=== PATIENT | female | born 2000 | race Caucasian/White ===

== ENCOUNTER 2021-05-01 21:57 | Emergency (ER) | payer OTHER, SELFPAY ==
[2021-05-01 22:04] VITALS: BP 146/83; PULSE 90; RESP 18; TEMP 36.6; O2SAT 99
[2021-05-01 22:18] LABS: Add Urine Microscopic? YES; Appearance Urine Cloudy (Clear); Bilirubin Urine Negative (Negative); Blood Urine Negative (Negative); Color Urine Yellow (Yellow); Glucose Urine UA Negative (Negative); Ketones Urine Negative (Negative); Leukocyte Esterase Ur 1+ LEU/UL (Negative); Mucus Urine Few /lpf; Nitrate Urine Negative (Negative); Protein Urine Negative (Negative); Specific Grav Ur 1.024 (1.001-1.035); Squamous Epithelial Cell Urine Many /hpf (Few); Urobilinogen Urine Negative mg/dL (<2.0); WBC Urine 16-20 /hpf
--- NOTE | 2021-05-01 22:26 | ED.ABDPAIN ---
HPI - Abdominal Pain General Chief Complaint: Abdominal Pain Stated Complaint: N/V, abd pain Time Seen by Provider: 05/01/21 22:26 Source: patient Mode of arrival: ambulatory Limitations: no limitations History of Present Illness HPI narrative: Patient is a 20-year-old female complaining of nausea vomiting, diarrhea accompanied by upper abdominal pain that started night after eating dinner. Patient describes her vomitus as nonbilious nonbloody. Diarrhea is described as loose watery. Patient states that her upper abdominal pain is a 3 out of 10, burning, non-radiating. Related Data Home Medications Medication Instructions Recorded Confirmed albuterol sulfate INHALATION 05/01/21 budesonide-formoterol [Symbicort] INHALATION 05/01/21 drospirenone-ethinyl estradiol tablet 05/01/21 [Vestura (28)] metformin mg PO 05/01/21 spironolactone 05/01/21 Allergies Allergy/AdvReac Type Severity Reaction Status Date / Time hydrocodone Allergy Intermediate itching Verified 05/01/21 22:18 adhesive Allergy Unknown ITCHING Verified 05/01/21 22:18 latex Allergy Hives Verified 05/01/21 22:18 Review of Systems Review of Systems: All systems reviewed & are unremarkable except as noted in HPI and below Constitutional: Constitutional: Denies body ache(s), Denies chills, Denies excessive sweating, Denies fatigue, Denies fever(s), Denies headache(s), Denies lethargy, Denies malaise, Denies weakness and Denies weight loss Eyes: Eyes: Denies blurry vision, Denies change in vision and Denies loss of vision ENT: Denies dizziness, Denies ear discharge, Denies headache(s), Denies lip swelling, Denies epistaxis, Denies nasal congestion, Denies neck pain, Denies throat swelling and Denies tongue swelling Cardiovascular: Cardiovascular: Denies chest pain, Denies chest pain at rest, Denies chest pain with activity, Denies diaphoresis, Denies rapid heart rate, Denies edema, Denies irregular heart rhythm, Denies lightheadedness, Denies palpitations, Denies dyspnea and Denies dyspnea on exertion Respiratory: Respiratory: Denies chest congestion, Denies cough, Denies hemoptysis, Denies dyspnea and Denies dyspnea on exertion Gastrointestinal: Gastrointestinal: Denies melena, Denies hematochezia, Denies diarrhea and Denies hematemesis Musculoskeletal: Musculoskeletal: Denies abnormal gait, Denies deformity, Denies joint swelling, Denies limited range of motion, Denies neck pain and Denies numbness Neurologic: Denies Abnormal speech present, Denies abnormal gait, Denies confusion, Denies dizziness, Denies headache(s), Denies focal weakness, Denies loss of vision, Denies numbness, Denies Other visual disturbances, Denies Sensory deficit (Neuro) and Denies weakness Psychiatric: Psychiatric: Denies confusion, Denies depression, Denies auditory hallucinations, Denies homicidal ideation and Denies suicidal ideation Endocrine: Endocrine: Denies cold intolerance, Denies excessive sweating, Denies fatigue, Denies heat intolerance and Denies palpitations Hematologic/Lymphatic: Hematologic/Lymphatic: Denies easy bleeding and Denies easy bruising Allergic/Immunologic: Allergic/Immunologic: Denies lip swelling, Denies throat swelling and Denies tongue swelling PMFSH Comments Past medical history: Asthma Family history: Diabetes Social history: Non-smoker no EtOH or drug use Exam Const: General: cooperative, healthy appearing, comfortable, no acute distress, well developed, alert and awake; No confusion Nutritional Appearance: obese Orientation/consciousness: oriented to person, oriented to place, oriented to time, patient oriented x3 and No confusion Limitations: no limitations HENMT: Head: normal to inspection, normocephalic and atraumatic Ears: hearing grossly normal bilaterally, TM normal on the right and TM normal on the left General nose exam: Normal external nose present, Normal nares present and No nasal discharge present Face and sinus: normal facial
[2021-05-01 22:27] LABS: Basophils Percent Auto 0.4 % (0.2-1.2); Eosinophils Absolute Auto 0.2 K/mm3 (0-0.3); Eosinophils Percent Auto 1.8 % (0-4.4); Hematocrit 41.6 % (37.0-47.0); Hemoglobin 13.7 g/dL (12.0-15.0); Immature Granulocyte Absolute 0.02 K/mm3 (0.00-0.031); Immature Granulocyte Percent A 0.2 % (0-0.5); Lymphocytes Absolute Auto 2.75 K/mm3 (0.9-3.2); Lymphocytes Percent Auto 29.2 % (18.3-44.2); Mean Corpuscular HGB Conc 32.9 g/dl (32-36); Mean Corpuscular Hemoglobin 28.7 pg (26-34); Mean Platelet Volume 10.3 fl (7.4-10.4); Monocytes Absolute Auto 0.7 K/mm3 (0.1-0.6); Monocytes Percent Auto 7.9 % (2.6-8.5); Neutrophils Absolute Auto 5.7 K/mm3 (1.3-6.7); Neutrophils Percent Auto 60.5 % (45.5-73.1); Platelet Count Result 268 k/mm3 (150-375); Red Blood Count 4.78 M/mm3 (4.2-5.4); Red Cell Distribution Width 14.1 % (11.5-14.5); White Blood Count 9.4 K/mm3 (4.5-10.0)
[2021-05-01] MEDS: ONDANSETRON INJ 4 MG/2 ML VIAL IV PUSH (22:36)
[2021-05-01] MEDS: SODIUM CHLORIDE 0.9% IV 1,000 ML 999 ML IV CONT (22:36)
[2021-05-01 22:40] LABS: Alanine Aminotransferase 24 U/L (4-35); Albumin Level 4.5 g/dL (3.5-5.1); Alkaline Phosphatase 68 U/L (38-126); Anion Gap 9 mmol/L (8-16); Aspartate Amino Transferase 21 U/L (14-36); Bilirubin,Total 0.5 mg/dL (0.2-1.3); Blood Urea Nitrogen 10 mg/dL (7-17); Calcium 9.3 mg/dL (8.4-10.2); Carbon Dioxide 25 mmol/L (22-30); Chloride 106 mmol/L (98-107); Estimated CRCL calculation 148 ml/min; Estimated Glomerular Filt Rate > 60; Glucose 112 mg/dL (65-110); Lipase 219 U/L (23-300); Sodium 140 mmol/L (137-145)
[2021-05-01 23:08] VITALS: BP 133/82; PULSE 69; RESP 18; O2SAT 100
== END 2021-05-01 23:33 | disposition home or self-care (01) ==
LOC: ANHED 22:52
PROVIDERS: Emergency Provider Emergency Medicine; PCP Family Medicine
DX: A05.9 Bacterial foodborne intoxication, unspecified (principal); J45.909 Unspecified asthma, uncomplicated; Z79.84 Long term (current) use of oral hypoglycemic drugs
CPT/HCPCS: 36415; 80053; 81001; 81025; 83690; 85025; 87086; 96361; 96374; 99284; J2405; J7030

== ENCOUNTER 2022-02-15 09:11 | Emergency (ER) | payer OTHER, SELFPAY ==
--- NOTE | ~2022-02-15 | XR_ITS ---
EXAMINATION: XR finger 2nd RT min 2V DATE: 02/15/2022 09:50 INDICATION: Right hand second digit laceration. TECHNIQUE: 3 views of right hand second digit were obtained. COMPARISON: None. FINDINGS: Bone alignment is normal. No fracture. Joint spaces are well maintained. IMPRESSION: 1. No fracture or radiopaque foreign body. Reviewed, dictated and finalized at location A.
[2022-02-15 09:19] VITALS: BP 164/90; PULSE 88; RESP 14; TEMP 36.6; O2SAT 100
--- NOTE | 2022-02-15 09:39 | ED.WOUNDLAC ---
HPI - Wound/Laceration General Chief Complaint: Wound/Laceration <Ivone Garcia PA-C - Last Filed: 02/15/22 17:53> Stated Complaint: finger laceration <YANI Chavez Last Filed: 02/15/22 17:53> Time Seen by Provider: 02/15/22 09:19 <Ivone Garcia PA-C - Last Filed: 02/15/22 17:53> History of Present Illness HPI narrative: Patient is a 21-year-old female here for evaluation of a laceration sustained to her right second digit about 20 minutes prior to arrival. Patient states that she opened up a new pizza cutter while she was at work, and she accidentally sliced it on her finger. She states that the bleeding was uncontrolled so she decided to come to the ED. Bleeding controlled upon arrival. Denies any numbness or tingling in her finger. She is forage of motion in her hand without pain. She is unsure of her last tetanus shot. She is right-handed. <Ivone Garcia PA-C - Last Filed: 02/15/22 17:53> Related Data Home Medications: Home Medications Medication Instructions Recorded Confirmed albuterol sulfate 90 mcg/actuation inhalation 05/01/21 aerosol inhaler budesonide-formoterol HFA 160 inhalation 05/01/21 mcg-4.5 mcg/actuation aerosol inhaler (Symbicort) drospirenone 3 mg-ethinyl tablet 05/01/21 estradiol 0.02 mg tablet (Vestura (28)) metformin 500 mg tablet,extended mg PO 05/01/21 release 24 hr spironolactone 50 mg tablet 05/01/21 <YANI Chavez Last Filed: 02/15/22 17:53> Allergies/Adverse Reactions: Allergies Allergy/AdvReac Type Severity Reaction Status Date / Time hydrocodone Allergy Intermediate itching Verified 05/01/21 22:18 adhesive Allergy Unknown ITCHING Verified 05/01/21 22:18 latex Allergy Hives Verified 05/01/21 22:18 <YANI Chavez Last Filed: 02/15/22 17:53> Review of Systems Review of Systems: Gen.: Denies fevers or chills Eyes: Denies eye pain or visual change ENT: Denies congestion Respiratory: Denies shortness of breath or cough CV: Denies chest pain or palpitations GI: Denies abdominal pain nausea, emesis or diarrhea denies burning, urgency, frequency or hematuria Musculoskeletal: Denies back pain or muscle pain Neuro: Denies numbness, tingling, weakness or focal weakness Skin: Reports laceration to right finger. Except as documented, all other systems reviewed and negative <Ivone Garcia PA-C - Last Filed: 02/15/22 17:53> Exam Narrative: Gen: Alert, oriented, no acute distress Eyes: EOMI, no icterus Pulm: Respirations even and unlabored, symmetric thorax expansion, no audible stridor or visible cyanosis CV: Brisk capillary refill. GI: No distension, no voluntary/involuntary guarding Neuro: AOx4, moves all extremities without apparent difficulty or weakness, follows commands MSK: Full range of motion in fingers and hand. Skin: Patient has a 0.5 cm linear skin-flap laceration to the palmar aspect of her right second digit just proximal to the DIP with no active bleeding. Psych: Normal mood/affect, insight/judgement good, adequate fund of knowledge, recent/remote memory intact <Ivone Garcia PA-C - Last Filed: 02/15/22 17:53> Course DIRECTOR OF PRIMARY CARE/PA Physician Supervision For this patient encounter, I reviewed the DIRECTOR OF PRIMARY CARE or PA documentation, treatment plan, and medical decision making <Philippe Bey MD - Last Filed: 02/15/22 19:19> Vital Signs Vital signs: Vital Signs Temperature 97.8 F 02/15/22 09:19 Pulse Rate 88 02/15/22 09:19 Respiratory Rate 14 02/15/22 09:19 Blood Pressure 164/90 H 02/15/22 09:19 Pulse Oximetry 100 02/15/22 09:19 Oxygen Delivery Room Air 02/15/22 09:19 Temperature 97.8 F 02/15/22 09:19 Pulse Rate 86 02/15/22 10:29 Respiratory Rate 18 02/15/22 10:29 Blood Pressure 158/94 H 02/15/22 10:29 Pulse Oximetry 98 02/15/22 10:29 Oxygen Delivery Room Air 02/15/22 09:19
[2022-02-15] MEDS: TETANUS,DIPHTHERIA,AC PERTUSSIS ADULT (0.5 ML) BOOSTRIX IM (10:02)
[2022-02-15 10:29] VITALS: BP 158/94; PULSE 86; RESP 18; O2SAT 98
== END 2022-02-15 10:30 | disposition home or self-care (01) ==
PROVIDERS: Emergency Provider Emergency Medicine; PCP Family Medicine
DX: S61.211A Laceration without foreign body of left index finger without damage to nail, initial encounter (principal); W27.4XXA Contact with kitchen utensil, initial encounter; Z23 Encounter for immunization
CPT/HCPCS: 73140; 90471; 90715; 99283

== ENCOUNTER 2022-02-21 13:30 | Emergency (ER) | payer OTHER, SELFPAY ==
[2022-02-21 13:44] VITALS: BP 151/85; PULSE 100; RESP 18; TEMP 36.9; O2SAT 100
[2022-02-21 14:16] LABS: Add Urine Microscopic? NO; Appearance Urine Clear (Clear); Bilirubin Urine Negative (Negative); Blood Urine Negative (Negative); Color Urine Straw (Yellow); Glucose Urine UA Negative (Negative); Ketones Urine Negative (Negative); Leukocyte Esterase Ur Negative LEU/UL (Negative); Nitrate Urine Negative (Negative); Protein Urine Negative (Negative); Urobilinogen Urine Negative mg/dL (<2.0)
[2022-02-21 14:28] LABS: Specific Grav Ur 1.004 (1.001-1.035)
--- NOTE | 2022-02-21 14:45 | ED.FEMALEGU ---
HPI - Female Genitourinary General Chief complaint: Urogenital-Female Stated complaint: UTI? Time Seen by Provider: 02/21/22 13:49 History of Present Illness HPI Narrative: 21-year-old female presents the emergency room with gradual onset of dysuria. Patient states that symptoms been present for 2 days. Denies urgency or frequency. No known concerns of STDs. Reports chronic low back pain and history of IBS. Denies vaginal discharge Related Data Home Medications Medication Instructions Recorded Confirmed albuterol sulfate 90 mcg/actuation inhalation 05/01/21 aerosol inhaler budesonide-formoterol HFA 160 inhalation 05/01/21 mcg-4.5 mcg/actuation aerosol inhaler (Symbicort) drospirenone 3 mg-ethinyl tablet 05/01/21 estradiol 0.02 mg tablet (Vestura (28)) metformin 500 mg tablet,extended mg PO 05/01/21 release 24 hr spironolactone 50 mg tablet 05/01/21 Allergies Allergy/AdvReac Type Severity Reaction Status Date / Time hydrocodone Allergy Intermediate itching Verified 02/21/22 13:44 adhesive Allergy Unknown ITCHING Verified 02/21/22 13:44 latex Allergy Hives Verified 02/21/22 13:44 Review of Systems Review of Systems: CONSTITUTIONAL: Denies fever, chills, or sweats. EYES: Denies visual changes, redness, or discharge. ENT: Denies rhinorrhea, congestion, sore throat, or otalgia. CARDIOVASCULAR: Denies chest pain, palpitations, or edema. RESPIRATORY: Denies cough or dyspnea. GASTROINTESTINAL: Denies abdominal pain, nausea, vomiting, or diarrhea. GENITOURINARY: Reports dysuria SKIN: Denies rash or itching. MUSCULOSKELETAL: Denies back pain, joint pain, or myalgia. NEUROLOGIC: Denies headache, numbness, dizziness, or weakness. PSYCHIATRIC: Denies anxiety or depression. Exam Narrative: GENERAL: Well-appearing, well-nourished, no physical limitations, and in no acute distress. HEAD: Normocephalic, atraumatic. EYES: Conjunctivae normal, PERRLA and EOMI. CHEST: Clear to auscultation. No respiratory distress. No wheezes rales or rhonchi. No tenderness. HEART: Regular rate and rhythm. No murmur heard. Normal peripheral pulses. ABDOMEN: Soft, nontender, nondistended, normal active bowel sounds. BACK: No CVA tenderness EXTREMITIES: Normal range of motion. No edema. No clubbing or cyanosis SKIN: Warm, dry, no rash. No noted wounds NEURO: No focal deficits. Alert and oriented x3. MAEW. CN's II-XI intact bilaterally, normal gait PSYCH: Cooperative. Normal mood and affect. Course Vital Signs Vital signs: Vital Signs Temperature 36.9 C 02/21/22 13:44 Pulse Rate 100 02/21/22 13:44 Respiratory Rate 18 02/21/22 13:44 Blood Pressure 151/85 H 02/21/22 13:44 Pulse Oximetry 100 02/21/22 13:44 Temperature 36.9 C 02/21/22 13:44 Pulse Rate 100 02/21/22 13:44 Respiratory Rate 18 02/21/22 13:44 Blood Pressure 151/85 H 02/21/22 13:44 Pulse Oximetry 100 02/21/22 13:44 MDM - Female Genitourinary Lab Data Labs: Lab Results 02/21/22 Range/Units 13:55 Urine Color Straw (Yellow) Urine Appearance Clear (Clear) Urine pH 6.0 (5.0-9.0) Ur Specific [place] 1.004 (1.001-1.035) Urine Protein Negative (Negative) mg/dL Urine Glucose (UA) Negative (Negative) mg/dL Urine Ketones Negative (Negative) mg/dL Ur Blood (Man) Negative (Negative) Urine Nitrate Negative (Negative) Urine Bilirubin Negative (Negative) Urine Urobilinogen Negative (<2.0) mg/dL Leukocyte Esterase Rfl Negative (Negative) JOSSELINE/UL UCG Bedside Result Negative Reference Range: Negative Urine Characteristics Cloudy Discharge Plan Discharge Clinical Impression: Dysuria Patient Disposition: Home, Self-Care Condition: Stable Instructions: Antibiotic Form, Dysuria (ED) Prescriptions: No Action albuterol sulfate 90 mcg/actuati
== END 2022-02-21 14:57 | disposition home or self-care (01) ==
PROVIDERS: Emergency Medicine; Emergency Provider Nurse Practitioner Family; PCP Family Medicine
DX: R30.0 Dysuria (principal); Z79.51 Long term (current) use of inhaled steroids; Z79.84 Long term (current) use of oral hypoglycemic drugs
CPT/HCPCS: 81003; 81025; 99283

== ENCOUNTER 2022-06-13 08:26 | Emergency (ER) | payer OTHER, SELFPAY ==
--- NOTE | ~2022-06-13 | XR_ITS ---
EXAMINATION: XR hand RT min 3V DATE: 06/13/2022 08:51 INDICATION: Right hand pain in region of the second metacarpal TECHNIQUE: Posteroanterior, oblique and lateral views of the right hand were obtained. COMPARISON: None. FINDINGS: Alignment is normal. No fracture. Joint spaces are normal. Soft tissue swelling dorsal to the heads o f the second and third metacarpals. IMPRESSION: 1. No osseous abnormality. Reviewed, dictated and finalized at location A. R PUMPER IMPRESSION: 1. No osseous abnormality.
[2022-06-13 08:31] VITALS: BP 137/105; PULSE 103; RESP 14; TEMP 36.4; O2SAT 100
[2022-06-13] MEDS: ACETAMINOPHEN 500 MG TABLET 1000 MG PO (08:43)
--- NOTE | 2022-06-13 08:44 | ED.GENADULT ---
HPI - General Adult General Chief complaint: Extremity Injury, Upper Stated complaint: R HAND/WRIST PAIN Time Seen by Provider: 06/13/22 08:36 History of Present Illness HPI narrative: this is a 19-year-old female presenting ED with a right hand injury. Patient was at her place of work when a case of energy drinks fell off the top shelf and pushed her hand backwards into the shelf behind her. She said that she did not think much of it but when she worked today her wrist was hurting even worse. Her pain is primarily located over the 2nd metacarpal the base of her finger. She denies numbness tingling or weakness. Related Data Home Medications Medication Instructions Recorded Confirmed albuterol sulfate 90 mcg/actuation inhalation 05/01/21 aerosol inhaler budesonide-formoterol HFA 160 inhalation 05/01/21 mcg-4.5 mcg/actuation aerosol inhaler (Symbicort) drospirenone 3 mg-ethinyl tablet 05/01/21 estradiol 0.02 mg tablet (Vestura (28)) metformin 500 mg tablet,extended mg PO 05/01/21 release 24 hr spironolactone 50 mg tablet 05/01/21 Allergies Allergy/AdvReac Type Severity Reaction Status Date / Time hydrocodone Allergy Intermediate itching Verified 06/13/22 08:51 adhesive Allergy Unknown ITCHING Verified 06/13/22 08:51 latex Allergy Hives Verified 06/13/22 08:51 Review of Systems Review of Systems: CONSTITUTIONAL: Denies night sweats. EYES: No eye pain ENT: Denies rhinorrhea CARDIOVASCULAR: Denies palpitations RESPIRATORY: Denies hemoptysis GASTROINTESTINAL: Denies hematemesis GENITOURINARY: Denies hematuria. SKIN: Denies rash MUSCULOSKELETAL: Denies myalgia. NEUROLOGIC: Denies weakness. PSYCHIATRIC: Denies delusions PMFSH Past Medical History Medical History Anemia Endometriosis Social History Social History Social History: Denies use of alcohol tobacco or drugs. Exam Narrative: APPEARANCE: No apparent distress. Head: atraumatic. EYES: EOMI, NOSE: Atraumatic NECK: Trachea midline RESPIRATORY: No increased rate of breathing CARDIOVASCULAR: RRR, ABDOMINAL: Non-distended MUSCULOSKELETAl: Focal exam of the right extremity revealed mild bruising over the base of the 2nd finger on the dorsal aspect of the hand. No anatomic snuffbox tenderness. Motor function of radial ulnar and median nerves intact. Extension and flexion intact of all digits. Cap refills less than 2 seconds. Note pain or tenderness to the elbow or forearm. NEURO: Alert. Moving 4/4 extremities SKIN:: Warm, dry. Normal color PSYCHIATRIC: Normal affect Course Vital Signs Vital signs: Vital Signs Temperature 97.5 F L 06/13/22 08:31 Pulse Rate 103 H 06/13/22 08:31 Respiratory Rate 14 06/13/22 08:31 Blood Pressure 137/105 H 06/13/22 08:31 Pulse Oximetry 100 06/13/22 08:31 Oxygen Delivery Room Air 06/13/22 08:31 Temperature 97.5 F L 06/13/22 08:31 Pulse Rate 103 H 06/13/22 08:31 Respiratory Rate 14 06/13/22 08:31 Blood Pressure 137/105 H 06/13/22 08:31 Pulse Oximetry 100 06/13/22 08:31 Oxygen Delivery Room Air 06/13/22 08:31 Medical Decision Making MDM Narrative Medical decision making narrative: A 21-year-old female presenting with right hand pain. X-rays were ordered which were negative for fracture. Patient will be instructed to follow-up with her primary care physician. She can take Motrin and Tylenol for pain control. Vital Signs Vital Signs: Vital Signs Temperature 97.5 F L 06/13/22 08:31 Pulse Rate 103 H 06/13/22 08:31 Respiratory Rate 14 06/13/22 08:31 Blood Pressure 137/105 H 06/13/22 08:31 Pulse Oximetry 100 06/13/22 08:31 Oxygen Delivery Room Air 06/13/22 08:31 Temperature 97.5 F L 06/13/22 08:31 Pulse Rate 103 H 06/13/22 08:31 Respiratory Rate 14 06/13/22 08:31 Blood Pressure 137/105 H 06/13/22 0
[2022-06-13] MEDS: IBUPROFEN 400 MG TABLET 800 MG PO (08:50)
[2022-06-13 09:19] VITALS: BP 139/89; PULSE 94; RESP 15; O2SAT 99
== END 2022-06-13 09:20 | disposition home or self-care (01) ==
PROVIDERS: Emergency Provider Emergency Medicine; PCP Family Medicine
DX: S69.91XA Unspecified injury of right wrist, hand and finger(s), initial encounter (principal); Z86.2 Personal history of diseases of the blood and blood-forming organs and certain disorders involving the immune mechanism; N80.9 Endometriosis, unspecified; W20.8XXA Other cause of strike by thrown, projected or falling object, initial encounter; Z79.84 Long term (current) use of oral hypoglycemic drugs
CPT/HCPCS: 73130; 99283; A9270

== ENCOUNTER 2022-07-15 08:42 | Day surgery (SDC) | payer OTHER, SELFPAY ==
[2022-07-15] VITALS (16 sets, daily range): BP systolic 120–151; BP diastolic 71–105; PULSE 69–98; RESP 14–24; TEMP 36.4–36.7; O2SAT 93–100
--- NOTE | ~2022-07-15 | CT_ITS ---
EXAMINATION:CT diagnostic chest w con DATE: 07/15/2022 09:58 INDICATION: Chest wall abscess. TECHNIQUE: Computed tomography (CT) of the chest was performed with 75 mL Omnipaque 350 intravenous c ontrast. Automated exposure control and iterative reconstruction technique were employed. The dose-le ngth product (DLP) was 861.45 mGy-cm. COMPARISON: None. FINDINGS: There is no pneumonia or pleural effusion. The heart size is normal. No pericardial effusio n. In the anterior chest wall at the midline, there is a 1.7 x 0.7 cm subcutaneous rim-enhancing mass with adjacent fat stranding. The bones are unremarkable. IMPRESSION: 1. 1.7 x 0.7 cm subcutaneous mass and fat stranding in anterior chest wall at the midline, consistent with cellulitis and abscess/phlegmon. It is not clear if this finding would be drainable. Reviewed, dictated and finalized at location A. ATIONS PROCESSOR IMPRESSION: 1. 1.7 x 0.7 cm subcutaneous mass and fat stranding in anterior chest wall at t he midline, consistent with cellulitis and abscess/phlegmon. It is not clear if this finding would be drainable.
[2022-07-15 09:30] LABS: Basophils Absolute Auto 0.1 K/mm3 (0.0-0.1); Basophils Percent Auto 0.5 % (0.2-1.2); Eosinophils Absolute Auto 0.1 K/mm3 (0-0.3); Hematocrit 43.4 % (37.0-47.0); Hemoglobin 13.8 g/dL (12.0-15.0); Immature Granulocyte Absolute 0.03 K/mm3 (0.00-0.031); Immature Granulocyte Percent A 0.3 % (0-0.5); Lymphocytes Absolute Auto 2.32 K/mm3 (0.9-3.2); Lymphocytes Percent Auto 21.6 % (18.3-44.2); Mean Corpuscular HGB Conc 31.8 g/dl (32-36); Mean Corpuscular Hemoglobin 27.8 pg (26-34); Mean Corpuscular Volume 87.5 fl (80-100); Mean Platelet Volume 10.3 fl (7.4-10.4); Monocytes Absolute Auto 0.9 K/mm3 (0.1-0.6); Monocytes Percent Auto 8.2 % (2.6-8.5); Neutrophils Absolute Auto 7.4 K/mm3 (1.3-6.7); Neutrophils Percent Auto 68.4 % (45.5-73.1); Platelet Count Result 298 k/mm3 (150-375); Red Blood Count 4.96 M/mm3 (4.2-5.4); Red Cell Distribution Width 13.9 % (11.5-14.5); White Blood Count 10.8 K/mm3 (4.5-10.0)
[2022-07-15 09:40] LABS: Alanine Aminotransferase 27 U/L (6-35); Albumin Level 4.1 g/dL (3.5-5.1); Alkaline Phosphatase 74 U/L (38-126); Anion Gap 5 mmol/L (8-16); Aspartate Amino Transferase 24 U/L (14-36); Bilirubin,Total 0.5 mg/dL (0.2-1.3); Blood Urea Nitrogen 13 mg/dL (7-17); Calcium 8.4 mg/dL (8.4-10.2); Carbon Dioxide 30 mmol/L (22-30); Chloride 104 mmol/L (98-107); Estimated CRCL calculation 181 ml/min; Estimated Glomerular Filt Rate > 60; Glucose 95 mg/dL (65-110); Sodium 139 mmol/L (137-145)
[2022-07-15] MEDS: ACETAMINOPHEN 500 MG TABLET 1000 MG PO (11:16)
--- NOTE | 2022-07-15 11:39 | ED.SKABFB ---
HPI - Skin/Abscess/Foreign Bdy General Chief complaint: Skin/Abscess/Foreign Body Stated complaint: mass on sternum Time Seen by Provider: 07/15/22 08:45 History of Present Illness HPI narrative: Patient is a 22-year-old female who presents ER with concern for abscess to her chest wall. Developing over the last week. Very tender to touch. Has history of a fatty mass that was having necrosis that was surgically excised 2 years ago. She has never had abscess related to it. Denies fevers or chills or sweats. Pain is worse with direct palpation and movement. Only improved by sitting still. Related Data Home Medications Medication Instructions Recorded Confirmed albuterol sulfate 90 mcg/actuation inhalation 05/01/21 aerosol inhaler budesonide-formoterol HFA 160 inhalation 05/01/21 mcg-4.5 mcg/actuation aerosol inhaler (Symbicort) drospirenone 3 mg-ethinyl tablet 05/01/21 estradiol 0.02 mg tablet (Vestura (28)) metformin 500 mg tablet,extended mg PO 05/01/21 release 24 hr spironolactone 50 mg tablet 05/01/21 Allergies Allergy/AdvReac Type Severity Reaction Status Date / Time hydrocodone Allergy Intermediate itching Verified 07/15/22 08:54 adhesive Allergy Unknown ITCHING Verified 07/15/22 08:54 latex Allergy Hives Verified 07/15/22 08:54 Review of Systems Review of Systems: All systems reviewed & are unremarkable except as noted in HPI and below Constitutional: Constitutional: Denies chills and Denies fever(s) ENT: Denies nasal congestion and Denies sore throat Cardiovascular: Cardiovascular: Denies chest pain, Denies rapid heart rate and Denies radiating jaw, neck or arm pain Respiratory: Respiratory: Denies cough and Denies dyspnea Integumentary/Breasts: Skin/Breast: Denies erythema and Denies rash Comments: induration and pain to chest wall PMFSH Past Medical History Medical History (Updated 07/15/22 @ 11:45 by Elvin Mesa MD) Anemia Endometriosis Surgical History Surgical History (Updated 07/15/22 @ 11:45 by Elvin Mesa MD) Hx of excision of mass Social History Social History Social History: Denies use of alcohol tobacco or drugs. Exam Narrative: GENERAL: Well-appearing, obese, and in no acute distress. HEAD: Normocephalic, atraumatic. ENT: Mucous membranes moist. CHEST: Clear to auscultation. No respiratory distress. HEART: Regular rate and rhythm. Normal peripheral pulses. ABDOMEN: Soft, nontender, nondistended. EXTREMITIES: Normal range of motion. No edema. SKIN: Warm, dry, no rash. Tenderness and induration of the anterior chest wall over the sternum extending into the medial portion of the right breast. No erythema or drainage. NEURO: Alert and oriented x3. PSYCH: Normal mood and affect. Course Course Emergency Course: General surgery to bedside. Plan is to take patient to the OR for abscess drainage. Vital Signs Vital signs: Vital Signs Temperature 97.6 F 07/15/22 08:48 Pulse Rate 90 07/15/22 08:48 Respiratory Rate 18 07/15/22 08:48 Blood Pressure 146/78 H 07/15/22 08:48 Pulse Oximetry 99 07/15/22 08:48 Oxygen Delivery Room Air 07/15/22 08:48 Temperature 98 F 07/15/22 10:52 Pulse Rate 80 07/15/22 10:52 Respiratory Rate 15 07/15/22 10:52 Blood Pressure 124/78 07/15/22 10:52 Pulse Oximetry 98 07/15/22 10:52 Oxygen Delivery Room Air 07/15/22 08:48 MDM - Skin/Abscess/Foreign Bdy Lab Data 07/15/22 09:24 07/15/22 09:24 Labs: Lab Results 07/15/22 07/15/22 Range/Units 09:24 09:24 WBC 10.8 H (4.5-10.0) K/mm3 RBC 4.96 (4.2-5.4) M/mm3 Hgb 13.8 (12.0-15.0) g/dL Hct 43.4 (37.0-47.0) % MCV 87.5 (80-100) fl MCH 27.8 (26-34) pg MCHC 31.8 L (32-36) g/dl RDW 13.9 (11.5-14.5) % Plt Count 298 (150-375) k/mm3 MPV 10.3 (7.4-10.4) fl Immature Gran % (Auto) 0.3 (
--- NOTE | 2022-07-15 12:15 | PM.IMHP ---
H&P: HPI History of Present Illness Date/Time: 07/15/22 12:15 Chief Complaint: abscess Narrative: The pt is a 22 y/o F presenting c worsening abscess on sternum, R breast over last wk. Pt reports area has enlarged and is very tender. Pt reports subjective f/c at home. Pt reports she had similar episode about a yr ago, drained and excised at OSH. Review of Systems Constitutional: Constitutional: Reports as per HPI, Denies anorexia, Reports chills, Reports fatigue, Reports fever(s), Reports lethargy, Denies malaise, Denies poor appetite, Reports weakness, Denies weight gain and Denies weight loss Eyes: Eyes: Reports no additional eye complaints ENT: Reports system reviewed and no additional complaints, except as documented Cardiovascular: Cardiovascular: Reports no additional cardiovascular complaints Respiratory: Respiratory: Reports no additional respiratory complaints Gastrointestinal: Gastrointestinal: Reports no additional gastrointestinal complaints Genitourinary: Genitourinary: Reports no additional female genitourinary complaints Musculoskeletal: Musculoskeletal: Reports no additional musculoskeletal complaints Integumentary/Breasts: Skin/Breast: Reports as per HPI Neurologic: Reports system reviewed and no additional complaints, except as documented Psychiatric: Psychiatric: Reports no additional psychiatric complaints Endocrine: Endocrine: Reports no additional endocrine complaints Hematologic/Lymphatic: Hematologic/Lymphatic: Reports no additional hematologic/lymphatic complaints Allergic/Immunologic: Allergic/Immunologic: Reports no additional allergic/immunologic complaints PMFSH Past Medical History Medical History (Updated 07/15/22 @ 11:45 by Elvin Mesa MD) Anemia Endometriosis Surgical History Surgical History (Updated 07/15/22 @ 11:45 by Elvin Mesa MD) Hx of excision of mass Social History Social History Social History: Denies use of alcohol tobacco or drugs. Meds Home Medications and Allergies Home Medications Medication Instructions Recorded Confirmed Type albuterol sulfate 90 mcg/actuation inhalation 05/01/21 History aerosol inhaler budesonide-formoterol HFA 160 inhalation 05/01/21 History mcg-4.5 mcg/actuation aerosol inhaler (Symbicort) drospirenone 3 mg-ethinyl tablet 05/01/21 History estradiol 0.02 mg tablet (Vestura (28)) metformin 500 mg tablet,extended mg PO 05/01/21 History release 24 hr ondansetron HCl 4 mg tablet 4 mg PO Q8H PRN nausea and 05/01/21 Rx (Zofran) vomiting #10 tabs spironolactone 50 mg tablet 05/01/21 History Allergies Allergy/AdvReac Type Severity Reaction Status Date / Time hydrocodone Allergy Intermediate itching Verified 07/15/22 08:54 adhesive Allergy Unknown ITCHING Verified 07/15/22 08:54 latex Allergy Hives Verified 07/15/22 08:54 Vital Signs Vital Signs - 24 hr 07/15/22 08:48 07/15/22 10:52 Temperature 36.4 C 36.6 C Pulse Rate 90 80 Respiratory Rate 18 15 Blood Pressure 146/78 H 124/78 Pulse Oximetry 99 98 Oxygen Delivery Room Air Exam Const: General: cooperative, acute distress mild and uncomfortable Nutritional Appearance: obese Orientation/consciousness: patient oriented x3 HENMT: Head: normal to inspection, normocephalic and atraumatic Eyes: General: appearance normal, both eyes and all related structures Neck: Neck: normal visual inspection, full ROM and no lymphadenopathy Chest: Other: sternal abscess c well healed incision, extends into lateral R breast, indurated, fluctuant, very TTP, measuring approximately 5x4 cm, mild surrounding cellulitis Resp: Auscultation: clear to auscultation bilaterally Cardio: Rate: regular rate Rhythm: regular rhythm GI: Inspection: normal to inspection and non-distended GI Palp: No abdominal tenderness, Yes Soft to palpation, No Tenderness to palpation
--- NOTE | 2022-07-15 12:21 | WPDHPUPDATE1 ---
History and Physical Update Update Date/Time: 07/15/22 12:21 History and Physical has been reviewed, including an updated exam of the patient. There are NO changes in the patient's condition. Risks, benefits, and alternatives have been discussed and questions answered. Patient agrees to proceed with procedure.
[2022-07-15] MEDS: LACTATED RINGERS 1,000 ML 30 ML IV CONT ×2 (13:00→15:15)
--- NOTE | 2022-07-15 13:23 | WPDANESEPPF ---
Anes - Initial Pre Proc Eval Procedure: Operation Date: 07/15/22 14:30 Proposed Procedures p Complex Incision And Drainage Right Breast Abscess - Aixa Peres MD Date/Time: 07/15/22 13:23 Surgeon: Blas Garvin ([place]), Pre Op Diagnosis: mass on sternum Patient Data Age: 22 Gender: F Height: 1.73 m Weight: 136 kg Last Vital Signs Temp 36.6 C 07/15/22 10:52 Pulse 69 07/15/22 12:51 Resp 18 07/15/22 12:51 BP 124/78 07/15/22 12:51 Pulse Ox 98 07/15/22 12:51 O2 Del Method Room Air 07/15/22 08:48 Allergies Allergy/AdvReac Type Severity Reaction Status Date / Time hydrocodone Allergy Intermediate itching Verified 07/15/22 08:54 adhesive Allergy Unknown ITCHING Verified 07/15/22 08:54 latex Allergy Hives Verified 07/15/22 08:54 Home Medications Medication Instructions Recorded Confirmed Type albuterol sulfate 90 mcg/actuation inhalation 05/01/21 History aerosol inhaler budesonide-formoterol HFA 160 inhalation 05/01/21 History mcg-4.5 mcg/actuation aerosol inhaler (Symbicort) drospirenone 3 mg-ethinyl tablet 05/01/21 History estradiol 0.02 mg tablet (Vestura (28)) metformin 500 mg tablet,extended mg PO 05/01/21 History release 24 hr ondansetron HCl 4 mg tablet 4 mg PO Q8H PRN nausea and 05/01/21 Rx (Zofran) vomiting #10 tabs spironolactone 50 mg tablet 05/01/21 History Laboratory Tests 07/15/22 07/15/22 09:24 09:24 WBC 10.8 K/mm3 H K/mm3 (4.5-10.0) RBC 4.96 M/mm3 M/mm3 (4.2-5.4) Hgb 13.8 g/dL g/dL (12.0-15.0) Hct 43.4 % % (37.0-47.0) MCV 87.5 fl fl (80-100) MCH 27.8 pg pg (26-34) MCHC 31.8 g/dl L g/dl (32-36) RDW 13.9 % % (11.5-14.5) Plt Count 298 k/mm3 k/mm3 (150-375) MPV 10.3 fl fl (7.4-10.4) Immature Gran % (Auto) 0.3 % % (0-0.5) Neut % (Auto) 68.4 % % (45.5-73.1) Lymph % (Auto) 21.6 % % (18.3-44.2) [place] % (Auto) 8.2 % % (2.6-8.5) Eos % (Auto) 1.0 % % (0-4.4) Baso % (Auto) 0.5 % % (0.2-1.2) Lymph # (Auto) 2.32 K/mm3 K/mm3 (0.9-3.2) [place] # (Auto) 0.9 K/mm3 H K/mm3 (0.1-0.6) Eos # (Auto) 0.1 K/mm3 K/mm3 (0-0.3) Baso # (Auto) 0.1 K/mm3 K/mm3 (0.0-0.1) Abs Immat Gran (auto) 0.03 K/mm3 K/mm3 (0.00-0.031) Absolute Neuts (auto) 7.4 K/mm3 H K/mm3 (1.3-6.7) Absolute Nucleated RBC 0.0 K/mm3 K/mm3 (0.0-0.012) Nucleated RBC % 0.0 % % (0.0-0.2) Sodium 139 mmol/L mmol/L (137-145) Potassium 4.0 mmol/L mmol/L (3.4-5.0) Chloride 104 mmol/L mmol/L (98-107) Carbon Dioxide 30 mmol/L mmol/L (22-30) Anion Gap 5 mmol/L L mmol/L (8-16) BUN 13 mg/dL mg/dL (7-17) Creatinine 0.60 mg/dL L mg/dL (0.7-1.0) Estim Creat Clear Calc 181 ml/min ml/min Estimated GFR > 60 (59 - ) Glucose 95 mg/dL mg/dL (65-110) Calcium 8.4 mg/dL mg/dL (8.4-10.2) Total Bilirubin 0.5 mg/dL mg/dL (0.2-1.3) AST 24 U/L U/L (14-36) ALT 27 U/L U/L (6-35) Alkaline Phosphatase 74 U/L U/L (38-126) Total Protein 7.0 g/dL g/dL (6.3-8.2) Albumin 4.1 g/dL g/dL (3.5-5.1) Patient hx anesthesia problems: none Family hx anesthesia problems: none Results Review: All pre-operative results and documents have been reviewed as part of the pre-operative evaluation. [facility] Past Medical History Medical History (Updated 07/15/22 @ 13:23 by Tomás Todd MD) Anemia Endometriosis Morbid obesity Surgical History Surgical History (Updated 07/15/22 @ 13:23 by Tomás Todd MD) Hx of excision of mass Hx of tonsillectomy Social History Social History Social History: Denies use of alcohol tobacco or drugs. Anes - Eval Final PreProcedure Day of Procedure 07/15/22
[2022-07-15] MEDS: MORPHINE SULFATE (*CRX) 2 MG/ML INJ IV PUSH (13:30)
[2022-07-15] MEDS: ceFAZolin 3 GM/D5W 100 ML 100 ML IVPB (14:20)
[2022-07-15] MEDS: BUPIVACAINE/EPINEPHRINE 0.5% 30 ML VIAL INFILTRATE (14:37)
[2022-07-15] MEDS: MIDAZOLAM HCL (*CRX) 2 MG/2 ML VIAL IV PUSH (15:02)
--- NOTE | 2022-07-15 15:02 | SUR.PHASEI ---
1455- Patient crying, anxious and inconsolable upon arrival to PACU 2. Dr. Todd at bedside- orders obtained for 2MG versed IVP for patient. Orders placed for 2MG Versed IVP and given at 1502, see MAR.
--- NOTE | 2022-07-15 15:04 | P.OP_ITS ---
Procedure Note - Detailed Date of Procedure 07/15/22 Pre-op Diagnosis abscess on sternum, R breast measuring 5x7 cm Post-op Diagnosis Same Procedure Performed complex incision and drainage abscess chest wall measuring 5x7 cm, R breast [place] 2x3 cm Surgeon Aixa Peres MD Anesthesia General and Local Indications 22-year-old female with recurrent chest wall abscess in the sternal area extending into the right breast Findings 5 x 7 cm abscess from the midsternal area extending into right breast, 2x3 cm abscess R lateral breast Description of Procedure The patient was taken to the operating room placed in the supine position. After adequate induction of general anesthesia the patient was prepped sterile fashion. A time-out was then done to verify the patient's identity as well as the procedure being performed. Procedure was began by localizing the area over the abscess. Once adequate localization was done, I made an incision with a scalpel the opening of the mid sternal area. Upon getting through the dermis into the subcutaneous tissue, a large cavity was noted. There was then moderate amount purulent drainage from this wound. I was able to bluntly dissect around this cavity which was noted to extend into the right breast. This cavity measured approximately 5 x 7 cm. There was multiple areas of loculation that were broken up and further fluid was drained. Once the area was completely opened and drained packed this with half-inch iodoform to keep the area open and draining. There was a separate area on the right breast that was more superficial and did not seem to connect with this other cavity. I did make an incision over the most fluctuant area and more purulent drainage was noted. This area measured approximately 2 x 3 cm. This was area was also packed with half-inch iodoform. Sterile dressing was then placed. The patient tolerated this procedure well and was extubated in the operating room postoperatively. She will transfer the recovery room in stable condition. Estimated Blood Loss 5 Packing Yes Complications No immediate complications Condition Stable Disposition PACU [facility] Billing Surgery - Charge Forward: Surgery Billing
[2022-07-15] MEDS: fentaNYL CITRATE INJ (*CRX) 100 MCG/2 ML VIAL 25 MCG IV PUSH ×2 (15:16→15:19)
[2022-07-15] MEDS: oxyCODONE HCL (*CRX) 5 MG TAB IR PO (16:46)
== END 2022-07-15 17:50 | disposition home or self-care (01) ==
LOC: ANHED 11:43 → ANHSURGERY 11:45
PROVIDERS: Surgery; Emergency Provider Emergency Medicine; PCP Family Medicine; Visit Provider Internal Medicine
PROC: (CPT 10061; principal; 2022-07-15 14:30)
DX: L02.213 Cutaneous abscess of chest wall (principal); N61.1 Abscess of the breast and nipple; Z79.51 Long term (current) use of inhaled steroids; Z79.84 Long term (current) use of oral hypoglycemic drugs
CPT/HCPCS: 10061; 36415; 71260; 80053; 81025; 85025; 99285; A9270; J0690; J1100; J2250; J2270; J2405; J2704; J3010; J7120; Q9967

== ENCOUNTER 2022-08-05 11:20 | Emergency (ER) | payer OTHER, SELFPAY ==
[2022-08-05 12:01] VITALS: BP 135/64; PULSE 97; RESP 16; TEMP 36.6; O2SAT 99
--- NOTE | 2022-08-05 15:42 | ED.GENADULT ---
HPI - General Adult General Chief complaint: Skin/Abscess/Foreign Body Stated complaint: Pain Time Seen by Provider: 08/05/22 14:54 History of Present Illness HPI narrative: This is a 22-year-old female who presents to the ED for chief complaint of surgical wound pain x1 day. Patient states she had an infected cyst that was seen by general surgery in 2020. States she saw a different general surgeon after having another episode of pain about a month ago and had another procedure to remove an abscess in the same spot. She has not had any pain until today. She called her surgeon's office who told her that they can get her in tomorrow and prescribed a round of Keflex. She presents today because the pain is increasing. Denies any surrounding redness or drainage from the site. Pain is limited to right at the surgical site. Denies fevers, chills, cough, chest pain. Related Data Home Medications Medication Instructions Recorded Confirmed albuterol sulfate 90 mcg/actuation inhalation 05/01/21 07/17/22 aerosol inhaler budesonide-formoterol HFA 160 inhalation 05/01/21 07/17/22 mcg-4.5 mcg/actuation aerosol inhaler (Symbicort) drospirenone 3 mg-ethinyl tablet 05/01/21 07/17/22 estradiol 0.02 mg tablet (Vestura (28)) metformin 500 mg tablet,extended mg PO 05/01/21 07/17/22 release 24 hr spironolactone 50 mg tablet 05/01/21 07/17/22 Allergies Allergy/AdvReac Type Severity Reaction Status Date / Time hydrocodone Allergy Intermediate itching Verified 08/05/22 15:51 adhesive Allergy Unknown ITCHING Verified 08/05/22 15:51 latex Allergy Hives Verified 08/05/22 15:51 Review of Systems Review of Systems: CONSTITUTIONAL: Denies fever, chills, or sweats. EYES: Denies visual changes, redness, or discharge. ENT: Denies rhinorrhea, congestion, sore throat, or otalgia. CARDIOVASCULAR: Denies chest pain, palpitations, or edema. RESPIRATORY: Denies cough or dyspnea. GASTROINTESTINAL: Denies abdominal pain, nausea, vomiting, or diarrhea. GENITOURINARY: Denies dysuria or hematuria. SKIN: Endorses surgical site pain. Denies any surrounding erythema. Denies drainage. denies rash or itching. MUSCULOSKELETAL: Denies back pain, joint pain, or myalgia. NEUROLOGIC: Denies headache, numbness, dizziness, or weakness. PSYCHIATRIC: Denies anxiety or depression. [facility] Past Medical History Medical History (Updated 08/05/22 @ 16:30 by Flaco Scales PA-C) Anemia Endometriosis Morbid obesity Surgical History Surgical History (Updated 07/17/22 @ 10:00 by Radha Griffith) Hx of excision of mass Hx of tonsillectomy Status post incision and drainage complex I&D of chest wall abscess 5x7 cm, right breast measuring 2x3 cm 07/15/22 Social History Social History (Updated 07/17/22 @ 10:00 by Radah Griffith) Social History: Denies use of alcohol tobacco or drugs. Smoking status: Never smoker Exam Narrative: GENERAL: Well-appearing, well-nourished, and in no acute distress. HEAD: Normocephalic, atraumatic. EYES: PERRLA and EOMI. ENT: Nares clear, no rhinorrhea or epistaxis. Mucous membranes moist. Oropharynx without tonsillar hypertrophy exudate or other lesions. NECK: Supple. No adenopathy or masses. CHEST: No respiratory distress. Clear to auscultation. No wheezes rales or rhonchi HEART: Regular rate and rhythm. No murmur heard. Normal peripheral pulses. ABDOMEN: Soft, nontender, nondistended, normal active bowel sounds. EXTREMITIES: Normal range of motion. No edema. SKIN: There is a 2 and half centimeter linear surgical wound that is well healing. No drainage present. No surrounding erythema or warmth. Point tender at the site, however she is nontender anywhere else in the chest including the sternum. Warm, dry, no rash. NEURO: Alert and oriented x3. No focal deficits. PSYCH: Normal mood and affect. Course Vital Signs Vital signs: Vital Signs Temperature 97.8 F 08/05/22 12:01 Pulse Rate 97
[2022-08-05] MEDS: IBUPROFEN 400 MG TABLET 800 MG PO (15:48)
[2022-08-05] MEDS: CEPHALEXIN 500 MG CAPSULE PO (16:46)
[2022-08-05 16:50] VITALS: BP 147/87; PULSE 84; RESP 12; O2SAT 98
== END 2022-08-05 16:58 | disposition home or self-care (01) ==
PROVIDERS: Emergency Provider Physician Assistant; PCP Family Medicine
DX: G89.18 Other acute postprocedural pain (principal); Z86.2 Personal history of diseases of the blood and blood-forming organs and certain disorders involving the immune mechanism; N80.9 Endometriosis, unspecified; E66.01 Morbid (severe) obesity due to excess calories; Z68.41 Body mass index [BMI] 40.0-44.9, adult
CPT/HCPCS: 99283; A9270

== ENCOUNTER 2022-09-04 07:41 | Emergency (ER) | payer OTHER, SELFPAY ==
[2022-09-04 07:53] VITALS: BP 153/89; PULSE 100; RESP 18; TEMP 36.6; O2SAT 99
[2022-09-04 08:00] VITALS: O2SAT 99
--- NOTE | 2022-09-04 08:54 | ED.URI ---
HPI - URI/Sore Throat General Chief Complaint: Upper Respiratory Infection Stated Complaint: st/ear pain Time Seen by Provider: 09/04/22 08:07 Source: patient and RN notes reviewed Mode of arrival: ambulatory Limitations: no limitations History of Present Illness HPI Narrative: This is 22 year old female who presents for evaluation of URI symptoms. She reports having sore throat, congestion, bilateral ear pain with 3 days. She reports pain with swallowing. She denies nausea, vomiting, diarrhea, cough or fever. She does report chills. She has not taken any medication for her symptoms Related Data Home Medications Medication Instructions Recorded Confirmed albuterol sulfate 90 mcg/actuation inhalation 05/01/21 08/20/22 aerosol inhaler budesonide-formoterol HFA 160 inhalation 05/01/21 08/20/22 mcg-4.5 mcg/actuation aerosol inhaler (Symbicort) drospirenone 3 mg-ethinyl tablet 05/01/21 08/20/22 estradiol 0.02 mg tablet (Vestura (28)) metformin 500 mg tablet,extended mg PO 05/01/21 08/20/22 release 24 hr spironolactone 50 mg tablet 05/01/21 08/20/22 Allergies Allergy/AdvReac Type Severity Reaction Status Date / Time adhesive Allergy Unknown ITCHING Verified 09/04/22 08:02 latex Allergy Hives Verified 09/04/22 08:02 Review of Systems Constitutional: Constitutional: Reports chills and Denies weakness ENT: Reports nasal congestion and Reports sore throat Cardiovascular: Cardiovascular: Denies syncope, Denies rapid heart rate, Denies irregular heart rhythm, Denies leg edema and Denies dyspnea Respiratory: Respiratory: Denies chest congestion, Denies hemoptysis, Denies excessive phlegm production and Denies dyspnea Gastrointestinal: Gastrointestinal: Denies abdominal pain, Denies hematochezia, Denies diarrhea and Denies vomiting Genitourinary: Genitourinary: Denies hematuria and Denies dysuria Musculoskeletal: Musculoskeletal: Denies joint swelling, Denies loss of height and Denies muscle weakness Neurologic: Denies syncope, Denies focal weakness and Denies weakness PMFSH Past Medical History Medical History Anemia Endometriosis Morbid obesity Surgical History Surgical History Hx of excision of mass Hx of tonsillectomy Status post incision and drainage complex I&D of chest wall abscess 5x7 cm, right breast measuring 2x3 cm 07/15/22 Social History Social History Social History: Denies use of alcohol tobacco or drugs. Smoking status: Never smoker Exam Narrative: GENERAL: Well-appearing, well-nourished, and in no acute distress. HEAD: Normocephalic, atraumatic EYES: PERRLA and EOMI, conjunctiva clear without discharge EARS: TM's clear bilaterally without erythema or dullness NOSE: Nares clear, no rhinorrhea or epistaxis THROAT:Mucous membranes moist, Oropharynx normal without erythema, exudate, peritonsillar swelling or fluctuance NECK: Supple, without lymphadenopathy or mass RESPIRATORY: No respiratory distress, Airway patent, Respirations non-labored, Clear to auscultation without rales, rhonchi or wheeze HEART: Regular rate and rhythm. No murmur heard. Normal peripheral pulses. ABDOMEN: Soft, nontender, nondistended, normal active bowel sounds. No masses. No rebound or guarding, No organomegaly. EXTREMITIES: No edema, normal strength with full range of motion. SKIN: Warm, dry, normal color without rash NEURO: Alert and oriented x3. CN 2-12 grossly intact. No focal deficits. PSYCH: Normal mood and affect. Const: General: no acute distress and alert Nutritional Appearance: well nourished Orientation/consciousness: patient oriented x3 Limitations: no limitations Neuro: Speech: No Abnormal speech present Course Reevaluation(s) Reevaluation #1: I Discussed with patient swab was positive for strep. She will
[2022-09-04 09:20] LABS: Strep Group A RT-PCR DETECTED (Negative)
[2022-09-04 09:33] LABS: Influenza A QL RT-PCR Negative (Negative); Influenza B QL RT-PCR Negative (Negative); SARS-CoV-2 RNA PCR Negative
== END 2022-09-04 09:53 | disposition home or self-care (01) ==
PROVIDERS: Emergency Provider General Practice; PCP Family Medicine
DX: J02.0 Streptococcal pharyngitis (principal); Z79.51 Long term (current) use of inhaled steroids; Z79.84 Long term (current) use of oral hypoglycemic drugs; E66.01 Morbid (severe) obesity due to excess calories; Z68.41 Body mass index [BMI] 40.0-44.9, adult; Z20.822 Contact with and (suspected) exposure to COVID-19
CPT/HCPCS: 87636; 87651; 99283

== ENCOUNTER 2022-10-18 12:41 | Emergency (ER) | payer OTHER, SELFPAY ==
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
[2022-10-18 12:42] VITALS: BP 147/93; PULSE 85; RESP 16; TEMP 36.3; O2SAT 100
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
== END 2022-10-18 14:30 | disposition home or self-care (01) ==
PROVIDERS: Emergency Provider Emergency Medicine; PCP Family Medicine
DX: S39.92XA Unspecified injury of lower back, initial encounter (principal); N80.9 Endometriosis, unspecified; E66.01 Morbid (severe) obesity due to excess calories; Z68.42 Body mass index [BMI] 45.0-49.9, adult; Z86.2 Personal history of diseases of the blood and blood-forming organs and certain disorders involving the immune mechanism; Z79.84 Long term (current) use of oral hypoglycemic drugs; V86.55XA Driver of 3- or 4- wheeled all-terrain vehicle (ATV) injured in nontraffic accident, initial encounter
CPT/HCPCS: 72100; 99283

== ENCOUNTER 2022-10-23 16:18 | Emergency (ER) | payer OTHER, SELFPAY ==
--- NOTE | ~2022-10-23 | US_ITS ---
EXAMINATION: US breast RT limited DATE: 10/23/2022 19:17 INDICATION: abscess . TECHNIQUE: Grayscale and Doppler ultrasound images of the medial right breast/right sternum were obta ined. COMPARISON: None. FINDINGS: Sonographic interrogation of the area of clinical concern at 3:00 of the far medial right b reast, along the right lateral margin of the sternum reveals a 2.2 x 0.8 x 1.2 cm hypoechoic thick-wa lled collection in the deep subcutaneous versus cutaneous/subcutaneous layer, with increased surround ing vascularity. IMPRESSION: 2.2 cm deep cutaneous/subcutaneous thick-walled fluid collection, may represent an infected/inflamed cyst or abscess. Reviewed, dictated and finalized at location K.
[2022-10-23 16:22] VITALS: BP 148/109; PULSE 116; RESP 18; TEMP 37.1; O2SAT 99
--- NOTE | 2022-10-23 18:21 | ED.SKABFB ---
HPI - Skin/Abscess/Foreign Bdy General Chief complaint: Skin/Abscess/Foreign Body <YANI Chavez Last Filed: 10/24/22 02:25> Stated complaint: cyst on sternum <YANI Chavez Last Filed: 10/24/22 02:25> Time Seen by Provider: 10/23/22 18:05 <YANI Chavez Last Filed: 10/24/22 02:25> History of Present Illness HPI narrative: Patient is a 22-year-old female with a history of breast abscesses that have been previously removed by Dr. Peres here due to concerns about recurrence. Patient states that her sternum started becoming sore 2 days ago in the spot where she had an abscess removed back in June. Reports pain and swelling. Has been taking ibuprofen without relief. No fevers or chills. <YANI Chavez Last Filed: 10/24/22 02:25> Related Data Home medications: Home Medications Medication Instructions Recorded Confirmed albuterol sulfate 90 mcg/actuation 1 inh inhalation PRN PRN Shortness 05/01/21 10/26/22 aerosol inhaler Of Breath Or Wheezing budesonide-formoterol HFA 160 1 inh inhalation BID 05/01/21 10/26/22 mcg-4.5 mcg/actuation aerosol inhaler (Symbicort) sumatriptan succinate 25 mg tablet 25 - 50 mg PO PRN PRN Migraine 10/26/22 10/26/22 Headache <YANI Chavez Last Filed: 10/24/22 02:25> Allergies/Adverse reactions: Allergies Allergy/AdvReac Type Severity Reaction Status Date / Time adhesive Allergy Unknown ITCHING Verified 10/23/22 18:01 latex Allergy Hives Verified 10/23/22 18:01 Vancomycin AdvReac Mild Puritis Uncoded 10/26/22 05:06 <YANI Chavez Last Filed: 10/24/22 02:25> Review of Systems Review of Systems: Gen: Denies fevers or chills Eyes: Denies eye pain or visual change ENT: Denies congestion Respiratory: Denies shortness of breath or cough CV: Denies chest pain or palpitations GI: Denies abdominal pain nausea, emesis or diarrhea : denies burning, urgency, frequency or hematuria Musculoskeletal: Denies back pain or muscle pain Neuro: Denies numbness, tingling, weakness or focal weakness Skin: Reports cyst of breast Except as documented, all other systems reviewed and negative <Ivone Garcia PA-C - Last Filed: 10/24/22 02:25> [facility] Past Medical History Medical History: Medical History Anemia Endometriosis Morbid obesity PCOS (polycystic ovarian syndrome) <Ivone Garcia PA-C - Last Filed: 10/24/22 02:25> Surgical History Surgical History: Surgical History Hx of excision of mass Hx of tonsillectomy (2014) Due to recurrent tonsillitis Status post incision and drainage complex I&D of chest wall abscess 5x7 cm, right breast measuring 2x3 cm 07/15/22 <Ivone Garcia PA-C - Last Filed: 10/24/22 02:25> Family History Family History: Family History Father Liver failure Alcoholic cirrhosis, Onset Age: 49 Grandparent Heart disease Diabetes mellitus Lung cancer Grandparent Cervical cancer Breast cancer Other Cervical cancer Breast cancer Esophageal cancer <Ivone Garcia PA-C - Last Filed: 10/24/22 02:25> Social History Social History: Social History Social History: She lives with her sister. She works at [employer]. Denies use of alcohol, tobacco or drugs. She does not have any children. Code status: Full code Surrogate decision maker: Marie Shafer (aunt) Smoking status: Never smoker Alcohol intake: never Substance use: never Lack of Transportation: No Lack of Food: Never True Current Housing: I Have Housing Concerned About Future Housing: No Difficulty Paying Gas/Electric Bills: No Difficulty Paying for Meds: No C
[2022-10-23 19:08] LABS: Basophils Absolute Auto 0.1 K/mm3 (0.0-0.1); Basophils Percent Auto 0.5 % (0.2-1.2); Eosinophils Absolute Auto 0.1 K/mm3 (0-0.3); Eosinophils Percent Auto 0.6 % (0-4.4); Hematocrit 43.3 % (37.0-47.0); Immature Granulocyte Absolute 0.03 K/mm3 (0.00-0.031); Immature Granulocyte Percent A 0.2 % (0-0.5); Lymphocytes Absolute Auto 3.18 K/mm3 (0.9-3.2); Lymphocytes Percent Auto 25.5 % (18.3-44.2); Mean Corpuscular HGB Conc 32.3 g/dl (32-36); Mean Corpuscular Hemoglobin 27.7 pg (26-34); Mean Corpuscular Volume 85.7 fl (80-100); Mean Platelet Volume 10.7 fl (7.4-10.4); Monocytes Absolute Auto 0.9 K/mm3 (0.1-0.6); Monocytes Percent Auto 7.2 % (2.6-8.5); Neutrophils Absolute Auto 8.2 K/mm3 (1.3-6.7); Platelet Count Result 325 k/mm3 (150-375); Red Blood Count 5.05 M/mm3 (4.2-5.4); Red Cell Distribution Width 14.2 % (11.5-14.5); White Blood Count 12.5 K/mm3 (4.5-10.0)
[2022-10-23 19:22] LABS: Alanine Aminotransferase 40 U/L (6-35); Albumin Level 4.8 g/dL (3.5-5.1); Alkaline Phosphatase 98 U/L (38-126); Anion Gap 9 mmol/L (8-16); Aspartate Amino Transferase 33 U/L (14-36); Bilirubin,Total 1.5 mg/dL (0.2-1.3); Blood Urea Nitrogen 6 mg/dL (7-17); Calcium 9.1 mg/dL (8.4-10.2); Carbon Dioxide 28 mmol/L (22-30); Chloride 102 mmol/L (98-107); Estimated CRCL calculation 181 ml/min; Estimated Glomerular Filt Rate > 60; Glucose 80 mg/dL (65-110); Lactic Acid Reflex 1.1 mmol/L (0.7-2.0); Potassium 3.5 mmol/L (3.4-5.0); Sodium 139 mmol/L (137-145)
[2022-10-23 19:36] VITALS: BP 139/93; PULSE 91; RESP 15; O2SAT 100
[2022-10-23] MEDS: HYDROcodone/acetaminophen (*CRX) 5-325 MG TABLET 1 TAB PO (20:25)
[2022-10-23 23:01] VITALS: BP 132/87; PULSE 85; RESP 16; O2SAT 97
== END 2022-10-23 23:04 | disposition home or self-care (01) ==
PROVIDERS: Emergency Provider Physician Assistant; PCP Family Medicine
DX: L02.213 Cutaneous abscess of chest wall (principal); N80.9 Endometriosis, unspecified; Z86.2 Personal history of diseases of the blood and blood-forming organs and certain disorders involving the immune mechanism; E66.01 Morbid (severe) obesity due to excess calories; Z68.42 Body mass index [BMI] 45.0-49.9, adult
CPT/HCPCS: 36415; 76642; 80053; 81025; 83605; 85025; 87040; 87077; 99284; A9270

== ENCOUNTER 2022-10-25 18:33 | Observation (INO) | payer OTHER, SELFPAY ==
[2022-10-25] VITALS (23 sets, daily range): BP systolic 114–159; BP diastolic 65–107; PULSE 88–105; RESP 15–17; TEMP 36.5–36.6; O2SAT 98–100
--- NOTE | 2022-10-25 18:55 | PC.NURSE ---
pt reports she was in the ED Friday and called today and told she had positive blood cultures and to come back to the ED. Pt denies any fever but reports pain at cyst site.
--- NOTE | 2022-10-25 19:25 | ED.RECABL ---
HPI - Recheck/Abnormal Lab/Rx General Chief Complaint: Recheck/Abnormal Lab/Rx <Celeste Yanez PA-C - Last Filed: 10/26/22 04:06> Stated Complaint: positive blood culture <Celeste Yanez PA-C - Last Filed: 10/26/22 04:06> Time Seen by Provider: 10/25/22 18:56 <Celeste Yanez PA-C - Last Filed: 10/26/22 04:06> History of Present Illness HPI narrative: 22-year-old female with a history of abscess to her chest wall reports to the emergency department after she received a phone call stating her blood cultures were positive and she was advised to come back to the ED for reevaluation. Patient was seen 2 days ago for a recurrence of her chest wall abscess/cyst on her right lateral sternal border extending into her breast. She had an ultrasound at that time revealing a small likely abscess versus cyst. Her white count was 12.5, lactic acid was negative. Dr. Peres was consulted at that time and agreed with the plan for outpatient management follow-up with antibiotics and pain meds. Patient was discharged with prescriptions for [place] and doxycycline. She states she has not yet obtained her prescriptions and is planning to do so today due to pharmacy back order. Patient states she does believe the cyst has gotten slightly larger and more painful since she was here 2 days ago. She reports nausea and diarrhea, and states she had a fever of 101.2 last night. Denies fever since, body aches or chills. She has been followed by Dr. Peres in the past and has had the cyst removed twice, most recently in June. She called to make a appointment for follow-up with Dr. Peres, but did not schedule appointment as his office in the longer takes her insurance. She reports she has a appointment with another surgeon in a month and a half. <Celeste Yanez PA-C - Last Filed: 10/26/22 04:06> Related Data Home Medications: Home Medications Medication Instructions Recorded Confirmed albuterol sulfate 90 mcg/actuation 1 inh inhalation PRN PRN Shortness 05/01/21 10/26/22 aerosol inhaler Of Breath Or Wheezing budesonide-formoterol HFA 160 1 inh inhalation BID 05/01/21 10/26/22 mcg-4.5 mcg/actuation aerosol inhaler (Symbicort) sumatriptan succinate 25 mg tablet 25 - 50 mg PO PRN PRN Migraine 10/26/22 10/26/22 Headache <Celeste Yanez PA-C - Last Filed: 10/26/22 04:06> Allergies/Adverse Reactions: Allergies Allergy/AdvReac Type Severity Reaction Status Date / Time adhesive Allergy Unknown ITCHING Verified 10/23/22 18:01 latex Allergy Hives Verified 10/23/22 18:01 Vancomycin AdvReac Mild Puritis Uncoded 10/26/22 05:06 <Celeste Yanez PA-C - Last Filed: 10/26/22 04:06> Review of Systems Review of Systems: CONSTITUTIONAL: Denies fever, chills EYES: Denies visual changes, redness, or discharge. ENT: Denies rhinorrhea, congestion, sore throat, or otalgia. CARDIOVASCULAR: Denies chest pain, palpitations, or edema. RESPIRATORY: Denies cough or dyspnea. GASTROINTESTINAL: Denies abdominal pain, nausea, vomiting, or diarrhea. GENITOURINARY: Denies dysuria or hematuria. SKIN: See HPI MUSCULOSKELETAL: Denies back pain, joint pain, or myalgia. NEUROLOGIC: Denies headache, numbness, dizziness, or weakness. PSYCHIATRIC: Denies anxiety or depression. <Celeste Yanez PA-C - Last Filed: 10/26/22 04:06> [facility] Past Medical History Medical History: Medical History Anemia Endometriosis Morbid obesity PCOS (polycystic ovarian syndrome) <YANI Miranda Last Filed: 10/26/22 04:06> Surgical History Surgical History: Surgical History Hx of excision of mass Hx of tonsillectomy (2014) Due to recurrent tonsillitis Status post incision and drainage complex I&D of chest wall abscess 5x7 cm, right breast measuring 2x3 cm 07/15/22 <Celeste Yanez PA-C - Last Filed:
[2022-10-25] MEDS: SODIUM CHLORIDE 0.9% IV 1,000 ML 999 ML IV CONT (19:39)
[2022-10-25 19:46] LABS: Basophils Absolute Auto 0.1 K/mm3 (0.0-0.1); Basophils Percent Auto 0.4 % (0.2-1.2); Eosinophils Absolute Auto 0.1 K/mm3 (0-0.3); Eosinophils Percent Auto 0.6 % (0-4.4); Hematocrit 39.9 % (37.0-47.0); Hemoglobin 13.1 g/dL (12.0-15.0); Immature Granulocyte Absolute 0.04 K/mm3 (0.00-0.031); Immature Granulocyte Percent A 0.3 % (0-0.5); Lymphocytes Absolute Auto 3.37 K/mm3 (0.9-3.2); Lymphocytes Percent Auto 26.9 % (18.3-44.2); Mean Corpuscular HGB Conc 32.8 g/dl (32-36); Mean Corpuscular Hemoglobin 28.1 pg (26-34); Mean Corpuscular Volume 85.4 fl (80-100); Mean Platelet Volume 10.4 fl (7.4-10.4); Monocytes Absolute Auto 0.9 K/mm3 (0.1-0.6); Monocytes Percent Auto 6.9 % (2.6-8.5); Neutrophils Absolute Auto 8.1 K/mm3 (1.3-6.7); Neutrophils Percent Auto 64.9 % (45.5-73.1); Platelet Count Result 300 k/mm3 (150-375); Red Blood Count 4.67 M/mm3 (4.2-5.4); Red Cell Distribution Width 14.1 % (11.5-14.5); White Blood Count 12.5 K/mm3 (4.5-10.0)
[2022-10-25 19:58] LABS: Alanine Aminotransferase 41 U/L (6-35); Albumin Level 4.5 g/dL (3.5-5.1); Alkaline Phosphatase 80 U/L (38-126); Anion Gap 7 mmol/L (8-16); Aspartate Amino Transferase 31 U/L (14-36); Bilirubin,Total 0.9 mg/dL (0.2-1.3); Blood Urea Nitrogen 7 mg/dL (7-17); Calcium 8.9 mg/dL (8.4-10.2); Carbon Dioxide 25 mmol/L (22-30); Chloride 105 mmol/L (98-107); Estimated CRCL calculation 180 ml/min; Estimated Glomerular Filt Rate > 60; Glucose 85 mg/dL (65-110); Lactic Acid Reflex 0.7 mmol/L (0.7-2.0); Potassium 3.7 mmol/L (3.4-5.0); Sodium 137 mmol/L (137-145)
[2022-10-25 21:21] LABS: Appearance Urine Clear (Clear); Bilirubin Urine Negative (Negative); Blood Urine Negative (Negative); Color Urine Yellow (Yellow); Glucose Urine UA Negative (Negative); Ketones Urine Negative (Negative); Leukocyte Esterase Ur Negative LEU/UL (Negative); Nitrate Urine Negative (Negative); Protein Urine Negative (Negative); Specific Grav Ur 1.007 (1.001-1.035); Urobilinogen Urine 0.2 mg/dL (<2.0)
[2022-10-25 21:25] LABS: Add Urine Microscopic? NO
[2022-10-26] VITALS (7 sets, daily range): BP systolic 121–156; BP diastolic 71–96; PULSE 70–82; RESP 14–16; TEMP 36.4–36.9; O2SAT 93–100; BMI 45.0
[2022-10-26] MEDS: VANCOMYCIN 1,250 MG/NS 250 ML 1,250 MG/250 ML BAG 166.67 MG IVPB ×2 (00:22→02:40)
--- NOTE | 2022-10-26 01:13 | ADMGEN ---
This patient, America Shankar, was admitted to Medical Room 246-01. Patient/family oriented to hospital policies and general routines including ID bracelet, bed and alarms, visiting hours, pain management, procedures, bathroom and other care routines, personal items, smoking policy, room service/diet, and visiting hours. Information on how to activate the Rapid Response Team has been discussed. Patient/Family are encouraged to report perceived risks to care and to ask questions if they do not understand what they are told or what they should do.
[2022-10-26] MEDS: diphenhydrAMINE HCl CAP 25 MG CAPSULE 50 MG PO ×2 (01:40→08:24)
--- NOTE | 2022-10-26 04:28 | PM.IMHP ---
H&P: HPI History of Present Illness Date/Time: 10/26/22 01:28 Chief Complaint: Positive blood cultures Narrative: 22-year-old female with a past medical history of obesity, asthma and multiple prior abscesses who presented to the ER due to positive blood cultures. The patient had been evaluated in the ER on 10/23/2022 due to an area of tenderness just to the right of her sternum on her breast near spot where she had prior drainage of an abscess in June 2022. The symptoms that started on the . She had an ultrasound performed in the ER which demonstrated likely abscess measuring 2.2 cm by 0.8 cm x 1.2 cm. The case was discussed with General surgery who felt the patient could follow-up as outpatient. She was discharged home with a script for doxycycline but was unable to get it filled as there was a shortage and the pharmacy was not due to receive an order for several days. The patient did not make the follow-up appointment with General surgery as Dr. Peres's office no longer except her insurance. In the last 2 days since she was discharged she has had worsening pain over the area on her right breast and has had developing erythema. The area has become progressively more painful. She had a temperature of 101.2? on the night of the . She took 1 [place] which brought down her fever. She got a call on the that her blood cultures came back positive 2/2 blood cultures were positive for Gram-positive cocci in clusters. She has been having headache for 2 days. Her headache is across her eyes and is different than her usual migraine. It is moderate in intensity. It is unrelieved despite the [place] that she took at home. She has been having some nausea and on the she had 3 episodes of loose watery stools. She had 1 episode of stools on the . She denies any body aches. The patient had a history of a prior incision and drainage of her sternum in March 2021. She denies having any abscesses in any other locations. She used to get recurrent tonsillitis but had a tonsillectomy in 2014 and since then has not had recurrent oral pharyngeal infections. She denies any history of drug use, eczema, scratching or picking at her skin. The abscess was drained in the ER with reported drainage of a few mL of purulent appearing material. Specimen was sent down to the lab for culture. Patient was started on vancomycin. The patient's main complaint at this time besides some localized pain at the incision site is generalized itching which started after vancomycin administration. Review of Systems Review of Systems: 12 systems were reviewed with pertinent positives and negatives per HPI. Except as documented in the HPI, all other systems were reviewed and are negative. She denies snoring, daytime fatigue, excessive daytime sleepiness. [facility] Past Medical History Medical History (Updated 10/26/22 @ 04:51 by Elif oMn DO) Anemia Endometriosis Morbid obesity PCOS (polycystic ovarian syndrome) Surgical History Surgical History (Updated 10/26/22 @ 04:51 by Elif Mon DO) Hx of excision of mass Hx of tonsillectomy (2014) Due to recurrent tonsillitis Status post incision and drainage complex I&D of chest wall abscess 5x7 cm, right breast measuring 2x3 cm 07/15/22 Family History Family History Father Liver failure Alcoholic cirrhosis, Onset Age: 49 Grandparent Heart disease Diabetes mellitus Lung cancer Grandparent Cervical cancer Breast cancer Other Cervical cancer Breast cancer Esophageal cancer Social History Social History (Updated 10/26/22 @ 04:54 by Elif Mon DO) Social History: She lives with her sister. She works at [employer]. Denies use of alcohol, tobacco or drugs. She does not have any children. Code status: Full code Surrogate decision maker: Marie Shafer (aunt) Smoking status: Never smoker
[2022-10-26] MEDS: CLINDAMYCIN 900 MG/D5W 50 ML 900 MG/50 ML PIGGYBACK 50 MG IVPB ×3 (05:24→21:04)
[2022-10-26 06:30] LABS: Basophils Percent Auto 0.1 % (0.2-1.2); Eosinophils Percent Auto 0.3 % (0-4.4); Hemoglobin 12.9 g/dL (12.0-15.0); Immature Granulocyte Absolute 0.02 K/mm3 (0.00-0.031); Immature Granulocyte Percent A 0.2 % (0-0.5); Lymphocytes Absolute Auto 2.15 K/mm3 (0.9-3.2); Lymphocytes Percent Auto 19.5 % (18.3-44.2); Mean Corpuscular HGB Conc 32.3 g/dl (32-36); Mean Corpuscular Hemoglobin 27.9 pg (26-34); Mean Corpuscular Volume 86.4 fl (80-100); Mean Platelet Volume 10.6 fl (7.4-10.4); Monocytes Absolute Auto 0.4 K/mm3 (0.1-0.6); Monocytes Percent Auto 3.7 % (2.6-8.5); Neutrophils Absolute Auto 8.4 K/mm3 (1.3-6.7); Neutrophils Percent Auto 76.2 % (45.5-73.1); Platelet Count Result 273 k/mm3 (150-375); Red Blood Count 4.63 M/mm3 (4.2-5.4); Red Cell Distribution Width 14.3 % (11.5-14.5)
[2022-10-26 06:43] LABS: Anion Gap 5 mmol/L (8-16); Blood Urea Nitrogen 6 mg/dL (7-17); Calcium 8.2 mg/dL (8.4-10.2); Carbon Dioxide 25 mmol/L (22-30); Chloride 106 mmol/L (98-107); Estimated CRCL calculation 180 ml/min; Estimated Glomerular Filt Rate > 60; Glucose 105 mg/dL (65-110); Potassium 3.4 mmol/L (3.4-5.0); Sodium 136 mmol/L (137-145)
[2022-10-26] MEDS: ENOXAPARIN 40 MG/0.4 ML SYRINGE SUB-Q (08:19)
[2022-10-26] MEDS: FLUTICASONE/SALMETEROL 115-21 MCG INHALER 1 PUFF 2 PUFF INHALATION ×2 (09:13→20:23)
--- NOTE | 2022-10-26 09:50 | PM.IMPN ---
Progress Note: A&P Assessment and Plan (1) Gram-positive cocci bacteremia: Code(s): R78.81 - Bacteremia Status: Acute Assessment and Plan: Patient recently at the hospital for abscess on her right breast. Blood culture came back positive and she was advised to come back to the ER for evaluation. Blood culture positive for gram positive cocci in clusters. Started on vanc and had a reaction causing pruritus; transitioned to clindamycin WBC trending down Tailor antibiotics to culture results. (2) Abscess of right breast: Code(s): N61.1 - Abscess of the breast and nipple Status: Acute Assessment and Plan: Patient recently at the hospital for abscess on her right breast. She has had I&D in the past (Jun 2022 and Mar 2021). I&D in the ER on 10/25/22 Started on clindamycin General surgery consulted. She is pt of Dr. Peres. Subjective Date/time seen: 10/26/22 09:50 Interval history: Patient sitting up in bed eating breakfast. She is still in quite a bit of pain the I&D site. She denies nausea, vomiting, body aches and chills. She does have a history of breast abscesses in is treated by Dr. Peres. She continues receiving IV antibiotics and awaiting culture results. Review of Systems Review of Systems: All systems reviewed & are unremarkable except as noted in HPI and below Exam Narrative: GENERAL: Comfortable, no acute distress HENMT: moist mucous membranes EYES: EOM intact b/l NECK: no lymphadenopathy RESPIRATORY: clear to auscultation CARDIO: RRR CHEST: right medial breast - Incision site appears to be healing well, no erythema, no fluctuance noted GI: soft, nontender, bowel sounds present SKIN: no rashes EXTREMITIES: no edema, redness or tenderness Objective Data Vital Signs Vital Signs: Vital Signs - 24 hr 10/25/22 18:41 10/25/22 18:56 10/25/22 19:15 Temperature 97.7 F 97.8 F Pulse Rate 105 H 88 97 Respiratory Rate 17 16 15 Blood Pressure 147/91 H 159/107 H 156/96 H Pulse Oximetry 99 100 98 Oxygen Delivery Room Air 10/25/22 19:05 10/25/22 19:19 10/25/22 19:47 Temperature Pulse Rate Respiratory Rate Blood Pressure Pulse Oximetry 98 100 100 Oxygen Delivery 10/25/22 20:00 10/25/22 20:01 10/25/22 20:15 Temperature Pulse Rate Respiratory Rate Blood Pressure 150/87 H Pulse Oximetry 99 100 100 Oxygen Delivery 10/25/22 20:30 10/25/22 20:31 10/25/22 21:12 Temperature Pulse Rate Respiratory Rate Blood Pressure 137/80 Pulse Oximetry 100 100 98 Oxygen Delivery 10/25/22 21:15 10/25/22 21:16 10/25/22 21:30 Temperature Pulse Rate Respiratory Rate Blood Pressure 117/73 Pulse Oximetry 98 99 98 Oxygen Delivery 10/25/22 21:31 10/25/22 21:32 10/25/22 21:45 Temperature Pulse Rate Respiratory Rate Blood Pressure 120/76 Pulse Oximetry 98 98 98 Oxygen Delivery 10/25/22 22:24 10/25/22 22:30 10/25/22 22:31 Temperature Pulse Rate Respiratory Rate Blood Pressure 130/65 Pulse Oximetry 100 99 100 Oxygen Delivery 10/25/22 22:47 10/25/22 23:12 10/26/22 00:47 Temperature 98 F Pulse Rate 90 72 Respiratory Rate 15 15 Blood Pressure 114/97 H 129/93 H Pulse Oximetry 100 100 100 Oxygen Delivery 10/26/22 01:18 10/26/22 03:00 10/26/22 05:14 Temperature 98.4 F 97.6 F Pulse Rate 75 72 Respiratory Rate 16 14 Blood Pressure 156/92 H 148/96 H Pulse Oximetry 99 100 Oxygen Delivery Room Air 10/26/22 08:15 10/26/22 09:17 Temperature Pulse Rate Respiratory Rate Blood Pressure Pulse Oximetry 93 Oxygen Delivery Room Air Room Air Intake/Output Intake/Output: Intake & Output 10/23/22 10/24/22 10/25/22 10/26/22 23:59 23:59 23:59 23:59 Intake Total 1000 250 Balance 1000 250 Meds/Results Medications: Active Medications Generic Name Dose Route Start Last Admin Trade Name
--- NOTE | 2022-10-26 11:02 | PM.CNGS ---
Assessment and Plan Assessment and plan (1) Abscess of right breast: Code(s): N61.1 - Abscess of the breast and nipple Status: Acute Assessment and Plan: s/p I and D, exam benign, cont serial exams, IV abx (2) Bacteremia: Code(s): R78.81 - Bacteremia Status: Acute Assessment and Plan: cont IV abx History of Present Illness Consult details Consult date: 10/26/22 Reason for consult: wound care Requesting physician: Elif Mon DO Narrative: The patient is a 22-year-old female well known to my service from previous complex incision and drainage of chest wall and right breast abscess. The patient reports that she has had pain in her right medial breast over the last week. The patient reports that there has been increased swelling and redness in the area. The patient reports fevers and chills at home. The patient reports that she has been somewhat lethargic and weak as well. Workup in the ED, including imaging, is significant for small recurrent abscess in her right breast. The patient was also found to have positive blood cultures. The patient did get an I and D in the emergency department and purulent drainage was noted. Review of Systems Constitutional: Constitutional: Reports as per HPI, Denies anorexia, Reports chills, Reports fatigue, Reports fever(s), Reports lethargy, Reports malaise, Reports poor appetite, Reports weakness, Denies weight gain and Denies weight loss Eyes: Eyes: Reports no additional eye complaints ENT: Reports system reviewed and no additional complaints, except as documented Cardiovascular: Cardiovascular: Reports no additional cardiovascular complaints Respiratory: Respiratory: Reports no additional respiratory complaints Gastrointestinal: Gastrointestinal: Reports no additional gastrointestinal complaints Genitourinary: Genitourinary: Reports no additional female genitourinary complaints Musculoskeletal: Musculoskeletal: Reports no additional musculoskeletal complaints Integumentary/Breasts: Skin/Breast: Reports as per HPI and Reports wounds Neurologic: Reports system reviewed and no additional complaints, except as documented Psychiatric: Psychiatric: Reports no additional psychiatric complaints Endocrine: Endocrine: Reports no additional endocrine complaints Hematologic/Lymphatic: Hematologic/Lymphatic: Reports no additional hematologic/lymphatic complaints Allergic/Immunologic: Allergic/Immunologic: Reports no additional allergic/immunologic complaints PMFSH Past Medical History Medical History Anemia Endometriosis Morbid obesity PCOS (polycystic ovarian syndrome) Surgical History Surgical History Hx of excision of mass Hx of tonsillectomy (2014) Due to recurrent tonsillitis Status post incision and drainage complex I&D of chest wall abscess 5x7 cm, right breast measuring 2x3 cm 07/15/22 Family History Family History Father Liver failure Alcoholic cirrhosis, Onset Age: 49 Grandparent Heart disease Diabetes mellitus Lung cancer Grandparent Cervical cancer Breast cancer Other Cervical cancer Breast cancer Esophageal cancer Social History Social History Social History: She lives with her sister. She works at [employer]. Denies use of alcohol, tobacco or drugs. She does not have any children. Code status: Full code Surrogate decision maker: Marie Shafer (aunt) Smoking status: Never smoker Alcohol intake: never Substance use: never Lack of Transportation: No Lack of Food: Never True Current Housing: I Have Housing Concerned About Future Housing: No Difficulty Paying Gas/Electric Bills: No Difficulty Paying for Meds: No Currently Unemployed: No Education: Hig
[2022-10-26] MEDS: LOPERAMIDE HCL 2 MG CAPSULE PO (21:54)
[2022-10-27] VITALS (7 sets, daily range): BP systolic 117–130; BP diastolic 51–60; PULSE 67–86; RESP 12–18; TEMP 36.7–36.9; O2SAT 95–100
[2022-10-27] MEDS: CLINDAMYCIN 900 MG/D5W 50 ML 900 MG/50 ML PIGGYBACK 50 MG IVPB ×3 (05:28→21:09)
[2022-10-27 06:02] LABS: Basophils Percent Auto 0.1 % (0.2-1.2); Eosinophils Absolute Auto 0.2 K/mm3 (0-0.3); Eosinophils Percent Auto 2.2 % (0-4.4); Hemoglobin 12.2 g/dL (12.0-15.0); Immature Granulocyte Absolute 0.02 K/mm3 (0.00-0.031); Immature Granulocyte Percent A 0.2 % (0-0.5); Lymphocytes Absolute Auto 2.82 K/mm3 (0.9-3.2); Lymphocytes Percent Auto 34.2 % (18.3-44.2); Mean Corpuscular HGB Conc 31.3 g/dl (32-36); Mean Corpuscular Hemoglobin 27.4 pg (26-34); Mean Corpuscular Volume 87.4 fl (80-100); Mean Platelet Volume 10.7 fl (7.4-10.4); Monocytes Absolute Auto 0.6 K/mm3 (0.1-0.6); Neutrophils Absolute Auto 4.6 K/mm3 (1.3-6.7); Neutrophils Percent Auto 56.3 % (45.5-73.1); Platelet Count Result 267 k/mm3 (150-375); Red Blood Count 4.46 M/mm3 (4.2-5.4); Red Cell Distribution Width 14.2 % (11.5-14.5); White Blood Count 8.2 K/mm3 (4.5-10.0)
[2022-10-27 06:14] LABS: Alanine Aminotransferase 33 U/L (6-35); Albumin Level 3.7 g/dL (3.5-5.1); Alkaline Phosphatase 63 U/L (38-126); Anion Gap 7 mmol/L (8-16); Aspartate Amino Transferase 23 U/L (14-36); Bilirubin,Total 0.9 mg/dL (0.2-1.3); Blood Urea Nitrogen 6 mg/dL (7-17); Calcium 8.2 mg/dL (8.4-10.2); Carbon Dioxide 26 mmol/L (22-30); Chloride 106 mmol/L (98-107); Estimated CRCL calculation 157 ml/min; Estimated Glomerular Filt Rate > 60; Glucose 104 mg/dL (65-110); Potassium 3.7 mmol/L (3.4-5.0); Sodium 139 mmol/L (137-145)
[2022-10-27] MEDS: ENOXAPARIN 40 MG/0.4 ML SYRINGE SUB-Q (08:06)
[2022-10-27] MEDS: FLUTICASONE/SALMETEROL 115-21 MCG INHALER 1 PUFF 2 PUFF INHALATION ×2 (08:15→20:04)
--- NOTE | 2022-10-27 10:28 | PM.PNGS ---
Progress Note: A&P Assessment and Plan (1) Bacteremia: Code(s): R78.81 - Bacteremia Status: Acute Assessment and Plan: new blood cx NTD, cont abx (2) Abscess of right breast: Code(s): N61.1 - Abscess of the breast and nipple Status: Acute Assessment and Plan: s/p I and D, improved, cont to follow Subjective Subjective Date/Time Seen: 10/27/22 10:28 feels ok, still c some R breast soreness, no further f/c Review of Systems Review of Systems: All systems reviewed & are unremarkable except as noted in HPI and below Exam Const: General: cooperative, comfortable and no acute distress Chest: Other: R chest abscess - mild induration and TTP, no fluctuance, decreased cellulitis Resp: Auscultation: clear to auscultation bilaterally Cardio: Rate: regular rate Rhythm: regular rhythm GI: Inspection: normal to inspection Objective Data Vital Signs Vital Signs: Vital Signs - 24 hr 10/26/22 14:00 10/26/22 20:24 10/26/22 21:55 Temperature 36.7 C 36.4 C Pulse Rate 82 82 70 Respiratory Rate 16 16 16 Blood Pressure 121/71 135/75 Pulse Oximetry 100 97 Oxygen Delivery 10/27/22 01:51 10/27/22 05:37 10/27/22 08:16 Temperature 36.9 C Pulse Rate 82 67 Respiratory Rate 18 12 Blood Pressure 130/60 Pulse Oximetry 95 98 95 Oxygen Delivery Room Air Room Air 10/27/22 08:00 Temperature Pulse Rate Respiratory Rate Blood Pressure Pulse Oximetry Oxygen Delivery Room Air Intake/Output Intake/Output: Intake & Output 10/24/22 10/25/22 10/26/22 10/27/22 23:59 23:59 23:59 23:59 Intake Total 1000 1730 770 Output Total 1250 400 Balance 1000 480 370 Meds/Results Medications: Active Medications Generic Name Dose Route Start Last Admin Trade Name Freq PRN Reason Stop Dose Admin Acetaminophen 650 mg 10/25/22 23:39 Acetaminophen 325 Mg Tablet PO Q4H PRN Mild Pain (1-3) or Fever Albuterol 2 puff 10/26/22 04:27 Albuterol Sulfate (*Sp) Aerosol 1 Puff INHALATION Q6HRT PRN Shortness Of Breath Or Wheezing Diphenhydramine HCl 50 mg 10/26/22 01:27 10/26/22 08:24 Diphenhydramine Hcl Cap 25 Mg Capsule PO 50 mg Q6H PRN Administration Itching Enoxaparin Sodium 40 mg 10/26/22 09:00 10/27/22 08:06 Enoxaparin 40 Mg/0.4 Ml Syringe SUB-Q 40 mg DAILY SERGIO Administration Clindamycin Phosphate 900 mg in 50 mls @ 50 mls/hr 10/26/22 06:00 10/27/22 06:28 Cleocin 900 Mg/D5w 50 Ml IVPB Infused Q8H SERGIO Infusion Ketorolac Tromethamine 30 mg 10/25/22 23:39 Ketorolac 30 Mg/Ml Vial (*Bkc) IV PUSH 10/30/22 23:38 Q6H PRN Pain Rated 4-6 Loperamide HCl 2 mg 10/26/22 21:35 10/26/22 21:54 Loperamide Hcl 2 Mg Capsule PO 2 mg PRN PRN Administration Diarrhea Ondansetron HCl 4 mg 10/25/22 23:39 Ondansetron Inj 4 Mg/2 Ml Vial IV PUSH Q4H PRN Nausea Fluticasone/Salmeterol 2 puff 10/26/22 08:00 10/27/22 08:15 Fluticasone/Salmeterol 115-21 Mcg Inhaler 1 Puff INHALATION 2 puff Q12HRT SERGIO Administration Sumatriptan Succinate 25 - 50 mg 10/26/22 04:27 Sumatriptan Succinate 25 Mg Tablet PO DAILY PRN Migraine Headache Labs Labs: Laboratory Results - last 24 hr 10/27/22 05:24 WBC 8.2 RBC 4.46 Hgb 12.2 Hct 39.0 MCV 87.4 MCH 27.4 MCHC 31.3 L RDW 14.2 Plt Count 267 MPV 10.7 H Immature Gran % (Auto) 0.2 Neut % (Auto) 56.3 Lymph % (Auto) 34.2 Rhea % (Auto) 7.0 Eos % (Auto) 2.2 Baso % (Auto) 0.1 L Lymph # (Auto) 2.82 Rhea # (Auto) 0.6 Eos # (Auto) 0.2 Baso # (Auto) 0.0 Abs Immat Gran (auto) 0.02 Absolute Neuts (auto) 4.6 Absolute Nucleated RBC 0.0 Nucleated RBC % 0.0 Sodium 139 Potassium 3.7 Chloride 106 Carbon Dioxide 26 Anion Gap 7 L BUN 6 L Creatinine 0.70 Estim Creat Clear Calc 157 Estimated GFR > 60 Glucose 104 Calcium 8.2 L Total Bilirubin 0.9 AST 23 ALT 33 Alk
--- NOTE | 2022-10-27 11:34 | PM.IMPN ---
Progress Note: A&P Assessment and Plan (1) Gram-positive cocci bacteremia: Code(s): R78.81 - Bacteremia Status: Acute Assessment and Plan: Patient recently at the hospital for abscess on her right breast. Blood culture came back positive and she was advised to come back to the ER for evaluation. Blood culture positive for Staph epidermis. Repeat blood cultures drawn 10/26/2022 with no growth to date. Patient can likely discharge after 48 hours of no growth in blood culture. Started on vanc and had a reaction causing pruritus; transitioned to clindamycin WBC trending down Tailor antibiotics to culture results. (2) Abscess of right breast: Code(s): N61.1 - Abscess of the breast and nipple Status: Acute Assessment and Plan: Patient recently at the hospital for abscess on her right breast. She has had I&D in the past (Jun 2022 and Mar 2021). I&D in the ER on 10/25/22 Started on clindamycin General surgery consulted. She is pt of Dr. Peres. Subjective Date/time seen: 10/27/22 11:34 Interval history: Patient continues to have right breast tenderness although incision site looks good. Patient does not have any new complaints other than breast tenderness. She will likely be able to discharge tomorrow if blood cultures remain negative. General surgery following and appreciate recommendations. Review of Systems Review of Systems: All systems reviewed & are unremarkable except as noted in HPI and below Exam Narrative: GENERAL: Comfortable, no acute distress HENMT: moist mucous membranes EYES: EOM intact b/l NECK: no lymphadenopathy RESPIRATORY: clear to auscultation CARDIO: RRR CHEST: right medial breast - Incision site appears to be healing well, no erythema, no fluctuance noted, tenderness present GI: soft, nontender, bowel sounds present EXTREMITIES: no edema, redness or tenderness Objective Data Vital Signs Vital Signs: Vital Signs - 24 hr 10/26/22 14:00 10/26/22 20:24 10/26/22 21:55 Temperature 98.1 F 97.6 F Pulse Rate 82 82 70 Respiratory Rate 16 16 16 Blood Pressure 121/71 135/75 Pulse Oximetry 100 97 Oxygen Delivery 10/27/22 01:51 10/27/22 05:37 10/27/22 08:16 Temperature 98.4 F Pulse Rate 82 67 Respiratory Rate 18 12 Blood Pressure 130/60 Pulse Oximetry 95 98 95 Oxygen Delivery Room Air Room Air 10/27/22 08:00 Temperature Pulse Rate Respiratory Rate Blood Pressure Pulse Oximetry Oxygen Delivery Room Air Intake/Output Intake/Output: Intake & Output 10/24/22 10/25/22 10/26/22 10/27/22 23:59 23:59 23:59 23:59 Intake Total 1000 1730 770 Output Total 1250 400 Balance 1000 480 370 Meds/Results Medications: Active Medications Generic Name Dose Route Start Last Admin Trade Name Freq PRN Reason Stop Dose Admin Acetaminophen 650 mg 10/25/22 23:39 Acetaminophen 325 Mg Tablet PO Q4H PRN Mild Pain (1-3) or Fever Albuterol 2 puff 10/26/22 04:27 Albuterol Sulfate (*Sp) Aerosol 1 Puff INHALATION Q6HRT PRN Shortness Of Breath Or Wheezing Diphenhydramine HCl 50 mg 10/26/22 01:27 10/26/22 08:24 Diphenhydramine Hcl Cap 25 Mg Capsule PO 50 mg Q6H PRN Administration Itching Enoxaparin Sodium 40 mg 10/26/22 09:00 10/27/22 08:06 Enoxaparin 40 Mg/0.4 Ml Syringe SUB-Q 40 mg DAILY SERGIO Administration Clindamycin Phosphate 900 mg in 50 mls @ 50 mls/hr 10/26/22 06:00 10/27/22 06:28 Cleocin 900 Mg/D5w 50 Ml IVPB Infused Q8H SERGIO Infusion Ketorolac Tromethamine 30 mg 10/25/22 23:39 Ketorolac 30 Mg/Ml Vial (*Bkc) IV PUSH 10/30/22 23:38 Q6H PRN Pain Rated 4-6 Loperamide HCl 2 mg 10/26/22 21:35 10/26/22 21:54 Loperamide Hcl 2 Mg Capsule PO 2 mg PRN PRN Administration Diarrhea Ondansetron HCl 4 mg 10/25/22 23:39 Ondansetron Inj 4 Mg/2 Ml Vial IV PUSH Q4H PRN Nausea Fluticasone/Sa
[2022-10-27] MEDS: ACETAMINOPHEN 325 MG TABLET 650 MG PO (13:04)
[2022-10-28 05:34] LABS: Basophils Percent Auto 0.3 % (0.2-1.2); Eosinophils Absolute Auto 0.1 K/mm3 (0-0.3); Eosinophils Percent Auto 1.5 % (0-4.4); Hematocrit 36.8 % (37.0-47.0); Hemoglobin 11.8 g/dL (12.0-15.0); Immature Granulocyte Absolute 0.03 K/mm3 (0.00-0.031); Immature Granulocyte Percent A 0.3 % (0-0.5); Lymphocytes Absolute Auto 2.76 K/mm3 (0.9-3.2); Lymphocytes Percent Auto 31.4 % (18.3-44.2); Mean Corpuscular HGB Conc 32.1 g/dl (32-36); Mean Corpuscular Hemoglobin 27.8 pg (26-34); Mean Corpuscular Volume 86.8 fl (80-100); Mean Platelet Volume 10.6 fl (7.4-10.4); Monocytes Absolute Auto 0.7 K/mm3 (0.1-0.6); Monocytes Percent Auto 8.3 % (2.6-8.5); Neutrophils Absolute Auto 5.1 K/mm3 (1.3-6.7); Neutrophils Percent Auto 58.2 % (45.5-73.1); Platelet Count Result 269 k/mm3 (150-375); Red Blood Count 4.24 M/mm3 (4.2-5.4); Red Cell Distribution Width 14.3 % (11.5-14.5); White Blood Count 8.8 K/mm3 (4.5-10.0)
[2022-10-28 05:43] VITALS: BP 117/51; PULSE 53; RESP 18; TEMP 36.7; O2SAT 97
[2022-10-28 05:47] LABS: Alanine Aminotransferase 29 U/L (6-35); Albumin Level 3.6 g/dL (3.5-5.1); Alkaline Phosphatase 59 U/L (38-126); Anion Gap 5 mmol/L (8-16); Aspartate Amino Transferase 19 U/L (14-36); Bilirubin,Total 0.4 mg/dL (0.2-1.3); Blood Urea Nitrogen 7 mg/dL (7-17); Calcium 8.3 mg/dL (8.4-10.2); Carbon Dioxide 29 mmol/L (22-30); Chloride 105 mmol/L (98-107); Estimated CRCL calculation 180 ml/min; Estimated Glomerular Filt Rate > 60; Glucose 99 mg/dL (65-110); Potassium 3.8 mmol/L (3.4-5.0); Sodium 139 mmol/L (137-145)
[2022-10-28] MEDS: CLINDAMYCIN 900 MG/D5W 50 ML 900 MG/50 ML PIGGYBACK 50 MG IVPB (06:00)
[2022-10-28] MEDS: ENOXAPARIN 40 MG/0.4 ML SYRINGE SUB-Q (08:01)
[2022-10-28] MEDS: FLUTICASONE/SALMETEROL 115-21 MCG INHALER 1 PUFF 2 PUFF INHALATION (08:30)
[2022-10-28 08:32] VITALS: O2SAT 96
--- NOTE | 2022-10-28 12:34 | PCCCNOTE ---
On 10/28/22, the student, [Corina Pedro ], provided care and completed [facility] documentation on this patient. I have reviewed the student's documentation and agree with the findings.
[2022-10-28 14:10] VITALS: BP 140/82; PULSE 60; RESP 18; TEMP 36.8; O2SAT 100
--- NOTE | 2022-10-28 14:36 | PM.DS ---
DS: Admitting Diagnosis Discharge Date 10/28/2022 Admitting Diagnosis Bacteremia DS: Discharge Diagnosis Discharge Diagnosis (1) Gram-positive cocci bacteremia: Code(s): R78.81 - Bacteremia Status: Acute Assessment and Plan: Patient recently at the hospital for abscess on her right breast. Blood culture came back positive and she was advised to come back to the ER for evaluation. 2/2 blood cultures positive for Staph epidermis. Repeat blood cultures collected on 10/26/2022 negative after 48 hours. Final cultures will be monitored Initially started on vanc but developed pruritus and was transitioned to IV clindamycin Susceptibility report for blood cultures not visible due to processing issue. ID PharmSteven spoke with [facility]. Determined cultures susceptible to Bactrim. Pt discharged on 7 day course of PO Bactrim. Leukocytosis resolved. Pt remained afebrile (2) Abscess of right breast: Code(s): N61.1 - Abscess of the breast and nipple Status: Acute Assessment and Plan: Patient recently at the hospital for abscess on her right breast. She has had I&D in the past (Jun 2022 and Mar 2021). S/p I&D in the ED on 10/25/22 Continue bactrim as above Outpatient follow up with general surger, Dr Peres, in 2 weeks DS: Summary Hospital Course Hospital Course: Date of admission: 10/25/2022 Date of discharge: 10/28/2022 America Shankar is a 22-year-old female with a history of PCOS, endometriosis, obesity, anemia presented to the emergency department on 10/25/2022 due to positive blood cultures. She had been in the ED 2 days prior with complaints of breast abscess and tenderness. Blood cultures were drawn at that time patient was discharged to outpatient general surgery follow-up. Cultures became positive and patient was called to return to the ED at which time incision and drainage was performed. On presentation, patient was tachycardic, WBC 12.5. She was admitted to the hospitalist service for further evaluation management was seen in consultation by General surgery. Please see above for further details. She will complete a course of Bactrim and continue to follow-up with General surgery as an outpatient. She was feeling improved and was determined to no longer require inpatient care. Discussed with the patient worrisome signs and symptoms for which to return and she was educated on her medications. Time Spent with Patient Time attestation: Total time spent providing and/or coordinating discharge services: 45 minutes Time spent: Greater than 30 minutes Exam Narrative: General: Well-nourished, well-appearing 22-year-old female, sitting up in bed, comfortable, NARD Neuro: awake, alert and oriented x4, speech clear, no focal neuro deficits noted HEENMT: normocephalic, atraumatic, EOMI, sclerae anicteric, moist oral mucosa Respiratory: clear to auscultation bilaterally, nonlabored breathing Cardio: regular rate, regular rhythm with S1-S2 Abdomen: nondistended, normoactive bowel sounds, soft, nontender to palpation Extremities: no edema, erythema, or tenderness to palpation, DP pulses 2+ bilaterally Skin: no rashes or lesions, warm and dry Psych: appropriate mood and affect, judgment and insight intact DS: Data Data Completed and Pending Labs on day of discharge: Labs from last 24 hours 10/28/22 05:02 WBC 8.8 RBC 4.24 Hgb 11.8 L Hct 36.8 L MCV 86.8 MCH 27.8 MCHC 32.1 RDW 14.3 Plt Count 269 MPV 10.6 H Immature Gran % (Auto) 0.3 Neut % (Auto) 58.2 Lymph % (Auto) 31.4 Gibson % (Auto) 8.3 Eos % (Auto) 1.5 Baso % (Auto) 0.3 Lymph # (Auto) 2.76 Gibson # (Auto) 0.7 H Eos # (Auto) 0.1 Baso # (Auto) 0.0 Abs Immat Gran (auto) 0.03 Absolute Neuts (auto) 5.1 Absolute Nucleated RBC 0.0 Nucleated RBC % 0.0 Sodium 139 Potassium 3.8 Chloride 105 Carbon Dioxide 29 Anion Gap 5 L BUN 7 Creatinine 0.60 L Estim Creat Clear Calc 180 Estimated GFR
[2022-10-28] MEDS: SULFAMETHOXAZOLE/TRIMETHOPRIM 800/160 MG DS TABLET 2 TAB PO (15:04)
--- NOTE | 2022-10-28 15:22 | PM.PNGS ---
Progress Note: A&P Assessment and Plan (1) Abscess of right breast: Code(s): N61.1 - Abscess of the breast and nipple Status: Acute Assessment and Plan: s/p I and D, cont local wound, po abx, ok to dc home and f/u 2 wks (2) Bacteremia: Code(s): R78.81 - Bacteremia Status: Acute Assessment and Plan: resolved, blood cx -, cont po abx Subjective Subjective Date/Time Seen: 10/28/22 15:22 Interval history: feels better, still c some soreness at R breast site but definitely improved, no f/c Review of Systems Review of Systems: All systems reviewed & are unremarkable except as noted in HPI and below Exam Const: General: cooperative, comfortable and no acute distress Chest: Other: R breast abscess - no drainage, no fluctuance, mild induration Resp: Auscultation: clear to auscultation bilaterally Cardio: Rate: regular rate Rhythm: regular rhythm GI: Inspection: normal to inspection Objective Data Vital Signs Vital Signs: Vital Signs - 24 hr 10/27/22 20:05 10/27/22 21:02 10/27/22 20:00 Temperature 36.9 C Pulse Rate 80 86 86 Respiratory Rate 16 18 18 Blood Pressure 117/51 L Pulse Oximetry 100 100 Oxygen Delivery Room Air 10/28/22 05:43 10/28/22 08:32 10/28/22 08:00 Temperature 36.7 C Pulse Rate 53 L Respiratory Rate 18 Blood Pressure 117/51 L Pulse Oximetry 97 96 Oxygen Delivery Room Air Room Air Intake/Output Intake/Output: Intake & Output 10/25/22 10/26/22 10/27/22 10/28/22 23:59 23:59 23:59 23:59 Intake Total 1000 1730 2470 420 Output Total 1250 400 Balance 0622 556 7209 420 Meds/Results Medications: Active Medications Generic Name Dose Route Start Last Admin Trade Name Freq PRN Reason Stop Dose Admin Acetaminophen 650 mg 10/25/22 23:39 10/27/22 13:04 Acetaminophen 325 Mg Tablet PO 650 mg Q4H PRN Administration Mild Pain (1-3) or Fever Albuterol 2 puff 10/26/22 04:27 Albuterol Sulfate (*Sp) Aerosol 1 Puff INHALATION Q6HRT PRN Shortness Of Breath Or Wheezing Diphenhydramine HCl 50 mg 10/26/22 01:27 10/26/22 08:24 Diphenhydramine Hcl Cap 25 Mg Capsule PO 50 mg Q6H PRN Administration Itching Enoxaparin Sodium 40 mg 10/26/22 09:00 10/28/22 08:01 Enoxaparin 40 Mg/0.4 Ml Syringe SUB-Q 40 mg DAILY SERGIO Administration Ketorolac Tromethamine 30 mg 10/25/22 23:39 Ketorolac 30 Mg/Ml Vial (*[facility]) IV PUSH 10/30/22 23:38 Q6H PRN Pain Rated 4-6 Loperamide HCl 2 mg 10/26/22 21:35 10/26/22 21:54 Loperamide Hcl 2 Mg Capsule PO 2 mg PRN PRN Administration Diarrhea Ondansetron HCl 4 mg 10/25/22 23:39 Ondansetron Inj 4 Mg/2 Ml Vial IV PUSH Q4H PRN Nausea Fluticasone/Salmeterol 2 puff 10/26/22 08:00 10/28/22 08:30 Fluticasone/Salmeterol 115-21 Mcg Inhaler 1 Puff INHALATION 2 puff Q12HRT SERGIO Administration Sumatriptan Succinate 25 - 50 mg 10/26/22 04:27 Sumatriptan Succinate 25 Mg Tablet PO DAILY PRN Migraine Headache Trimethoprim/Sulfamethoxazole 2 tab 10/28/22 14:35 10/28/22 15:04 Sulfamethoxazole/Trimethoprim 800/160 Mg Ds Tablet PO 11/04/22 09:01 2 tab Q12HR SERGIO Administration Labs Labs: Laboratory Results - last 24 hr 10/28/22 05:02 WBC 8.8 RBC 4.24 Hgb 11.8 L Hct 36.8 L MCV 86.8 MCH 27.8 MCHC 32.1 RDW 14.3 Plt Count 269 MPV 10.6 H Immature Gran % (Auto) 0.3 Neut % (Auto) 58.2 Lymph % (Auto) 31.4 Cotton % (Auto) 8.3 Eos % (Auto) 1.5 Baso % (Auto) 0.3 Lymph # (Auto) 2.76 Cotton # (Auto) 0.7 H Eos # (Auto) 0.1 Baso # (Auto) 0.0 Abs Immat Gran (auto) 0.03 Absolute Neuts (auto) 5.1 Absolute Nucleated RBC 0.0 Nucleated RBC % 0.0 Sodium 139 Potassium 3.8 Chloride 105 Carbon Dioxide 29 Anion Gap 5 L BUN 7 Creatinine 0.60 L Estim Creat Clear Calc 180 Estimated GFR > 60 Glucose 99 Calcium 8.3 L Total Bilirubin 0.4 AST
== END 2022-10-28 15:36 | disposition home or self-care (01) ==
LOC: ANHED 23:38 → ANH2MED 10-27 19:18
PROVIDERS: Internal Medicine Critical Care Medicine; Admitting Provider Internal Medicine; Emergency Provider Physician Assistant; PCP Family Medicine; Visit Provider Physician Assistant
DX: R78.81 Bacteremia (principal); N61.1 Abscess of the breast and nipple; R79.89 Other specified abnormal findings of blood chemistry; D72.829 Elevated white blood cell count, unspecified; R19.7 Diarrhea, unspecified; R00.0 Tachycardia, unspecified; G43.909 Migraine, unspecified, not intractable, without status migrainosus; J45.909 Unspecified asthma, uncomplicated; D64.9 Anemia, unspecified; E28.2 Polycystic ovarian syndrome; N80.9 Endometriosis, unspecified; E66.01 Morbid (severe) obesity due to excess calories; Z68.42 Body mass index [BMI] 45.0-49.9, adult; Z79.51 Long term (current) use of inhaled steroids; Z79.899 Other long term (current) drug therapy
CPT/HCPCS: 10061; 36415; 80048; 80053; 81003; 81025; 83605; 85025; 87040; 87045; 87070; 87205; 87427; 94640; 96360; 96365; 96366; 96367; 96372; 96374; 96376; 99285; A9270; G0378; G0379; J1650; J3370; J7030

== ENCOUNTER 2023-01-20 13:33 | Emergency (ER) | payer OTHER, SELFPAY ==
--- NOTE | ~2023-01-20 | XR_ITS ---
EXAMINATION: XR chest 2V Exam Date/Time: 01/20/2023 15:49 CDT HISTORY: cough, HX OF ASTHMA Comparison: CT chest 07/15/2022. RESULT: Lines, tubes, and devices: None. Lungs and pleura: Clear. Cardiomediastinal silhouette: Stable. Other: No acute osseous or upper abdominal finding. IMPRESSION: No acute cardiopulmonary process. Reviewed, dictated and finalized at location [facility].
[2023-01-20 13:36] VITALS: BP 128/70; PULSE 105; RESP 20; TEMP 36.3; O2SAT 100
--- NOTE | 2023-01-20 15:06 | ECG_ITS ---
Measurements Intervals Gilbert Rate: 94 P: 40 VT: 151 QRS: 16 QRSD: 86 T: 13 QT: 327 QTc: 410 Interpretive Statements SINUS RHYTHM WITHIN NORMAL LIMITS NO PREVIOUS ECG AVAILABLE FOR COMPARISON Electronically Signed On 01-21-2023 13:11:57 CDT by Caden Rao M.D.
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
[2023-01-20] MEDS: SODIUM CHLORIDE 0.9% IV 1,000 ML 999 ML IV CONT (15:29)
[2023-01-20 15:36] LABS: Hematocrit 46.5 % (37.0-47.0); Hemoglobin 14.9 g/dL (12.0-15.0); Mean Corpuscular Volume 84.2 fl (80-100); Mean Platelet Volume 9.7 fl (7.4-10.4); Platelet Count Result 253 k/mm3 (150-375); Red Blood Count 5.52 M/mm3 (4.2-5.4); Red Cell Distribution Width 13.6 % (11.5-14.5); White Blood Count 8.3 K/mm3 (4.5-10.0)
[2023-01-20] MEDS: BENZONATATE 100 MG CAPSULE 200 MG PO (15:41)
[2023-01-20 15:52] LABS: Alanine Aminotransferase 61 U/L (6-35); Albumin Level 4.4 g/dL (3.5-5.1); Alkaline Phosphatase 70 U/L (38-126); Anion Gap 7 mmol/L (8-16); Aspartate Amino Transferase 50 U/L (14-36); Bilirubin,Total 1.2 mg/dL (0.2-1.3); Blood Urea Nitrogen 6 mg/dL (7-17); Calcium 8.9 mg/dL (8.4-10.2); Carbon Dioxide 29 mmol/L (22-30); Chloride 99 mmol/L (98-107); Estimated CRCL calculation 138 ml/min; Estimated Glomerular Filt Rate > 60; Glucose 88 mg/dL (65-110); Potassium 3.8 mmol/L (3.4-5.0); Sodium 135 mmol/L (137-145)
[2023-01-20 16:03] LABS: Troponin I < 0.012 ng/mL (0.000-0.034)
[2023-01-20 16:12] LABS: Band Neutrophils Percent 6 % (0-6); Eosinophils Absolute Manual 0.16 K/mm3 (0.02-0.5); Eosinophils Percent Manual 2 % (0-4); Lymphocytes Absolute Manual 3.32 K/mm3 (1.1-4.5); Monocytes Absolute Manual 0.58 K/mm3 (0.1-0.90); Monocytes Percent Manual 7 % (3-9); Neutrophils Absolute Manual 4.23 K/mm3 (1.7-7.2); Neutrophils Percent Manual 45 % (46-73); Total Cells Counted 100
[2023-01-20 16:13] LABS: Platelet Estimate Adequate (Adequate); SARS-CoV-2 RNA PCR Negative (Negative); Schistocytes None Seen (NORMAL)
[2023-01-20 16:14] LABS: Hypochromasia 1+ (NORMAL)
[2023-01-20 16:45] VITALS: BP 143/80; PULSE 90; RESP 18; O2SAT 98
== END 2023-01-20 17:40 | disposition home or self-care (01) ==
PROVIDERS: Emergency Provider Student in an Organized Health Care Education/Training Program; PCP Family Medicine
DX: R05.9 Cough, unspecified (principal); Z20.822 Contact with and (suspected) exposure to COVID-19; J45.909 Unspecified asthma, uncomplicated; E28.2 Polycystic ovarian syndrome; N80.9 Endometriosis, unspecified; E66.01 Morbid (severe) obesity due to excess calories; Z68.41 Body mass index [BMI] 40.0-44.9, adult; Z97.5 Presence of (intrauterine) contraceptive device; Z86.2 Personal history of diseases of the blood and blood-forming organs and certain disorders involving the immune mechanism
CPT/HCPCS: 36415; 71046; 80053; 84484; 85025; 87635; 93005; 96360; 96361; 99284; A9270; J7030

== ENCOUNTER 2023-05-02 14:25 | Emergency (ER) | payer OTHER, SELFPAY ==
[2023-05-02 14:28] VITALS: BP 152/92; PULSE 96; RESP 17; TEMP 36.4; O2SAT 100
[2023-05-02 18:19] LABS: Basophils Percent Auto 0.4 % (0.2-1.2); Eosinophils Absolute Auto 0.1 K/mm3 (0-0.3); Eosinophils Percent Auto 1.4 % (0-4.4); Hematocrit 43.3 % (37.0-47.0); Hemoglobin 13.7 g/dL (12.0-15.0); Immature Granulocyte Absolute 0.02 K/mm3 (0.00-0.031); Immature Granulocyte Percent A 0.2 % (0-0.5); Lymphocytes Absolute Auto 3.57 K/mm3 (0.9-3.2); Lymphocytes Percent Auto 37.8 % (18.3-44.2); Mean Corpuscular HGB Conc 31.6 g/dl (32-36); Mean Corpuscular Volume 88.4 fl (80-100); Mean Platelet Volume 10.3 fl (7.4-10.4); Monocytes Absolute Auto 0.7 K/mm3 (0.1-0.6); Monocytes Percent Auto 7.5 % (2.6-8.5); Neutrophils Percent Auto 52.7 % (45.5-73.1); Platelet Count Result 256 k/mm3 (150-375); White Blood Count 9.5 K/mm3 (4.5-10.0)
--- NOTE | 2023-05-02 18:28 | ED.WOUNDLAC ---
HPI - Wound/Laceration General Chief Complaint: Wound/Laceration Stated Complaint: wound Time Seen by Provider: 05/02/23 17:21 History of Present Illness HPI narrative: 22 y/o F with a history of breast abscess reports for evaluation due to concern that her chest wall/breast abscess has returned. Pt states she began having tenderness to her chest wall 4 days ago. She called her PCP who is out of town and was not able to be seen in his office by another provider, so she came to the ED for further evaluation. Her tenderness is between her breasts and extends into her R breast. She nausea, vomiting, drainage, recent injury or trauma to the area. Denies drainage. She does state that she had 101 temperature earlier today but has not taken any antipyretics and her temperature here is 97.6. Related Data Home Medications Medication Instructions Recorded Confirmed albuterol sulfate 90 mcg/actuation 1 inh inhalation PRN PRN Shortness 05/01/21 11/07/22 aerosol inhaler Of Breath Or Wheezing budesonide-formoterol HFA 160 1 inh inhalation BID 05/01/21 11/07/22 mcg-4.5 mcg/actuation aerosol inhaler (Symbicort) sumatriptan succinate 25 mg tablet 25 - 50 mg PO PRN PRN Migraine 10/26/22 11/07/22 Headache budesonide-formoterol HFA 160 inhalation 01/20/23 mcg-4.5 mcg/actuation aerosol inhaler (Symbicort) methylprednisolone 4 mg tablets in mg 01/20/23 a dose pack montelukast 01/20/23 Allergies Allergy/AdvReac Type Severity Reaction Status Date / Time adhesive Allergy Unknown ITCHING Verified 05/02/23 14:31 latex Allergy Hives Verified 05/02/23 14:31 Vancomycin AdvReac Mild Puritis Uncoded 11/19/22 09:19 Review of Systems Review of Systems: CONSTITUTIONAL: Denies fever, chills, or sweats. EYES: Denies visual changes, redness, or discharge. ENT: Denies rhinorrhea, congestion, sore throat, or otalgia. CARDIOVASCULAR: Denies chest pain, palpitations, or edema. RESPIRATORY: Denies cough or dyspnea. GASTROINTESTINAL: Denies abdominal pain, nausea, vomiting, or diarrhea. GENITOURINARY: Denies dysuria or hematuria. SKIN: See HPI MUSCULOSKELETAL: Denies back pain, joint pain, or myalgia. NEUROLOGIC: Denies headache, numbness, or weakness. PSYCHIATRIC: Denies anxiety or depression. [facility] Past Medical History Medical History Anemia Endometriosis Morbid obesity PCOS (polycystic ovarian syndrome) Surgical History Surgical History Hx of excision of mass Hx of tonsillectomy (2014) Due to recurrent tonsillitis Status post incision and drainage complex I&D of chest wall abscess 5x7 cm, right breast measuring 2x3 cm 07/15/22 Family History Family History Father Liver failure Alcoholic cirrhosis, Onset Age: 49 Grandparent Heart disease Diabetes mellitus Lung cancer Grandparent Cervical cancer Breast cancer Other Cervical cancer Breast cancer Esophageal cancer Social History Social History Social History: She lives with her sister. She works at [employer]. Denies use of alcohol, tobacco or drugs. She does not have any children. Code status: Full code Surrogate decision maker: Marie Shafer (aunt) Smoking status: Never smoker Alcohol intake: never Substance use: never Lack of Transportation: No Lack of Food: Never True Current Housing: I Have Housing Concerned About Future Housing: No Difficulty Paying Gas/Electric Bills: No Difficulty Paying for Meds: No Currently Unemployed: No Education: High School Diploma/GED Difficulty w/ Childcare or Family Care: No Spiritual care concerns: No Exam Narrative: GENERAL: Well-appearing, well-nourished, and in no acute distress. HEAD: Normocephalic, atraumatic. EYES: PERRLA
[2023-05-02 18:44] LABS: Alanine Aminotransferase 35 U/L (6-35); Albumin Level 4.6 g/dL (3.5-5.1); Alkaline Phosphatase 75 U/L (38-126); Anion Gap 9 mmol/L (8-16); Aspartate Amino Transferase 25 U/L (14-36); Bilirubin,Total 1.1 mg/dL (0.2-1.3); Blood Urea Nitrogen 7 mg/dL (7-17); Carbon Dioxide 28 mmol/L (22-30); Chloride 103 mmol/L (98-107); Estimated CRCL calculation 132 ml/min; Estimated Glomerular Filt Rate > 60; Glucose 90 mg/dL (65-110); Potassium 3.8 mmol/L (3.4-5.0); Sodium 140 mmol/L (137-145)
[2023-05-02 19:00] LABS: Erythrocyte Sedimentation Rate 10 mm/hr (0-20)
[2023-05-02 19:22] VITALS: BP 133/92; PULSE 89; RESP 18; TEMP 36.6; O2SAT 100
[2023-05-02 21:43] VITALS: BP 128/93; PULSE 87; RESP 22; O2SAT 98
[2023-05-02] MEDS: SULFAMETHOXAZOLE/TRIMETHOPRIM 800/160 MG DS TABLET 1 TAB PO (21:47)
[2023-05-02] MEDS: CEPHALEXIN 500 MG CAPSULE PO (21:47)
== END 2023-05-02 22:11 | disposition home or self-care (01) ==
PROVIDERS: Emergency Provider Physician Assistant; PCP Family Medicine
DX: L02.213 Cutaneous abscess of chest wall (principal)
CPT/HCPCS: 36415; 80053; 83605; 85025; 85652; 86140; 99283; A9270

== ENCOUNTER 2023-06-17 06:46 | Emergency (ER) | payer OTHER, SELFPAY ==
--- NOTE | ~2023-06-17 | CT_ITS ---
CT of the Abdomen and Pelvis: Indication: Abdominal pain Technique: 2.5 mm axial scans were obtained through the abdomen and pelvis following intravenous adm inistration of 100 cc of Omnipaque 350. Dose reduction technique was used on this scan by utilizing a utomated exposure control and iterative reconstruction technique. The dose-length product (DLP) was 1 738.98 mGy-cm. COMPARISON: 11/19/2022 Findings: Scans through the lung bases are unremarkable. The liver, spleen, pancreas, gallbladder, adrenals and kidneys are within normal limits. No evidence of aortic aneurysm. No lymphadenopathy. No bowel obstruction or bowel wall thickening. There is no evidence to suggest acute appendicitis. Images through the pelvis were performed. Urinary bladder unremarkable. IUD in place. Trace free flui d present in the pelvis. Impression: No significant abnormalities seen. Reviewed, dictated and finalized at [facility]. [employer] P[employer]ACH[employer] Impression: No significant abnormalities seen.
[2023-06-17 06:48] VITALS: BP 152/98; PULSE 104; RESP 16; TEMP 36.2; O2SAT 99
[2023-06-17 09:00] VITALS: BP 136/83; PULSE 104; RESP 16; O2SAT 100
--- NOTE | 2023-06-17 09:06 | ED.ABDPAIN ---
HPI - Abdominal Pain General Chief Complaint: Abdominal Pain Stated Complaint: abdominal pain Time Seen by Provider: 06/17/23 08:55 Source: patient Mode of arrival: ambulatory Limitations: no limitations History of Present Illness HPI narrative: America is a 22 year old female patient presenting to the ER today with c/o ruq/epigastric abdomen pain that started at 3a.m. this morning. Is having nausea, vomiting, and diarrhea as well. No history of any GERD, gallbladder disease, or liver disease. No fever or chills. Rates pain 9/10 currently. Related Data Home Medications Medication Instructions Recorded Confirmed albuterol sulfate 90 mcg/actuation 1 inh inhalation PRN PRN Shortness 05/01/21 05/21/23 aerosol inhaler Of Breath Or Wheezing budesonide-formoterol HFA 160 1 inh inhalation BID 05/01/21 05/21/23 mcg-4.5 mcg/actuation aerosol inhaler (Symbicort) sumatriptan succinate 25 mg tablet 25 - 50 mg PO PRN PRN Migraine 10/26/22 05/21/23 Headache Allergies Allergy/AdvReac Type Severity Reaction Status Date / Time adhesive Allergy Unknown ITCHING Verified 06/17/23 09:26 latex Allergy Hives Verified 06/17/23 09:26 vancomycin AdvReac Mild Pruritis Verified 06/17/23 09:26 Review of Systems Review of Systems: Pertinent positives per HPI. Patient denies any fever, chills, rash, headache, visual changes, dizziness, cough, runny nose, sore throat, shortness of breath, chest pain, palpitations, nausea, vomiting, diarrhea, constipation, or any urinary issues. REPLACED BY [facility] Past Medical History Medical History Anemia Endometriosis Morbid obesity PCOS (polycystic ovarian syndrome) Surgical History Surgical History Hx of excision of mass Hx of tonsillectomy (2014) Due to recurrent tonsillitis Status post incision and drainage complex I&D of chest wall abscess 5x7 cm, right breast measuring 2x3 cm 07/15/22 Family History Family History Father Liver failure Alcoholic cirrhosis, Onset Age: 49 Grandparent Heart disease Diabetes mellitus Lung cancer Grandparent Cervical cancer Breast cancer Other Cervical cancer Breast cancer Esophageal cancer Social History Social History Social History: She lives with her sister. She works at [employer]. Denies use of alcohol, tobacco or drugs. She does not have any children. Code status: Full code Surrogate decision maker: Marie Shafer (aunt) Smoking status: Never smoker Alcohol intake: never Substance use: never Lack of Transportation: No Lack of Food: Never True Current Housing: I Have Housing Concerned About Future Housing: No Difficulty Paying Gas/Electric Bills: No Difficulty Paying for Meds: No Currently Unemployed: No Education: High School Diploma/GED Difficulty w/ Childcare or Family Care: No Spiritual care concerns: No Comments At the time of my signature, I reviewed and agree with the nursing past medical, surgical, social, and family history. There is no relevant family history pertinent to the patient complaint. Exam Narrative: General: Well-developed, obese, in no apparent distress. Head: Normocephalic, atraumatic. Cardio: Regular rate and rhythm, s1 and s2 normal, no murmur appreciated. Resp: Clear to auscultation bilaterally, no rhonchi, rales, wheezing or rubs. Abdomen: Soft, pliable, bowel sounds present in all quadrants, tender to palpation over the right upper quadrant and midepigastric, no organomegly, no CVAT tenderness. Course Course Emergency Course: Portions of this record may have been created with voice recognition software. Vital Signs Vital signs: Vital Signs Temperature 36.2 C L 06/17/23 06:48 Pulse Rate 104 H 06/17/23 06
[2023-06-17 09:21] LABS: Basophils Absolute Auto 0.1 K/mm3 (0.0-0.1); Basophils Percent Auto 0.3 % (0.2-1.2); Eosinophils Absolute Auto 0.1 K/mm3 (0-0.3); Eosinophils Percent Auto 0.5 % (0-4.4); Hematocrit 44.1 % (37.0-47.0); Immature Granulocyte Absolute 0.07 K/mm3 (0.00-0.031); Immature Granulocyte Percent A 0.4 % (0-0.5); Lymphocytes Absolute Auto 1.47 K/mm3 (0.9-3.2); Lymphocytes Percent Auto 8.6 % (18.3-44.2); Mean Corpuscular HGB Conc 31.7 g/dl (32-36); Mean Corpuscular Hemoglobin 27.7 pg (26-34); Mean Corpuscular Volume 87.2 fl (80-100); Mean Platelet Volume 10.1 fl (7.4-10.4); Monocytes Absolute Auto 0.9 K/mm3 (0.1-0.6); Neutrophils Absolute Auto 14.6 K/mm3 (1.3-6.7); Neutrophils Percent Auto 85.2 % (45.5-73.1); Platelet Count Result 283 k/mm3 (150-375); Red Blood Count 5.06 M/mm3 (4.2-5.4); Red Cell Distribution Width 13.2 % (11.5-14.5); White Blood Count 17.1 K/mm3 (4.5-10.0)
[2023-06-17 09:22] LABS: Appearance Urine Clear (Clear); Bilirubin Urine Negative (Negative); Blood Urine Negative (Negative); Color Urine Yellow (Yellow); Glucose Urine UA Negative (Negative); Ketones Urine Negative (Negative); Leukocyte Esterase Ur Negative LEU/UL (Negative); Nitrate Urine Negative (Negative); Protein Urine Negative (Negative); Specific Grav Ur 1.027 (1.001-1.035); Urobilinogen Urine 0.2 mg/dL (<2.0); pH Urine 5.5 (5.0-9.0)
[2023-06-17] MEDS: SODIUM CHLORIDE 0.9% IV 1,000 ML 999 ML IV CONT (09:28)
[2023-06-17] MEDS: ONDANSETRON INJ 4 MG/2 ML VIAL IV PUSH (09:29)
[2023-06-17] MEDS: HYDROmorphone HCL INJ (*CRX) 1 MG/ML SYR 0.5 MG IV PUSH ×2 (09:31→12:15)
[2023-06-17 09:38] VITALS: BP 123/80; PULSE 108; RESP 14; O2SAT 98
[2023-06-17] MEDS: diphenhydrAMINE HCl INJ 50 MG/ML VIAL 25 MG IV PUSH (09:46)
[2023-06-17 09:47] VITALS: BP 122/82; PULSE 102; RESP 18; O2SAT 96
[2023-06-17 09:52] LABS: Add Urine Microscopic? NO
[2023-06-17 10:14] VITALS: BP 120/68; PULSE 96; RESP 24; O2SAT 99
[2023-06-17 10:39] VITALS: BP 135/70; PULSE 100; RESP 19; O2SAT 100
[2023-06-17 10:49] LABS: Alanine Aminotransferase 33 U/L (6-35); Albumin Level 4.1 g/dL (3.5-5.1); Alkaline Phosphatase 58 U/L (38-126); Anion Gap 10 mmol/L (8-16); Aspartate Amino Transferase 38 U/L (14-36); Bilirubin,Total 1.7 mg/dL (0.2-1.3); Blood Urea Nitrogen 10 mg/dL (7-17); Calcium 8.1 mg/dL (8.4-10.2); Carbon Dioxide 25 mmol/L (22-30); Chloride 103 mmol/L (98-107); Estimated CRCL calculation 175 ml/min; Estimated Glomerular Filt Rate > 60; Glucose 112 mg/dL (65-110); Lipase 96 U/L (23-300); Potassium 4.4 mmol/L (3.4-5.0); Sodium 138 mmol/L (137-145)
== END 2023-06-17 12:52 | disposition home or self-care (01) ==
PROVIDERS: Emergency Medicine; Emergency Provider Nurse Practitioner Family; PCP Family Medicine
DX: K52.9 Noninfective gastroenteritis and colitis, unspecified (principal)
CPT/HCPCS: 36415; 74177; 80053; 81003; 81025; 83690; 85025; 96361; 96374; 96375; 96376; 99284; J1170; J1200; J2405; J7030; Q9967

== ENCOUNTER 2023-08-25 22:02 | Emergency (ER) | payer OTHER, SELFPAY ==
[2023-08-25 22:03] VITALS: BP 159/106; PULSE 104; RESP 18; TEMP 36.2; O2SAT 100
[2023-08-25 22:49] LABS: Influenza A QL RT-PCR Negative (Negative); Influenza B QL RT-PCR Negative (Negative); RSV RNA, RT-PCR Negative (Negative); SARS-CoV-2 RNA PCR Negative (Negative)
--- NOTE | 2023-08-25 23:31 | ED.GENADULT ---
HPI - General Adult General Chief complaint: Upper Respiratory Infection Stated complaint: URI Time Seen by Provider: 08/25/23 22:49 Source: patient Mode of arrival: ambulatory Limitations: no limitations History of Present Illness HPI narrative: This is a 23-year-old female who presents to the ED with chief complaint of URI symptoms for the past 3 days. Reports cough, congestion, sore throat body aches. Has not taken her temperature. Endorses chills and subjective fevers. Denies shortness of breath, productive cough, back pain, chest pain, abdominal pain, nausea, vomiting. States her niece who she is around a lot just tested positive for rhinovirus. Related Data Home Medications Medication Instructions Recorded Confirmed albuterol sulfate 90 mcg/actuation 1 inh inhalation PRN PRN Shortness 05/01/21 05/21/23 aerosol inhaler Of Breath Or Wheezing budesonide-formoterol HFA 160 1 inh inhalation BID 05/01/21 05/21/23 mcg-4.5 mcg/actuation aerosol inhaler (Symbicort) sumatriptan succinate 25 mg tablet 25 - 50 mg PO PRN PRN Migraine 10/26/22 05/21/23 Headache Allergies Allergy/AdvReac Type Severity Reaction Status Date / Time adhesive Allergy Unknown ITCHING Verified 08/25/23 22:13 latex Allergy Hives Verified 08/25/23 22:13 vancomycin AdvReac Mild Pruritis Verified 08/25/23 22:13 Review of Systems Review of Systems: All systems as dictated in HPI [facility] Past Medical History Medical History Anemia Endometriosis Morbid obesity PCOS (polycystic ovarian syndrome) Surgical History Surgical History Hx of excision of mass Hx of tonsillectomy (2015) Due to recurrent tonsillitis Status post incision and drainage complex I&D of chest wall abscess 5x7 cm, right breast measuring 2x3 cm 07/15/22 Family History Family History Father Liver failure Alcoholic cirrhosis, Onset Age: 49 Grandparent Heart disease Diabetes mellitus Lung cancer Grandparent Cervical cancer Breast cancer Other Cervical cancer Breast cancer Esophageal cancer Social History Social History Social History: She lives with her sister. She works at [employer]. Denies use of alcohol, tobacco or drugs. She does not have any children. Code status: Full code Surrogate decision maker: Marie Shafer (aunt) Smoking status: Never smoker Alcohol intake: never Substance use: never Lack of Transportation: No Lack of Food: Never True Current Housing: I Have Housing Concerned About Future Housing: No Difficulty Paying Gas/Electric Bills: No Difficulty Paying for Meds: No Currently Unemployed: No Education: High School Diploma/GED Difficulty w/ Childcare or Family Care: No Spiritual care concerns: No Exam Narrative: GENERAL: Well-appearing, well-nourished, and in no acute distress. HEAD: Normocephalic, atraumatic. EYES: PERRLA and EOMI. ENT: Nares clear, no rhinorrhea or epistaxis. Mucous membranes moist. Oropharynx without tonsillar hypertrophy exudate or other lesions. NECK: Supple. No adenopathy or masses. CHEST: No respiratory distress. Clear to auscultation. No wheezes rales or rhonchi HEART: Regular rate and rhythm. No murmur heard. Normal peripheral pulses. ABDOMEN: Soft, nontender, nondistended, normal active bowel sounds. MSK: Normal range of motion. No edema. SKIN: Warm, dry, no rash. NEURO: Alert and oriented x3. No focal deficits. PSYCH: Normal mood and affect. Course Vital Signs Vital signs: Vital Signs Temperature 97.1 F L 08/25/23 22:03 Pulse Rate 104 H 08/25/23 22:03 Respiratory Rate 18 08/25/23 22:03 Blood Pressure 159/106 H 08/25/23 22:03 Pulse Oximetry 100 08/25/23 22:03 Oxygen Delivery Pati
== END 2023-08-25 23:38 | disposition home or self-care (01) ==
PROVIDERS: Emergency Medicine; Emergency Provider Physician Assistant; PCP Family Medicine
DX: J06.9 Acute upper respiratory infection, unspecified (principal); Z20.822 Contact with and (suspected) exposure to COVID-19; N80.9 Endometriosis, unspecified; E28.2 Polycystic ovarian syndrome; E66.01 Morbid (severe) obesity due to excess calories; Z68.41 Body mass index [BMI] 40.0-44.9, adult; Z86.2 Personal history of diseases of the blood and blood-forming organs and certain disorders involving the immune mechanism
CPT/HCPCS: 87637; 99283

== ENCOUNTER 2023-10-31 10:43 | Emergency (ER) | payer OTHER, SELFPAY ==
--- NOTE | ~2023-10-31 | CT_ITS ---
EXAMINATION: CTA BRAIN/CAROTID DATE: 10/31/2023 14:31 INDICATION: Headache TECHNIQUE: Computed tomographic angiography (CTA) of the head and neck was performed with 100 mL Omni paque-350 intravenous contrast. Multiplanar reconstructions and maximum intensity projection 3D-recon structions of the carotid arteries and of the intracranial arteries were created by the technologist on a separate workstation. Precontrast CT of the head was also obtained. Automated exposure control and iterative reconstruction technique were employed.The dose-length product was 1761.76 mGy-cm. COMPARISON: None. FINDINGS: Carotid arteries: Visualized upper lungs are clear. Normal caliber aortic arch with no evident atherosclerotic plaque o r dissection. There is no evident atherosclerotic plaque with 0% stenosis of the and left carotid bul bs relative to normal distal artery lumen diameter (NASCET criteria). Left vertebral artery is domina nt. Head: No acute intracranial hemorrhage, acute infarction or abnormal extra axial fluid collection. Ventricl es are normal and symmetric. No mass/mass effect. No abnormally enhancing brain lesions. Mucous reten tion cyst in the left maxillary sinus. The orbits and mastoid air cells are normal. Intracranial arteries The left vertebral artery is dominant. There is no hemodynamically significant stenosis in the verteb ral, basilar and internal carotid arteries. There are no aneurysms, dissection or evident thrombosis. The right A1 and bilateral P1 segments are patent. The left anterior cerebral artery arises from the right A1 segment via a patent anterior communicating artery. There is also a tiny patent right poste rior communicating artery. Cerebral arterial arborization appears symmetric. IMPRESSION: 1. No evident atherosclerotic plaque with 0% stenosis of the right carotid bulb relative to normal di stal artery lumen diameter (NASCET criteria). 2. No acute intracranial process or abnormally enhancing brain lesions. 3. Normal anatomic variation of the cahto of Ros[place] with no aneurysm, dissection, thrombosis or hemo dynamically significant stenosis. Reviewed, dictated and finalized at location A. IMPRESSION: 1. No evident atherosclerotic plaque with 0% stenosis of the right carotid bulb relative to normal distal artery lumen diameter (NASCET criteria). 2. No acute intracranial process or abnormally enhancing brain lesions. 3. Normal anatomic variation of the cahto of Ros[place] with no aneurysm, dissecti on, thrombosis or hemodynamically significant stenosis.
[2023-10-31 10:58] VITALS: BP 136/98; PULSE 89; RESP 16; TEMP 36.5; O2SAT 100
--- NOTE | 2023-10-31 11:29 | PC.NURSE ---
Pt states Imitrex not working on migraine. Migraine started 6 days ago. light sensitivity present. Egg size swollen area to right occipital area. Lights dimmed, ice pack given
--- NOTE | 2023-10-31 12:02 | ED.HA ---
HPI - Headache General Chief Complaint: Headache <YANI Miranda Last Filed: 10/31/23 14:38> Stated Complaint: migraine <YANI Miranda Last Filed: 10/31/23 14:38> Time Seen by Provider: 10/31/23 11:15 <YANI Miranda Last Filed: 10/31/23 14:38> History of Present Illness HPI Narrative: 23-year-old female with history of migraines presents to emergency department for migraine for 6 days. Patient states migraine is in her right occiput and in her bilateral temples. She states when it becomes extremely bad, her vision becomes blurred. She denies focal numbness or weakness, head injury or trauma. She is reporting associated nausea and vomiting. States she is taking her prescribed sumatriptan and Excedrin without improvement which prompted her to come to the ED today. Denies fever. <YANI Miranda Last Filed: 10/31/23 14:38> Related Data Home Medications: Home Medications Medication Instructions Recorded Confirmed albuterol sulfate 90 mcg/actuation 1 inh inhalation PRN PRN Shortness 05/01/21 05/21/23 aerosol inhaler Of Breath Or Wheezing budesonide-formoterol HFA 160 1 inh inhalation BID 05/01/21 05/21/23 mcg-4.5 mcg/actuation aerosol inhaler (Symbicort) sumatriptan succinate 25 mg tablet 25 - 50 mg PO PRN PRN Migraine 10/26/22 05/21/23 Headache <YANI Miranda Last Filed: 10/31/23 14:38> Allergies/Adverse Reactions: Allergies Allergy/AdvReac Type Severity Reaction Status Date / Time adhesive Allergy Unknown ITCHING Verified 10/31/23 10:44 latex Allergy Hives Verified 10/31/23 10:44 vancomycin AdvReac Mild Pruritis Verified 10/31/23 10:44 <YANI Miranda Last Filed: 10/31/23 14:38> Review of Systems Review of Systems: CONSTITUTIONAL: Denies fever, chills, or sweats. EYES: Denies visual changes, redness, or discharge. ENT: Denies rhinorrhea, congestion, sore throat, or otalgia. CARDIOVASCULAR: Denies chest pain, palpitations, or edema. RESPIRATORY: Denies cough or dyspnea. GASTROINTESTINAL: Denies abdominal pain, nausea, vomiting, or diarrhea. GENITOURINARY: Denies dysuria or hematuria. SKIN: Denies rash or itching. MUSCULOSKELETAL: Denies back pain, joint pain, or myalgia. NEUROLOGIC: See HPI PSYCHIATRIC: Denies anxiety or depression. <Celeste Yanez PA-C - Last Filed: 10/31/23 14:38> [facility] Past Medical History Medical History: Medical History Anemia Endometriosis Morbid obesity PCOS (polycystic ovarian syndrome) <Celeste Yanez PA-C - Last Filed: 10/31/23 14:38> Surgical History Surgical History: Surgical History Hx of excision of mass Hx of tonsillectomy (2014) Due to recurrent tonsillitis Status post incision and drainage complex I&D of chest wall abscess 5x7 cm, right breast measuring 2x3 cm 07/15/22 <Celeste Yanez PA-C - Last Filed: 10/31/23 14:38> Family History Family History: Family History Father Liver failure Alcoholic cirrhosis, Onset Age: 49 Grandparent Heart disease Diabetes mellitus Lung cancer Grandparent Cervical cancer Breast cancer Other Cervical cancer Breast cancer Esophageal cancer <Celeste Yanez PA-C - Last Filed: 10/31/23 14:38> Social History Social History: Social History Social History: She lives with her sister. She works at [employer]. Denies use of alcohol, tobacco or drugs. She does not have any children. Code status: Full code Surrogate decision maker: Marie Shafer (aunt) Smoking status: Never smoker Alcohol intake: never Substance use: never Lack of Transportation: No Lack of Food: Never True Current Housing: I Have Housing
[2023-10-31] MEDS: SODIUM CHLORIDE 0.9% IV 1,000 ML 999 ML IV CONT (12:31)
[2023-10-31] MEDS: KETOROLAC 15 MG/ML VIAL (*BKC) IV PUSH (12:32)
[2023-10-31] MEDS: diphenhydrAMINE HCl INJ 50 MG/ML VIAL 25 MG IV PUSH (12:33)
[2023-10-31] MEDS: PROCHLORPERAZINE EDISYLATE 10 MG/2 ML VIAL IV PUSH (12:33)
[2023-10-31 13:23] VITALS: BP 109/82; PULSE 70; RESP 16; TEMP 36.7; O2SAT 99
--- NOTE | 2023-10-31 13:31 | PC.NURSE ---
Pt states h/a unchanged. Celeste JOHNSTON aware.
[2023-10-31 13:58] LABS: Basophils Percent Auto 0.5 % (0.2-1.2); Eosinophils Absolute Auto 0.1 K/mm3 (0-0.3); Eosinophils Percent Auto 2.2 % (0-4.4); Hematocrit 41.8 % (37.0-47.0); Hemoglobin 13.1 g/dL (12.0-15.0); Immature Granulocyte Absolute 0.01 K/mm3 (0.00-0.031); Immature Granulocyte Percent A 0.2 % (0-0.5); Lymphocytes Absolute Auto 2.18 K/mm3 (0.9-3.2); Lymphocytes Percent Auto 39.8 % (18.3-44.2); Mean Corpuscular HGB Conc 31.3 g/dl (32-36); Mean Corpuscular Hemoglobin 27.7 pg (26-34); Mean Corpuscular Volume 88.4 fl (80-100); Mean Platelet Volume 10.1 fl (7.4-10.4); Monocytes Absolute Auto 0.4 K/mm3 (0.1-0.6); Monocytes Percent Auto 7.8 % (2.6-8.5); Neutrophils Absolute Auto 2.7 K/mm3 (1.3-6.7); Neutrophils Percent Auto 49.5 % (45.5-73.1); Platelet Count Result 242 k/mm3 (150-375); Red Blood Count 4.73 M/mm3 (4.2-5.4); Red Cell Distribution Width 13.2 % (11.5-14.5); White Blood Count 5.5 K/mm3 (4.5-10.0)
[2023-10-31 14:10] LABS: Anion Gap 6 mmol/L (4-12); Blood Urea Nitrogen 9 mg/dL (7-17); Calcium 8.4 mg/dL (8.4-10.2); Carbon Dioxide 27 mmol/L (22-30); Chloride 108 mmol/L (98-107); Estimated CRCL calculation 170 ml/min; Estimated Glomerular Filt Rate > 60; Glucose 86 mg/dL (65-110); Potassium 3.8 mmol/L (3.4-5.0); Sodium 141 mmol/L (137-145)
[2023-10-31 14:16] LABS: Platelet Estimate Adequate (Adequate); Schistocytes None Seen
[2023-10-31 14:17] LABS: Atypical Lymphocytes Present
[2023-10-31 16:24] VITALS: BP 128/85; PULSE 80; RESP 18; TEMP 36.6; O2SAT 100
== END 2023-10-31 16:27 | disposition home or self-care (01) ==
PROVIDERS: Physician Assistant; Emergency Provider Emergency Medicine; PCP Family Medicine
DX: E28.2 Polycystic ovarian syndrome (principal); E66.01 Morbid (severe) obesity due to excess calories; Z68.41 Body mass index [BMI] 40.0-44.9, adult; N80.9 Endometriosis, unspecified; Z86.2 Personal history of diseases of the blood and blood-forming organs and certain disorders involving the immune mechanism
CPT/HCPCS: 36415; 70496; 70498; 80048; 81025; 85025; 96361; 96374; 96375; 99284; J0780; J1200; J1885; J7030; Q9967

== ENCOUNTER 2024-04-09 22:06 | Emergency (ER) | payer OTHER, SELFPAY ==
[2024-04-09 22:13] VITALS: BP 149/113; PULSE 122; RESP 15; TEMP 36.6; O2SAT 100
[2024-04-09 22:54] VITALS: O2SAT 100
[2024-04-09 22:56] VITALS: BP 143/97; PULSE 103; RESP 14; O2SAT 100
--- NOTE | 2024-04-10 00:07 | ED.GENADULT ---
HPI - General Adult General Chief complaint: Allergic Reaction Stated complaint: allergic reaction Time Seen by Provider: 04/09/24 23:44 History of Present Illness HPI narrative: Patient 23-year-old female who presents emergency department with chief complaint of wasp sting. Patient reports he has prior history of an allergy to wasps and reports that she was stung this evening and noticed that she had an area of redness left the patient reports she also had some burning itching to her hands afterwards and noticed a small area of urticaria on the left forearm. The patient reports no airway compromise reports no stridor reports that she did not do an EpiPen the patient reports that her symptoms have improved since she has been in the waiting room. Related Data Home Medications Medication Instructions Recorded Confirmed albuterol sulfate 90 mcg/actuation 1 inh inhalation PRN PRN Shortness 05/01/21 05/21/23 aerosol inhaler Of Breath Or Wheezing budesonide-formoterol HFA 160 1 inh inhalation BID 05/01/21 05/21/23 mcg-4.5 mcg/actuation aerosol inhaler (Symbicort) sumatriptan succinate 25 mg tablet 25 - 50 mg PO PRN PRN Migraine 10/26/22 05/21/23 Headache Allergies Allergy/AdvReac Type Severity Reaction Status Date / Time adhesive Allergy Unknown ITCHING Verified 10/31/23 10:44 latex Allergy Hives Verified 10/31/23 10:44 vancomycin AdvReac Mild Pruritis Verified 10/31/23 10:44 Review of Systems Review of Systems: A 10 system review of systems was completed on the patient and is negative except for what is stated in the HPI. Nursing and ancillary documentation was reviewed. [facility] Past Medical History Medical History Anemia Endometriosis Morbid obesity PCOS (polycystic ovarian syndrome) Surgical History Surgical History Hx of excision of mass Hx of tonsillectomy (2014) Due to recurrent tonsillitis Status post incision and drainage complex I&D of chest wall abscess 5x7 cm, right breast measuring 2x3 cm 07/15/22 Family History Family History Father Liver failure Alcoholic cirrhosis, Onset Age: 49 Grandparent Heart disease Diabetes mellitus Lung cancer Grandparent Cervical cancer Breast cancer Other Cervical cancer Breast cancer Esophageal cancer Social History Social History Social History: She lives with her sister. She works at [employer]. Denies use of alcohol, tobacco or drugs. She does not have any children. Code status: Full code Surrogate decision maker: Marie Shafer (aunt) Smoking status: Never smoker Alcohol intake: never Substance use: never Lack of Transportation: No Lack of Food: Never True Current Housing: I Have Housing Concerned About Future Housing: No Difficulty Paying Gas/Electric Bills: No Difficulty Paying for Meds: No Currently Unemployed: No Education: High School Diploma/GED Difficulty w/ Childcare or Family Care: No Spiritual care concerns: No Exam Narrative: GENERAL: Well-appearing, well-nourished, and in no acute distress. HEAD: Normocephalic, atraumatic. EYES: PERRLA and EOMI. ENT: Nares clear, no rhinorrhea or epistaxis. Mucous membranes moist. NECK: Supple. CHEST: Clear to auscultation. No respiratory distress. HEART: Regular rate and rhythm. No murmur heard. Normal peripheral pulses. ABDOMEN: Soft, nontender, nondistended, normal active bowel sounds. EXTREMITIES: Normal range of motion. No edema. SKIN: Warm, dry, area of redness on the left thigh slight redness and bilateral forearms. NEURO: No focal deficits. Alert and oriented x3. PSYCH: Normal mood and affect. Course Vital Signs Vital signs: Vital Signs Temperature 36.6 C 04/09/24 22:13 Pulse Rate 122 H 04/09/24 22:13 Respiratory Rate 15 04/09/24 22:13 Blood Pressure 149/113 H 04/09/24 22:13 Pulse Oximetry 100 04/09/24 22:13 Oxygen Delivery Room Air 04/09/24 22:13 Temperature 36.6 C 04/09/24 22:13 Pulse Rate 103 H 04/09/24 22:56 Respiratory Rate 14 04/09/24 22:56 Blood Pressure 143/97 H 04/09/24 22:56 Pulse Oximetry 100 04/09/24 22:56 Oxygen Delivery Room Air 04/09/24 22:54 Medical Decision Making [facility] Narrative Medical decision making narrative: Differential diagnosis includes allergic reaction, anaphylaxis. Patient is not showing signs of anaphylaxis she has normal vital signs no airway compromise. The patient will be given a dose of steroids in the emergency department as well as Benadryl and Pepcid. Patient will be started on a course of oral steroids for home Vital Signs Vital Signs: Vital Signs Temperature 36.6 C 04/09/24 22:13 Pulse Rate 122 H 04/09/24 22:13 Respiratory Rate 15 04/09/24 22:13 Blood Pressure 149/113 H 04/09/24 22:13 Pulse Oximetry 100 04/09/24 22:13 Oxygen Delivery Room Air 04/09/24 22:13 Temperature 36.6 C 04/09/24 22:13 Pulse Rate 103 H 04/09/24 22:56 Respiratory Rate 14 04/09/24 22:56 Blood Pressure 143/97 H 04/09/24 22:56 Pulse Oximetry 100 04/09/24 22:56 Oxygen Delivery Room Air 04/09/24 22:54 Discharge Plan Discharge Clinical Impression: Accidental wasp sting, Allergic reaction to wasp sting Patient Disposition: Home, Self-Care Condition: Stable Instructions: Antibiotic Form, Insect Bite or Sting (ED), Allergies (ED) Prescriptions: New prednisone 20 mg tablet 40 mg PO DAILY 5 Days Qty: 10 0RF No Action albuterol sulfate 90 mcg/actuation HFA aerosol inhaler 1 inh INHALATION PRN PRN (Reason: Shortness Of Breath Or Wheezing) budesonide-formoterol [Symbicort] 160-4.5 mcg/actuation HFA aerosol inhaler 1 inh INHALATION BID amoxicillin-pot clavulanate 875-125 mg tablet 1 tablet PO Q12H 7 Days Qty: 14 0RF promethazine 25 mg tablet 25 mg PO Q6H PRN (Reason: nausea and vomiting) 3 Days Qty: 12 0RF sumatriptan succinate 25 mg tablet 25 - 50 mg PO PRN PRN (Reason: Migraine Headache) Rx Instructions: TAKE 1 TO 2 TABLETS BY MOUTH 2 TIMES A DAY NEEDED FOR MIGRAINE. MAX OF 8 TABLETS IN 24 HOURS Follow-up/Referrals: Collins,Elgin Moses MD [Primary Care Provider] - Time of Disposition: 00:09
[2024-04-10] MEDS: dexAMETHasone SOD PHOS INJ 10 MG/ML 1 ML VIAL IM (00:37)
[2024-04-10] MEDS: diphenhydrAMINE HCl CAP 25 MG CAPSULE PO (00:37)
[2024-04-10] MEDS: FAMOTIDINE 20 MG TABLET PO (00:37)
[2024-04-10 00:39] VITALS: BP 132/80; PULSE 70; RESP 18; TEMP 36.8; O2SAT 99
== END 2024-04-10 00:41 | disposition home or self-care (01) ==
PROVIDERS: Emergency Provider Emergency Medicine; PCP Family Medicine
DX: T63.461A Toxic effect of venom of wasps, accidental (unintentional), initial encounter (principal); E28.2 Polycystic ovarian syndrome; E66.01 Morbid (severe) obesity due to excess calories; Z68.42 Body mass index [BMI] 45.0-49.9, adult; Z86.2 Personal history of diseases of the blood and blood-forming organs and certain disorders involving the immune mechanism
CPT/HCPCS: 96372; 99283; A9270; J1100

== ENCOUNTER 2024-09-10 11:54 | Emergency (ER) | payer OTHER, MEDICAID, SELFPAY ==
--- NOTE | ~2024-09-10 | XR_ITS ---
EXAMINATION: XR knee RT min 4V DATE: 09/10/2024 12:37 INDICATION: Right knee injury. TECHNIQUE: 4 views of right knee were obtained. COMPARISON: None. FINDINGS: Alignment is normal. No fracture. Joint spaces are normal. No knee joint effusion. IMPRESSION: 1. Normal right knee. Reviewed, dictated and finalized at location A. IMPRESSION: 1. Normal right knee.
[2024-09-10 11:56] VITALS: BP 142/79; PULSE 91; RESP 18; TEMP 36.5; O2SAT 97
--- OUTSIDE RECORDS SUMMARY | 2024-09-10 12:36 | XMS_ITS | Encounter Summary ---
Author Organization [facility] Address [facility] [place] [address] Care Team Providers Care Disbursement Clerk Name Role Phone Julieth Lopez MD Primary Care Provider + Julieth Lopez MD Primary Care Provider + Encounter Details Date Type Department Care Team (Late st Contact Info) Description 05/11/2019 MyChart Message Enc [facility] [address] [facility], [address] [place] [phone] Elgin Lemos MD [address] [facility] [address] [place], [place] [phone] RE: Question Social History Tobacco Use Types Packs/Day Years Used Date Smoking Tobacco: Never Smokeless Tobacco: Never PHQ-2 Answer Date Recorded PHQ-2 Score 2 09/22/2018 Comments No Sex and Gender Information Value Date Recorded Sex Assigned at Not on file 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 BEEF TAGGER Gender Identity Not on file Sexual Orientation Not on file documented as of this encounter Plan of Treatment Upcoming Encounters Date Type Department Care Team (Late st Contact Info) Description 07/11/2025 8:30 AM BEEF TAGGER Office Visit [facility] - [place] [address] [place] [address] Julieth Lopez MD [address] [place] [address] documented as of this encounter Visit Diagnoses Not on filedocumented in this encounter Additional Health Concerns Infection Onset Date Last Indicated Resolved Time COVID-19 Rule Out 03/20/2020 03/20/2020 03/22/2020 6:40 PM CDT COVID-19 Rule Out 06/07/2020 06/07/2020 06/10/2020 2:30 AM BEEF TAGGER COVID-19 Rule Out 07/04/2020 07/04/2020 07/05/2020 6:22 PM BEEF TAGGER documented as of this encounter Care Teams Disbursement Clerk Relationship Specialty Start Date End Date Julieth Lopez MD [address] [place] [address] PCP - General FAMILY PRACTICE 07/29/24 Julieth Lopez MD [address] [place] [address] PCP - General FAMILY PRACTICE 07/07/24 07/28/24 documented as of this encounter
--- OUTSIDE RECORDS SUMMARY | 2024-09-10 12:36 | XMS_ITS | Encounter Summary ---
Author Organization [facility] Address [address] [place] [address] Care Team Providers Care Alterations Tailor Name Role Phone Julieth Lopez MD Primary Care Provider + Julieth Lopez MD Primary Care Provider + Encounter Details Date Type Department Care Team (Late st Contact Info) Description 05/16/2019 [employer] Message Enc [facility] Family Medicine [facility] [address] [facility], [address] [place] [phone] Elgin Lemos MD [address] [facility] [address] [place] [address] Follow Up/Update Social History Tobacco Use Types Packs/Day Years Used Date Smoking Tobacco: Never Smokeless Tobacco: Never PHQ-2 Answer Date Recorded PHQ-2 Score 2 09/22/2018 Comments No Sex and Gender Information Value Date Recorded Sex Assigned at Not on file 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 COMMUNITY HEALTH NURSING DIRECTOR Gender Identity Not on file Sexual Orientation Not on file documented as of this encounter Plan of Treatment Upcoming Encounters Date Type Department Care Team (Late st Contact Info) Description 07/11/2025 8:30 AM COMMUNITY HEALTH NURSING DIRECTOR Office Visit [facility] Family [facility] - [place] [address] [place] [address] Julieth Lopez MD [address] [place] [address] documented as of this encounter Visit Diagnoses Not on filedocumented in this encounter Additional Health Concerns Infection Onset Date Last Indicated Resolved Time COVID-19 Rule Out 03/20/2020 03/20/2020 03/22/2020 6:40 PM CDT COVID-19 Rule Out 06/07/2020 06/07/2020 06/10/2020 2:30 AM COMMUNITY HEALTH NURSING DIRECTOR COVID-19 Rule Out 07/04/2020 07/04/2020 07/05/2020 6:22 PM COMMUNITY HEALTH NURSING DIRECTOR documented as of this encounter Care Teams Alterations Tailor Relationship Specialty Start Date End Date Julieth Lopez MD [address] [place] [address] PCP - General FAMILY PRACTICE 07/29/24 Julieth Lopez MD [address] [place] [address] PCP - General FAMILY PRACTICE 07/07/24 07/28/24 documented as of this encounter
--- OUTSIDE RECORDS SUMMARY | 2024-09-10 12:36 | XMS_ITS | Encounter Summary ---
Author Organization [facility] Address [address] [place] [address] Care Team Providers Care Diesel Powerplant Supervisor Name Role Phone Julieth Lopez MD Primary Care Provider + Julieth Lopez MD Primary Care Provider + Encounter Details Date Type Department Care Team (Late Contact Info) Description 03/05/2021 [employer] Message Enc [facility] Family Medicine - [place] [address] [facility], [address] [place] [phone] Elgin Lemos MD [address] [facility] [address] [place] [phone] RE: Referral Request Social History Tobacco Use Types Packs/Day Years Used Date Smoking Tobacco: Never Smokeless Tobacco: Never Alcohol Use Standard Drinks/Week Comments No 0 (1 standard drink = 0.6 oz pur e alcohol) AUDIT-C Answer Date Recorded Frequency of Alcohol Consumption Never 07/03/2019 Average Number of Drinks Not on file 020 Frequency of Binge Drinking Not on file 06/16 PHQ-2 Answer Date Recorded PHQ-2 Score - If the patient scores above 3, please move on to questions 3-9 4 03/28/2020 Comments No Sex and Gender Information Value Date Recorded Sex Assigned at Not on file 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 OFF PREMISE SERVICE REPRESENTATIVE Gender Identity Not on file Sexual Orientation Not on file documented as of this encounter Plan of Treatment Upcoming Encounters Date Type Department Care Team (Late Contact Info) Description 07/11/2025 8:30 AM OFF PREMISE SERVICE REPRESENTATIVE Office Visit [facility] Family [facility] - [place] [address] [place] [address] Julieth Lopez MD [address] [place] [address] documented as of this encounter Visit Diagnoses Not on filedocumented in this encounter Additional Health Concerns Assessment Noted Time PHQ-9 Depression Total Score: 13 020 11:01 AM CDT documented as of this encounter Care Teams Diesel Powerplant Supervisor Relationship Specialty Start Date End Date Julieth Lopez MD [address] [place] [address] PCP - General FAMILY PRACTICE 07/29/24 Julieth Lopez MD [address] [place] [address] PCP - General FAMILY PRACTICE 07/07/24 07/28/24 documented as of this encounter
--- OUTSIDE RECORDS SUMMARY | 2024-09-10 12:36 | XMS_ITS | Encounter Summary ---
Author Organization [facility] Address [address] [place] [address] Care Team Providers Care Explosive Specialist Name Role Phone Julieth Lopez MD Primary Care Provider + Julieth Lopez MD Primary Care Provider + Encounter Details Date Type Department Care Team (Late Contact Info) Description 03/27/2019 Nut[employer]t Message Enc [facility] [address] [facility], [address] [place] [phone] Elgin Lemos MD [address] [facility] [address] [place], [place] [phone] RE: Follow Up/Update Social History Tobacco Use Types Packs/Day Years Used Date Smoking Tobacco: Never Smokeless Tobacco: Never PHQ-2 Answer Date Recorded PHQ-2 Score 2 09/22/2018 Comments No Sex and Gender Information Value Date Recorded Sex Assigned at Not on file 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 PLASTIC SURGEON Gender Identity Not on file Sexual Orientation Not on file documented as of this encounter Plan of Treatment Upcoming Encounters Date Type Department Care Team (Late Contact Info) Description 07/11/2025 8:30 AM PLASTIC SURGEON Office Visit [facility] - [place] [address] [place] [address] Julieth Lopez MD [address] [place] [address] documented as of this encounter Visit Diagnoses Not on filedocumented in this encounter Additional Health Concerns Infection Onset Date Last Indicated Resolved Time COVID-19 Rule Out 03/20/2020 03/20/2020 03/22/2020 6:40 PM CDT COVID-19 Rule Out 06/07/2020 06/07/2020 06/10/2020 2:30 AM PLASTIC SURGEON COVID-19 Rule Out 07/04/2020 07/04/2020 07/05/2020 6:22 PM PLASTIC SURGEON documented as of this encounter Care Teams Explosive Specialist Relationship Specialty Start Date End Date Julieth Lopez MD [address] [place] [address] PCP - General FAMILY PRACTICE 07/29/24 Julieth Lopez MD [address] [place] [address] PCP - General FAMILY PRACTICE 07/07/24 07/28/24 documented as of this encounter
--- OUTSIDE RECORDS SUMMARY | 2024-09-10 12:36 | XMS_ITS | Encounter Summary ---
Author Organization [facility] Address [facility] [place] [address] Care Team Providers Care Patient Registration Rep Name Role Phone Julieth Lopez MD Primary Care Provider + Julieth Lopez MD Primary Care Provider + Encounter Details Date Type Department Care Team (Late st Contact Info) Description 08/23/2019 GET IT Mobile Message Enc [facility] Family Medicine - [place] [address] [facility], [address] [place] [phone] Elgin Lemos MD [address] [address] RE: Question Social History Tobacco Use Types [...] 06/16 PHQ-2 Answer Date Recorded PHQ-2 Score 2 09/22/2018 Comments No Sex and Gender Information Value Date Recorded Sex Assigned at Not on file 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 SOFTWARE DEVELOPMENT MANAGER Gender Identity Not on file Sexual Orientation Not on file documented as of this encounter Progress Notes * Elgin Lemos MD - 08/24/2019 9:52 AM CDT Please book for Thursday and will take out nexplanon and place mirena if available. Have her take motrin 800 mg prior to appointment. documented in this encounter Plan of Treatment Upcoming Encounters Date Type Department Care Team (Late st Contact Info) Description 07/11/2025 8:30 AM SOFTWARE DEVELOPMENT MANAGER Office Visit [facility] Family Medicine - [place] [address] [place] [address] Julieth Lopez MD [address] [place] [address] documented as of this encounter Visit Diagnoses Not on filedocumented in this encounter Additional Health Concerns Infection Onset Date Last Indicated Resolved Time COVID-19 Rule Out 03/20/2020 03/20/2020 03/22/2020 6:40 PM CDT COVID-19 Rule Out 06/07/2020 06/07/2020 06/10/2020 2:30 AM SOFTWARE DEVELOPMENT MANAGER COVID-19 Rule Out 07/04/2020 07/04/2020 07/05/2020 6:22 PM SOFTWARE DEVELOPMENT MANAGER documented as of this encounter Care Teams Patient Registration Rep Relationship Specialty Start Date End Date Julieth Lopez MD [address] [place] [address] PCP - General FAMILY PRACTICE 07/29/24 Julieth Lopez MD [address] [place] [address] PCP - General FAMILY PRACTICE 07/07/24 07/28/24 documented as of this encounter
--- OUTSIDE RECORDS SUMMARY | 2024-09-10 12:36 | XMS_ITS | Encounter Summary ---
Author Organization [facility] Address [address] [place] [address] Care Team Providers Care Street Flusher Driver Name Role Phone Julieth Lopez MD Primary Care Provider + Julieth Lopez MD Primary Care Provider + Encounter Details Date Type Department Care Team (Late Contact Info) Description 01/29/2021 DealerRatert Message Enc [facility] Family Medicine - [place] [address] [facility], [address] [place] [phone] Elgin Lemos MD [address] [facility] [address] [place] [address] [phone] RE: Medication Questions Social History Tobacco Use Types Packs/Day Years [...] on file 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 MODEL MAKER FIREARMS Gender Identity Not on file Sexual Orientation Not on file documented as of this encounter Plan of Treatment Upcoming Encounters Date Type Department Care Team (Late Contact Info) Description 07/11/2025 8:30 AM MODEL MAKER FIREARMS Office Visit [facility] Family Medicine - [place] [address] [place] [address] Julieth Lopez MD [address] [place] [address] documented as of this encounter Visit Diagnoses Not on filedocumented in this encounter Additional Health Concerns Assessment Noted Time PHQ-9 Depression Total Score: 13 020 11:01 AM CDT documented as of this encounter Care Teams Street Flusher Driver Relationship Specialty Start Date End Date Julieth Lopez MD [address] [place] [address] PCP - General FAMILY PRACTICE 07/29/24 Julieth Lopez MD [address] [place] [address] PCP - General FAMILY PRACTICE 07/07/24 07/28/24 documented as of this encounter
--- OUTSIDE RECORDS SUMMARY | 2024-09-10 12:36 | XMS_ITS | Encounter Summary ---
Author Organization [facility] Address [facility] [place] [address] Care Team Providers Care Machine Packaging Technician Name Role Phone Julieth Lopez MD Primary Care Provider + Julieth Lopez MD Primary Care Provider + Encounter Details Date Type Department Care Team (Late Contact Info) Description 04/13/2019 Kerlink Message [facility] DEPARTMENT [address] [place] [address] [facility] Provider Question Social History Tobacco Use Types Packs/Day Years Used Date Smoking Tobacco: Never Smokeless Tobacco: Never PHQ-2 Answer Date Recorded PHQ-2 Score 2 09/22/2018 Comments No Sex and Gender Information Value Date Recorded Sex Assigned at Not on file 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 STEEL CUTTER Gender Identity Not on file Sexual Orientation Not on file documented as of this encounter Plan of Treatment Upcoming Encounters Date Type Department Care Team ([facility] Contact Info) Description 07/11/2025 8:30 AM STEEL CUTTER Office Visit [facility] Family Medicine - [place] [address] [place] [phone] Julieth Lopez MD [address] [place] [address] [phone] documented as of this encounter Visit Diagnoses Not on filedocumented in this encounter Additional Health Concerns Infection Onset Date Last Indicated Resolved Time COVID-19 Rule Out 03/20/2020 03/20/2020 03/22/2020 6:40 PM CDT COVID-19 Rule Out 06/07/2020 06/07/2020 06/10/2020 2:30 AM STEEL CUTTER COVID-19 Rule Out 07/04/2020 07/04/2020 07/05/2020 6:22 PM STEEL CUTTER documented as of this encounter Care Teams Machine Packaging Technician Relationship Specialty Start Date End Date Julieth Lopez MD [address] [place] [address] PCP - General FAMILY PRACTICE 07/29/24 Julieth Lopez MD [address] [place] [address] PCP - General FAMILY PRACTICE 07/07/24 07/28/24 documented as of this encounter
--- OUTSIDE RECORDS SUMMARY | 2024-09-10 12:36 | XMS_ITS | Encounter Summary ---
Author Organization [facility] Address [facility] [place] [address] Care Team Providers Care Deputy Editor In Chief Name Role Phone Julieth Lopez MD Primary Care Provider + Julieth Lopez MD Primary Care Provider + Encounter Details Date Type Department Care Team (Late st Contact Info) Description 05/12/2019 MyChart Message Enc [facility] [address] [facility], [address] [place] [phone] Elgin Lemos MD [address] [facility] [address] [place], [place] [phone] RE: Test Results Social History Tobacco Use Types Packs/Day Years Used Date Smoking Tobacco: Never Smokeless Tobacco: Never PHQ-2 Answer Date Recorded PHQ-2 Score 2 09/22/2018 Comments No Sex and Gender Information Value Date Recorded Sex Assigned at Not on file 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 AUDIO SPECIALIST Gender Identity Not on file Sexual Orientation Not on file documented as of this encounter Plan of Treatment Upcoming Encounters Date Type Department Care Team (Late st Contact Info) Description 07/11/2025 8:30 AM AUDIO SPECIALIST Office Visit [facility] Family Medicine - [place] [address] [place] [address] Julieth Lopez MD [address] [place] [address] documented as of this encounter Visit Diagnoses Not on filedocumented in this encounter Additional Health Concerns Infection Onset Date Last Indicated Resolved Time COVID-19 Rule Out 03/20/2020 03/20/2020 03/22/2020 6:40 PM CDT COVID-19 Rule Out 06/07/2020 06/07/2020 06/10/2020 2:30 AM AUDIO SPECIALIST COVID-19 Rule Out 07/04/2020 07/04/2020 07/05/2020 6:22 PM AUDIO SPECIALIST documented as of this encounter Care Teams Deputy Editor In Chief Relationship Specialty Start Date End Date Julieth Lopez MD [address] [place] [address] PCP - General FAMILY PRACTICE 07/29/24 Julieth Lopez MD [address] [place] [address] PCP - General FAMILY PRACTICE 07/07/24 07/28/24 documented as of this encounter
--- OUTSIDE RECORDS SUMMARY | 2024-09-10 12:36 | XMS_ITS | Encounter Summary ---
Author Organization [facility] Address [address] [place] [address] Care Team Providers Care Traffic Circuit Engineer Name Role Phone Julieth Lopez MD Primary Care Provider + Julieth Lopez MD Primary Care Provider + Encounter Details Date Type Department Care Team (Late Contact Info) Description 08/30/2019 i'mmat Message Enc [facility] [address] [facility], [address] [place] [phone] Elgin Lemos MD [address] [phone] RE: Follow Up/Update Social History Tobacco Use [...] on file 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 BIOINFORMATICIST Gender Identity Not on file Sexual Orientation Not on file documented as of this encounter Plan of Treatment Upcoming Encounters Date Type Department Care Team (Late Contact Info) Description 07/11/2025 8:30 AM BIOINFORMATICIST Office Visit [facility] Family Medicine [facility] [address] [place] [address] Julieth Lopez MD [address] [place] [address] documented as of this encounter Visit Diagnoses Not on filedocumented in this encounter Additional Health Concerns Infection Onset Date Last Indicated Resolved Time COVID-19 Rule Out 03/20/2020 03/20/2020 03/22/2020 6:40 PM CDT COVID-19 Rule Out 06/07/2020 06/07/2020 06/10/2020 2:30 AM BIOINFORMATICIST COVID-19 Rule Out 07/04/2020 07/04/2020 07/05/2020 6:22 PM BIOINFORMATICIST documented as of this encounter Care Teams Traffic Circuit Engineer Relationship Specialty Start Date End Date Julieth Lpoez MD [address] [place] [address] PCP - General FAMILY PRACTICE 07/29/24 Julieth Lopez MD [address] [place] [address] PCP - General FAMILY PRACTICE 07/07/24 07/28/24 documented as of this encounter
--- OUTSIDE RECORDS SUMMARY | 2024-09-10 12:36 | XMS_ITS | Encounter Summary ---
Author Organization [facility] Address [address] [place] [address] Care Team Providers Care Crib Tender Name Role Phone Julieth Lopez MD Primary Care Provider + Julieth Lopez MD Primary Care Provider + Encounter Details Date Type Department Care Team (Late st Contact Info) Description 09/08/2020 Nerd Attack Message Enc [facility] Family Medicine - [place] [address] [facility], [address] [place] [phone] Elgin Lemos MD [address] [facility] [address] [place] [phone] RE: Question Social History Tobacco Use [...] on file 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 CEILING INSTALLER Gender Identity Not on file Sexual Orientation Not on file COVID-19 Exposure Response Date Recorded In the last month, have you been in contact with someone who was confirmed or suspected to have Coronavirus / COVID-19? No / Unsure 08/16/2020 1:55 PM CEILING INSTALLER documented as of this encounter Plan of Treatment Upcoming Encounters Date Type Department Care Team (Late st Contact Info) Description 07/11/2025 8:30 AM CEILING INSTALLER Office Visit [facility] Family Medicine - [place] [address] [place] [address] Julieth Lopez MD [address] [place] [address] documented as of this encounter Visit Diagnoses Not on filedocumented in this encounter Additional Health Concerns Assessment Noted Time PHQ-9 Depression Total Score: 13 020 11:01 AM CDT documented as of this encounter Care Teams Crib Tender Relationship Specialty Start Date End Date Julieth Lopez MD [address] [place] [address] PCP - General FAMILY PRACTICE 07/29/24 Julieth Lopez MD [address] [place] [address] PCP - General FAMILY PRACTICE 07/07/24 07/28/24 documented as of this encounter
--- OUTSIDE RECORDS SUMMARY | 2024-09-10 12:37 | XMS_ITS | Encounter Summary ---
Author Organization [facility] Address [address] [place] [address] Care Team Providers Care Erco Machine Operator Name Role Phone Julieth Lopez MD Primary Care Provider + Julieth Lopez MD Primary Care Provider + Encounter Details Date Type Department Care Team (Late st Contact Info) Description 01/29/2020 PowerGenix Message Enc [facility] Family Medicine - [place] [address] [facility], [address] [place] [phone] Elgin Lemos MD [address] [phone] RE: Follow Up/Update Social History Tobacco Use [...] on file 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 VICE CHAIR Gender Identity Not on file Sexual Orientation Not on file COVID-19 Exposure Response Date Recorded In the last month, have you been in contact with someone who was confirmed or suspected to have Coronavirus / COVID-19? Yes 01/04/2020 2:06 PM CDT documented as of this encounter Plan of Treatment Upcoming Encounters Date Type Department Care Team (Late st Contact Info) Description 07/11/2025 8:30 AM VICE CHAIR Office Visit [facility] Family Medicine - [place] [address] [place] [address] Julieth Lopez MD [address] [place] [address] documented as of this encounter Visit Diagnoses Not on filedocumented in this encounter Additional Health Concerns Infection Onset Date Last Indicated Resolved Time COVID-19 Rule Out 03/20/2020 03/20/2020 03/22/2020 6:40 PM CDT COVID-19 Rule Out 06/07/2020 06/07/2020 06/10/2020 2:30 AM VICE CHAIR COVID-19 Rule Out 07/04/2020 07/04/2020 07/05/2020 6:22 PM VICE CHAIR documented as of this encounter Care Teams Erco Machine Operator Relationship Specialty Start Date End Date Julieth Lopez MD [address] [place] [address] PCP - General FAMILY PRACTICE 07/29/24 Julieth Lopez MD [address] [place] [address] PCP - General FAMILY PRACTICE 07/07/24 07/28/24 documented as of this encounter
--- OUTSIDE RECORDS SUMMARY | 2024-09-10 12:37 | XMS_ITS | Encounter Summary ---
Author Organization [facility] Address [address] [place] [address] Care Team Providers Care Motor Installer Name Role Phone Julieth Lopez MD Primary Care Provider + Julieth Lopez MD Primary Care Provider + Encounter Details Date Type Department Care Team (Late Contact Info) Description 12/11/2022 Visualead Message Enc [facility] Medical [facility] [address] [place], [place] [address] [employer], [facility] Provider Air Quality Message Social History Tobacco Use Types Packs/Day Years Used Date Smoking Tobacco: Never Smokeless Tobacco: Never Alcohol Use Standard Drinks/Week Comments Never 0 (1 standard drink = 0.6 oz pur e alcohol) AUDIT-C Answer Date Recorded Frequency of Alcohol Consumption Never 07/03/2019 Average Number of Drinks Not on file 020 Frequency of Binge Drinking Not on file 06/16 PHQ-2 Answer Date Recorded Patient Health Questionnaire-2 Score 0 09/16/2022 Comments No Sex and Gender Information Value Date Recorded Sex Assigned at Not on file 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 CLOTH SHRINKING SUPERVISOR Gender Identity Not on file Sexual Orientation Not on file documented as of this encounter Plan of Treatment Upcoming Encounters Date Type Department Care Team (Late Contact Info) Description 07/11/2025 8:30 AM CLOTH SHRINKING SUPERVISOR Office Visit [facility] Medical [facility] Family Medicine - [place] [address] [place] [address] Julieth Lopez MD [address] [place] [address] documented as of this encounter Visit Diagnoses Not on filedocumented in this encounter Additional Health Concerns Assessment Noted Time PHQ-9 Depression Total Score: 13 020 11:01 AM CDT documented as of this encounter Care Teams Motor Installer Relationship Specialty Start Date End Date Julieth Lopez MD [address] [place] [address] PCP - General FAMILY PRACTICE 07/29/24 Julieth Lopez MD [address] [place] [address] PCP - General FAMILY PRACTICE 07/07/24 07/28/24 documented as of this encounter
--- OUTSIDE RECORDS SUMMARY | 2024-09-10 12:37 | XMS_ITS | Encounter Summary ---
Author Organization [facility] Address [address] [place] [address] Care Team Providers Care Case Resource Manager Name Role Phone Julieth Lopez MD Primary Care Provider + Julieth Lopez MD Primary Care Provider + Encounter Details Date Type Department Care Team (Late st Contact Info) Description 03/19/2020 Atempo Message Enc [facility] Medical Group Family Medicine - [place] [address] [facility], [address] [place] [phone] Elgin Lemos MD [address] [address] RE: Question Social History Tobacco [...] on file 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 STRAIGHTENING ROLL OPERATOR Gender Identity Not on file Sexual Orientation Not on file COVID-19 Exposure Response Date Recorded In the last month, have you been in contact with someone who was confirmed or suspected to have Coronavirus / COVID-19? No / Unsure 03/20/2020 7:53 AM CDT documented as of this encounter Plan of Treatment Upcoming Encounters Date Type Department Care Team (Late st Contact Info) Description 07/11/2025 8:30 AM STRAIGHTENING ROLL OPERATOR Office Visit [facility] Medical [facility] Family Medicine - [place] [address] [place] [address] Julieth Lopez MD [address] [place] [address] documented as of this encounter Visit Diagnoses Not on filedocumented in this encounter Additional Health Concerns Infection Onset Date Last Indicated Resolved Time COVID-19 Rule Out 03/20/2020 03/20/2020 03/22/2020 6:40 PM CDT COVID-19 Rule Out 06/07/2020 06/07/2020 06/10/2020 2:30 AM STRAIGHTENING ROLL OPERATOR COVID-19 Rule Out 07/04/2020 07/04/2020 07/05/2020 6:22 PM STRAIGHTENING ROLL OPERATOR documented as of this encounter Care Teams Case Resource Manager Relationship Specialty Start Date End Date Julieth Lopez MD [address] [place] [address] PCP - General FAMILY PRACTICE 07/29/24 Julieth Lopez MD [address] [place] [address] PCP - General FAMILY PRACTICE 07/07/24 07/28/24 documented as of this encounter
--- OUTSIDE RECORDS SUMMARY | 2024-09-10 12:37 | XMS_ITS | Referral Summary ---
Author Organization [facility] Address [address] [place] [address] Care Team Providers Care Bean Sorter Name Role Phone Angelica Maynard MD Primary Care Provider Allergies Active Allergy Reactions Criticality Noted Date Comments Adhesive Rash Medium 08/19/2019 Limbs swell Erenumab-Aooe Rash Medium 12/09/2023 Site reaction, believes due to latex ingredient overlap Latex Hives,Urticaria Medium 03/26/2019 Vancomycin Anaphylaxis,Chest tightness,Dizziness,Hiv es,Itching,Nausea & Vomiting,Rash,Redness,S welling,Swollen tongue,Wheezing High 09/06/2022 Medications SUMAtriptan (IMITREX) 25 mg tablet Take 1-2 tablets (25-50 mg total) by mouth 2 (two) times a day as needed 0 Active budesonide-form oteroL (SYMBICORT) 160-4.5 mcg/actuation inhaler Inhale 2 puffs 2 (two) times a day 0 Active albuterol HFA (PROVENTIL HFA,VENTOLIN HFA,PROAIR HFA) 90 mcg/actuation inhaler Inhale 2 puffs every 4 (four) hours as needed 0 Active levonorgestreL (MIRENA) IUD 1 each by intrauterine route once Active oxyCODONE-aceta minophen (PERCOCET) 5-325 mg per tabletIndicatio ns:Pain Take 1-2 tablets by mouth every 8 (eight) hours as needed for pain 10 tablet 4 Active nortriptyline (PAMELOR) 10 mg capsuleIndicati ons:Daily headache,Migrai ne with aura and without status migrainosus, not intractable,Mod erate episode of recurrent major depressive disorder (HCC),LUDIVINA (generalized anxiety disorder) TAKE 2 CAPSULES BY MOUTH NIGHTLY. 180 capsule 4 Active Active Problems Problem Noted Date Diagnosed Date Cyst of right breast 03/03/2024 Mass of chest wall, right 02/19/2024 Overview (02/19/2024): chronic. recurrent. wants surgical consult. referral given. no signs of infection on exam Assessment & Plan (02/19/2024 2:16 PM CDT): Cellulitis, likely due to epidermoid cyst based on history- no fluctuance at this time. Will start oral antibiotics and set follow up visit. Migraine with aura and witho ut status migrainosus, not intractable 12/09/2023 Assessment & Plan (12/09/2023 12:47 PM CDT): Struggles. Intolerant to Aimovig. Has never tried TCA or beta-nicolas for prophylaxis. Discussed trial of nortriptyline. Titrate for effect. Continue p.r.n. Triptan Excessive daytime sleepiness 12/09/2023 Assessment & Plan (12/09/2023 12:47 PM CDT): Chronic. Concern for potential ISHAAN. Referral to sleep Medicine for assessment as this could also be contributing some to her frequent headaches Moderate episode of recurrent major depressive d isorder 12/09/2023 Assessment & Plan (12/09/2023 12:47 PM CDT): Chronic. Needs improvement. Has failed multiple SSRIs, cymbalta, and bupropion in past. Will trial low dose TCA for migraines and see if can also help her mood. Brief supportive counseling done IGT (impaired glucose tolerance) 12/09/2023 Class 3 severe obesity due t o excess calories without serious comorbidity with body mass index (BMI) of 45.0 to 49.9 in adult 12/09/2023 Overview (12/09/2023): chronic. needs improvement. work on diet and exercise. insurance dose not cover wt loss rx. PCOS (polycystic ovarian syndrome) 07/27/2020 Moderate persistent asthma without complication 03/23/2020 Assessment & Plan (12/09/2023 12:48 PM CDT): Chronic. Controlled. Continue symbicort and prn albuterol. monitor Assessment & Plan (03/26/2020 8:24 PM CDT): Obtain IgE level, CRP and ESR. Obtain full set of PFTs and methacholine challenge test. Continue with Symbicort and p.r.n. albuterol inhaler. Start Singulair 10 mg q.h.s.. Seasonal allergic rhinitis 03/23/2020 Assessment & Plan (03/26/2020 8:24 PM CDT): Continue with loratadine. Add Flonase. LUDIVINA (generalized anxiety disorder) 09/29/2018 Assessment & Plan (12/09/2023 12:46 PM CDT): Chronic. Needs improvement. Has failed multiple SSRIs, cymbalta, and bupropion in past. Will trial low dose TCA for migraines and see if can also help her mood. Brief supportive counseling done Resolved Problems Problem Noted Date Diagnosed Date Resolved Date Chronic migraine without aur a without status migrainosus, not intractable 09/16/2022 12/09/2023 Current moderate episode of major depressive disorder without prior episode 03/28/2020 4 Class 2 obesity due to exces s calories in adult 03/26/2020 12/09/2023 Assessment & Plan (03/26/2020 8:24 PM CDT): Patient was advised to lose weight by diet and exercise. Primary insomnia 10/13/2019 12/09/2023 Injury of left knee 10/19/2018 12/09/19 Dysmenorrhea 09/29/2018 12/09/2023 Patellar tracking disorder of left knee 11/16/2010 12/09/2023 Deviated septum 1999 12/09/2023 Immunizations Immunization Administration Dates Next Due DTaP 10/10/2000 DTaP / IPV 11/15/2004, 0,1999,09/05 DTaP, Unspecified 02/06/2011, 5,04/25/2000,12/03,1999 HPV9 08/26/2019,09/25/2018 Hep A, Ped Unspecified 02/06/2011 Hep A, Pediatric 02/13/2012 Hep B / HiB 08/28/2001,10/10/2000 Hep B, Adolescent or Pediatric 04/25/2000,1999 HiB 1999,1999 Influenza LAIV (Nasal) 03/03/2012,04/10/2011 Influenza, Quadrivalent, Spl it, Preservative Free, Intramuscular 03/09/2020,03/05/2019 Influenza, Unspecified 03/16/2023(Deferr ed: Patient Refused),03/03/2012,04/10/2011 MMRV 11/15/2004,10/10/2000 Meningococcal Conjugate (Menveo) 02/24/2017 Meningococcal MCV4P (Menactra) 02/13/2012 Moderna SARS-CoV-2 Monovalen t Vaccination (12+ YRS) 10/20/2020,09/29/2020 Pneumococcal Conjugate 7-Valent 12/25/2000 Tdap 03/16/2022,02/15/2022,02/06/2011 Varicella 02/06/2011,10/10/2000 Social History Tobacco Use Types Packs/Day Years Used Date Smoking Tobacco: Never Smokeless Tobacco: Never Tobacco Cessation:Counseling Given: Not Answered Alcohol Use Standard Drinks/Week Comments Not Currently 0 (1 standard drink = 0.6 oz pur e alcohol) AUDIT-C Answer Date Recorded Q1: How often do you have a drink containing alcohol? Never 03/25/2024 Q2: How many drinks containi ng alcohol do you have on a typical day when you are drinking? Patient does not drink Frequency of Binge Drinking Not on file 03/16 PHQ-2 Answer Date Recorded PHQ-2 Total Score (If total score is 3 or more points, staff should administer the PHQ-9) 3 12/09/2023 Personal Safety Answer Date Recorded Have you ever been in or are you currently in a harmful physical or emotional relationship or is someone making you feel afraid or unsafe? Denies 03/12/2024 Comments No Sex and Gender Information Value Date Recorded Sex Assigned at Not on file Legal Sex Female 11:19 AM CDT Gender Identity Female 03/13/2024 11:18 PM CDT Sexual Orientation Straight 03/13/2024 11 :18 PM CDT Last Filed Vital Signs Vital Sign Reading Time Taken Comments Blood Pressure 136/70 03/25/2024 9:27 AM CDT Pulse 83 03/25/2024 9:27 AM CDT Temperature 36.5 C (97.7 F) 03/25/2024 9:27 AM CDT Respiratory Rate 20 03/12/2024 3:15 PM CDT Oxygen Saturation 97% 03/25/2024 9:27 AM CDT Inhaled Oxygen Concentration - - Weight 137.4 kg (303 lb) 03/25/2024 9:27 AM CDT Height 170.2 cm (5' 7 ) 03/25/2024 9:27 AM CDT Body Mass Index 47.46 03/25/2024 9:27 AM CDT Plan of Treatment Not on file Insurance [facility] [employer] [facility] Care Teams Bean Sorter Relationship Specialty Start Date End Date Angelica Maynard MD PCP - General Family Medicine 12/09/23
--- OUTSIDE RECORDS SUMMARY | 2024-09-10 12:37 | XMS_ITS | Encounter Summary ---
Author Organization [facility] Address [address] [place] [address] Care Team Providers Care Incident Response Lead Name Role Phone Julieth Lopez MD Primary Care Provider + Julieth Lopez MD Primary Care Provider + Encounter Details Date Type Department Care Team (Late st Contact Info) Description 05/24/2020 [employer] Design-Build Message Enc [facility] Family Medicine - [place] [address] [facility], [address] [place] [phone] Elgin Lemos MD [address] [address] RE: Question Social History Tobacco [...] on file 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 AIRCRAFT INSTRUMENT ENGINEER Gender Identity Not on file Sexual Orientation Not on file COVID-19 Exposure Response Date Recorded In the last month, have you been in contact with someone who was confirmed or suspected to have Coronavirus / COVID-19? No / Unsure 05/25/2020 3:22 PM AIRCRAFT INSTRUMENT ENGINEER documented as of this encounter Progress Notes * Elgin Lemos MD - 05/25/2020 8:06 AM CST Need to take a look RAFT INSTRUMENT ENGINEER documented in this encounter Plan of Treatment Upcoming Encounters Date Type Department Care Team (Late st Contact Info) Description 07/11/2025 8:30 AM AIRCRAFT INSTRUMENT ENGINEER Office Visit [facility] Family Medicine - [place] [address] [place] [address] Julieth Lopez MD [address] [place] [address] documented as of this encounter Visit Diagnoses Not on filedocumented in this encounter Additional Health Concerns Infection Onset Date Last Indicated Resolved Time COVID-19 Rule Out 06/07/2020 06/07/2020 06/10/2020 2:30 AM AIRCRAFT INSTRUMENT ENGINEER COVID-19 Rule Out 07/04/2020 07/04/2020 07/05/2020 6:22 PM AIRCRAFT INSTRUMENT ENGINEER Assessment Noted Time PHQ-9 Depression Total Score: 13 020 11:01 AM CDT documented as of this encounter Care Teams Incident Response Lead Relationship Specialty Start Date End Date Julieth Lopez MD [address] [place] [address] PCP - General FAMILY PRACTICE 07/29/24 Julieth Lopez MD [address] [place] [address] PCP - General FAMILY PRACTICE 07/07/24 07/28/24 documented as of this encounter
--- OUTSIDE RECORDS SUMMARY | 2024-09-10 12:37 | XMS_ITS | Encounter Summary ---
Author Organization [facility] Address [address] [place] [address] Care Team Providers Care Registered Medical Transcriptionist Name Role Phone Julieth Lopez MD Primary Care Provider + Julieth Lopez MD Primary Care Provider + Encounter Details Date Type Department Care Team (Late st Contact Info) Description 01/06/2020 iHigh Message Enc [facility] Family Medicine - [place] [address] [facility], [address] [place] [phone] Elgin Lemos MD [address] [phone] RE: Other Social History Tobacco Use Types Packs/Day Years [...] on file 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 SECOND FLOOR OPERATOR Gender Identity Not on file Sexual [...] st Contact Info) Description 07/11/2025 8:30 AM SECOND FLOOR OPERATOR Office Visit [facility] Family Medicine - [place] [address] [place] [address] Julieth Lopez MD [address] [place] [address] documented as of this encounter Visit Diagnoses Not on filedocumented in this encounter Additional Health Concerns Infection Onset Date Last Indicated Resolved Time COVID-19 Rule Out 03/20/2020 03/20/2020 03/22/2020 6:40 PM CDT COVID-19 Rule Out 06/07/2020 06/07/2020 06/10/2020 2:30 AM SECOND FLOOR OPERATOR COVID-19 Rule Out 07/04/2020 07/04/2020 07/05/2020 6:22 PM SECOND FLOOR OPERATOR documented as of this encounter Care Teams Registered Medical Transcriptionist Relationship Specialty Start Date End Date Julieth Lopez MD [address] [place] [address] PCP - General FAMILY PRACTICE 07/29/24 Julieth Lopez MD [address] [place] [address] PCP - General FAMILY PRACTICE 07/07/24 07/28/24 documented as of this encounter
--- OUTSIDE RECORDS SUMMARY | 2024-09-10 12:37 | XMS_ITS | Encounter Summary ---
Author Organization [facility] Address [address] [place] [address] Care Team Providers Care Premium Auditor Name Role Phone Julieth Lopez MD Primary Care Provider + Julieth Lopez MD Primary Care Provider + Encounter Details Date Type Department Care Team (Late st Contact Info) Description 09/30/2022 Nano Game Studio Message Enc [facility] Family Medicine - [place] [address] [facility], [address] [place] [phone] Elgin Lemos MD [address] [facility] [address] [place] [address] [phone] [employer] Social History Tobacco Use Types Packs/Day Years [...] on file 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 No / Unsure 09/16/2022 9:40 AM CDT documented as of this encounter Plan of Treatment Upcoming Encounters Date Type Department Care Team (Late st Contact Info) Description 07/11/2025 8:30 AM CLOAK ROOM ATTENDANT Office Visit [facility] Family Medicine - [place] [address] [place] [address] Julieth Lopez MD [address] [place], [place] [address] documented as of this encounter Visit Diagnoses Not on filedocumented in this encounter Additional Health Concerns Assessment Noted Time PHQ-9 Depression Total Score: 13 020 11:01 AM CDT documented as of this encounter Care Teams Premium Auditor Relationship Specialty Start Date End Date Julieth Lopez MD [address] [place], [place] [address] PCP - General FAMILY PRACTICE 07/29/24 Julieth Lopez MD [address] [place], [place] [address] PCP - General FAMILY PRACTICE 07/07/24 07/28/24 documented as of this encounter
--- OUTSIDE RECORDS SUMMARY | 2024-09-10 12:37 | XMS_ITS | Encounter Summary ---
Author Organization [facility] Address [address] [place] [address] Care Team Providers Care Facility Maintenance Manager Name Role Phone Julieth Lopez MD Primary Care Provider + Julieth Lopez MD Primary Care Provider + Encounter Details Date Type Department Care Team (Late st Contact Info) Description 03/11/2020 Erly Message Enc [facility] Family Medicine - [place] [address] [facility], [address] [place] [phone] Elgin Lemos MD [address] [phone] RE: Follow Up/Update Social History Tobacco Use [...] on file 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 DYED YARN OPERATOR Gender Identity Not on file Sexual Orientation Not on file COVID-19 Exposure Response Date Recorded In the last month, have you been in contact with someone who was confirmed or suspected to have Coronavirus / COVID-19? No / Unsure 03/08/2020 4:54 PM CDT documented as of this encounter Plan of Treatment Upcoming Encounters Date Type Department Care Team (Late st Contact Info) Description 07/11/2025 8:30 AM DYED YARN OPERATOR Office Visit [facility] Family Medicine - [place] [address] [place] [address] Julieth Lopez MD [address] [place] [address] documented as of this encounter Visit Diagnoses Not on filedocumented in this encounter Additional Health Concerns Infection Onset Date Last Indicated Resolved Time COVID-19 Rule Out 03/20/2020 03/20/2020 03/22/2020 6:40 PM CDT COVID-19 Rule Out 06/07/2020 06/07/2020 06/10/2020 2:30 AM DYED YARN OPERATOR COVID-19 Rule Out 07/04/2020 07/04/2020 07/05/2020 6:22 PM DYED YARN OPERATOR documented as of this encounter Care Teams Facility Maintenance Manager Relationship Specialty Start Date End Date Julieth Lopez MD [address] [place] [address] PCP - General FAMILY PRACTICE 07/29/24 Julieth Lopez MD [address] [place] [address] PCP - General FAMILY PRACTICE 07/07/24 07/28/24 documented as of this encounter
--- OUTSIDE RECORDS SUMMARY | 2024-09-10 12:37 | XMS_ITS | Encounter Summary ---
Author Organization [facility] Address [address] [place] [address] Care Team Providers Care Grants And Contracts Assistant Name Role Phone Julieth Lopez MD Primary Care Provider + Julieth Lopez MD Primary Care Provider + Encounter Details Date Type Department Care Team (Late st Contact Info) Description 10/13/2019 Mashable Message Enc [facility] Family Medicine - [place] [address] [facility], [address] [place] [phone] Elgin Lemos MD [address] [address] RE: Question Social History Tobacco [...] on file 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 No / Unsure 10/12/2019 10:36 AM CDT documented as of this encounter Plan of Treatment Upcoming Encounters Date Type Department Care Team (Late st Contact Info) Description 07/11/2025 8:30 AM CYBER POLICY AND STRATEGY PLANNER Office Visit [facility] Family Medicine - [place] [address] [place] [address] Julieth Lopez MD [address] [place] [address] documented as of this encounter Visit Diagnoses Not on filedocumented in this encounter Additional Health Concerns Infection Onset Date Last Indicated Resolved Time COVID-19 Rule Out 03/20/2020 03/20/2020 03/22/2020 6:40 PM CDT COVID-19 Rule Out 06/07/2020 06/07/2020 06/10/2020 2:30 AM CYBER POLICY AND STRATEGY PLANNER COVID-19 Rule Out 07/04/2020 07/04/2020 07/05/2020 6:22 PM CYBER POLICY AND STRATEGY PLANNER documented as of this encounter Care Teams Grants And Contracts Assistant Relationship Specialty Start Date End Date Julieth Lopez MD [address] [place] [address] PCP - General FAMILY PRACTICE 07/29/24 Julieth Lopez MD [address] [place] [address] PCP - General FAMILY PRACTICE 07/07/24 07/28/24 documented as of this encounter
--- OUTSIDE RECORDS SUMMARY | 2024-09-10 12:37 | XMS_ITS | Encounter Summary ---
Author Organization [facility] Address [address] [place] [address] Care Team Providers Care Insurance Operations Rep Name Role Phone Julieth Lopez MD Primary Care Provider + Julieth Lopez MD Primary Care Provider + Encounter Details Date Type Department Care Team (Late Contact Info) Description 09/27/2020 its learningt Message Enc [facility] Family Medicine - [place] [address] [facility], [address] [place] [address] [phone] Elgin Lemos MD [address] [facility] [address] [place] [address] [phone] RE: Question Social History Tobacco Use Types [...] on file 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 SITE WORKER Gender Identity Not on file Sexual Orientation Not on file documented as of this encounter Plan of Treatment Upcoming Encounters Date Type Department Care Team (Late st Contact Info) Description 07/11/2025 8:30 AM SITE WORKER Office Visit [facility] Family Medicine - [place] [address] [place] [address] Julieth Lopez MD [address] [place] [address] documented as of this encounter Visit Diagnoses Not on filedocumented in this encounter Additional Health Concerns Assessment Noted Time PHQ-9 Depression Total Score: 13 020 11:01 AM CDT documented as of this encounter Care Teams Insurance Operations Rep Relationship Specialty Start Date End Date Julieth Lopez MD [address] [place] [address] PCP - General FAMILY PRACTICE 07/29/24 Julieth Lopez MD [address] [place] [address] PCP - General FAMILY PRACTICE 07/07/24 07/28/24 documented as of this encounter
--- OUTSIDE RECORDS SUMMARY | 2024-09-10 12:37 | XMS_ITS | Encounter Summary ---
Author Organization [facility] Address [address] [place] [address] Care Team Providers Care Alarm Installation Technician Name Role Phone Julieth Lopez MD Primary Care Provider + Julieth Lopez MD Primary Care Provider + Encounter Details Date Type Department Care Team (Late Contact Info) Description 01/19/2020 Haiku Deck Message Enc [facility] Family Medicine [address], [address] [place] [phone] [facility] RE: Medications Social History Tobacco Use Types Packs/Day Years [...] on file 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 SCREW MACHINE SET UP OPERATOR Gender Identity Not on file Sexual [...] (Late Contact Info) Description 07/11/2025 8:30 AM SCREW MACHINE SET UP OPERATOR Office Visit [facility] Family Medicine - [place] [address] [place] [address] Julieth Lopez MD [address] [place] [address] documented as of this encounter Visit Diagnoses Not on filedocumented in this encounter Additional Health Concerns Infection Onset Date Last Indicated Resolved Time COVID-19 Rule Out 03/20/2020 03/20/2020 03/22/2020 6:40 PM CDT COVID-19 Rule Out 06/07/2020 06/07/2020 06/10/2020 2:30 AM SCREW MACHINE SET UP OPERATOR COVID-19 Rule Out 07/04/2020 07/04/2020 07/05/2020 6:22 PM SCREW MACHINE SET UP OPERATOR documented as of this encounter Care Teams Alarm Installation Technician Relationship Specialty Start Date End Date Julieth Lopez MD [address] [facility] [place] [address] PCP - General FAMILY PRACTICE 07/29/24 Julieth Lopez MD [address] [facility] [place] [address] PCP - General FAMILY PRACTICE 07/07/24 07/28/24 documented as of this encounter
--- OUTSIDE RECORDS SUMMARY | 2024-09-10 12:37 | XMS_ITS | Encounter Summary ---
Author Organization [facility] Address [address] [place] [address] Care Team Providers Care Lieutenant Fire Fighter Name Role Phone Julieth Lopez MD Primary Care Provider + Julieth Lopez MD Primary Care Provider + Encounter Details Date Type Department Care Team (Late st Contact Info) Description 03/18/2020 [employer]-Drive Autos Message Enc [facility] Family Medicine - [place] [address] [facility], [address] [place] [phone] Elgin Lemso MD [address] [address] RE: Question Social History Tobacco [...] on file 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 PROPERTY INSURANCE AGENT Gender Identity Not on file Sexual Orientation [...] st Contact Info) Description 07/11/2025 8:30 AM PROPERTY INSURANCE AGENT Office Visit [facility] Family Medicine - [place] [address] [place] [address] Julieth Lopez MD [address] [place] [address] documented as of this encounter Visit Diagnoses Not on filedocumented in this encounter Additional Health Concerns Infection Onset Date Last Indicated Resolved Time COVID-19 Rule Out 03/20/2020 03/20/2020 03/22/2020 6:40 PM CDT COVID-19 Rule Out 06/07/2020 06/07/2020 06/10/2020 2:30 AM PROPERTY INSURANCE AGENT COVID-19 Rule Out 07/04/2020 07/04/2020 07/05/2020 6:22 PM PROPERTY INSURANCE AGENT documented as of this encounter Care Teams Lieutenant Fire Fighter Relationship Specialty Start Date End Date Julieth Loepz MD [address] [place] [address] PCP - General FAMILY PRACTICE 07/29/24 Julieth Lopez MD [address] [place] [address] PCP - General FAMILY PRACTICE 07/07/24 07/28/24 documented as of this encounter
--- OUTSIDE RECORDS SUMMARY | 2024-09-10 12:37 | XMS_ITS | Encounter Summary ---
Author Organization [facility] Address [address] [place] [address] Care Team Providers Care Roving Winder Name Role Phone Julieth Lopez MD Primary Care Provider + Julieth Lopez MD Primary Care Provider + Encounter Details Date Type Department Care Team (Late st Contact Info) Description 04/25/2020 Beauty Works Message Enc [facility] Family Medicine - [place] [address] [facility], [address] [place] [phone] Elgin Lemos MD [address] [address] RE: Question Social History Tobacco [...] on file 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 PASSENGER SERVICE AGENT Gender Identity Not on file Sexual Orientation Not on file COVID-19 Exposure Response Date Recorded In the last month, have you been in contact with someone who was confirmed or suspected to have Coronavirus / COVID-19? No / Unsure 04/26/2020 9:25 AM PASSENGER SERVICE AGENT documented as of this encounter Plan of Treatment Upcoming Encounters Date Type Department Care Team (Late st Contact Info) Description 07/11/2025 8:30 AM PASSENGER SERVICE AGENT Office Visit [facility] Family Medicine - [place] [address] [place] [address] Julieth Lopez MD [address] [place] [address] documented as of this encounter Visit Diagnoses Not on filedocumented in this encounter Additional Health Concerns Infection Onset Date Last Indicated Resolved Time COVID-19 Rule Out 06/07/2020 06/07/2020 06/10/2020 2:30 AM PASSENGER SERVICE AGENT COVID-19 Rule Out 07/04/2020 07/04/2020 07/05/2020 6:22 PM PASSENGER SERVICE AGENT Assessment Noted Time PHQ-9 Depression Total Score: 13 020 11:01 AM CDT documented as of this encounter Care Teams Roving Winder Relationship Specialty Start Date End Date Julieth Lopez MD [address] [place] [address] PCP - General FAMILY PRACTICE 07/29/24 Julieth Lopez MD [address] [place] [address] PCP - General FAMILY PRACTICE 07/07/24 07/28/24 documented as of this encounter
--- OUTSIDE RECORDS SUMMARY | 2024-09-10 12:37 | XMS_ITS | Encounter Summary ---
Author Organization [facility] Address [address] [place] [address] Care Team Providers Care Center Machine Set Up Operator Name Role Phone Julieth Lopez MD Primary Care Provider + Julieth Lopez MD Primary Care Provider + Encounter Details Date Type Department Care Team (Late Contact Info) Description 03/23/2020 Bioformix Message Enc [facility] Medical Group Family Medicine [address], [address] [place] [phone] [employer], [facility] Provider Lab results Social History Tobacco Use Types Packs/Day Years [...] on file 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 REPORT SPECIALIST Gender Identity Not on file Sexual [...] (Late Contact Info) Description 07/11/2025 8:30 AM REPORT SPECIALIST Office Visit [facility] Family Medicine - [place] [address] [place] [address] Julieth Lopez MD [address] [place], [place] [address] documented as of this encounter Visit Diagnoses Not on filedocumented in this encounter Additional Health Concerns Infection Onset Date Last Indicated Resolved Time COVID-19 Rule Out 06/07/2020 06/07/2020 06/10/2020 2:30 AM REPORT SPECIALIST COVID-19 Rule Out 07/04/2020 07/04/2020 07/05/2020 6:22 PM REPORT SPECIALIST documented as of this encounter Care Teams Center Machine Set Up Operator Relationship Specialty Start Date End Date Julieth Lopez MD [address] [place] [address] PCP - General FAMILY PRACTICE 07/29/24 Julieth Lopez MD [address] [place] [address] PCP - General FAMILY PRACTICE 07/07/24 07/28/24 documented as of this encounter
--- OUTSIDE RECORDS SUMMARY | 2024-09-10 12:37 | XMS_ITS | Encounter Summary ---
Author Organization [facility] Address [address] [place] [address] Care Team Providers Care Operators School Manager Name Role Phone Julieth Lopez MD Primary Care Provider + Julieth Lopez MD Primary Care Provider + Encounter Details Date Type Department Care Team (Late st Contact Info) Description 03/22/2020 Savioke Message Enc [facility] Group Family Medicine - [place] [address] [facility], [address] [place] [phone] Elgin Lemos MD [address] [address] RE: Question Social History Tobacco [...] on file 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 DIRECTOR HEART Gender Identity Not on file Sexual Orientation [...] st Contact Info) Description 07/11/2025 8:30 AM DIRECTOR HEART Office Visit [facility] Group Family Medicine - [place] [address] [place] [address] Julieth Lopez MD [address] [place] [address] documented as of this encounter Visit Diagnoses Not on filedocumented in this encounter Additional Health Concerns Infection Onset Date Last Indicated Resolved Time COVID-19 Rule Out 03/20/2020 03/20/2020 03/22/2020 6:40 PM CDT COVID-19 Rule Out 06/07/2020 06/07/2020 06/10/2020 2:30 AM DIRECTOR HEART COVID-19 Rule Out 07/04/2020 07/04/2020 07/05/2020 6:22 PM DIRECTOR HEART documented as of this encounter Care Teams Operators School Manager Relationship Specialty Start Date End Date Julieth Lopez MD [address] [place] [address] PCP - General FAMILY PRACTICE 07/29/24 Julieth Lopez MD [address] [place] [address] PCP - General FAMILY PRACTICE 07/07/24 07/28/24 documented as of this encounter
--- OUTSIDE RECORDS SUMMARY | 2024-09-10 12:37 | XMS_ITS | Encounter Summary ---
Author Organization [facility] Address [address] [place] [address] Care Team Providers Care Patent Law Specialist Name Role Phone Julieth Lopez MD Primary Care Provider + Julieth Lopez MD Primary Care Provider + Encounter Details Date Type Department Care Team (Late Contact Info) Description 01/21/2023 iwit Message Enc [facility] Family Medicine [facility] [address] [facility], [address] [place] [phone] Elgin Lemos MD [address] [phone] update Social History Tobacco Use Types Packs/Day Years [...] on file 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 MONUMENT ERECTOR Gender Identity Not on file Sexual Orientation Not on file documented as of this encounter Plan of Treatment Upcoming Encounters Date Type Department Care Team (Late Contact Info) Description 07/11/2025 8:30 AM MONUMENT ERECTOR Office Visit [facility] Family Medicine [facility] [address] [place], [place] [address] Julieth Lopez MD [address] [place], [place] [address] documented as of this encounter Visit Diagnoses Not on filedocumented in this encounter Additional Health Concerns Assessment Noted Time PHQ-9 Depression Total Score: 13 020 11:01 AM CDT documented as of this encounter Care Teams Patent Law Specialist Relationship Specialty Start Date End Date Julieth Lopez MD [address] [place], [place] [address] PCP - General FAMILY PRACTICE 07/29/24 Julieth Lopez MD [address] [place] [address] PCP - General FAMILY PRACTICE 07/07/24 07/28/24 documented as of this encounter
--- OUTSIDE RECORDS SUMMARY | 2024-09-10 12:37 | XMS_ITS | Encounter Summary ---
Author Organization [facility] Address [address] [place] [address] Care Team Providers Care Barrel Cleaner Name Role Phone Julieth Lopez MD Primary Care Provider + Julieth Lopez MD Primary Care Provider + Encounter Details Date Type Department Care Team (Late st Contact Info) Description 03/09/2020 [employer] Message Enc [facility] Family [facility] - [place] [address] [facility], [address] [place] [phone] Elgin Lemos MD [address] [phone] RE: Medication Questions Social History Tobacco Use [...] on file 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 DOCUMENT COORDINATOR Gender Identity Not on file Sexual Orientation [...] st Contact Info) Description 07/11/2025 8:30 AM DOCUMENT COORDINATOR Office Visit [facility] Family [facility] - [place] [address] [place] [address] Julieth Lopez MD [address] [place] [address] documented as of this encounter Visit Diagnoses Not on filedocumented in this encounter Additional Health Concerns Infection Onset Date Last Indicated Resolved Time COVID-19 Rule Out 03/20/2020 03/20/2020 03/22/2020 6:40 PM CDT COVID-19 Rule Out 06/07/2020 06/07/2020 06/10/2020 2:30 AM DOCUMENT COORDINATOR COVID-19 Rule Out 07/04/2020 07/04/2020 07/05/2020 6:22 PM DOCUMENT COORDINATOR documented as of this encounter Care Teams Barrel Cleaner Relationship Specialty Start Date End Date Julieth Lopez MD [address] [place] [address] PCP - General FAMILY PRACTICE 07/29/24 Julieth Lopez MD [address] [place] [address] PCP - General FAMILY PRACTICE 07/07/24 07/28/24 documented as of this encounter
--- OUTSIDE RECORDS SUMMARY | 2024-09-10 12:37 | XMS_ITS | Clinical Summary ---
Author Organization [facility] [employer] Address [address] [place] [address] Care Team Providers Care Edge Polisher Name Role Phone Pcp, Carolyn Depshantanu Im-Fm Primary Care Provider Un available Source Comments [facility] [employer],non-owned Affiliates and Associated Physician Practices is amultiple site organization consisting of ambulatory clinics and hospital sitesin [place], [place], [place] and [place]. This disclosure is being madepursuant to the Care Everywhere program and may not contain all information available regarding this patient. Last updated 18.[facility] [employer] Allergies Active Allergy Reactions Criticality Noted Date Comments Adhesive Sensitivity Rash Medium 08/19/2019 Limbs swell Latex Urticaria Medium 03/26/2019 Medications * Be aware that medications may not be up to date on this document. Alwaysverify current medications with the patient. Medication Sig Dispensed Refills Start Date End Date Status acyclovir (ZOVIRAX) 800 MG tablet Take by mouth once daily 10/13/2018 Active escitalopram (LEXAPRO) 10 MG tablet Take by mouth once daily 10/15/2018 Active ferrous sulfate (FEROSUL) 325 (65 FE) MG tablet Take 1 tablet by mouth once daily 09/07/2018 Active etonogestrel (NEXPLANON) 68 MG implant Inject subcutaneously once daily Active norelgestromin-eth inyl estradiol (XULANE) 150-35 MCG/24HR patch every 7 days 03/30/2018 Active Loratadine (CLARITIN) 10 MG Take by mouth once daily Active Active Problems Problem Noted Date Diagnosed Date Left knee injury, subsequent encounter 9 Left knee injury, initial encounter 10/19/2018 Family History Medical History Relation Name Comments Arthritis - Osteo Mother Osteoporosis Mother Relation Name Status Comments Father Alive Mother Alive Social History Tobacco Use Types Packs/Day Years Used Date Smoking Tobacco: Never Smokeless Tobacco: Never Alcohol Use Standard Drinks/Week Comments No 0 (1 standard drink = 0.6 oz pur e alcohol) Sex and Gender Information Value Date Recorded Sex Assigned at Not on file Gender Identity Not on file Sexual Orientation Not on file Last Filed Vital Signs Vital Sign Reading Time Taken Comments Blood Pressure 154/107 03/22/2022 11:13 PM CDT Pulse 75 03/22/2022 10:58 AM CDT Temperature 36.5 C (97.7 F) 03/22/2022 10:58 AM CDT Respiratory Rate 18 03/22/2022 10:58 AM CDT Oxygen Saturation 96% 03/22/2022 11:13 PM CDT Inhaled Oxygen Concentration - - Weight 117.9 kg (260 lb) 03/22/2022 10:56 AM CDT Height 172.7 cm (5' 8 ) 03/22/2022 10:56 AM CDT Body Mass Index 39.53 03/22/2022 10:56 AM CDT Plan of Treatment Health Maintenance Due Date Last Done Comments PAP SMEAR 1999 HIV SCREENING 2014 HPV VACCINE (1 - 3-dose series) 2014 CHLAMYDIA/GONORRHEA SCREENING 2015 HEPATITIS C SCREENING 06/18/2017 DTAP/TDAP/TD VACCINES (1 - Tdap) 2018 HEPATITIS B VACCINE (1 of 3 - 19+ 3-dose series) 2018 COVID-19 VACCINE (3 - 2023- season) 2024 10/20/2020, 09/29/2020 INFLUENZA VACCINE (#1) 2024 2, 03/09/2020, 03/05/2019, Additional history exists DEPRESSION SCREENING 06/16/2024 ZOSTER VACCINE (1 of 2) 2049 HIB VACCINE Aged Out No longer eligi ble based on patient's age to complete this topic MENINGOCOCCAL (Group B) VACCINE SHARED DECISION-MAKING Aged Out No longer eligible based on patient's age to complete this topic MENINGOCOCCAL GROUPS A/C/Y/W VACCINE Aged Out No longer eligible based on patient's age to complete this topic PNEUMOCOCCAL VACCINE Aged Out No long er eligible based on patient's age to complete this topic Care Teams Edge Polisher Relationship Specialty Start Date End Date Carolyn Bryant Im-Fm PCP - General 01/10/23
--- OUTSIDE RECORDS SUMMARY | 2024-09-10 12:37 | XMS_ITS | Encounter Summary ---
Author Organization [facility] Address [address] [place] [address] Care Team Providers Care Interior Decorator Paperhanging Name Role Phone Julieth Lopez MD Primary Care Provider + Julieth Lopez MD Primary Care Provider + Encounter Details Date Type Department Care Team (Late Contact Info) Description 10/28/2022 [email or web address] Message Enc [facility] Family Medicine [facility] [address] [facility], [address] [place] [phone] Elgin Lemos MD [address] [phone] Hospital Social History Tobacco Use Types Packs/Day Years [...] on file 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 OPTICAL WORKER Gender Identity Not on file Sexual Orientation Not on file documented as of this encounter Plan of Treatment Upcoming Encounters Date Type Department Care Team (Late Contact Info) Description 07/11/2025 8:30 AM OPTICAL WORKER Office Visit [facility] Family Medicine [facility] [address] [place], [place] [address] Julieth Lopez MD [address] [place], [place] [phone] documented as of this encounter Visit Diagnoses Not on filedocumented in this encounter Additional Health Concerns Assessment Noted Time PHQ-9 Depression Total Score: 13 020 11:01 AM CDT documented as of this encounter Care Teams Interior Decorator Paperhanging Relationship Specialty Start Date End Date Julieth Lopez MD [address] [place], [place] [phone] PCP - General FAMILY PRACTICE 07/29/24 Julieth Lopez MD [address] [place] [address] PCP - General FAMILY PRACTICE 07/07/24 07/28/24 documented as of this encounter
--- OUTSIDE RECORDS SUMMARY | 2024-09-10 12:37 | XMS_ITS | Encounter Summary ---
Author Organization [facility] Address [address] [place] [address] Care Team Providers Care Special Needs Librarian Name Role Phone Julieth Lopez MD Primary Care Provider + Julieth Lopez MD Primary Care Provider + Encounter Details Date Type Department Care Team (Late st Contact Info) Description 03/08/2020 Geliyoo Message Enc [facility] Family Medicine - [place] [address] [facility], [address] [place] [phone] Elgin Lemos MD [address] [address] RE: Question Social History Tobacco [...] on file 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 ANALYTICAL ENGINEER Gender Identity Not on file Sexual Orientation Not on file COVID-19 Exposure Response Date Recorded In the last month, have you been in contact with someone who was confirmed or suspected to have Coronavirus / COVID-19? No / Unsure 03/08/2020 4:54 PM CDT documented as of this encounter Progress Notes * Elgin Lemos MD - 03/08/2020 1:42 PM CDT Bring her in to discuss options and for lung exam please, wear mask documented in this encounter Plan of Treatment Upcoming Encounters Date Type Department Care Team (Late st Contact Info) Description 07/11/2025 8:30 AM ANALYTICAL ENGINEER Office Visit [facility] Family Medicine - [place] [address] [place] [address] Julieth Lopez MD [address] [place], [place] [phone] documented as of this encounter Visit Diagnoses Not on filedocumented in this encounter Additional Health Concerns Infection Onset Date Last Indicated Resolved Time COVID-19 Rule Out 03/20/2020 03/20/2020 03/22/2020 6:40 PM CDT COVID-19 Rule Out 06/07/2020 06/07/2020 06/10/2020 2:30 AM ANALYTICAL ENGINEER COVID-19 Rule Out 07/04/2020 07/04/2020 07/05/2020 6:22 PM ANALYTICAL ENGINEER documented as of this encounter Care Teams Special Needs Librarian Relationship Specialty Start Date End Date Julieth Lopez MD [address] [place] [address] PCP - General FAMILY PRACTICE 07/29/24 Julieth Lopez MD [address] [place] [address] PCP - General FAMILY PRACTICE 07/07/24 07/28/24 documented as of this encounter
--- OUTSIDE RECORDS SUMMARY | 2024-09-10 12:37 | XMS_ITS | Clinical Summary ---
Author Organization [facility] Address [facility] [place] [address] Care Team Providers Care Yard Pilot Name Role Phone Julieth Lopez MD Primary Care Provider + Allergies Active Allergy Reactions Criticality Noted Date Comments Tape Rash Low 08/19/2019 Erenumab-Aooe Rash Medium 12/09/2023 Site reaction, believes due to latex ingredient overlap Latex Hives,Rash Medium 03/26/2019 Nortriptyline Hcl Other (see comment) Low nightmares Vancomycin Anaphylaxis High 07/07/2024 Medications semaglutide (OZEMPIC 0.25/0.5 MG/DOSE) 2 MG/1.5ML injection (PEN)Indications:C lass 3 severe obesity due to excess calories without serious comorbidity with body mass index (BMI) of 45.0 to 49.9 in adult ([facility]),Prediabe hyun,PCOS (polycystic ovarian syndrome) Inject 0.25 mg into the skin every 7 days. 2 pen 3 09/17/19 23 Active Additional Information Patient not taking.Reported on 07/07/2024 SUMAtriptan (IMITREX) 25 MG tabletIndications: Chronic migraine without aura without status migrainosus, not intractable TAKE 1 TO 2 TABLETS BY MOUTH 2 TIMES A DAY NEEDED FOR MIGRAINE. MAX OF 8 TABLETS IN 24 HOURS 30 tablet 1 11/11/19 24 Active albuterol sulfate HFA 108 (90 Base) MCG/ACT inhalerIndications :Moderate persistent asthma without complication ([facility]) Inhale 2 puffs into the lungs every 4 (four) hours as needed for Wheezing. 18 g 3 07/07/19 Active budesonide-formote rol (SYMBICORT) 160-4.5 MCG/ACT inhalerIndications :Moderate persistent asthma without complication (HHS/HCC) Inhale 2 puffs into the lungs 2 (two) times daily. 10.2 g 3 07/07/19 Active spironolactone (ALDACTONE) 25 MG tabletIndications: PCOS (polycystic ovarian syndrome) Take 1 tablet (25 mg total) by mouth daily. 90 tablet 3 07/07/19 25 026 Active rimegepant (NURTEC) 75 MG disintegrating tabletIndications: Chronic migraine without aura without status migrainosus, not intractable Take 1 tablet (75 mg total) by mouth every other day. Max of 1 tablet (75 mg) in 24 hours. 45 tablet 3 07/07/19 Active Active Problems Problem Noted Date Diagnosed Date Excessive daytime sleepiness 12/09/2023 IGT (impaired glucose tolerance) 12/09/2023 Chronic migraine without aur a without status migrainosus, not intractable 09/16/2022 Overview (07/07/2024): Takes sumatriptan. In the past was on nortriptyline. Noted nightmares so stopped taking it. Sumatriptan works well. Migraines happen at least once a week. Also tried aimovig. Allergic to latex and could not use it. Assessment & Plan (07/07/2024 11:34 AM CLOCK ASSEMBLER): Not controlled. Frequent migraines. Sumatriptan does work but not adequately to help prevent migraines. Also failed nortriptyline and Aimovig. [facility] and will use [facility] prophylactically. PCOS (polycystic ovarian syndrome) 07/27/2020 Overview (07/07/2024): Presented with heavy menstrual cycles. Has an IUD. Sees gynecology, Dr. Shirley Brewer. In the past she took spironolactone and she is wondering if she can use this again due to male pattern hair growth Assessment & Plan (07/07/2024 11:34 AM CLOCK ASSEMBLER): Hirsutism persistent. Will check BMP 1 month after trial of spironolactone to ensure kidney function and electrolytes are normal. 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 Reports she has tried multiple medications in the past and has not tolerated them well due to side effects. She would prefer to avoid medication at this point. Assessment & Plan (07/07/2024 11:32 AM CLOCK ASSEMBLER): Not currently well-controlled but prefers to avoid medication. We will defer medication at this point. Encouraged some lifestyle changes. Class 3 severe obesity due t o excess calories without serious comorbidity with body mass index (BMI) of 45.0 to 49.9 in adult 03/26/2020 Overview (07/07/2024): Has been going to [employer]. Has 10 lb in 6 months. Assessment & Plan (07/07/2024 11:33 AM CLOCK ASSEMBLER): Discussed lifestyle changes which will help with weight loss. She will also look into insurance options for GLP-1 and update me with decision. Moderate persistent asthma without complication (HHS/HCC) 03/23/2020 Overview (07/07/2024): Takes symbicort and albuterol. Illness is main trigger. Assessment & Plan (07/07/2024 11:33 AM CLOCK ASSEMBLER): Chronic. Controlled. Continue Symbicort and albuterol. Prevnar 20 given. Seasonal allergic rhinitis 03/23/2020 Overview (03/28/2020): Last Assessment & Plan: Continue with loratadine. Add Flonase. Primary insomnia 10/13/2019 Anxiety 09/29/2018 Overview (07/07/2024): Not on anything currently. Tried multiple medications. Managing but not ideal. Patellar tracking disorder of left knee 11/17/19 11 Resolved Problems Problem Noted Date Diagnosed Date Resolved Date Injury of left knee 10/19/2018 09/17/19 23 Encounters Date Type Department Care Team Description 08/30/2024 Telephone [place] [phone] [facility] [address] [place] [address] Julieth Lopez MD Medication Problem 07/29/2024 7:20 AM CLOCK ASSEMBLER Laboratory Only [address] [place] [address] Julieth Lopez MD 07/29/2024 Travel 07/15/2024 Telephone [place] [phone] [facility] [address] [place] [address] Julieth Lopez MD Medication Problem 07/09/2024 MyChart Message Enc [address] [place] [address] Julieth Lopez MD Scaring swollen 07/07/2024 10:50 AM CLOCK ASSEMBLER Office Visit [address] [place] [address] Julieth Lopez MD Establish Care (Patient is here as a transfer patient to establish care. ) 07/07/2024 Travel from Last 3 Months Immunizations Name Administration Dates Next Due Dtap 10/10/2000 Dtap (Generic) 11/15/2004, 0,1999,09/05 Fluzone 6 Months+ Quad (0.5 mL Prefilled Syringe) 03/09/2020,03/05/2019 HPV GARDASIL 9-VALENT 08/26/2019 HPV4 (Gardasil) 09/25/2018 Hepatitis A (Generic) 02/13/2012,02/06/2011 Hepatitis B (Generic: Adult) 08/28/2001, 10/10/2000,04/25/2000,09/05 Hib (Generic) 08/28/2001, 1,1999,09/05 Influenza Adult (Generic) 03/16/2018(Def erred: Patient Refused),03/03/2012,04/10/2011 MMR (Generic) 11/15/2004,10/10/2000 MODERNA COVID-19 (12+) MRNA, LNP-S, PF, 100 MCG/ 0.5 ML DOSE 10/20/2020,09/29/2020 Meningococcal (Menactra) 02/24/2017,02/13/2012 Pneumococcal (Prevnar 20) 07/07/2024 Pneumococcal (Prevnar 7) 12/25/2000 Polio Ipv (Generic) 11/15/2004, 0,1999,09/05 Tdap (Generic) 03/16/2022,02/06/2011 Varicella (Generic) 02/06/2011,10/10/2000 Family History Medical History Relation Comments Asthma Brother 1 No Known Problems Brother 2 No Known Problems Brother 3 Alcohol Abuse Father Currently Arthritis Father COPD Father Depression Father Drug Abuse Father Heart Disease Father Hypertension Father Mental Health Father Vision loss Father Alcohol Abuse Maternal Aunt Currently Drug Abuse Maternal Aunt Mental Health Maternal Aunt Cancer Maternal Grandfather Lung cancer , esophagal cancer Arthritis Maternal Grandmother Depression Maternal Grandmother Diabetes Maternal Grandmother Drug Abuse Maternal Grandmother Early Hearing Loss Maternal Grandmother Heart Disease Maternal Grandmother Hypertension Maternal Grandmother Mental Health Maternal Grandmother Alcohol Abuse Maternal Uncle Currently Arthritis Maternal Uncle Drug Abuse Maternal Uncle Mental Health Maternal Uncle Arthritis Mother Asthma Mother Depression Mother Diabetes Mother Drug Abuse Mother Hypertension Mother Mental Health Mother Miscarriages / Stillbirths Mother 6 mis carriages Asthma Paternal Aunt 1 Cancer Paternal Aunt 1 Cancer in her deniz gonzalez Miscarriages / Stillbirths Paternal Aunt 1 6 mis carriages Cancer Paternal Aunt 2 Cervical cancer, ovarion cancer, and endometrial cancer Miscarriages / Stillbirths Paternal Aunt 2 Multi ple losses of preganacy Alcohol Abuse Paternal Grandfather Arthritis Paternal Grandfather Asthma Paternal Grandfather Diabetes Paternal Grandfather Heart Disease Paternal Grandfather Hypertension Paternal Grandfather Kidney Disease Paternal Grandfather Mental Health Paternal Grandfather Stroke Paternal Grandfather Arthritis Paternal Grandmother Cancer Paternal Grandmother Breast and cervical cancer Depression Paternal Grandmother Diabetes Paternal Grandmother Early Hearing Loss Paternal Grandmother Hypertension Paternal Grandmother Mental Health Paternal Grandmother Miscarriages / Stillbirths Paternal Grandmother 1 still / 6 miscarriages Vision loss Paternal Grandmother Arthritis Sister 1 Depression Sister 1 Diabetes Sister 1 Miscarriages / Stillbirths Sister 1 3 mis carriages COPD Sister 2 Depression Sister 2 Depression Sister 3 No Known Problems Sister 4 Relation Status Comments Brother 1 Alive Brother 2 Alive Brother 3 Alive Father Alive Maternal Aunt Maternal Grandfather Maternal Grandmother Maternal Uncle Mother Alive Paternal Aunt 1 Paternal Aunt 2 Paternal Grandfather Paternal Grandmother Sister 1 Alive Sister 2 Alive Sister 3 Alive Sister 4 Alive Social History Tobacco Use Types Packs/Day Years Used Date Smoking Tobacco: Never Smokeless Tobacco: Never Tobacco Cessation:Counseling Given: Not Answered Alcohol Use Standard Drinks/Week Comments Never 0 (1 standard drink = 0.6 oz pur e alcohol) AUDIT-C Answer Date Recorded Frequency of Alcohol Consumption Never 07/03/2019 Average Number of Drinks Not on file 020 Frequency of Binge Drinking Not on file 06/16 PHQ-2 Answer Date Recorded Patient Health Questionnaire-2 Score 2 07/07/2024 Comments No Sex and Gender Information Value Date Recorded Sex Assigned at Not on file 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 CLOCK ASSEMBLER Gender Identity Not on file Sexual Orientation Not on file Last Filed Vital Signs Vital Sign Reading Time Taken Comments Blood Pressure 128/86 07/07/2024 10:26 AM CLOCK ASSEMBLER Pulse 91 07/07/2024 10:26 AM CLOCK ASSEMBLER Temperature 37.6 C (99.6 F) 07/07/2024 10:26 AM CLOCK ASSEMBLER Respiratory Rate 16 07/07/2024 10:26 AM CLOCK ASSEMBLER Oxygen Saturation 98% 07/07/2024 10:26 AM CLOCK ASSEMBLER Inhaled Oxygen Concentration - - Weight 138.3 kg (305 lb) 07/07/2024 10:26 AM CLOCK ASSEMBLER Height 170.2 cm (5' 7 ) 07/07/2024 10:26 AM CLOCK ASSEMBLER Body Mass Index 47.77 07/07/2024 10:26 AM CLOCK ASSEMBLER Plan of Treatment Upcoming Encounters Date Type Department Care Team (Late st Contact Info) Description 07/11/2025 8:30 AM CLOCK ASSEMBLER Office Visit [facility] - [place] [address] [place] [address] [phone] Julieth Lopez MD [address] [place] [address] Health Maintenance Due Date Last Done Comments Cervical Cancer Screening Pap Smear (Age 21 to 29) Every 3 Years 1999 Cervical Cancer Screening 1999 Hepatitis C 2017 HPV Vaccines (3 - 3-dose series) 11/18/2019 08/26/2019, 09/25/2018 COVID-19 Vaccine (3 - season) 2024 10/20/2020, 09/29/2020 Influenza Adult (#1) 2024 03/09/2020, 03/05/2019, 03/03/2012, Additional history exists Annual Physical 07/07/2025 07/07/2024, 09/16/2022 DTaP, Tdap and Td Vaccines (9 - Td or Tdap) 03/16/2032 03/16/2022, 02/15/2022, 02/06/2011, Additional history exists Hepatitis B Vaccines Completed 08/28/2001, 08/28/2001, 10/10/2000, Additional history exists Meningococcal Vaccine Completed 02/24/2017 , 02/24/2017, 02/13/2012 PHQ-2 (Physician [place]) Completed 07/07/2024 Pneumococcal Vaccine: Pediatrics (0 to 5 Years) and At-Risk Patients (6 to 64 Years) Completed 07/07/2024, 12/25/2000 Meningococcal B Vaccine Aged Out No l onger eligible based on patient's age to complete this topic RSV Immunizations Under 20 Months Aged Out No longer eligible based on patient's age to complete this topic Procedures Procedure Name Priority Date/Time Associated Diagnosis Comments COLLECTION VENOUS BLOOD VENIPUNCTURE Routine 07/29/2024 7:19 AM CLOCK ASSEMBLER Routine general medical examination at a health care facility BASIC METABOLIC PANEL Routine 07/29/2024 7:19 AM CLOCK ASSEMBLER Routine general medical examination at a health care facility PCOS (polycystic ovarian syndrome) HEMOGLOBIN, GLYCOSYLATED Routine 07/29/2024 7:19 AM CLOCK ASSEMBLER Routine general medical examination at a health care facility LIPID PANEL Routine 07/29/2024 7:19 AM CLOCK ASSEMBLER Routine general medical examination at a health care facility from Last 3 Months Results * (ABNORMAL) HEMOGLOBIN, GLYCOSYLATED (07/29/2024 7:19 AM CLOCK ASSEMBLER) HGB A1C 5.6 4.5 - 6.2 % 07/29/2024 2:49 PM [facility] ESTIMATED AVG GLUCOSE 114(H) 74 - 106 MG/DL 07/29/2024 2:49 PM CLOCK ASSEMBLER [facility] 07/29/2024 7:19 AM CLOCK ASSEMBLER us Julieth Lopez MD LABORATORY Final [facility] [address] [place] [address], * BASIC METABOLIC PANEL (07/29/2024 7:19 AM CLOCK ASSEMBLER) SODIUM S/P/B 142 136 - 145 MMOL/L 07/29/2024 2:48 PM [facility] POTASSIUM S/P/B 4.3 3.5 - 5.1 MMOL/L 07/29/2024 2:48 PM [facility] CHLORIDE S/P/B 105 98 - 107 MMOL/L 07/29/2024 2:48 PM [facility] CO2 27.5 21 - 32 MMOL/L 07/29/2024 2:48 PM [facility] GLUCOSE 98 70 - 99 MG/DL 07/29/2024 2:48 PM [facility] BUN 12 7 - 18 MG/DL 07/29/2024 2:48 PM [facility] CREATININE S/P/B 0.72 0.55 - 1.02 MG/DL 07/29/2024 2:48 PM [facility] CALCIUM S/P/B 8.9 8.4 - 10.5 MG/DL 07/29/2024 2:48 PM [facility] ANION GAP 9.5 5 - 15 MMOL/L 07/29/2024 2:48 PM CLOCK ASSEMBLER [facility] Comment:REFERENCE RANGE NOT ESTABLISHED OSMOLALITY (CALC) 294 MOSM/KG 025 2:48 PM CLOCK ASSEMBLER [facility] Comment:REFERENCE RANGE NOT ESTABLISHED GFR ESTIMATE >90 >90 ML/MIN/1. 73 M2 07/29/2024 2:48 PM CLOCK ASSEMBLER [facility] GFR NOTES GFR REFERENCE S: 07/29/2024 2:48 PM CLOCK ASSEMBLER [facility] Comment: THE ESTIMATED GFR IS CALCULATED USING THE 2020 CKD-EPI EQUATION. THE FOLLOWING CATEGORIES FOR GRADING RENAL FUNCTION ARE RECOMMENDED BY THE INTERNATIONAL SOCIETY OF NEPHROLOGY (KDIGO 2012 CLINICAL PRACTICE GUIDELINE). G1,NORMAL OR HIGH: >89 ml/min/1.73 m2 G2,MILDLY DECREASED: 60-89 ml/min/1.73 m2 G3A,MILDLY TO MODERATELY DECREASED: 45-59 ml/min/1.73 m2 G3B,MODERATELY TO SEVERELY DECREASED: 30-44 ml/min/1.73 m2 G4,SEVERELY DECREASED: 15-29 ml/min/1.73 m2 G5,KIDNEY FAILURE: <15 ml/min/1.73 m2 07/29/2024 7:19 AM CLOCK ASSEMBLER us Julieth Lopez MD LABORATORY Final Re sult [facility] [address] [place] [address], * (ABNORMAL) LIPID PANEL (07/29/2024 7:19 AM CLOCK ASSEMBLER) CHOLESTEROL 179 <200 MG/DL 07/29/2024 2:48 PM CLOCK ASSEMBLER [facility] TRIGLYCERIDES 123 <150 MG/DL 07/29/2024 2:48 PM CLOCK ASSEMBLER [facility] HDL 49 >40 MG/DL 07/29/2024 2:48 PM CLOCK ASSEMBLER [facility] LDL-C 105(H) <100 MG/DL 07/29/2024 2:48 PM CLOCK ASSEMBLER [facility] VLDL CALCULATION 25 5 - 28 MG/DL 07/29/2024 2:48 PM CLOCK ASSEMBLER [facility] CHOL/HDL RATIO 3.7 0.0 - 4.0 07/29/2024 2:48 PM CLOCK ASSEMBLER [facility] LDL/HDL 2.1 0.41 - 2.13 07/29/2024 2:48 PM CLOCK ASSEMBLER [facility] NON HDL CHOLESTEROL 130 <140 MG/DL 07/29/2024 2:48 PM CLOCK ASSEMBLER [facility] 07/29/2024 7:19 AM CLOCK ASSEMBLER us Julieth Lopez MD LABORATORY Final Re sult [facility] [address] [place] [address], from Last 3 Months Insurance [facility] Care Teams Yard Pilot Relationship Specialty Start Date End Date Julieth Lopez MD [address] [place] [id number] PCP - General FAMILY PRACTICE 07/29/24
--- OUTSIDE RECORDS SUMMARY | 2024-09-10 12:37 | XMS_ITS | Clinical Summary ---
Author Organization [facility] Address [address] [place] [address] Care Team Providers Care Legal Librarian Name Role Phone Angelica Maynard MD Primary [...] 12/09/2023 Injury of left knee 10/19/2018 12/09/19 24 Dysmenorrhea 09/29/2018 12/09/2023 Patellar tracking disorder of [...] Conjugate 7-Valent 12/25/2000 Tdap 03/16/2022,02/15/2022,02/06/2011 Varicella 02/06/2011,10/10/2000 Surgical History Surgery Date Site/Laterality Comments WISDOM TOOTH EXTRACTION TONSILLECTOMY CAUTERIZE INNER NOSE NOSE SURGERY Vein Carterized in nose MASS EXCISION Mass removed from Sternum. multiple prior proceedure at [place] but recurred CYST REMOVAL 03/12/2024 Right Breast Medical History Medical History Date Comments Asthma Anemia Migraines Depression Polycystic disease, ovaries Anxiety Clotting disorder due to low iro n Menstrual problem Patellar tracking disorder of left knee 11/17/19 11 PONV (postoperative nausea and vomiting) Family History Medical History Relation Name Comments Alcohol abuse Father Rojas Garza JR Allergy (severe) Father Rojas Garza JR Asthma Father Rojas Garza JR COPD Father Rojas Garza JR Hypertension Father Rojas Garza JR Lung disease Father Rojas Garza JR Alcohol abuse Maternal Grandmother Letty Jorje Anemia Maternal Grandmother Letty Jorje Arthritis Maternal Grandmother Letty Jorje Asthma Maternal Grandmother Letty Jorje Bleeding Disorder Maternal Grandmother Letty Jorje Depression Maternal Grandmother Letty Jorje Drug abuse Maternal Grandmother Letty Jorje Hearing loss Maternal Grandmother Letty Jorje Alcohol abuse Mother Imelda Vonnie Asthma Mother Imelda Bartow Depression Mother Imelda Bartow Heart disease Mother Imelda Vonnie Hypertension Mother Imelda Bartow Miscarriages / Stillbirths Mother Imelda Graft on Alcohol abuse Other Arthritis Other Bleeding Disorder Other Cancer Other Deep vein thrombosis Other Diabetes Other Gout Other Kidney disease Other Mental illness Other Stroke Other Alcohol abuse Paternal Grandfather Rojas Bartow sr Arthritis Paternal Grandfather Rojas Bartow sr Asthma Paternal Grandfather Rojas Bartow sr Diabetes Paternal Grandfather Rojas Bartow sr Early Paternal Grandfather Rojas Bartow sr Heart disease Paternal Grandfather Rojas Bartow sr Hypertension Paternal Grandfather Rojas Bartow sr Alzheimer's disease Paternal Grandmother Apurva stuart Arthritis Paternal Grandmother Apurva garcía r Asthma Paternal Grandmother Apurva garcía r Depression Paternal Grandmother Apurva garcía r Hearing loss Paternal Grandmother Apurva garcía r Memory loss Paternal Grandmother Apurva garcía r Mental illness Paternal Grandmother Apurva rizvi her Miscarriages / Stillbirths Paternal Grandmother Apurva stuart Vision loss Paternal Grandmother Apurva garcía r Depression Sister Rosanna Shankar Relation Name Status Comments Father Rojas Garza JR Alive Maternal Grandmother Letty Jorje Mother Imelda Vonnie Alive Other Paternal Grandfather Rojas Vonnie sr Paternal Grandmother Apurva stuart Sister Rosanna Vonnie Social History Tobacco Use Types Packs/Day Years [...] Orientation Straight 03/13/2024 11 :18 PM CDT Obstetrics History Last Filed Vital Signs Vital Sign Reading [...] 03/25/2024 9:27 AM CDT Plan of Treatment Health Maintenance Due Date Last Done Comments Cervical Cancer Screening 1999 Hepatitis C Screening 1999 Pneumococcal vaccine <65 (1 of 1 - PPSV23) 2005 12/25/2000 Regular Well Visit/Exam 18-64 2017 HPV Vaccines (3 - 3-dose series) 11/18/2019 08/26/19 20, 09/25/2018 Covid-19 Vaccine ( - 2023-2 5 season) 2024 10/20/2020, 10/20/2020, 09/29/2020, Additional history exists Influenza Vaccine (#1) 2024 , 03/05/2019, 03/03/2012, Additional history exists Depression Screening 12/08/2024 12/09/2023, 12/09/19 DTaP/Tdap/Td Vaccine (10 - T d or Tdap) 03/16/2032 03/16/2022, 02/15/2022, 02/06/2011, Additional history exists Hepatitis B Screening Completed 08/28/2001 , 10/10/2000, 04/25/2000, Additional history exists Varicella Vaccines Completed 02/06/2011, 0 11/15/2004, 10/10/2000, Additional history exists Insurance [facility] Care Teams Legal Librarian Relationship Specialty Start Date End Date Angelica Maynard MD PCP - General Family Medicine 12/09/23
--- OUTSIDE RECORDS SUMMARY | 2024-09-10 12:37 | XMS_ITS | Encounter Summary ---
Author Organization [facility] Address [address] [place] [address] Care Team Providers Care Teletypesetter Operator Name Role Phone Julieth Lopez MD Primary Care Provider + Julieth Lopez MD Primary Care Provider + Encounter Details Date Type Department Care Team (Late st Contact Info) Description 09/18/2022 MetaIntellt Message Enc [facility] Family Medicine - [place] [address] [facility], [address] [place] [phone] Elgin Lemos MD [address] [facility] [address] [place] [phone] Forgot to give you this info Social History Tobacco Use Types Packs/Day Years [...] on file 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 CATERING SERVER Gender Identity Not on file Sexual Orientation [...] st Contact Info) Description 07/11/2025 8:30 AM CATERING SERVER Office Visit [facility] Family Medicine - [place] [address] [place] [address] Julieth Lopez MD [address] [place], [place] [phone] documented as of this encounter Visit Diagnoses Not on filedocumented in this encounter Additional Health Concerns Assessment Noted Time PHQ-9 Depression Total Score: 13 020 11:01 AM CDT documented as of this encounter Care Teams Teletypesetter Operator Relationship Specialty Start Date End Date Julieth Lopez MD [address] [place] [address] PCP - General FAMILY PRACTICE 07/29/24 Julieth Lopez MD [address] [place], [place] [phone] PCP - General FAMILY PRACTICE 07/07/24 07/28/24 documented as of this encounter
--- OUTSIDE RECORDS SUMMARY | 2024-09-10 12:37 | XMS_ITS | Encounter Summary ---
Author Organization [facility] Address [address] [place] [address] Care Team Providers Care Food Safety Director Name Role Phone Julieth Lopez MD Primary Care Provider + Julieth Lopez MD Primary Care Provider + Encounter Details Date Type Department Care Team (Late st Contact Info) Description 01/13/[address] 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 Yes 01/04/2020 2:06 PM CDT documented as of this encounter Progress Notes * Shirley Blake MA - 01/14/2020 9:18 AM CDT Placed on your desk * Shirley Blake MA - 01/14/2020 9:12 AM CDT Requested results from [facility]. Placed on your desk for review. documented in this encounter Plan of Treatment Upcoming Encounters Date Type Department Care Team (Late st Contact Info) Description 07/11/2025 8:30 AM AMUSEMENT PARK WORKER Office Visit [facility] Family [facility] [address] [place] [address] Julieth Lopez MD [address] [place] [address] documented as of this encounter Visit Diagnoses Not on filedocumented in this encounter Additional Health Concerns Infection Onset Date Last Indicated Resolved Time COVID-19 Rule Out 03/20/2020 03/20/2020 03/22/2020 6:40 PM CDT COVID-19 Rule Out 06/07/2020 06/07/2020 06/10/2020 2:30 AM AMUSEMENT PARK WORKER COVID-19 Rule Out 07/04/2020 07/04/2020 07/05/2020 6:22 PM AMUSEMENT PARK WORKER documented as of this encounter Care Teams Food Safety Director Relationship Specialty Start Date End Date Julieth Lopez MD [address] [place] [address] PCP - General FAMILY PRACTICE 07/29/24 Julieth Lopez MD [address] [place] [address] PCP - General FAMILY PRACTICE 07/07/24 07/28/24 documented as of this encounter
--- OUTSIDE RECORDS SUMMARY | 2024-09-10 12:37 | XMS_ITS | Encounter Summary ---
Author Organization [facility] Address [address] [place] [address] Care Team Providers Care Aboriginal Education Worker Coordinator Name Role Phone Julieth Lopez MD Primary Care Provider + Julieth Lopez MD Primary Care Provider + Encounter Details Date Type Department Care Team (Late st Contact Info) Description 03/12/2020 Conjecta Message Enc [facility] Family Medicine - [place] [address] [facility], [address] [place] [phone] Elgin Lemos MD [address] [phone] RE: Follow Up/Update Social History Tobacco Use [...] on file 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 No / Unsure 03/08/2020 4:54 PM CDT documented as of this encounter Progress Notes * Elgin Lemos MD - 03/13/2020 10:45 AM CDT D dimer - has to be done through [facility] or head to ER if dyspnea worsening, anh referral to pulm for evaluation and will get CT scan chest wo contrast if d dimer positive documented in this encounter Plan of Treatment Upcoming Encounters Date Type Department Care Team (Late st Contact Info) Description 07/11/2025 8:30 AM BOBBIN SORTER Office Visit [facility] Family Medicine - [place] [address] [place] [address] Julieth Lopez MD [address] [place] [address] documented as of this encounter Visit Diagnoses Not on filedocumented in this encounter Additional Health Concerns Infection Onset Date Last Indicated Resolved Time COVID-19 Rule Out 03/20/2020 03/20/2020 03/22/2020 6:40 PM CDT COVID-19 Rule Out 06/07/2020 06/07/2020 06/10/2020 2:30 AM BOBBIN SORTER COVID-19 Rule Out 07/04/2020 07/04/2020 07/05/2020 6:22 PM BOBBIN SORTER documented as of this encounter Care Teams Aboriginal Education Worker Coordinator Relationship Specialty Start Date End Date Julieth Lopez MD [address] [place] [address] PCP - General FAMILY PRACTICE 07/29/24 Julieth Lopez MD [address] [place] [address] PCP - General FAMILY PRACTICE 07/07/24 07/28/24 documented as of this encounter
--- OUTSIDE RECORDS SUMMARY | 2024-09-10 12:37 | XMS_ITS | Encounter Summary ---
Author Organization [facility] Address [address] [place] [address] Care Team Providers Care Janitor And Cleaner Name Role Phone Julieth Lopez MD Primary Care Provider + Julieth Lopez MD Primary Care Provider + Encounter Details Date Type Department Care Team (Late st Contact Info) Description 08/16/2020 WhoKnows Message Enc [facility] Family [facility] - [place] [address] [facility], [address] [place] [phone] Elgin Lemos MD [address] [facility] [address] [place] [phone] RE: Question Social History Tobacco Use [...] on file 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 No / Unsure 08/16/2020 1:55 PM LOW PRESSURE FIRER documented as of this encounter Plan of Treatment Upcoming Encounters Date Type Department Care Team (Late st Contact Info) Description 07/11/2025 8:30 AM LOW PRESSURE FIRER [facility] Family [facility] - [place] [address] [place] [address] Julieth Lopez MD [address] [place] [address] documented as of this encounter Visit Diagnoses Not on filedocumented in this encounter Additional Health Concerns Assessment Noted Time PHQ-9 Depression Total Score: 13 020 11:01 AM CDT documented as of this encounter Care Teams Janitor And Cleaner Relationship Specialty Start Date End Date Julieth Lopez MD [address] [place] [address] PCP - General FAMILY PRACTICE 07/29/24 Julieth Lopez MD [address] [place] [address] PCP - General FAMILY PRACTICE 07/07/24 07/28/24 documented as of this encounter
--- NOTE | 2024-09-10 15:39 | ED_ITS ---
HPI - Extremity Injury (Lower) General Chief Complaint: Extremity Injury, Lower Stated Complaint: knee pain Time Seen by Provider: 09/10/24 15:39 Source: patient Mode of arrival: ambulatory Limitations: no limitations History of Present Illness HPI Narrative: Patient is a 24-year-old female who presents to the ED with report of right knee pain. Patient reports she was carrying several boxes and walking out to her work truck when she tripped and twisted her right knee. Complains of pain to her right medial and inferior knee since then. Is able to ambulate, but has pain with this. Took Tylenol prior to arrival. Denies any other injuries. Denies numbness. Related Data Home Medications ?Medication ?Instructions ?Recorded ?Confirmed ?Last Taken ?Type albuterol sulfate 90 mcg/actuation 1 inh inhalation PRN PRN Shortness 05/01/21 05/21/23 Unknown History aerosol inhaler Of Breath Or Wheezing budesonide-formoterol HFA 160 1 inh inhalation BID 05/01/21 05/21/23 Unknown History mcg-4.5 mcg/actuation aerosol inhaler (Symbicort) sumatriptan succinate 25 mg tablet 25 - 50 mg PO PRN PRN Migraine 10/26/22 05/21/23 Unknown History Headache Allergies Allergy/AdvReac Type Severity Reaction Status Date / Time adhesive Allergy Unknown ITCHING Verified 09/10/24 11:55 latex Allergy Hives Verified 09/10/24 11:55 vancomycin AdvReac Mild Pruritis Verified 09/10/24 11:55 Review of Systems Review of Systems: All systems reviewed & are unremarkable except as noted in HPI. All systems reviewed & are unremarkable except as noted in HPI and below PMFSH Past Medical History Medical History Anemia Endometriosis Morbid obesity PCOS (polycystic ovarian syndrome) Surgical History Surgical History Hx of excision of mass Hx of tonsillectomy (2014) Due to recurrent tonsillitis Status post incision and drainage complex I&D of chest wall abscess 5x7 cm, right breast measuring 2x3 cm 07/15/22 Family History Family History Father Liver failure Alcoholic cirrhosis, Onset Age: 49 Grandparent Heart disease Diabetes mellitus Lung cancer Grandparent Cervical cancer Breast cancer Other Cervical cancer Breast cancer Esophageal cancer Social History Social History Social History: She lives with her sister. She works at [email or web address]. Denies use of alcohol, tobacco or drugs. She does not have any children. Code status: Full code Surrogate decision maker: Marie Shafer (aunt) Smoking status: Never smoker Alcohol intake: never Substance use: never Lack of Transportation: No Lack of Food: Never True Current Housing: I Have Housing Concerned About Future Housing: No Difficulty Paying Gas/Electric Bills: No Difficulty Paying for Meds: No Currently Unemployed: No Education: High School Diploma/GED Difficulty w/ Childcare or Family Care: No Spiritual care concerns: No Exam Narrative: GENERAL: Well appearing, morbidly obese with BMI of 46.3, non-toxic, in no acute distress. HEAD: Normocephalic, atraumatic. RESPIRATORY: Airway patent, respirations nonlabored. CARDIOVASCULAR: Regular rate and rhythm. Pedal pulses intact. MUSCULOSKELETAL: No gross deformities. No significant swelling throughout right anterior knee. Tenderness to palpation along R medial and inferior joint spaces. Mild limited ROM of knee d/t pain. SKIN: Warm, dry, normal color. NEURO: A&O X3. Speech clear. Steady gait. No ataxic movements. PSYCHIATRIC: Appropriate mood and affect. Normal interaction. Course Vital Signs Vital signs: Vital Signs Temperature 97.7 F 09/10/24 11:56 Pulse Rate 91 09/10/24 11:56 Respiratory Rate 18 09/10/24 11:56 Blood Pressure 142/79 H 09/10/24 11:56 Pulse Oximetry 97 09/10/24 11:56 Oxygen Delivery Room Air 09/10/24 11:56 Temperature 97.7 F 09/10/24 11:56 Pulse Rate 91 09/10/24 11:56 Respiratory Rate 18 09/10/24 11:56 Blood Pressure 142/79 H 09/10/24 11:56 Pulse Oximetry 97 09/10/24 11:56 Oxygen Delivery Room Air 09/10/24 11:56 MDM - Extremity Injury (Lower) MDM Narrative Medical decision making narrative: Patient?s injury is consistent with musculoskeletal etiology. No signs of neurologic or vascular compromise on physical examination. Compartments are soft without signs of compartment syndrome. XR of right knee negative. No joint effusion. No osseous abnormality. Discussed possibility of ligamentous or meniscal injury. Patient placed in Jose bandage in the ED. Patient is felt to be stable for discharge home and further outpatient management and treatment. Will refer to orthopedics for further evaluation if needed. Discussed rice therapy. Discussed return precautions. Patient in agreement with plan. Discharged in stable condition. Medical Records Attestation: I reviewed the patient's medical records. Imaging Data Attestation: I personally reviewed and interpreted this imaging study as follows: Radiologist's impression: ITS Impressions Knee X-Ray 09/10/24 12:40 IMPRESSION: 1. Normal right knee. Discharge Plan Discharge Clinical Impression: Strain of right knee Patient Disposition: Home, Self-Care Condition: Stable Instructions: Antibiotic Form, Knee Pain (ED), P.R.I.C.E. Treatment (ED) Additional Instructions: Continue Tylenol and Ibuprofen as needed for pain. Recommend frequent icing to knee, Jose bandage for compression and support. Elevate your leg whenever able. Follow-up with orthopedics for further evaluation if needed. Return to the ED if you experience worsening or severe pain, recurrent injury, numbness, severe swelling of leg, or any other symptoms of concern. Patient Language: [place] Islander Prescriptions: No Action albuterol sulfate 90 mcg/actuation HFA aerosol inhaler 1 inh INHALATION PRN PRN (Reason: Shortness Of Breath Or Wheezing) budesonide-formoterol [Symbicort] 160-4.5 mcg/actuation HFA aerosol inhaler 1 inh INHALATION BID amoxicillin-pot clavulanate 875-125 mg tablet 1 tablet PO Q12H 7 Days Qty: 14 0RF promethazine 25 mg tablet 25 mg PO Q6H PRN (Reason: nausea and vomiting) 3 Days Qty: 12 0RF sumatriptan succinate 25 mg tablet 25 - 50 mg PO PRN PRN (Reason: Migraine Headache) Rx Instructions: TAKE 1 TO 2 TABLETS BY MOUTH 2 TIMES A DAY NEEDED FOR MIGRAINE. MAX OF 8 TABLETS IN 24 HOURS prednisone 20 mg tablet 40 mg PO DAILY 5 Days Qty: 10 0RF Follow-up/Referrals: Gonzalo Cuadra MD [Physician] - (ORTHOPEDICS) PHYSICIAN NOT ON STAFF,NONSTAFF [Primary Care Provider] - Time of Disposition: 15:45
--- OUTSIDE RECORDS SUMMARY | 2024-09-10 15:58 | XMS_ITS | Clinical Summary ---
Author Organization [facility] Address [address] [place] [address] Care Team Providers Care Commercial Lines Account Executive Name Role Phone Angelica Maynard MD Primary [...] removed from Sternum. multiple prior proceedure at [facility] but recurred CYST REMOVAL 03/12/2024 Right Breast [...] abuse Mother Imelda Vonnie Asthma Mother Imelda [place] Depression Mother Imelda [place] Heart disease Mother Imelda Vonnie Hypertension Mother Imelda [place] Miscarriages / Stillbirths Mother Imelda Graft on Alcohol abuse Other Arthritis Other Bleeding Disorder Other Cancer Other Deep vein thrombosis Other Diabetes Other Gout Other Kidney disease Other Mental illness Other Stroke Other Alcohol abuse Paternal Grandfather Rojas [place] sr Arthritis Paternal Grandfather Rojas [place] sr Asthma Paternal Grandfather Rojas [place] sr Diabetes Paternal Grandfather Rojas [place] sr Early Paternal Grandfather Rojas [place] sr Heart disease Paternal Grandfather Rojas [place] sr Hypertension Paternal Grandfather Rojas [place] sr Alzheimer's disease Paternal Grandmother Apurva stuart [...] 0 11/15/2004, 10/10/2000, Additional history exists Insurance [facility] Care Teams Commercial Lines Account Executive Relationship Specialty Start Date End Date Angelica Maynard MD PCP - General Family Medicine 12/09/23
--- OUTSIDE RECORDS SUMMARY | 2024-09-10 15:58 | XMS_ITS | Clinical Summary ---
Author Organization [facility] Address [address] [place] [address] Care Team Providers Care Vp Emerging Media Name Role Phone Pcp, Carolyn Depshantanu Im-Fm Primary Care Provider Un available Source Comments [facility],non-owned Affiliates and Associated Physician Practices is amultiple site organization consisting of ambulatory clinics and hospital sitesin [place], [place], [place] and [place]. This disclosure is being madepursuant to the Care Everywhere program and may not contain all information available regarding this patient. Last updated 18.[facility] Allergies Active Allergy Reactions Criticality Noted Date [...] age to complete this topic Care Teams Vp Emerging Media Relationship Specialty Start Date End Date Carolyn Bryant Im-Fm PCP - General 01/10/23
--- OUTSIDE RECORDS SUMMARY | 2024-09-10 15:58 | XMS_ITS | Referral Summary ---
Author Organization [facility] Address [address] [place] [address] Care Team Providers Care Coil Finisher Name Role Phone Angelica Maynard MD Primary [...] Plan of Treatment Not on file Insurance [facility] [employer] [facility] Care Teams Coil Finisher Relationship Specialty Start Date End Date Angelica Maynard MD PCP - General Family Medicine 12/09/23
== END 2024-09-10 16:02 | disposition home or self-care (01) ==
LOC: ANHED 15:56
PROVIDERS: Emergency Provider Physician Assistant; PCP Student in an Organized Health Care Education/Training Program
DX: S86.811A Strain of other muscle(s) and tendon(s) at lower leg level, right leg, initial encounter (principal); W01.0XXA Fall on same level from slipping, tripping and stumbling without subsequent striking against object, initial encounter
CPT/HCPCS: 73564; 99283

== ENCOUNTER 2024-09-30 09:00 | Outpatient (CLI) | payer OTHER, MEDICAID, SELFPAY ==
--- NOTE | ~2024-09-30 | MR_ITS ---
MRI of the right knee Clinical history: Pain Technique: Coronal proton density and proton density-weighted images, sagittal proton-density and T2 fat-sat images, and axial proton-density fat-saturated images were acquired. Findings: Anterior and posterior cruciate ligaments are intact. Medial collateral ligament and the la teral collateral ligament, as are intact. Popliteus tendon is intact. Medial and lateral menisci are intact, without evidence of tear. Articular cartilage is well preserved throughout the knee. Bone marrow signals are essentially unrema rkable. Extensor mechanism is intact. Minimal joint effusion present. No Rizzo's cyst. Impression: Minimal joint effusion. No other significant findings. Reviewed, dictated and finalized at location . Impression: Minimal joint effusion. No other significant findings.
--- OUTSIDE RECORDS SUMMARY | 2024-09-30 09:24 | XMS_ITS | Encounter Summary ---
Author Organization [facility] Address [facility] [place] [address] Care Team Providers Care Puddler Pile Driving Name Role Phone Julieth Lopez MD Primary Care Provider + Julieth Lopez MD Primary Care Provider + Encounter Details Date Type Department Care Team (Late st Contact Info) Description 05/11/2019 MyChart Message Enc [facility] [address] [facility], [address] [place] [phone] Elgin Lemos MD [address] [facility] [address] [place], [place] [phone] RE: Question Social History Tobacco Use Types Packs/Day Years Used Date Smoking Tobacco: Never Smokeless Tobacco: Never PHQ-2 Answer Date Recorded PHQ-2 Score 2 09/22/2018 Comments No Sex and Gender Information Value Date Recorded Sex Assigned at Not on file 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 PROFESSIONAL EMPLOYER CONSULTANT Gender Identity Not on file Sexual Orientation Not on file documented as of this encounter Plan of Treatment Upcoming Encounters Date Type Department Care Team (Late st Contact Info) Description 07/11/2025 8:30 AM PROFESSIONAL EMPLOYER CONSULTANT Office Visit [facility] - [place] [address] [place] [address] Julieth Lopez MD [address] [place] [address] documented as of this encounter Visit Diagnoses Not on filedocumented in this encounter Additional Health Concerns Infection Onset Date Last Indicated Resolved Time COVID-19 Rule Out 03/20/2020 03/20/2020 03/22/2020 6:40 PM CDT COVID-19 Rule Out 06/07/2020 06/07/2020 06/10/2020 2:30 AM PROFESSIONAL EMPLOYER CONSULTANT COVID-19 Rule Out 07/04/2020 07/04/2020 07/05/2020 6:22 PM PROFESSIONAL EMPLOYER CONSULTANT documented as of this encounter Care Teams Puddler Pile Driving Relationship Specialty Start Date End Date Julieth Lopez MD [address] [place] [address] PCP - General FAMILY PRACTICE 07/29/24 Julieth Lopez MD [address] [place] [address] PCP - General FAMILY PRACTICE 07/07/24 07/28/24 documented as of this encounter
--- OUTSIDE RECORDS SUMMARY | 2024-09-30 09:24 | XMS_ITS | Encounter Summary ---
Author Organization [facility] Address [address] [place] [address] Care Team Providers Care Well Logger Name Role Phone Julieth Lopez MD Primary Care Provider + Julieth Lopez MD Primary Care Provider + Encounter Details Date Type Department Care Team (Late Contact Info) Description 03/05/2021 [employer] Message Enc [facility] Family Medicine - [place] [address] [facility], [address] [place] [phone] Elgin Lemos MD [address] [facility] [address] [place] [phone] RE: Referral Request Social History Tobacco Use [...] on file 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 CIRCULAR TANK COOPER Gender Identity Not on file Sexual Orientation Not on file documented as of this encounter Plan of Treatment Upcoming Encounters Date Type Department Care Team (Late Contact Info) Description 07/11/2025 8:30 AM CIRCULAR TANK COOPER Office Visit [facility] Family Medicine - [place] [address] [place] [address] Julieth Lopez MD [address] [place] [address] documented as of this encounter Visit Diagnoses Not on filedocumented in this encounter Additional Health Concerns Assessment Noted Time PHQ-9 Depression Total Score: 13 020 11:01 AM CDT documented as of this encounter Care Teams Well Logger Relationship Specialty Start Date End Date Julieth Lopez MD [address] [place] [address] PCP - General FAMILY PRACTICE 07/29/24 Julieth Lopez MD [address] [place] [address] PCP - General FAMILY PRACTICE 07/07/24 07/28/24 documented as of this encounter
--- OUTSIDE RECORDS SUMMARY | 2024-09-30 09:24 | XMS_ITS | Encounter Summary ---
Author Organization [facility] Address [address] [place] [address] Care Team Providers Care [facility] Office Supervisor Name Role Phone Julieth Lopez MD Primary Care Provider + Julieth Lopez MD Primary Care Provider + Encounter Details Date Type Department Care Team (Late Contact Info) Description 03/27/2019 [employer] Message Enc [facility] [address] [facility], [address] [place] [phone] Elgin Lemos MD [address] [facility] [address] [place], [place] [phone] RE: Follow Up/Update Social History Tobacco Use Types Packs/Day Years Used Date Smoking Tobacco: Never Smokeless Tobacco: Never PHQ-2 Answer Date Recorded PHQ-2 Score 2 09/22/2018 Comments No Sex and Gender Information Value Date Recorded Sex Assigned at Not on file 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 DELI ASSOCIATE Gender Identity Not on file Sexual Orientation Not on file documented as of this encounter Plan of Treatment Upcoming Encounters Date Type Department Care Team (Late Contact Info) Description 07/11/2025 8:30 AM DELI ASSOCIATE Office Visit [facility] Family Medicine - [place] [address] [place] [address] Julieth Lopez MD [address] [place] [address] documented as of this encounter Visit Diagnoses Not on filedocumented in this encounter Additional Health Concerns Infection Onset Date Last Indicated Resolved Time COVID-19 Rule Out 03/20/2020 03/20/2020 03/22/2020 6:40 PM CDT COVID-19 Rule Out 06/07/2020 06/07/2020 06/10/2020 2:30 AM DELI ASSOCIATE COVID-19 Rule Out 07/04/2020 07/04/2020 07/05/2020 6:22 PM DELI ASSOCIATE documented as of this encounter Care Teams [facility] Office Supervisor Relationship Specialty Start Date End Date Julieth Lopez MD [address] [place] [address] PCP - General FAMILY PRACTICE 07/29/24 Julieth Lopez MD [address] [place] [address] PCP - General FAMILY PRACTICE 07/07/24 07/28/24 documented as of this encounter
--- OUTSIDE RECORDS SUMMARY | 2024-09-30 09:24 | XMS_ITS | Encounter Summary ---
Author Organization [facility] Address [facility] [place] [address] Care Team Providers Care Developer Automatic Name Role Phone Julieth Lopez MD Primary Care Provider + Julieth Lopez MD Primary Care Provider + Encounter Details Date Type Department Care Team (Late Contact Info) Description 04/13/2019 [place] Message Enc [facility] DEPARTMENT [address] [place] [address] [facility] Provider Question Social History Tobacco Use Types Packs/Day Years Used Date Smoking Tobacco: Never Smokeless Tobacco: Never PHQ-2 Answer Date Recorded PHQ-2 Score 2 09/22/2018 Comments No Sex and Gender Information Value Date Recorded Sex Assigned at Not on file 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 LANDS RESOURCE MANAGER Gender Identity Not on file Sexual Orientation Not on file documented as of this encounter Plan of Treatment Upcoming Encounters Date Type Department Care Team ([facility] Contact Info) Description 07/11/2025 8:30 AM LANDS RESOURCE MANAGER Office Visit [facility] Family Medicine - [place] [address] [place] [address] [phone] Julieth Lopez MD [address] [place] [address] [phone] documented as of this encounter Visit Diagnoses Not on filedocumented in this encounter Additional Health Concerns Infection Onset Date Last Indicated Resolved Time COVID-19 Rule Out 03/20/2020 03/20/2020 03/22/2020 6:40 PM CDT COVID-19 Rule Out 06/07/2020 06/07/2020 06/10/2020 2:30 AM LANDS RESOURCE MANAGER COVID-19 Rule Out 07/04/2020 07/04/2020 07/05/2020 6:22 PM LANDS RESOURCE MANAGER documented as of this encounter Care Teams Developer Automatic Relationship Specialty Start Date End Date Julieth Lopez MD [address] [place] [address] PCP - General FAMILY PRACTICE 07/29/24 Julieth Lopez MD [address] [place] [address] PCP - General FAMILY PRACTICE 07/07/24 07/28/24 documented as of this encounter
--- OUTSIDE RECORDS SUMMARY | 2024-09-30 09:24 | XMS_ITS | Encounter Summary ---
Author Organization [facility] Address [address] [place] [address] Care Team Providers Care Mercerizing Range Controller Name Role Phone Julieth Lopez MD Primary Care Provider + Julieth Lopez MD Primary Care Provider + Encounter Details Date Type Department Care Team (Late Contact Info) Description 08/30/2019 [employer] Message Enc [facility] Family Medicine [facility] [address] [facility], [address] [place] [phone] Elgin Lemos MD [address] [phone] RE: Follow Up/Update Social History Tobacco Use [...] on file 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 PATENT AGENT Gender Identity Not on file Sexual Orientation Not on file documented as of this encounter Plan of Treatment Upcoming Encounters Date Type Department Care Team (Late Contact Info) Description 07/11/2025 8:30 AM PATENT AGENT Office Visit [facility] Family Medicine [facility] [address] [place] [address] Julieth Lopez MD [address] [place] [address] documented as of this encounter Visit Diagnoses Not on filedocumented in this encounter Additional Health Concerns Infection Onset Date Last Indicated Resolved Time COVID-19 Rule Out 03/20/2020 03/20/2020 03/22/2020 6:40 PM CDT COVID-19 Rule Out 06/07/2020 06/07/2020 06/10/2020 2:30 AM PATENT AGENT COVID-19 Rule Out 07/04/2020 07/04/2020 07/05/2020 6:22 PM PATENT AGENT documented as of this encounter Care Teams Mercerizing Range Controller Relationship Specialty Start Date End Date Julieth Lopez MD [address] [place] [address] PCP - General FAMILY PRACTICE 07/29/24 Julieth Lopez MD [address] [place] [address] PCP - General FAMILY PRACTICE 07/07/24 07/28/24 documented as of this encounter
--- OUTSIDE RECORDS SUMMARY | 2024-09-30 09:24 | XMS_ITS | Encounter Summary ---
Author Organization [facility] Address [address] [place] [address] Care Team Providers Care Refrigeration Systems Installer Name Role Phone Julieth Lopez MD Primary Care Provider + Julieth Lopez MD Primary Care Provider + Encounter Details Date Type Department Care Team (Late st Contact Info) Description 08/23/2019 [employer] Message Enc [facility] Family Medicine - [place] [address] [facility], [address] [place] [phone] Elgin Lemos MD [address] [address] RE: Question Social History Tobacco [...] on file 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 DISABILITY ATTORNEY Gender Identity Not on file Sexual Orientation [...] st Contact Info) Description 07/11/2025 8:30 AM DISABILITY ATTORNEY Office Visit [facility] Family Medicine - [place] [address] [place] [address] Julieth Lopez MD [address] [place] [address] documented as of this encounter Visit Diagnoses Not on filedocumented in this encounter Additional Health Concerns Infection Onset Date Last Indicated Resolved Time COVID-19 Rule Out 03/20/2020 03/20/2020 03/22/2020 6:40 PM CDT COVID-19 Rule Out 06/07/2020 06/07/2020 06/10/2020 2:30 AM DISABILITY ATTORNEY COVID-19 Rule Out 07/04/2020 07/04/2020 07/05/2020 6:22 PM DISABILITY ATTORNEY documented as of this encounter Care Teams Refrigeration Systems Installer Relationship Specialty Start Date End Date Julieth Lopez MD [address] [place] [address] PCP - General FAMILY PRACTICE 07/29/24 Julieth Lopez MD [address] [place] [address] PCP - General FAMILY PRACTICE 07/07/24 07/28/24 documented as of this encounter
--- OUTSIDE RECORDS SUMMARY | 2024-09-30 09:24 | XMS_ITS | Encounter Summary ---
Author Organization [facility] Address [address] [place] [address] Care Team Providers Care Farm Worker Name Role Phone Julieth Lopez MD Primary Care Provider + Julieth Lopez MD Primary Care Provider + Encounter Details Date Type Department Care Team (Late st Contact Info) Description 05/16/2019 Photomedext Message Enc [facility] Family Medicine [facility] [address] [facility], [address] [place] [phone] Elgin Lemos MD [address] [facility] [address] [place] [address] Follow Up/Update Social History Tobacco Use Types Packs/Day Years Used Date Smoking Tobacco: Never Smokeless Tobacco: Never PHQ-2 Answer Date Recorded PHQ-2 Score 2 09/22/2018 Comments No Sex and Gender Information Value Date Recorded Sex Assigned at Not on file 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 ARTIFICIAL LEATHER CALENDER OPERATOR Gender Identity Not on file Sexual Orientation Not on file documented as of this encounter Plan of Treatment Upcoming Encounters Date Type Department Care Team (Late st Contact Info) Description 07/11/2025 8:30 AM ARTIFICIAL LEATHER CALENDER OPERATOR Office Visit [facility] Family Medicine - [place] [address] [place] [address] Julieth Lopez MD [address] [place] [address] documented as of this encounter Visit Diagnoses Not on filedocumented in this encounter Additional Health Concerns Infection Onset Date Last Indicated Resolved Time COVID-19 Rule Out 03/20/2020 03/20/2020 03/22/2020 6:40 PM CDT COVID-19 Rule Out 06/07/2020 06/07/2020 06/10/2020 2:30 AM ARTIFICIAL LEATHER CALENDER OPERATOR COVID-19 Rule Out 07/04/2020 07/04/2020 07/05/2020 6:22 PM ARTIFICIAL LEATHER CALENDER OPERATOR documented as of this encounter Care Teams Farm Worker Relationship Specialty Start Date End Date Julieth Lopez MD [address] [place] [address] PCP - General FAMILY PRACTICE 07/29/24 Julieth Lopez MD [address] [place] [address] PCP - General FAMILY PRACTICE 07/07/24 07/28/24 documented as of this encounter
--- OUTSIDE RECORDS SUMMARY | 2024-09-30 09:24 | XMS_ITS | Encounter Summary ---
Author Organization [facility] Address [facility] [place] [address] Care Team Providers Care Frameman Name Role Phone Julieth Lopez MD Primary Care Provider + Julieth Lopez MD Primary Care Provider + Encounter Details Date Type Department Care Team (Late st Contact Info) Description 05/12/2019 MyChart Message Enc [facility] Family Medicine [facility] [address] [facility], [address] [place] [phone] Elgin Lemos MD [address] [facility] [address] [place], [place] [phone] RE: Test Results Social History Tobacco Use Types Packs/Day Years Used Date Smoking Tobacco: Never Smokeless Tobacco: Never PHQ-2 Answer Date Recorded PHQ-2 Score 2 09/22/2018 Comments No Sex and Gender Information Value Date Recorded Sex Assigned at Not on file 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 PILOT PLANT TECHNICIAN Gender Identity Not on file Sexual Orientation Not on file documented as of this encounter Plan of Treatment Upcoming Encounters Date Type Department Care Team (Late st Contact Info) Description 07/11/2025 8:30 AM PILOT PLANT TECHNICIAN Office Visit [facility] Family Medicine - [place] [address] [place] [address] Julieth Lopez MD [address] [place] [address] documented as of this encounter Visit Diagnoses Not on filedocumented in this encounter Additional Health Concerns Infection Onset Date Last Indicated Resolved Time COVID-19 Rule Out 03/20/2020 03/20/2020 03/22/2020 6:40 PM CDT COVID-19 Rule Out 06/07/2020 06/07/2020 06/10/2020 2:30 AM PILOT PLANT TECHNICIAN COVID-19 Rule Out 07/04/2020 07/04/2020 07/05/2020 6:22 PM PILOT PLANT TECHNICIAN documented as of this encounter Care Teams Frameman Relationship Specialty Start Date End Date Julieth Lopez MD [address] [place] [address] PCP - General FAMILY PRACTICE 07/29/24 Julieth Lopez MD [address] [place] [address] PCP - General FAMILY PRACTICE 07/07/24 07/28/24 documented as of this encounter
--- OUTSIDE RECORDS SUMMARY | 2024-09-30 09:25 | XMS_ITS | Encounter Summary ---
Author Organization [facility] Address [address] [place] [address] Care Team Providers Care Bricklayer'S Assistant Name Role Phone Julieth Lopez MD Primary Care Provider + Julieth Lopez MD Primary Care Provider + Encounter Details Date Type Department Care Team (Late st Contact Info) Description 09/08/2020 CreateTrips Message Enc [facility] Family Medicine - [place] [address] [facility], [address] [place] [phone] Elgin Lemos MD [address] [facility] [address] [place] [address] RE: Question Social History Tobacco Use [...] on file 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 HEALTH ADVISOR Gender Identity Not on file Sexual Orientation Not on file COVID-19 Exposure Response Date Recorded In the last month, have you been in contact with someone who was confirmed or suspected to have Coronavirus / COVID-19? No / Unsure 08/16/2020 1:55 PM HEALTH ADVISOR documented as of this encounter Plan of Treatment Upcoming Encounters Date Type Department Care Team (Late st Contact Info) Description 07/11/2025 8:30 AM HEALTH ADVISOR Office Visit [facility] Family Medicine - [place] [address] [place] [address] Julieth Lopez MD [address] [place] [address] documented as of this encounter Visit Diagnoses Not on filedocumented in this encounter Additional Health Concerns Assessment Noted Time PHQ-9 Depression Total Score: 13 020 11:01 AM CDT documented as of this encounter Care Teams Bricklayer'S Assistant Relationship Specialty Start Date End Date Julieth Lopez MD [address] [place] [address] PCP - General FAMILY PRACTICE 07/29/24 Julieth Lopez MD [address] [place] [address] PCP - General FAMILY PRACTICE 07/07/24 07/28/24 documented as of this encounter
--- OUTSIDE RECORDS SUMMARY | 2024-09-30 09:25 | XMS_ITS | Encounter Summary ---
Author Organization [facility] Address [address] [place] [address] Care Team Providers Care Immunochemist Name Role Phone Julieth Lopez MD Primary Care Provider + Julieth Lopez MD Primary Care Provider + Encounter Details Date Type Department Care Team (Late Contact Info) Description 12/11/2022 TapFitt Message Enc [facility] Medical [facility] [address] [place], [place] [address] [employer], [facility] Provider Air Quality Message Social History [...] on file 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 FIELD RADIO TECHNICIAN Gender Identity Not on file Sexual Orientation Not on file documented as of this encounter Plan of Treatment Upcoming Encounters Date Type Department Care Team (Late Contact Info) Description 07/11/2025 8:30 AM FIELD RADIO TECHNICIAN Office Visit [facility] Medical [facility] Family Medicine - [place] [address] [place] [address] Julieth Lopez MD [address] [place] [address] documented as of this encounter Visit Diagnoses Not on filedocumented in this encounter Additional Health Concerns Assessment Noted Time PHQ-9 Depression Total Score: 13 020 11:01 AM CDT documented as of this encounter Care Teams Immunochemist Relationship Specialty Start Date End Date Julieth Lopez MD [address] [place] [address] PCP - General FAMILY PRACTICE 07/29/24 Julieth Lopez MD [address] [place] [address] PCP - General FAMILY PRACTICE 07/07/24 07/28/24 documented as of this encounter
--- OUTSIDE RECORDS SUMMARY | 2024-09-30 09:25 | XMS_ITS | Encounter Summary ---
Author Organization [facility] Address [address] [place] [address] Care Team Providers Care Managed Care Nurse Name Role Phone Julieth Lopez MD Primary Care Provider + Julieth Lopez MD Primary Care Provider + Encounter Details Date Type Department Care Team (Late Contact Info) Description 01/29/2021 MusicGremlint Message Enc [facility] Family Medicine - [place] [address] [facility], [address] [place] [phone] Elgin Lemos MD [address] [facility] [address] [place] [phone] RE: Medication Questions Social History Tobacco Use [...] on file 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 ELECTRIC MOTOR WINDER Gender Identity Not on file Sexual Orientation Not on file documented as of this encounter Plan of Treatment Upcoming Encounters Date Type Department Care Team (Late Contact Info) Description 07/11/2025 8:30 AM ELECTRIC MOTOR WINDER Office Visit [facility] Family Medicine - [place] [address] [place] [address] Julieth Lopez MD [address] [place] [address] documented as of this encounter Visit Diagnoses Not on filedocumented in this encounter Additional Health Concerns Assessment Noted Time PHQ-9 Depression Total Score: 13 020 11:01 AM CDT documented as of this encounter Care Teams Managed Care Nurse Relationship Specialty Start Date End Date Julieth Lopez MD [address] [place] [address] PCP - General FAMILY PRACTICE 07/29/24 Julieth Lopez MD [address] [place] [address] PCP - General FAMILY PRACTICE 07/07/24 07/28/24 documented as of this encounter
--- OUTSIDE RECORDS SUMMARY | 2024-09-30 09:25 | XMS_ITS | Encounter Summary ---
Author Organization [facility] Address [address] [place] [address] Care Team Providers Care Pillowcase Sewer Name Role Phone Julieth Lopez MD Primary Care Provider + Julieth Lopez MD Primary Care Provider + Encounter Details Date Type Department Care Team (Late st Contact Info) Description 01/06/2020 [employer] Mobile Message Enc [facility] Family Medicine - [place] [address] [facility], [address] [place] [phone] Elgin Lemos MD [address] [facility] [address] [place] [address] [phone] RE: Other Social History Tobacco Use Types [...] on file 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 NUTRITION EDUCATOR Gender Identity Not on file Sexual Orientation [...] st Contact Info) Description 07/11/2025 8:30 AM NUTRITION EDUCATOR Office Visit [facility] Family Medicine - [place] [address] [place] [address] Julieth Lopez MD [address] [place] [address] documented as of this encounter Visit Diagnoses Not on filedocumented in this encounter Additional Health Concerns Infection Onset Date Last Indicated Resolved Time COVID-19 Rule Out 03/20/2020 03/20/2020 03/22/2020 6:40 PM CDT COVID-19 Rule Out 06/07/2020 06/07/2020 06/10/2020 2:30 AM NUTRITION EDUCATOR COVID-19 Rule Out 07/04/2020 07/04/2020 07/05/2020 6:22 PM NUTRITION EDUCATOR documented as of this encounter Care Teams Pillowcase Sewer Relationship Specialty Start Date End Date Julieth Lopez MD [address] [place] [address] PCP - General FAMILY PRACTICE 07/29/24 Julieth Lopez MD [address] [place] [address] PCP - General FAMILY PRACTICE 07/07/24 07/28/24 documented as of this encounter
--- OUTSIDE RECORDS SUMMARY | 2024-09-30 09:25 | XMS_ITS | Encounter Summary ---
Author Organization [facility] Address [address] [place] [address] Care Team Providers Care Field Representative Name Role Phone Julieth Lopez MD Primary Care Provider + Julieth Lopez MD Primary Care Provider + Encounter Details Date Type Department Care Team (Late st Contact Info) Description 08/16/2020 Sweet Shop Message Enc [facility] Family Medicine - [place] [address] [facility], [address] [place] [phone] Elgin Lemos MD [address] [facility] [address] [place] [phone] RE: Question Social History Tobacco Use [...] on file 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 TANK PUMPER PANELBOARD Gender Identity Not on file Sexual Orientation Not on file COVID-19 Exposure Response Date Recorded In the last month, have you been in contact with someone who was confirmed or suspected to have Coronavirus / COVID-19? No / Unsure 08/16/2020 1:55 PM TANK PUMPER PANELBOARD documented as of this encounter Plan of Treatment Upcoming Encounters Date Type Department Care Team (Late st Contact Info) Description 07/11/2025 8:30 AM TANK PUMPER PANELBOARD Office Visit [facility] Family Medicine - [place] [address] [place] [address] Julieth Lopez MD [address] [place] [address] documented as of this encounter Visit Diagnoses Not on filedocumented in this encounter Additional Health Concerns Assessment Noted Time PHQ-9 Depression Total Score: 13 020 11:01 AM CDT documented as of this encounter Care Teams Field Representative Relationship Specialty Start Date End Date Julieth Lopez MD [address] [place] [address] PCP - General FAMILY PRACTICE 07/29/24 Julieth Lopez MD [address] [place] [address] PCP - General FAMILY PRACTICE 07/07/24 07/28/24 documented as of this encounter
--- OUTSIDE RECORDS SUMMARY | 2024-09-30 09:25 | XMS_ITS | Encounter Summary ---
Author Organization [facility] Address [address] [place] [address] Care Team Providers Care Fabricator Special Items Name Role Phone Julieth Lopez MD Primary Care Provider + Julieth Lopez MD Primary Care Provider + Encounter Details Date Type Department Care Team (Late Contact Info) Description 01/19/2020 ShopTap Message Enc [facility] Family Medicine [address], [address] [place] [phone] [facility] Provider RE: Medications Social History Tobacco Use [...] on file 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 SPEECH PATHOLOGY ASSISTANT Gender Identity Not on file Sexual Orientation Not on file COVID-19 Exposure Response Date Recorded In the last month, have you been in contact with someone who was confirmed or suspected to have Coronavirus / COVID-19? Yes 01/04/2020 2:06 PM CDT documented as of this encounter Plan of Treatment Upcoming Encounters Date Type Department Care Team (Late Contact Info) Description 07/11/2025 8:30 AM SPEECH PATHOLOGY ASSISTANT Office Visit [facility] Family Medicine - [place] [address] [place] [address] Julieth Lopez MD [address] [place] [address] documented as of this encounter Visit Diagnoses Not on filedocumented in this encounter Additional Health Concerns Infection Onset Date Last Indicated Resolved Time COVID-19 Rule Out 03/20/2020 03/20/2020 03/22/2020 6:40 PM CDT COVID-19 Rule Out 06/07/2020 06/07/2020 06/10/2020 2:30 AM SPEECH PATHOLOGY ASSISTANT COVID-19 Rule Out 07/04/2020 07/04/2020 07/05/2020 6:22 PM SPEECH PATHOLOGY ASSISTANT documented as of this encounter Care Teams Fabricator Special Items Relationship Specialty Start Date End Date Julieth Lopez MD [address] [place] [address] PCP - General FAMILY PRACTICE 07/29/24 Julieth Lopez MD [address] [place] [address] PCP - General FAMILY PRACTICE 07/07/24 07/28/24 documented as of this encounter
--- OUTSIDE RECORDS SUMMARY | 2024-09-30 09:25 | XMS_ITS | Encounter Summary ---
Author Organization [facility] Address [address] [place] [address] Care Team Providers Care Field Artillery Targeting Technician Name Role Phone Julieth Lopez MD Primary Care Provider + Julieth Lopez MD Primary Care Provider + Encounter Details Date Type Department Care Team (Late Contact Info) Description 10/28/2022 Typemockt Message Enc [facility] Family Medicine [facility] [address] [facility], [address] [place] [phone] Elgin Lemos MD [address] [phone] Hospital Social History Tobacco Use Types Packs/Day [...] on file 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 DIMENSION QUARRY SUPERVISOR Gender Identity Not on file Sexual Orientation Not on file documented as of this encounter Plan of Treatment Upcoming Encounters Date Type Department Care Team (Late Contact Info) Description 07/11/2025 8:30 AM DIMENSION QUARRY SUPERVISOR Office Visit [facility] Family Medicine [facility] [address] [place], [place] [address] Julieth Lopez MD [address] [place], [place] [address] documented as of this encounter Visit Diagnoses Not on filedocumented in this encounter Additional Health Concerns Assessment Noted Time PHQ-9 Depression Total Score: 13 020 11:01 AM CDT documented as of this encounter Care Teams Field Artillery Targeting Technician Relationship Specialty Start Date End Date Julieth Lopez MD [address] [place], [place] [address] PCP - General FAMILY PRACTICE 07/29/24 Julieth Lopez MD [address] [place] [address] PCP - General FAMILY PRACTICE 07/07/24 07/28/24 documented as of this encounter
--- OUTSIDE RECORDS SUMMARY | 2024-09-30 09:25 | XMS_ITS | Encounter Summary ---
Author Organization [facility] Address [address] [place] [address] Care Team Providers Care Paraeducator Name Role Phone Jluieth Lopez MD Primary Care Provider + Julieth Lopez MD Primary Care Provider + Encounter Details Date Type Department Care Team (Late st Contact Info) Description 09/30/2022 [employer] Message Enc [facility] - [place] [address] [facility], [address] [place] [address] [phone] Elgin Lemos MD [address] [facility] [address] [place] [address] [phone] [employer] Social History Tobacco Use Types Packs/Day [...] on file 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 ENVELOPE SEALING MACHINE OPERATOR Gender Identity Not on file Sexual [...] st Contact Info) Description 07/11/2025 8:30 AM ENVELOPE SEALING MACHINE OPERATOR [facility] Family [facility] - [place] [address] [place] [address] Julieth Lopez MD [address] [place], [place] [phone] documented as of this encounter Visit Diagnoses Not on filedocumented in this encounter Additional Health Concerns Assessment Noted Time PHQ-9 Depression Total Score: 13 020 11:01 AM CDT documented as of this encounter Care Teams Paraeducator Relationship Specialty Start Date End Date Julieth Lopez MD [address] [place], [place] [phone] PCP - General FAMILY PRACTICE 07/29/24 Julieth Lopez MD [address] [place], [place] [address] PCP - General FAMILY PRACTICE 07/07/24 07/28/24 documented as of this encounter
--- OUTSIDE RECORDS SUMMARY | 2024-09-30 09:25 | XMS_ITS | Encounter Summary ---
Author Organization [facility] Address [address] [place] [address] Care Team Providers Care Office Services Associate Name Role Phone Julieth Lopez MD Primary Care Provider + Julieth Lopez MD Primary Care Provider + Encounter Details Date Type Department Care Team (Late st Contact Info) Description 05/24/2020 [employer] Message Enc [facility] Family Medicine - [place] [address] [facility], [address] [place] [address] [phone] Elgin Lemos MD [address] [phone] RE: Question Social History Tobacco [...] on file 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 FITTING ROOM CHECKER Gender Identity Not on file Sexual Orientation Not on file COVID-19 Exposure Response Date Recorded In the last month, have you been in contact with someone who was confirmed or suspected to have Coronavirus / COVID-19? No / Unsure 05/25/2020 3:22 PM FITTING ROOM CHECKER documented as of this encounter Progress Notes * Elgin Lemos MD - 05/25/2020 8:06 AM CST Need to take a look ING ROOM CHECKER documented in this encounter Plan of Treatment Upcoming Encounters Date Type Department Care Team (Late st Contact Info) Description 07/11/2025 8:30 AM FITTING ROOM CHECKER Office Visit [facility] Family Medicine - [place] [address] [place] [address] Julieth Lopez MD [address] [place] [address] documented as of this encounter Visit Diagnoses Not on filedocumented in this encounter Additional Health Concerns Infection Onset Date Last Indicated Resolved Time COVID-19 Rule Out 06/07/2020 06/07/2020 06/10/2020 2:30 AM FITTING ROOM CHECKER COVID-19 Rule Out 07/04/2020 07/04/2020 07/05/2020 6:22 PM FITTING ROOM CHECKER Assessment Noted Time PHQ-9 Depression Total Score: 13 020 11:01 AM CDT documented as of this encounter Care Teams Office Services Associate Relationship Specialty Start Date End Date Julieth Lopez MD [address] [place] [address] PCP - General FAMILY PRACTICE 07/29/24 Julieth Lopez MD [address] [place] [address] PCP - General FAMILY PRACTICE 07/07/24 07/28/24 documented as of this encounter
--- OUTSIDE RECORDS SUMMARY | 2024-09-30 09:25 | XMS_ITS | Encounter Summary ---
Author Organization [facility] Address [address] [place] [address] Care Team Providers Care Competency Evaluated Nurse Aide Name Role Phone Julieth Lopez MD Primary Care Provider + Julieth Lopez MD Primary Care Provider + Encounter Details Date Type Department Care Team (Late st Contact Info) Description 01/29/2020 [employer] Message Enc [facility] Family Medicine - [place] [address] [facility], [address] [place] [address] [phone] Elgin Lemos MD [address] [phone] RE: Follow Up/Update Social History Tobacco Use [...] on file 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 PANEL WIRER Gender Identity Not on file Sexual Orientation [...] st Contact Info) Description 07/11/2025 8:30 AM PANEL WIRER Office Visit [facility] Family Medicine - [place] [address] [place] [address] Julieth Lopez MD [address] [place] [address] documented as of this encounter Visit Diagnoses Not on filedocumented in this encounter Additional Health Concerns Infection Onset Date Last Indicated Resolved Time COVID-19 Rule Out 03/20/2020 03/20/2020 03/22/2020 6:40 PM CDT COVID-19 Rule Out 06/07/2020 06/07/2020 06/10/2020 2:30 AM PANEL WIRER COVID-19 Rule Out 07/04/2020 07/04/2020 07/05/2020 6:22 PM PANEL WIRER documented as of this encounter Care Teams Competency Evaluated Nurse Aide Relationship Specialty Start Date End Date Julieth Lopez MD [address] [place] [address] PCP - General FAMILY PRACTICE 07/29/24 Julieth Lopez MD [address] [place] [address] PCP - General FAMILY PRACTICE 07/07/24 07/28/24 documented as of this encounter
--- OUTSIDE RECORDS SUMMARY | 2024-09-30 09:25 | XMS_ITS | Encounter Summary ---
Author Organization [facility] Address [address] [place] [address] Care Team Providers Care Laster Hand Name Role Phone Julieth Lopez MD Primary Care Provider + Julieth Lopez MD Primary Care Provider + Encounter Details Date Type Department Care Team (Late st Contact Info) Description 10/13/2019 [employer] Message Enc [facility] Family Medicine - [place] [address] [facility], [address] [place] [address] [phone] Elgin Lemos MD [address] [address] RE: Question Social History Tobacco [...] on file 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 Gender Identity Not on file Sexual [...] st Contact Info) Description 07/11/2025 8:30 AM PLANNING SPECIALIST Office Visit [facility] Family Medicine - [place] [address] [place] [address] Julieth Lopez MD [address] [place] [address] documented as of this encounter Visit Diagnoses Not on filedocumented in this encounter Additional Health Concerns Infection Onset Date Last Indicated Resolved Time COVID-19 Rule Out 03/20/2020 03/20/2020 03/22/2020 6:40 PM CDT COVID-19 Rule Out 06/07/2020 06/07/2020 06/10/2020 2:30 AM PLANNING SPECIALIST COVID-19 Rule Out 07/04/2020 07/04/2020 07/05/2020 6:22 PM PLANNING SPECIALIST documented as of this encounter Care Teams Laster Hand Relationship Specialty Start Date End Date Julieth Lopez MD [address] [place] [address] PCP - General FAMILY PRACTICE 07/29/24 Julieth Lopez MD [address] [place] [address] PCP - General FAMILY PRACTICE 07/07/24 07/28/24 documented as of this encounter
--- OUTSIDE RECORDS SUMMARY | 2024-09-30 09:25 | XMS_ITS | Encounter Summary ---
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 Gender Identity Not on file Sexual Orientation [...] st Contact Info) Description 07/11/2025 8:30 AM BUTTERMAKER HELPER Office Visit [facility] Family Medicine - [place] [address] [place] [address] Julieth Lopez MD [address] [place] [address] documented as of this encounter Visit Diagnoses Not on filedocumented in this encounter Additional Health Concerns Infection Onset Date Last Indicated Resolved Time COVID-19 Rule Out 03/20/2020 03/20/2020 03/22/2020 6:40 PM CDT COVID-19 Rule Out 06/07/2020 06/07/2020 06/10/2020 2:30 AM BUTTERMAKER HELPER COVID-19 Rule Out 07/04/2020 07/04/2020 07/05/2020 6:22 PM BUTTERMAKER HELPER documented as of this encounter Care Teams Registered Nurses Relationship Specialty Start Date End Date Julieth Lopez MD [address] [place] [address] PCP - General FAMILY PRACTICE 07/29/24 Julieth Lopez MD [address] [place] [address] PCP - General FAMILY PRACTICE 07/07/24 07/28/24 documented as of this encounter
--- OUTSIDE RECORDS SUMMARY | 2024-09-30 09:25 | XMS_ITS | Encounter Summary ---
Author Organization [facility] Address [address] [place] [address] Care Team Providers Care Evaporator Name Role Phone Julieth Lopez MD Primary Care Provider + Julieth Lopez MD Primary Care Provider + Encounter Details Date Type Department Care Team (Late st Contact Info) Description 03/11/2020 [employer] Message Enc [facility] Family Medicine - [place] [address] [facility], [address] [place] [address] [phone] Elgin Lemos MD [address] [phone] RE: Follow Up/Update Social History Tobacco Use [...] on file 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 Gender Identity Not on file Sexual [...] st Contact Info) Description 07/11/2025 8:30 AM LABOR TRAINING MANAGER Office Visit [facility] Family Medicine - [place] [address] [place] [address] Julieth Lopez MD [address] [place] [address] documented as of this encounter Visit Diagnoses Not on filedocumented in this encounter Additional Health Concerns Infection Onset Date Last Indicated Resolved Time COVID-19 Rule Out 03/20/2020 03/20/2020 03/22/2020 6:40 PM CDT COVID-19 Rule Out 06/07/2020 06/07/2020 06/10/2020 2:30 AM LABOR TRAINING MANAGER COVID-19 Rule Out 07/04/2020 07/04/2020 07/05/2020 6:22 PM LABOR TRAINING MANAGER documented as of this encounter Care Teams Evaporator Relationship Specialty Start Date End Date Julieth Lopez MD [address] [place] [address] PCP - General FAMILY PRACTICE 07/29/24 Julieth Lopez MD [address] [place] [address] PCP - General FAMILY PRACTICE 07/07/24 07/28/24 documented as of this encounter
--- OUTSIDE RECORDS SUMMARY | 2024-09-30 09:25 | XMS_ITS | Encounter Summary ---
Author Organization [facility] Address [address] [place] [address] Care Team Providers Care Plumbing Manager Name Role Phone Julieth Lopez MD Primary Care Provider + Julieth Lopez MD Primary Care Provider + Encounter Details Date Type Department Care Team (Late st Contact Info) Description 03/18/2020 [employer] Message Enc [facility] Family Medicine - [place] [address] [facility], [address] [place] [address] [phone] Elgin Lemos MD [address] [address] RE: Question Social History Tobacco [...] on file 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 Gender Identity Not on file Sexual [...] st Contact Info) Description 07/11/2025 8:30 AM DRY CANS OPERATOR Office Visit [facility] Family Medicine - [place] [address] [place] [address] Julieth Lopez MD [address] [place] [address] documented as of this encounter Visit Diagnoses Not on filedocumented in this encounter Additional Health Concerns Infection Onset Date Last Indicated Resolved Time COVID-19 Rule Out 03/20/2020 03/20/2020 03/22/2020 6:40 PM CDT COVID-19 Rule Out 06/07/2020 06/07/2020 06/10/2020 2:30 AM DRY CANS OPERATOR COVID-19 Rule Out 07/04/2020 07/04/2020 07/05/2020 6:22 PM DRY CANS OPERATOR documented as of this encounter Care Teams Plumbing Manager Relationship Specialty Start Date End Date Julieth Lopez MD [address] [place] [address] PCP - General FAMILY PRACTICE 07/29/24 Julieth Lopez MD [address] [place] [address] PCP - General FAMILY PRACTICE 07/07/24 07/28/24 documented as of this encounter
--- OUTSIDE RECORDS SUMMARY | 2024-09-30 09:25 | XMS_ITS | Encounter Summary ---
Author Organization [facility] Address [address] [place] [address] Care Team Providers Care Programming Manager Name Role Phone Julieth Lopez MD Primary Care Provider + Julieth Lopez MD Primary Care Provider + Encounter Details Date Type Department Care Team (Late st Contact Info) Description 09/18/2022 [employer] Message Enc [facility] Family Medicine - [place] [address] [facility], [address] [place] [address] [phone] Elgin Lemos MD [address] [facility] [address] [place] [address] Forgot to give you this info [...] on file 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 CALCULATOR OPERATOR Gender Identity Not on file Sexual [...] st Contact Info) Description 07/11/2025 8:30 AM CALCULATOR OPERATOR Office Visit [facility] Family Medicine - [place] [address] [place] [address] Julieth Lopez MD [address] [place], [place] [phone] documented as of this encounter Visit Diagnoses Not on filedocumented in this encounter Additional Health Concerns Assessment Noted Time PHQ-9 Depression Total Score: 13 020 11:01 AM CDT documented as of this encounter Care Teams Programming Manager Relationship Specialty Start Date End Date Julieth Lopez MD [address] [place] [address] PCP - General FAMILY PRACTICE 07/29/24 Julieth Lopez MD [address] [place], [place] [address] PCP - General FAMILY PRACTICE 07/07/24 07/28/24 documented as of this encounter
--- OUTSIDE RECORDS SUMMARY | 2024-09-30 09:25 | XMS_ITS | Encounter Summary ---
Author Organization 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 Gender Identity Not on file Sexual Orientation [...] st Contact Info) Description 07/11/2025 8:30 AM 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 Office Visit [facility] Family Medicine - [place] [address] [place] [address] Julieth Lopez MD [address] [place] [address] documented as of this encounter Visit Diagnoses Not on filedocumented in this encounter Additional Health Concerns Infection Onset Date Last Indicated Resolved Time COVID-19 Rule Out 03/20/2020 03/20/2020 03/22/2020 6:40 PM CDT COVID-19 Rule Out 06/07/2020 06/07/2020 06/10/2020 2:30 AM 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 COVID-19 Rule Out 07/04/2020 07/04/2020 07/05/2020 6:22 PM 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 documented as of this encounter Care Teams Tripe Scraper Relationship Specialty Start Date End Date Julieth Lopez MD [address] [place] [address] PCP - General FAMILY PRACTICE 07/29/24 Julieth Lopez MD [address] [place] [address] PCP - General FAMILY PRACTICE 07/07/24 07/28/24 documented as of this encounter
--- OUTSIDE RECORDS SUMMARY | 2024-09-30 09:25 | XMS_ITS | Encounter Summary ---
Author Organization [facility] Address [address] [place] [address] Care Team Providers Care Trial Management Associate Name Role Phone Julieth Lopez MD Primary Care Provider + Julieth Lopez MD Primary Care Provider + Encounter Details Date Type Department Care Team (Late Contact Info) Description 09/27/2020 [employer] Message Enc [facility] Family Medicine - [place] [address] [facility], [address] [place] [address] [phone] Elgin Lemos MD [address] [facility] [address] [place] [address] [phone] RE: Question Social History Tobacco Use Types [...] on file 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 Gender Identity Not on file Sexual Orientation Not on file documented as of this encounter Plan of Treatment Upcoming Encounters Date Type Department Care Team (Late st Contact Info) Description 07/11/2025 8:30 AM RADIO TOWER TECHNICIAN Office Visit [facility] Family Medicine - [place] [address] [place] [address] Julieth Lopez MD [address] [place] [address] documented as of this encounter Visit Diagnoses Not on filedocumented in this encounter Additional Health Concerns Assessment Noted Time PHQ-9 Depression Total Score: 13 020 11:01 AM CDT documented as of this encounter Care Teams Trial Management Associate Relationship Specialty Start Date End Date Julieth Lopez MD [address] [place] [address] PCP - General FAMILY PRACTICE 07/29/24 Julieth Lopez MD [address] [place] [address] PCP - General FAMILY PRACTICE 07/07/24 07/28/24 documented as of this encounter
--- OUTSIDE RECORDS SUMMARY | 2024-09-30 09:25 | XMS_ITS | Referral Summary ---
Author Organization [facility] Address [address] [place] [address] Care Team Providers Care Client Solutions Specialist Name Role Phone Angelica Maynard MD Primary [...] Plan of Treatment Not on file Insurance [facility] AETNA [facility] Care Teams Client Solutions Specialist Relationship Specialty Start Date End Date Angelica Maynard MD PCP - General Family Medicine 12/09/23
--- OUTSIDE RECORDS SUMMARY | 2024-09-30 09:25 | XMS_ITS | Clinical Summary ---
Author Organization [facility] Address [address] [place] [address] Care Team Providers Care Ibm Websphere Portal Developer Name Role Phone Pcp, Carolyn Miller Im-Fm Primary Care Provider Un available Source Comments [facility],non-owned Affiliates and Associated Physician Practices is amultiple site organization consisting of ambulatory clinics and hospital sitesin [place], [place], [place] and [place]. This disclosure is being madepursuant to the Care Everywhere program and may not contain all information available regarding this patient. Last updated 18.[facility] Allergies Active Allergy Reactions Criticality Noted Date Comments Adhesive Sensitivity Rash Medium 08/19/2019 Limbs swell Latex Urticaria Medium 03/26/2019 Medications * Be aware that medications may not be up to date on this document. Alwaysverify current medications with the patient. acyclovir (ZOVIRAX) 800 MG tablet Take by mouth once daily 9 Active escitalopram (LEXAPRO) 10 MG tablet Take by mouth once daily 9 Active ferrous sulfate (FEROSUL) 325 (65 FE) MG tablet Take 1 tablet by mouth once daily 9 Active etonogestrel (NEXPLANON) 68 MG implant Inject subcutaneously once daily Active norelgestromin -ethinyl estradiol (XULANE) 150-35 MCG/24HR patch every 7 days 8 Active Loratadine (CLARITIN) 10 MG Take by [...] drink = 0.6 oz pur e alcohol) Comments Unknown Sex and Gender Information Value Date Recorded Sex Assigned at Not on file Legal Sex Female 4:18 PM CDT Gender Identity Not on file Sexual Orientation [...] (3 - 2023- season) 2024 10/20/2020, 09/29/2020 DEPRESSION SCREENING 06/16/2024 INFLUENZA VACCINE (Season Ended) 2025 05/16/2022, 03/09/2020, 03/05/2019, Additional history exists ZOSTER VACCINE (1 of 2) 2049 HIB [...] on patient's age to complete this topic Insurance MEDICAID [employer] [facility] Care Teams Ibm Websphere Portal Developer Relationship Specialty Start Date End Date PcpCarolyn Depkalal Im-Fm PCP - General 01/10/23
--- OUTSIDE RECORDS SUMMARY | 2024-09-30 09:25 | XMS_ITS | Encounter Summary ---
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 Gender Identity Not on file Sexual Orientation [...] (Late Contact Info) Description 07/11/2025 8:30 AM AFTERSCHOOL Office Visit [facility] Family Medicine - [place] [address] [place] [address] Julieth Lopez MD [address] [place], [place] [address] documented as of this encounter Visit Diagnoses Not on filedocumented in this encounter Additional Health Concerns Infection Onset Date Last Indicated Resolved Time COVID-19 Rule Out 06/07/2020 06/07/2020 06/10/2020 2:30 AM AFTERSCHOOL COVID-19 Rule Out 07/04/2020 07/04/2020 07/05/2020 6:22 PM AFTERSCHOOL documented as of this encounter Care Teams Junior Programmer Analyst Relationship Specialty Start Date End Date Julieth Lopez MD [address] [place] [address] PCP - General FAMILY PRACTICE 07/29/24 Julieth Lopez MD [address] [place] [address] PCP - General FAMILY PRACTICE 07/07/24 07/28/24 documented as of this encounter
--- OUTSIDE RECORDS SUMMARY | 2024-09-30 09:25 | XMS_ITS | Encounter Summary ---
Author Organization 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 Gender Identity Not on file Sexual Orientation Not on file documented as of this encounter Plan of Treatment Upcoming Encounters Date Type Department Care Team (Late Contact Info) Description 07/11/2025 8:30 AM SENIOR IT PROJECT MANAGER Office Visit [facility] Family Medicine [facility] [address] [place], [place] [address] Julieth Lopez MD [address] [place], [place] [address] documented as of this encounter Visit Diagnoses Not on filedocumented in this encounter Additional Health Concerns Assessment Noted Time PHQ-9 Depression Total Score: 13 020 11:01 AM CDT documented as of this encounter Care Teams Sculpture Conservator Relationship Specialty Start Date End Date Julieth Lopez MD [address] [place], [place] [address] PCP - General FAMILY PRACTICE 07/29/24 Julieth Lopez MD [address] [place] [address] PCP - General FAMILY PRACTICE 07/07/24 07/28/24 documented as of this encounter
--- OUTSIDE RECORDS SUMMARY | 2024-09-30 09:25 | XMS_ITS | Encounter Summary ---
Author Organization [facility] Address [address] [place] [address] Care Team Providers Care Lacquer Spray Booth Operator Name Role Phone Julieth Lopez MD Primary Care Provider + Julieth Lopez MD Primary Care Provider + Encounter Details Date Type Department Care Team (Late st Contact Info) Description 03/12/2020 [place] Message Enc [facility] Medical [facility] Family Medicine - [place] [address] [facility], [address] [place] [phone] Elgin Lemos MD [address] [phone] RE: Follow Up/Update Social History Tobacco Use [...] on file 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 PHOSPHATIC FERTILIZER Gender Identity Not on file Sexual Orientation [...] st Contact Info) Description 07/11/2025 8:30 AM SUPERVISOR PHOSPHATIC FERTILIZER Office Visit [facility] Family Medicine - [place] [address] [place] [address] Julieth Lopez MD [address] [place] [address] documented as of this encounter Visit Diagnoses Not on filedocumented in this encounter Additional Health Concerns Infection Onset Date Last Indicated Resolved Time COVID-19 Rule Out 03/20/2020 03/20/2020 03/22/2020 6:40 PM CDT COVID-19 Rule Out 06/07/2020 06/07/2020 06/10/2020 2:30 AM SUPERVISOR PHOSPHATIC FERTILIZER COVID-19 Rule Out 07/04/2020 07/04/2020 07/05/2020 6:22 PM SUPERVISOR PHOSPHATIC FERTILIZER documented as of this encounter Care Teams Lacquer Spray Booth Operator Relationship Specialty Start Date End Date Julieth Lopez MD [address] [place] [address] PCP - General FAMILY PRACTICE 07/29/24 Julieth Lopez MD [address] [place] [address] PCP - General FAMILY PRACTICE 07/07/24 07/28/24 documented as of this encounter
--- OUTSIDE RECORDS SUMMARY | 2024-09-30 09:25 | XMS_ITS | Clinical Summary ---
Author Organization [facility] Address [facility] [place] [address] Care Team Providers Care Tangled Yarn Worker Name Role Phone Julieth Lopez MD Primary Care Provider + Allergies Active Allergy Reactions Criticality Noted Date Comments Tape Rash Low 08/19/2019 Erenumab-Aooe Rash Medium 12/09/2023 Site reaction, believes due to latex ingredient overlap Insect Stings Anaphylaxis High 09/27/2024 Latex Hives,Rash Medium 03/26/2019 Nortriptyline Hcl Other (see comment) Low nightmares Vancomycin Anaphylaxis High 07/07/2024 Wasp Venom Anaphylaxis High 09/27/2024 Medications SUMAtriptan (IMITREX) 25 MG tabletIndications: Chronic migraine without aura without status migrainosus, not intractable TAKE 1 TO 2 TABLETS BY MOUTH 2 TIMES A DAY NEEDED FOR MIGRAINE. MAX OF 8 TABLETS IN 24 HOURS 30 tablet 1 11/11/19 24 Active albuterol sulfate HFA 108 (90 Base) MCG/ACT inhalerIndications :Moderate persistent asthma without complication (HHS/HCC) Inhale 2 puffs into the lungs every 4 (four) hours as needed for Wheezing. 18 g 3 07/07/19 25 Active budesonide-formote rol (SYMBICORT) 160-4.5 MCG/ACT inhalerIndications :Moderate persistent asthma without complication (HHS/HCC) Inhale 2 puffs into the lungs 2 (two) times daily. 10.2 g 3 07/07/19 25 Active spironolactone (ALDACTONE) 25 MG tabletIndications: PCOS [...] in 24 hours. 45 tablet 3 07/07/19 25 Active tirzepatide (ZEPBOUND) 2.5 MG/0.5ML injectionIndicatio ns:Prediabetes,Crow ght Loss Inject 2.5 mg into the skin once a week. Indications: Higher than Normal Blood Sugar not yet Considered Diabetes, Weight Loss 6 mL 09/23/19 25 Active EPINEPHrine 0.3 MG/0.3ML injectionIndicatio ns:Bee sting allergy Inject 0.3 mLs (0.3 mg total) into the muscle as needed for Anaphylaxis. Bee sting allergy 1 each 1 09/29/19 25 Active semaglutide (OZEMPIC 0.25/0.5 MG/DOSE) 2 MG/1.5ML injection (PEN)Indications:C lass 3 severe obesity due to excess calories without serious comorbidity with body mass index (BMI) of 45.0 to 49.9 in adult (CMS/HCC),Prediabe hyun,PCOS (polycystic ovarian syndrome) Inject 0.25 mg into the skin every 7 days. 2 pen 3 09/17/19 23 025 Discontin ued(Thera py completed ) tirzepatide (ZEPBOUND) 2.5 MG/0.5ML injectionIndicatio ns:Weight Loss Inject 2.5 mg into the skin once a week. Indications: Weight Loss 6 mL 09/17/19 25 025 Discontin ued(Reord er) tirzepatide (ZEPBOUND) 2.5 MG/0.5ML injectionIndicatio ns:Weight Loss Inject 2.5 mg into the skin once a week. Indications: Weight Loss 6 mL 09/21/19 25 025 Discontin ued(Reord er) Active Problems Problem Noted Date Diagnosed Date Excessive daytime sleepiness 12/09/2023 Prediabetes 12/09/2023 Overview (09/22/2024): A1c 5.7% in 07/2024. Repeat later in the month was 5.6%. Chronic migraine without aur a without status migrainosus, not intractable 09/16/2022 Overview (07/07/2024): Takes sumatriptan. In the past was on nortriptyline. Noted nightmares so stopped taking it. Sumatriptan works well. Migraines happen at least once a week. Also tried aimovig. Allergic to latex and could not use it. Assessment & Plan (07/07/2024 11:34 AM MATERIAL MIXER): Not controlled. Frequent migraines. Sumatriptan does work but not adequately to help prevent migraines. Also failed nortriptyline and Aimovig. Ordered Nurtec to trial and will use it prophylactically. PCOS (polycystic ovarian syndrome) 07/27/2020 Overview (07/07/2024): Presented with heavy menstrual cycles. Has an IUD. Sees gynecology, Dr. Shirley Brewer. In the past she took spironolactone and she is wondering if she can use this again due to male pattern hair growth Assessment & Plan (07/07/2024 11:34 AM MATERIAL MIXER): Hirsutism persistent. Will check BMP 1 month after trial of spironolactone to ensure kidney function and electrolytes are normal. Current moderate episode of major depressive disorder without prior episode 03/28/2020 Overview (07/07/2024): Strike Planning Applications at [facility]. Reports she has tried multiple medications in the past and has not tolerated them well due to side effects. She would prefer to avoid medication at this point. Assessment & Plan (07/07/2024 11:32 AM MATERIAL MIXER): Not currently well-controlled but prefers to avoid medication. We will defer medication at this point. Encouraged some lifestyle changes. Class 3 severe obesity due t o excess calories without serious comorbidity with body mass index (BMI) of 45.0 to 49.9 in adult 03/26/2020 Overview (07/07/2024): Has been going to [place]. Has 10 lb in 6 months. Assessment & Plan (07/07/2024 11:33 AM MATERIAL MIXER): Discussed lifestyle changes which will help with weight loss. She will also look into insurance options for GLP-1 and update me with decision. Moderate persistent asthma without complication (HHS/HCC) 03/23/2020 Overview (07/07/2024): Takes symbicort and albuterol. Illness is main trigger. Assessment & Plan (07/07/2024 11:33 AM MATERIAL MIXER): Chronic. Controlled. Continue Symbicort and albuterol. Prevnar [...] Encounters Date Type Department Care Team Description 09/20/2024 Telephone [facility] [address] [place], [place] [id number] Julieth Lopez MD Medication 09/16/2024 Scan [facility] INFO SRVCS Scanned, Doc Med Group 09/16/2024 Telephone [facility] [address] [place], [place] [address] Julieth Lopez MD Medication Request 08/30/2024 Scan [facility] INFO [facility] Scanned, Doc Med Group 08/30/2024 Telephone [facility] [address] [place], [place] [address] Julieth Lopez MD Medication Problem 08/12/2024 Scan [facility] INFO [facility] Scanned, Doc Med Group 07/29/2024 7:20 AM MATERIAL MIXER Laboratory Only [address] [place] [address] Julieth Lopez MD 07/29/2024 Travel 07/22/2024 Scan [facility] INFO SRVCS Scanned, Doc Med Group Lab (SCAN); Pathology (SCAN) 07/15/[address] [place] [address] Julieth Lopez MD Medication Problem 07/09/2024 MyChart Message Enc [address] [place] [address] Julieth Lopez MD Scaring swollen 07/07/2024 10:50 AM MATERIAL MIXER Office Visit [address] [place] [address] Julieth Lopez MD Establish Care (Patient is here as a transfer patient to establish care. ) 07/07/2024 Travel from Last 3 Months Immunizations Immunization Administration Dates Next Due Dtap 10/10/2000 Dtap [...] on file 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 MATERIAL MIXER Gender Identity Not on file Sexual Orientation Not on file Last Filed Vital Signs Vital Sign Reading Time Taken Comments Blood Pressure 128/86 07/07/2024 10:26 AM MATERIAL MIXER Pulse 91 07/07/2024 10:26 AM MATERIAL MIXER Temperature 37.6 C (99.6 F) 07/07/2024 10:26 AM MATERIAL MIXER Respiratory Rate 16 07/07/2024 10:26 AM MATERIAL MIXER Oxygen Saturation 98% 07/07/2024 10:26 AM MATERIAL MIXER Inhaled Oxygen Concentration - - Weight 138.3 kg (305 lb) 07/07/2024 10:26 AM MATERIAL MIXER Height 170.2 cm (5' 7 ) 07/07/2024 10:26 AM MATERIAL MIXER Body Mass Index 47.77 07/07/2024 10:26 AM MATERIAL MIXER Plan of Treatment Upcoming Encounters Date Type Department Care Team (Late st Contact Info) Description 07/11/2025 8:30 AM MATERIAL MIXER Office Visit [facility] Medical Group Family Medicine - [place] [address] [facility] [address] [place] [address] Julieth Lopez MD [address] [place], [place] [id number] Health Maintenance Due Date Last Done Comments Hepatitis C 2017 HPV Vaccines (3 - 3-dose series) 11/18/2019 08/26/2019, 09/25/2018 COVID-19 Vaccine ( season) 2024 10/20/2020, 09/29/2020 Annual Physical 07/07/2025 07/07/2024, 09/16/2022 Cervical Cancer Screening Pap Smear (Age 21 to 29) Every 3 Years 07/22/2027 07/22/2024 Cervical Cancer Screening 07/22/2027 DTaP, Tdap and Td Vaccines (9 - Td or Tdap) 03/16/2032 03/16/2022, 02/15/2022, 02/06/2011, Additional history exists Hepatitis B Vaccines Completed 08/28/2001, 08/28/2001, 10/10/2000, Additional history exists Meningococcal Vaccine Completed 02/24/2017 , 02/24/2017, 02/13/2012 PHQ-2 (Physician [place]) Completed 07/07/2024 Pneumococcal Vaccine: Pediatrics (0 to 5 Years) and At-Risk Patients (6 to 49 Years) Completed 07/07/2024, 12/25/2000 Meningococcal B Vaccine Aged Out No l onger eligible based on patient's age to complete this topic RSV Immunizations Under 20 Months Aged Out No longer eligible based on patient's age to complete this topic Procedures Procedure Name Priority Date/Time Associated Diagnosis Comments COLLECTION VENOUS BLOOD VENIPUNCTURE Routine 07/29/2024 7:19 AM MATERIAL MIXER Routine general medical examination at a health care facility BASIC METABOLIC PANEL Routine 07/29/2024 7:19 AM MATERIAL MIXER Routine general medical examination at a health care facility PCOS (polycystic ovarian syndrome) HEMOGLOBIN, GLYCOSYLATED Routine 07/29/2024 7:19 AM MATERIAL MIXER Routine general medical examination at a health care facility LIPID PANEL Routine 07/29/2024 7:19 AM MATERIAL MIXER Routine general medical examination at a health care facility OUTSIDE CYTOPATH CERV/VAG INTERPRET (PAP) (SCAN ORDER) 07/22/2024 OUTSIDE LAB (SCAN ORDER) 07/22/2024 from Last 3 Months Results * (ABNORMAL) HEMOGLOBIN, GLYCOSYLATED (07/29/2024 7:19 AM MATERIAL MIXER) HGB A1C 5.6 4.5 - 6.2 % 07/29/2024 2:49 PM MATERIAL MIXER [facility] ESTIMATED AVG GLUCOSE 114(H) 74 - 106 MG/DL 07/29/2024 2:49 PM MATERIAL MIXER [facility] 07/29/2024 7:19 AM MATERIAL MIXER us Julieth Lopez MD LABORATORY Final Re sult [facility] [place] [address] [place] [address], * BASIC METABOLIC PANEL (07/29/2024 7:19 AM MATERIAL MIXER) SODIUM S/P/B 142 136 - 145 MMOL/L 07/29/2024 2:48 PM [facility] POTASSIUM S/P/B 4.3 3.5 - 5.1 MMOL/L 07/29/2024 2:48 PM [facility] CHLORIDE S/P/B 105 98 - 107 MMOL/L 07/29/2024 2:48 PM [facility] CO2 27.5 21 - 32 MMOL/L 07/29/2024 2:48 PM MATERIAL MIXER [facility] GLUCOSE 98 70 - 99 MG/DL 07/29/2024 2:48 PM [facility] BUN 12 7 - 18 MG/DL 07/29/2024 2:48 PM [facility] CREATININE S/P/B 0.72 0.55 - 1.02 MG/DL 07/29/2024 2:48 PM MATERIAL MIXER [facility] CALCIUM S/P/B 8.9 8.4 - 10.5 MG/DL 07/29/2024 2:48 PM [facility] ANION GAP 9.5 5 - 15 MMOL/L 07/29/2024 2:48 PM MATERIAL MIXER [facility] Comment:REFERENCE RANGE NOT ESTABLISHED OSMOLALITY (CALC) 294 MOSM/KG 025 2:48 PM MATERIAL MIXER [facility] Comment:REFERENCE RANGE NOT ESTABLISHED GFR ESTIMATE >90 >90 ML/MIN/1. 73 M2 07/29/2024 2:48 PM MATERIAL MIXER [facility] GFR NOTES GFR REFERENCE S: 07/29/2024 2:48 PM MATERIAL MIXER [facility] Comment: THE ESTIMATED GFR IS CALCULATED [...] FAILURE: <15 ml/min/1.73 m2 07/29/2024 7:19 AM MATERIAL MIXER us Julieth Lopez MD LABORATORY Final Re sult [facility] [address] [place] [address], * (ABNORMAL) LIPID PANEL (07/29/2024 7:19 AM MATERIAL MIXER) CHOLESTEROL 179 <200 MG/DL 07/29/2024 2:48 PM MATERIAL MIXER [facility] TRIGLYCERIDES 123 <150 MG/DL 07/29/2024 2:48 PM MATERIAL MIXER [facility] HDL 49 >40 MG/DL 07/29/2024 2:48 PM [facility] LDL-C 105(H) <100 MG/DL 07/29/2024 2:48 PM MATERIAL MIXER [facility] VLDL CALCULATION 25 5 - 28 MG/DL 07/29/2024 2:48 PM MATERIAL MIXER [facility] CHOL/HDL RATIO 3.7 0.0 - 4.0 07/29/2024 2:48 PM MATERIAL MIXER [facility] LDL/HDL 2.1 0.41 - 2.13 07/29/2024 2:48 PM MATERIAL MIXER [facility] NON HDL CHOLESTEROL 130 <140 MG/DL 07/29/2024 2:48 PM MATERIAL MIXER [facility] 07/29/2024 7:19 AM MATERIAL MIXER Julieth Lopez MD LABORATORY Final Re sult [facility] [address] [place] [address], * PAP SMEAR (SCAN ORDER) (07/22/2024) 07/22/2024 [facility] Scanned SCANNING Final Resu lt * OUTSIDE LAB (SCAN ORDER) (07/22/2024) 07/22/2024 [facility] Scanned SCANNING Final Resu lt from Last 3 Months Insurance [facility] MEDICAID Care Teams Tangled Yarn Worker Relationship Specialty Start Date End Date Julieth Lopez MD [address] [place] [address] PCP - General FAMILY PRACTICE 07/29/24
--- OUTSIDE RECORDS SUMMARY | 2024-09-30 09:25 | XMS_ITS | Encounter Summary ---
Author Organization [facility] Address [address] [place] [address] Care Team Providers Care Ultrasonic Welding Machine Operator Name Role Phone Julieth Lopez MD Primary Care Provider + Julieth Lopez MD Primary Care Provider + Encounter Details Date Type Department Care Team (Late st Contact Info) Description 04/25/2020 [employer] Message Enc [facility] Medical Group Family Medicine - [place] [address] [facility], [address] [place] [phone] Elgin Lemos MD [address] [address] RE: Question Social History Tobacco [...] on file 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 STORE MERCHANDISER Gender Identity Not on file Sexual Orientation Not on file COVID-19 Exposure Response Date Recorded In the last month, have you been in contact with someone who was confirmed or suspected to have Coronavirus / COVID-19? No / Unsure 04/26/2020 9:25 AM STORE MERCHANDISER documented as of this encounter Plan of Treatment Upcoming Encounters Date Type Department Care Team (Late st Contact Info) Description 07/11/2025 8:30 AM STORE MERCHANDISER Office Visit [facility] Medical Group Family Medicine - [place] [address] [place] [address] Julieth Lopez MD [address] [place] [address] documented as of this encounter Visit Diagnoses Not on filedocumented in this encounter Additional Health Concerns Infection Onset Date Last Indicated Resolved Time COVID-19 Rule Out 06/07/2020 06/07/2020 06/10/2020 2:30 AM STORE MERCHANDISER COVID-19 Rule Out 07/04/2020 07/04/2020 07/05/2020 6:22 PM STORE MERCHANDISER Assessment Noted Time PHQ-9 Depression Total Score: 13 020 11:01 AM CDT documented as of this encounter Care Teams Ultrasonic Welding Machine Operator Relationship Specialty Start Date End Date Julieth Lopez MD [address] [place] [address] PCP - General FAMILY PRACTICE 07/29/24 Julieth Lopez MD [address] [place] [address] PCP - General FAMILY PRACTICE 07/07/24 07/28/24 documented as of this encounter
--- OUTSIDE RECORDS SUMMARY | 2024-09-30 09:25 | XMS_ITS | Encounter Summary ---
Author Organization [facility] Address [address] [place] [address] Care Team Providers Care Renal Medicine Physician Name Role Phone Julieth Lopez MD Primary Care Provider + Julieth Lopez MD Primary Care Provider + Encounter Details Date Type Department Care Team (Late st Contact Info) Description 03/09/2020 [employer] Message Enc [facility] Medical Group Family Medicine - [place] [address] [facility], [address] [place] [phone] Elgin Lemos MD [address] [phone] RE: Medication Questions Social History Tobacco Use [...] on file 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 TROMMEL TENDER Gender Identity Not on file Sexual Orientation [...] st Contact Info) Description 07/11/2025 8:30 AM TROMMEL TENDER Office Visit [facility] Medical Group Family Medicine - [place] [address] [place] [address] Julieth Lopez MD [address] [place] [address] documented as of this encounter Visit Diagnoses Not on filedocumented in this encounter Additional Health Concerns Infection Onset Date Last Indicated Resolved Time COVID-19 Rule Out 03/20/2020 03/20/2020 03/22/2020 6:40 PM CDT COVID-19 Rule Out 06/07/2020 06/07/2020 06/10/2020 2:30 AM TROMMEL TENDER COVID-19 Rule Out 07/04/2020 07/04/2020 07/05/2020 6:22 PM TROMMEL TENDER documented as of this encounter Care Teams Renal Medicine Physician Relationship Specialty Start Date End Date Julieth Lopez MD [address] [place] [address] PCP - General FAMILY PRACTICE 07/29/24 Julieth Lopez MD [address] [place] [address] PCP - General FAMILY PRACTICE 07/07/24 07/28/24 documented as of this encounter
--- OUTSIDE RECORDS SUMMARY | 2024-09-30 09:25 | XMS_ITS | Clinical Summary ---
Author Organization [facility] Address [address] [place] [address] Care Team Providers Care Alarm Field Technician Name Role Phone Angelica Maynard MD Primary [...] removed from Sternum. multiple prior proceedure at [facility] but recurred CYST REMOVAL 03/12/2024 Right Breast [...] abuse Mother Imelda Vonnie Asthma Mother Imelda Audrain Depression Mother Imelda Audrain Heart disease Mother Imelda Vonnie Hypertension Mother Imelda [place] Miscarriages / Stillbirths Mother Imelda Graft on Alcohol abuse Other Arthritis Other Bleeding Disorder Other Cancer Other Deep vein thrombosis Other Diabetes Other Gout Other Kidney disease Other Mental illness Other Stroke Other Alcohol abuse Paternal Grandfather Rojas Audrain sr Arthritis Paternal Grandfather Rojas Audrain sr Asthma Paternal Grandfather Rojas Audrain sr Diabetes Paternal Grandfather Rojas Audrain sr Early Paternal Grandfather Rojas Audrain sr Heart disease Paternal Grandfather Rojas Audrain sr Hypertension Paternal Grandfather Rojas Audrain sr Alzheimer's disease Paternal Grandmother Apurva stuart [...] 0 11/15/2004, 10/10/2000, Additional history exists Insurance [facility] Care Teams Alarm Field Technician Relationship Specialty Start Date End Date Angelica Maynard MD PCP - General Family Medicine 12/09/23
--- OUTSIDE RECORDS SUMMARY | 2024-09-30 09:25 | XMS_ITS | Encounter Summary ---
Author Organization [facility] Address [address] [place] [address] Care Team Providers Care Peanut Butter Maker Name Role Phone Julieth Lopez MD Primary Care Provider + Julieth Lopez MD Primary Care Provider + Encounter Details Date Type Department Care Team (Late st Contact Info) Description 03/08/2020 [employer] Message Enc [facility] Medical Group Family Medicine - [place] [address] [facility], [address] [place] [phone] Elgin Lemos MD [address] [address] RE: Question Social History [...] on file 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 CHANNEL REBUILDER Gender Identity Not on file Sexual Orientation [...] st Contact Info) Description 07/11/2025 8:30 AM CHANNEL REBUILDER Office Visit [facility] Medical Group Family Medicine - [place] [address] [place] [address] Julieth Lopez MD [address] [place], [place] [address] documented as of this encounter Visit Diagnoses Not on filedocumented in this encounter Additional Health Concerns Infection Onset Date Last Indicated Resolved Time COVID-19 Rule Out 03/20/2020 03/20/2020 03/22/2020 6:40 PM CDT COVID-19 Rule Out 06/07/2020 06/07/2020 06/10/2020 2:30 AM CHANNEL REBUILDER COVID-19 Rule Out 07/04/2020 07/04/2020 07/05/2020 6:22 PM CHANNEL REBUILDER documented as of this encounter Care Teams Peanut Butter Maker Relationship Specialty Start Date End Date Julieth Lopez MD [address] [place] [address] PCP - General FAMILY PRACTICE 07/29/24 Julieth Lopez MD [address] [place] [address] PCP - General FAMILY PRACTICE 07/07/24 07/28/24 documented as of this encounter
--- OUTSIDE RECORDS SUMMARY | 2024-09-30 09:25 | XMS_ITS | Encounter Summary ---
Author Organization [facility] Address [address] [place] [address] Care Team Providers Care General Surgeon Name Role Phone Julieth Lopez MD Primary Care Provider + Julieth Lopez MD Primary Care Provider + Encounter Details Date Type Department Care Team (Late st Contact Info) Description 01/13/2020 [employer] Message Enc [facility] Medical Group Family Medicine - [place] [address] [facility], [address] [place] [phone] Elgin Lemos MD [address] [address] RE: Question Social History Tobacco [...] on file 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 TRAVELING REPAIR ACCOUNTANT Gender Identity Not on file Sexual Orientation [...] 01/14/2020 9:12 AM CDT Requested results from [facility]. Placed on your desk for review. documented in this encounter Plan of Treatment Upcoming Encounters Date Type Department Care Team (Late st Contact Info) Description 07/11/2025 8:30 AM TRAVELING REPAIR ACCOUNTANT Office Visit [facility] Medical Group Family Medicine [facility] [address] [place] [address] Julieth Lopez MD [address] [place] [address] documented as of this encounter Visit Diagnoses Not on filedocumented in this encounter Additional Health Concerns Infection Onset Date Last Indicated Resolved Time COVID-19 Rule Out 03/20/2020 03/20/2020 03/22/2020 6:40 PM CDT COVID-19 Rule Out 06/07/2020 06/07/2020 06/10/2020 2:30 AM TRAVELING REPAIR ACCOUNTANT COVID-19 Rule Out 07/04/2020 07/04/2020 07/05/2020 6:22 PM TRAVELING REPAIR ACCOUNTANT documented as of this encounter Care Teams General Surgeon Relationship Specialty Start Date End Date Julieth Lopez MD [address] [place] [address] PCP - General FAMILY PRACTICE 07/29/24 Julieth Lopez MD [address] [place] [address] PCP - General FAMILY PRACTICE 07/07/24 07/28/24 documented as of this encounter
== END 2024-09-30 09:01 | disposition home or self-care (01) ==
PROVIDERS: PCP Student in an Organized Health Care Education/Training Program; Visit Provider Orthopaedic Surgery
DX: M25.561 Pain in right knee (principal)
CPT/HCPCS: 73721

== ENCOUNTER 2024-12-03 00:16 | Day surgery (SDC) | payer OTHER, MEDICAID, SELFPAY ==
--- NOTE | 2024-12-01 07:33 | PM.IMHP ---
H&P: HPI History of Present Illness Date/Time: 12/01/24 07:33 Chief Complaint: Excessive bleeding Narrative: This is a 24-year-old female admitted for hysteroscopy/dilatation curettage secondary to excessive heavy bleeding. She has prediabetes and had an IUD removed without difficulty. She continues to bleed heavily despite attempts with therapy. She will undergo hysteroscopy/dilatation curettage. Risks and benefits reviewed including not exclusive of , aspiration pneumonia, bleeding, transfusion, perforation injury to bowel, bladder, ureters, or other internal organs with need for open laparotomy. She received the ACOG handout entitled hysteroscopy as well as dilatation curettage respectively. She had all questions answered. She asked to proceed Review of Systems Review of Systems: All systems reviewed & are unremarkable except as noted in HPI. All systems reviewed & are unremarkable except as noted in HPI and below PMFSH Past Medical History Medical History PCOS (polycystic ovarian syndrome) Morbid obesity Endometriosis Anemia Surgical History Surgical History Status post incision and drainage complex I&D of chest wall abscess 5x7 cm, right breast measuring 2x3 cm 07/15/22 Hx of tonsillectomy (2014) Due to recurrent tonsillitis Hx of excision of mass Family History Family History Father Liver failure Alcoholic cirrhosis, Onset Age: 49 Grandparent Heart disease Diabetes mellitus Lung cancer Grandparent Cervical cancer Breast cancer DVT (deep venous thrombosis) Other Cervical cancer Breast cancer Esophageal cancer Social History Social History Social History: She lives with her sister. She works at [employer] Denies use of alcohol, tobacco or drugs. She does not have any children. Code status: Full code Surrogate decision maker: Marie Shafer (aunt) Smoking status: Never smoker Alcohol intake: never Substance use: never Do You Feel Safe in your Home?: Yes Lack of Transportation: No Lack of Food: Never True Current Housing: I Have Housing Concerned About Future Housing: No Difficulty Paying Gas/Electric Bills: No Difficulty Paying for Meds: YES Currently Unemployed: No Education: Associate Degree Difficulty w/ Childcare or Family Care: No Spiritual care concerns: No Meds Home Medications and Allergies Home Medications ?Medication ?Instructions ?Recorded ?Confirmed ?Type albuterol sulfate 90 mcg/actuation 1 inh inhalation PRN PRN Shortness 05/01/21 11/16/24 History aerosol inhaler Of Breath Or Wheezing budesonide-formoterol HFA 160 1 inh inhalation BID 05/01/21 11/16/24 History mcg-4.5 mcg/actuation aerosol inhaler (Symbicort) sumatriptan succinate 25 mg tablet 25 - 50 mg PO PRN PRN Migraine 10/26/22 11/16/24 History Headache celecoxib 200 mg capsule (Celebrex) 200 mg PO DAILY #30 caps 11/16/24 11/16/24 Rx Allergies Allergy/AdvReac Type Severity Reaction Status Date / Time adhesive Allergy Unknown ITCHING Verified 11/16/24 07:14 latex Allergy Hives Verified 11/16/24 07:14 vancomycin AdvReac Mild Pruritis Verified 11/16/24 07:14 Exam Const: General: cooperative, healthy appearing and comfortable Nutritional Appearance: overweight Orientation/consciousness: oriented to person, oriented to place and oriented to time HENMT: Head: normal to inspection Resp: Effort & Inspection: normal respiratory effort Cardio: Rate: regular rate Rhythm: regular rhythm Heart sounds: S1 normal heart sound present and S2 normal heart sound present GI: Inspection: normal to inspection : External Female Exam: normal external appearance Speculum Exam - Vagina: normal appearance of the vagina and vaginal bleeding Speculum Exam - Cervix: normal appearance of the cervix Bimanual exam- vagina & uterus: soft Bimanual Exam- Adnexa, other: normal adnexae Assessment and Plan Assessment and plan (1) Excessive bleeding: Code(s): R58 - Hemorrhage, not elsewhere classified Status: Acute Plan Proceed with hysteroscopy/dilatation and curettage
[2024-12-01 09:43] VITALS: BMI 45.8
--- NOTE | 2024-12-01 09:44 | PC.NURSE ---
Report to the Outpatient Waiting Room, entrance under the green pavilion located off [facility], at time _0915_ on date _[id number]_. Planned Procedure Time: _1115_.? Time changes happen often and if your time is changed the preop area will call you the afternoon before. - You and your visitor will be asked to self-screen and do not enter if you have any COVID symptoms. Please call surgeon if you need to reschedule. - A mask is optional within the hospital at this time. Patients may have clear liquids (water, carbonated beverages, clear teas, apple juice) until 3 hours prior to surgery with a maximum of 20 ounces. - No food from midnight until time of surgery and no smoking, or chewing tobacco (or any form of nicotine). No chewing gum, candy or mints. Take only the following medications with a SIP of water on the morning of surgery: ____Symbicort and if needed Albuterol____ DO NOT STOP ANY OF YOUR OTHER PRESCRIPTION MEDICATIONS PRIOR TO SURGERY EXCEPT THE FOLLOWING Hold all vitamins and supplements for 3 days per anesthesiologist. Medications to discontinue per physician Celebrex, please ask office if OK to take. Date to take last dose Please no make-up, nail greenlandic, hairspray, perfume, deodorant, or body powder the day of surgery.? No jewelry (including any body piercings) or valuables the day of surgery, leave them at home.? Please take a shower or bath the night before, or the morning of, surgery with an antibacterial soap.? Wear comfortable, loose fitting clothing.? - Jewelry must be removed prior to entering the operating room.? Rings and piercings that are not removed may be cut off. - The hospital will not accept responsibility for valuables.? - Please leave all valuables, including medications, at home the day of surgery. If you are going home after surgery, a licensed fork truck driver must drive you home.? - NO public transportation without another adult if you receive anesthesia. - We recommend that an adult stay with you for 24 hours following discharge. - We also recommend that you do not drive, make important decision, drink alcoholic beverages, or take any drugs that were not prescribed by your health care provider for at least 24 hours after your discharge time. Follow any additional instructions given to you from your surgeon. Telephone instructions given to ___[place]__and asked if any additional questions and then verbalized understanding. Patient advised to call surgeon office or pre surgery nurse liaison [phone] if any additional questions.
--- OUTSIDE RECORDS SUMMARY | 2024-12-03 00:21 | XMS_ITS | Referral Summary ---
[facility] Organization [facility] Address [address] [place] [address] Care Team Providers Care Skidder Lever Operator Name Role Phone Angelica Maynard MD Primary Care Provider Encounters Date Type Department Care Team Description 11/25/2024 10:10 AM CDT Office Visit [facility] [address] [place] [address] [address] [place] [address] Dread Rosales MD Mass of chest wall, right (Primary Dx) from Last 3 Months Allergies Active Allergy Reactions Criticality Noted Date Comments Adhesive Rash Medium 08/19/2019 Limbs swell Erenumab-Aooe Rash Medium 12/09/2023 Site reaction, believes due to latex ingredient overlap Insect Venom Anaphylaxis High 09/27/2024 Latex Hives,Urticaria,Rash Medium 03/26/2019 Nortriptyline Hcl Other (See comments) Low 07/07/19 25 nightmares Vancomycin Anaphylaxis,Chest tightness,Dizziness,Hiv es,Itching,Nausea & Vomiting,Rash,Redness,S welling,Swollen tongue,Wheezing High 09/06/2022 Wasp Venom Anaphylaxis High 09/27/2024 Medications SUMAtriptan (IMITREX) 25 mg tablet Take 1-2 tablets (25-50 mg total) by mouth 2 (two) times a day as needed 0 Active budesonide-for moteroL (SYMBICORT) 160-4.5 mcg/actuation inhaler Inhale 2 puffs 2 (two) times a day 0 Active albuterol HFA (PROVENTIL HFA,VENTOLIN HFA,PROAIR HFA) 90 mcg/actuation inhaler Inhale 2 puffs every 4 (four) hours as needed 0 Active celecoxib (CeleBREX) 200 mg capsule 5 Active EPINEPHrine 0.3 mg/0.3 mL auto-injection syringe INJECT 0.3MLS INTO THE MUSCLE NEEDED FOR ANAPHYLAXIS Active medroxyPROGEST ERone (PROVERA) 10 mg tablet 5 Active levonorgestreL (MIRENA) IUD 1 each by intrauterine route once 025 Discontin ued(Patie nt Reported) oxyCODONE-acet aminophen (PERCOCET) 5-325 mg per tabletIndicati ons:Pain Take 1-2 tablets by mouth every 8 (eight) hours as needed for pain 10 tablet 4 025 Discontin ued(Patie nt Reported) nortriptyline (PAMELOR) 10 mg capsuleIndicat ions:Daily headache,Migra ine with aura and without status migrainosus, not intractable,Mo derate episode of recurrent major depressive disorder (HCC),LUDIVINA (generalized anxiety disorder) TAKE 2 CAPSULES BY MOUTH NIGHTLY. 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 Never 11/25/2024 Q2: How many drinks containi ng alcohol do you have on a typical day when you are drinking? Patient does not drink Q3: How often do you have si x or more drinks on one occasion? Never 11/25/2024 PHQ-2 Answer Date Recorded PHQ-2 Total Score (If total score is 3 or more points, staff should administer the PHQ-9) 3 12/09/2023 PHQ-9 Answer Date Recorded PHQ-9 Total Score 10 12/09/2023 Personal Safety Answer Date Recorded Have [...] Sign Reading Time Taken Comments Blood Pressure 142/84 11/25/2024 10:28 AM CDT Pulse 93 11/25/2024 10:28 AM CDT Temperature 36.6 C (97.8 F) 11/25/2024 10:28 AM CDT Respiratory Rate 20 03/12/2024 3:15 PM CDT Oxygen Saturation 98% 11/25/2024 10: 28 AM CDT Inhaled Oxygen Concentration - - Weight 138.5 kg (305 lb 6.4 oz) 025 10:28 AM CDT Height 172.7 cm (5' 8) 11/25/2024 10:2 8 AM CDT Body Mass Index 46.44 11/25/2024 10:28 AM CDT Plan of Treatment Not on file Insurance [employer]NA [facility] Care Teams Skidder Lever Operator Relationship Specialty Start Date End Date Angelica Maynard MD PCP - General Family Medicine 12/09/23
--- OUTSIDE RECORDS SUMMARY | 2024-12-03 00:21 | XMS_ITS | Clinical Summary ---
Author Organization [facility] Address [address] [place] [address] Care Team Providers Care Master [place] Name Role Phone Pcp, Carolyn Miller Im-Fm Primary Care Provider Un available Source Comments [facility],non-owned Affiliates and Associated Physician Practices is amultiple site organization consisting of ambulatory clinics and hospital sitesin [place], [place], [place] and [place]. This disclosure is being madepursuant to the Care Everywhere program and may not contain all information available regarding this patient. Last updated 18.[facility] Allergies Active Allergy Reactions Criticality Noted Date [...] 10:56 AM CDT Height 172.7 cm (5' 8) 03/22/2022 10:56 AM CDT Body Mass Index 39.53 03/22/2022 10:56 AM CDT Plan of Treatment Health Maintenance Due Date Last Done Comments HIV SCREENING 2014 HPV VACCINE (1 - 3-dose series) 2014 CHLAMYDIA/GONORRHEA SCREENING 2015 HEPATITIS C SCREENING 06/18/2017 DTAP/TDAP/TD VACCINES (1 - Tdap) 2018 HEPATITIS B VACCINE (1 of 3 - 19+ 3-dose series) 2018 PAP SMEAR 2020 COVID-19 VACCINE (3 - 2023- season) 2024 [...] topic Insurance MEDICAID [employer]NA [facility] Care Teams Master [place] Relationship Specialty Start Date End Date PcpCarolyn Depaul Im-Fm PCP - General 01/10/23
--- OUTSIDE RECORDS SUMMARY | 2024-12-03 00:21 | XMS_ITS | Clinical Summary ---
Author Organization [facility] Address [address] [place] [address] Care Team Providers Care Corrosion Control Engineer Name Role Phone Angelica Maynard MD Primary Care Provider Allergies Active Allergy Reactions Criticality Noted Date Comments Adhesive Rash Medium 08/19/2019 Limbs swell Erenumab-Aooe Rash Medium 12/09/2023 Site reaction, believes due to latex ingredient overlap Insect Venom Anaphylaxis High 09/27/2024 Latex Hives,Urticaria,Rash Medium 03/26/2019 Nortriptyline Hcl Other (See comments) Low 07/07/19 nightmares Vancomycin Anaphylaxis,Chest tightness,Dizziness,Hiv es,Itching,Nausea & Vomiting,Rash,Redness,S [...] knee 11/16/2010 12/09/2023 Deviated septum 1999 12/09/2023 Encounters Date Type Department Care Team Description 11/25/2024 10:10 AM CDT Office Visit [facility] [address] [place] [address] [address] [place] [phone] Dread Rosales MD Mass of chest wall, right (Primary Dx) from Last 3 Months Immunizations Immunization Administration Dates Next Due DTaP [...] removed from Sternum. multiple prior proceedure at [place] but recurred CYST REMOVAL 03/12/2024 Right Breast [...] Rojas Garza JR Lung disease Father Rojas Jefffelice Garza JR Alcohol abuse Maternal Grandmother Letty Jorje Anemia Maternal Grandmother Letty Jorje Arthritis Maternal Grandmother Letty Jorje Asthma Maternal Grandmother Letty Jorje Bleeding Disorder Maternal Grandmother Letty Jorje Depression Maternal Grandmother Letty Jorje Drug abuse Maternal Grandmother Letty Jorje Hearing loss Maternal Grandmother Letty Jorje Alcohol abuse Mother Imelda Coryell Asthma Mother Imelda Coryell Depression Mother Imelda Coryell Heart disease Mother Imelda Vonnie Hypertension Mother Imedla Vonnie Miscarriages / Stillbirths Mother Imelda Graft on Alcohol abuse Other Arthritis Other Bleeding Disorder Other Cancer Other Deep vein thrombosis Other Diabetes Other Gout Other Kidney disease Other Mental illness Other Stroke Other Alcohol abuse Paternal Grandfather Rojas Vonnie sr Arthritis Paternal Grandfather Rojas Coryell sr Asthma Paternal Grandfather Rojas Coryell sr Diabetes Paternal Grandfather Rojas Coryell sr Early Paternal Grandfather Rojas Vonnie sr Heart disease Paternal Grandfather Rojas Coryell sr Hypertension Paternal Grandfather Rojas Coryell sr Alzheimer's disease Paternal Grandmother Apurva rashaad stuart Arthritis Paternal Grandmother Apurva morrisseyzbigniewe r Asthma Paternal Grandmother Apurva morrisseytche r Depression Paternal Grandmother Apurva morrisseyzbigniewe r Hearing loss Paternal Grandmother Apurva morrisseyzbigniewe r Memory loss Paternal Grandmother Apurva morrisseyzbigniewe r Mental illness Paternal Grandmother Apurva rizvi her Miscarriages / Stillbirths Paternal Grandmother Apurva p john eganer Vision loss Paternal Grandmother Apurva egane r Depression Sister Rosanna Shankar Relation Name Status Comments Father Rojas Garza JR Alive Maternal Grandmother Letty Recinos Mother Imelda Shankar Alive Other Paternal Grandfather Rojas Shankar sr Paternal Grandmother Apurva stuart Sister Rosanna Shankar Social History Tobacco Use Types Packs/Day Years [...] 11/25/2024 10:28 AM CDT Plan of Treatment Health Maintenance Due Date Last Done Comments Cervical Cancer Screening 1999 Hepatitis C Screening 1999 Pneumococcal vaccine <65 (1 of 1 - PPSV23) 2005 12/25/2000 Regular Well Visit/Exam 18-64 2017 HPV Vaccines (3 - 3-dose series) 11/18/2019 08/26/19, 09/25/2018 Covid-19 Vaccine (2023-2 5 season) 2024 10/20/2020, 10/20/2020, 09/29/2020, Additional history exists Depression Screening 12/08/2024 12/09/2023, 12/09/19 Influenza Vaccine (Season Ended) 2025 03/09/2020, 03/05/2019, 03/03/2012, Additional history exists DTaP/Tdap/Td Vaccine (10 - T d or Tdap) 03/16/2032 03/16/2022, 02/15/2022, 02/06/2011, Additional history exists Hepatitis B Screening Completed 08/28/2001 , 10/10/2000, 04/25/2000, Additional history exists Varicella Vaccines Completed 02/06/2011, 0 11/15/2004, 10/10/2000, Additional history exists Insurance [facility] [facility] Care Teams Corrosion Control Engineer Relationship Specialty Start Date End Date Angelica Maynard MD PCP - General Family Medicine 12/09/23
[2024-12-03 08:00] VITALS: BMI 46.0
[2024-12-03 08:15] VITALS: BP 136/86; PULSE 69; RESP 18; TEMP 36.4; O2SAT 99
[2024-12-03] MEDS: LACTATED RINGERS 1,000 ML 30 ML IV CONT (08:15)
--- NOTE | 2024-12-03 08:15 | P.PNAN_ITS ---
Anes - Initial Pre Proc Eval Procedure: Operation Date: 12/03/24 09:30 Proposed Procedures p Hysteroscopy Dilation and Curettage - Tomás Brewer MD Date/Time: 12/03/24 08:15 Surgeon: Tomás Brewer MD Pre Op Diagnosis: irregular bleeding Patient Data Age: 24 Gender: F Height: 1.73 m Weight: 137.5 kg Allergies Allergy/AdvReac Type Severity Reaction Status Date / Time adhesive Allergy Unknown ITCHING Verified 12/01/24 09:33 latex Allergy Hives Verified 12/01/24 09:33 vancomycin AdvReac Mild Pruritis Verified 12/01/24 09:33 Home Medications ?Medication ?Instructions ?Recorded ?Confirmed ?Type albuterol sulfate 90 mcg/actuation 1 inh inhalation PRN PRN Shortness 05/01/21 12/01/24 History aerosol inhaler Of Breath Or Wheezing budesonide-formoterol HFA 160 1 inh inhalation BID 05/01/21 12/01/24 History mcg-4.5 mcg/actuation aerosol inhaler (Symbicort) sumatriptan succinate 25 mg tablet 25 - 50 mg PO PRN PRN Migraine 10/26/22 12/01/24 History Headache celecoxib 200 mg capsule (Celebrex) 200 mg PO DAILY #30 caps 11/16/24 12/01/24 Rx rimegepant 75 mg disintegrating 75 mg PO Q48H 12/01/24 12/01/24 History tablet (Nurtec ODT) spironolactone 25 mg tablet 25 mg PO DAILY 12/01/24 12/01/24 History hydrocodone 5 mg-acetaminophen 325 1 tablet PO Q4H PRN pain #20 tabs 12/03/24 Rx mg tablet Patient hx anesthesia problems: none Family hx anesthesia problems: none Results Review: All pre-operative results and documents have been reviewed as part of the pre- operative evaluation. FORMERLY [facility], [facility] Past Medical History Medical History PCOS (polycystic ovarian syndrome) Morbid obesity Endometriosis Anemia Surgical History Surgical History Status post incision and drainage complex I&D of chest wall abscess 5x7 cm, right breast measuring 2x3 cm 07/15/22 Hx of tonsillectomy (2014) Due to recurrent tonsillitis Hx of excision of mass Family History Family History Father Liver failure Alcoholic cirrhosis, Onset Age: 49 Grandparent Heart disease Diabetes mellitus Lung cancer Grandparent Cervical cancer Breast cancer DVT (deep venous thrombosis) Other Cervical cancer Breast cancer Esophageal cancer Social History Social History Social History: She lives with her sister. She works at [employer]. Denies use of alcohol, tobacco or drugs. She does not have any children. Code status: Full code Surrogate decision maker: Marie Shafer (aunt) Smoking status: Never smoker Alcohol intake: never Substance use: never Do You Feel Safe in your Home?: Yes Lack of Transportation: No Lack of Food: Never True Current Housing: I Have Housing Concerned About Future Housing: No Difficulty Paying Gas/Electric Bills: No Difficulty Paying for Meds: YES Currently Unemployed: No Education: Associate Degree Difficulty w/ Childcare or Family Care: No Spiritual care concerns: No Anes - Eval Final PreProcedure Day of Procedure 12/03/24 08:15 Patient weight: morbidly obese Heart: regular rate and rhythm Lungs: clear to auscultation Airway: Mallampati scale class II Neurological: alert and oriented Last oral intake: >/= 8 hours ASA classification: III Emergent: no Anesthetic plan: proceed Anesthesia type and monitoring: general GIVS and standard monitoring Results Review: All pre-operative results and documents have been reviewed as part of the pre- operative evaluation. Informed Consent: The patient's anesthetic plan and its attendant risks and benefits were discussed with the patient/family/POA. Questions were solicited and answers provided to the satisfaction of the patient/family/POA.
[2024-12-03] MEDS: ACETAMINOPHEN 500 MG TABLET 1000 MG PO (08:20)
[2024-12-03 09:18] LABS: BEDSIDEPREGUCG Negative (Negative)
[2024-12-03] MEDS: LIDOCAINE 1% LOCAL INJ 10 ML VIAL INFILTRATE (09:27)
[2024-12-03] MEDS: KETOROLAC 15 MG/ML VIAL (*BKC) IV PUSH (09:28)
--- NOTE | 2024-12-03 09:28 | S_PTH ---
PATIENT: America Shankar LOC: [facility] U#:[id number] AGE/SX: 24/F ROOM: RE12/03/[address]: Tomás Brewer MD : 2000 BED: DIS: 12/03/2024 SPEC #: [id number] RECD: 12/03/24 11:44 STATUS: MELISSA REQ #: [id number] EDEL: 12/03/24 09:[address]: Tomás Orozco DEPT: [facility] Surgical RECD BY: Federica Lew ENTERED: 12/03/24 11:44 SP TYPE: Surgical OTHR DR: Julieth Lopez, Tissues: A - Endometrial Curettings Procedures: Hematoxylin and Eosin Stain Gross and Microscopic Level 4
--- NOTE | 2024-12-03 09:36 | W.PM.PROC2 ---
Procedure Note - Detailed Date of Procedure 12/03/24 Pre-op Diagnosis irregular bleeding Post-op Diagnosis Same Procedure Performed Hysteroscopy/dilatation curettage Surgeon Tomás Brewer MD Anesthesia MAC and Local Indications 24-year-old female with excessive heavy bleeding and thickened endometrium Findings Thick endometrial tissue without evidence of definitive polyp. Description of Procedure Patient was prepped draped in the normal sterile fashion placed in dorsal lithotomy position. Under excellent IV sedation weighted speculum placed in posterior fornix vagina. Anterior lip of the cervix grasped with a single-tooth tenaculum. 2.5cc 1% xylocaine anesthesia placed at 2, 4, 8, 10:00 a.m. of the cervix. Uterus sounded to 8cm. Serial dilatation fragmented dilators performed followed by passage of the 5mm visualizing hysteroscope. Normal saline was used as visualizing medium. Thick irregular endometrial tissue was seen but no evidence of polyp or other definitive pathology present P could each fallopian tube os could be seen. The uterus was scraped over the entire 360? with the small wall. The instruments withdrawn and blood loss estimated 5cc. All sponge, needle, instrument counts were correct. There were no immediate complications Estimated Blood Loss 5 Drains No Packing No Pathology Yes Complications No immediate complications Condition Stable Disposition PACU
[2024-12-03 09:38] VITALS: BP 126/73; PULSE 85; RESP 14; O2SAT 99
[2024-12-03 10:05] VITALS: BP 121/69; PULSE 78; RESP 20
[2024-12-03 10:35] VITALS: BP 107/64; PULSE 78; RESP 20
[2024-12-03 10:50] VITALS: BP 116/71; PULSE 72; RESP 16
--- NOTE | 2024-12-07 06:55 | WPDHPUPDATE1 ---
History and Physical Update Update Date/Time: 12/07/24 06:55 History and Physical has been reviewed, including an updated exam of the patient. There are NO changes in the patient's condition. Risks, benefits, and alternatives have been discussed and questions answered. Patient agrees to proceed with procedure.
== END 2024-12-03 10:53 | disposition home or self-care (01) ==
PROVIDERS: PCP Student in an Organized Health Care Education/Training Program; Visit Provider Obstetrics & Gynecology
PROC: 0U5B8ZZ Destruction of Endometrium, Via Natural or Artificial Opening Endoscopic (ICD-10-PCS; CPT 58563; principal; 2024-12-03 09:30)
DX: N93.9 Abnormal uterine and vaginal bleeding, unspecified (principal); E66.01 Morbid (severe) obesity due to excess calories; Z68.42 Body mass index [BMI] 45.0-49.9, adult
CPT/HCPCS: 58558; 88305; A9270; J1100; J1885; J2003; J2250; J2405; J2704; J3010; J7120

== ENCOUNTER 2024-12-13 14:30 | Outpatient (RCR) | payer OTHER, MEDICAID, SELFPAY ==
--- NOTE | 2024-10-21 15:26 | OPREHPOC ---
Outpatient Therapy Plan of Care This is a Multidisciplinary Plan of Care that may contain components documented by all disciplines (PT, OT, and ST.) PT Problem 1 PT Problem #1 Knowledge Deficit PT Goal 1 Goal / Goal Update Independnece with HEP Target Visit 4 PT Goal 2 Goal / Goal Update Report no pain greater than 1/10 for 2 weeks PT Problem 2 PT Problem #2 Impaired Gait PT Goal 1 Goal / Goal Update Ambulate with even stride length bilaterally Target Visit 4 PT Problem 3 PT Problem #3 Impaired Strength PT Goal 1 Goal / Goal Update Demonstrate gross R knee strength of 5/5 Target Visit 4 PT Problem 4 PT Problem #4 Impaired Range of Motion PT Goal 1 Goal / Goal Update 1. Demonstrate symmetrical knee flexion ROM 2. Improve R ankle dorsiflexion to 15 degrees Target Visit 4
--- NOTE | 2024-10-21 15:27 | PTOPEVAL1 ---
Assessment and note entered by Iglesia Guillory, PT Evaluation Information Assessment Status Evaluation Diagnosis Medial meniscus tear of right knee ICD-10 Condition Codes (PT) Pain in right knee M25.561 Onset August 2024 Subjective Information Reports that she had a twisting injury of her knee . She received a cortisone injection on her second visit with the MD which she feels did not help much. She feels that she is getting better but it is activity based. She is on her feet for 10 hours a day and struggles after work.Knee pain is her greatest perceived deficit at this time. Reported Pain Level Pain Score 4: Self Report Assessment PT Clinical Summary Patient presents with signs and symptoms consistent with patellofemoral syndrome. Patient has minor deficits noted in knee flexion and presents with altered gait including foot torsion compensation. 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 Plan of Care Interventions Electrical Stimulation,Gait Training,Manual Therapy,Neuro Re-education,Therapeutic Activities, Therapeutic Exercise PT Services Indicated Yes Treatment Frequency and 1x/week for 4 visits Duration These treatments will address the objective and functional deficits as defined above. The patient will be advanced safely and appropriately in order for the patient to progress towards his/her prior level of function. Additional exercises will be introduced and as well as a comprehensive home exercise program upon discharge, if needed, ?to ensure carryover of functional gains achieved in the clinic. This treatment plan has been reviewed and agreement upon by the patient.
--- NOTE | 2024-11-04 16:09 | PCPTNOTE ---
Patient was a No Show/No Call for today's appointment.
--- NOTE | 2024-11-11 14:01 | OPREHPOC ---
Outpatient Therapy Plan of Care This is a Multidisciplinary Plan of Care that may contain components documented by all disciplines (PT, OT, and ST.) PT Problem 1 PT Problem #1 Knowledge Deficit PT Goal 1 Goal / Goal Update Independnece with HEP Target Visit 4 Progress Met PT Goal 2 Goal / Goal Update Report no pain greater than 1/10 for 2 weeks Progress Partially Met PT Problem 2 PT Problem #2 Impaired Gait PT Goal 1 Goal / Goal Update Ambulate with even stride length bilaterally Target Visit 4 Progress Partially Met PT Problem 3 PT Problem #3 Impaired Strength PT Goal 1 Goal / Goal Update Demonstrate gross R knee strength of 5/5 Target Visit 4 Progress Partially Met PT Problem 4 PT Problem #4 Impaired Range of Motion PT Goal 1 Goal / Goal Update 1. Demonstrate symmetrical knee flexion ROM 2. Improve R ankle dorsiflexion to 15 degrees Target Visit 4 Progress Partially Met
--- NOTE | 2024-11-11 14:01 | PTOPPROG ---
Assessment and note entered by Iglesia Guillory, PT Evaluation Information Assessment Status Progress Diagnosis Medial meniscus tear of right knee ICD-10 Condition Codes (PT) Pain in right knee M25.561 Onset August 2024 Subjective Information Reports that she is still having pain with walking long distances. States that the knee is not getting worse, but it does not feel that it is getting better. She follows up with MD on 11/16/24. Assessment PT Clinical Summary Patient has seen objective improvement in knee ROM and strength with improvement in hip strength and gait cycle as well. We have not seen significant subjective improvement that we were anticipating. She reports that pain continues to be inhibiting. Plan of Care Interventions Electrical Stimulation,Gait Training,Manual Therapy,Neuro Re-education,Therapeutic Activities, Therapeutic Exercise PT Services Indicated Yes Treatment Frequency and 1x/week for 4 visits Duration These treatments will address the objective and functional deficits as defined above. The patient will be advanced safely and appropriately in order for the patient to progress towards his/her prior level of function. Additional exercises will be introduced and as well as a comprehensive home exercise program upon discharge, if needed, ?to ensure carryover of functional gains achieved in the clinic. This treatment plan has been reviewed and agreement upon by the patient.
--- NOTE | 2024-11-18 13:20 | PCPTNOTE ---
Pt called to cancel her appointment today due to car troubles.
--- NOTE | 2024-12-13 15:37 | PTOPDC ---
Assessment and note entered by Iglesia Guillory, PT Evaluation Information Assessment Status Discharge Diagnosis Medial meniscus tear of right knee ICD-10 Condition Codes (PT) Pain in right knee M25.561 Onset August 2024 Subjective Information Reports that she walked approximately 22 mile this weekend at a [employer] tournament. She is having pain but did not feel any at the time. 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 Reported Pain Level Pain Score 3: Self Report Assessment PT Clinical Summary Patient met majority of goals for therapy at this time but needs continued reinforcement for skilled nursing pain prevention and patellar control. Patient understanding of skilled nursing plan and suitable for discharge at this time. Plan of Care PT Services Indicated Yes
== END 2024-12-13 17:39 | disposition home or self-care (01) ==
LOC: ANHPT 14:30
PROVIDERS: PCP Student in an Organized Health Care Education/Training Program; Visit Provider Orthopaedic Surgery
DX: S83.241A Other tear of medial meniscus, current injury, right knee, initial encounter (principal)
CPT/HCPCS: 97110; 97140; 97161; 97530

== ENCOUNTER 2025-01-05 22:00 | Emergency (ER) | payer OTHER, MEDICAID, SELFPAY ==
--- NOTE | ~2025-01-05 | XR_ITS ---
EXAMINATION: XR hand LT min 3V DATE: 01/05/2025 22:15 INDICATION: Hyperextension injury to the left hand and fourth digit post fall TECHNIQUE: Posteroanterior, oblique and lateral views of the left hand were obtained. COMPARISON: None. FINDINGS: Alignment is normal. No fracture. Joint spaces are normal. Soft tissues are unremarkable. IMPRESSION: 1. Negative left hand radiographs. Reviewed, dictated and finalized at location A.
[2025-01-05 22:02] VITALS: BP 167/101; PULSE 88; RESP 16; TEMP 36.6; O2SAT 99
--- OUTSIDE RECORDS SUMMARY | 2025-01-05 22:03 | XMS_ITS | Encounter Summary ---
Author Organization [facility] Address [address] [place] [address] Care Team Providers Care Resolution Analyst Name Role Phone Julieth Lopez MD Primary Care Provider + Julieth Lopez MD Primary Care Provider + Encounter Details Date Type Department Care Team (Late st Contact Info) Description 08/16/2020 Sports MatchMaker Message Enc [facility] Family Medicine - [place] [address] [facility], [address] [place] [phone] Elgin Lemos MD [address] [facility] [place] [address] [place] [phone] RE: Question Social History Tobacco Use [...] on file 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 SOCIAL MEDIA MARKETING ANALYST Gender Identity Not on file Sexual Orientation Not on file COVID-19 Exposure Response Date Recorded In the last month, have you been in contact with someone who was confirmed or suspected to have Coronavirus / COVID-19? No / Unsure 08/16/2020 1:55 PM SOCIAL MEDIA MARKETING ANALYST documented as of this encounter Plan of Treatment Upcoming Encounters Date Type Department Care Team (Late st Contact Info) Description 07/11/2025 8:30 AM SOCIAL MEDIA MARKETING ANALYST Office Visit [facility] Family Medicine - [place] [address] [place] [address] Julieth Lopez MD [address] [place] [address] documented as of this encounter Visit Diagnoses Not on filedocumented in this encounter Additional Health Concerns Assessment Noted Time PHQ-9 Depression Total Score: 13 020 11:01 AM CDT documented as of this encounter Care Teams Resolution Analyst Relationship Specialty Start Date End Date Julieth Lopez MD [address] [place] [address] PCP - General FAMILY PRACTICE 07/29/24 Julieth Lopez MD [address] [place] [address] PCP - General FAMILY PRACTICE 07/07/24 07/28/24 documented as of this encounter
--- OUTSIDE RECORDS SUMMARY | 2025-01-05 22:03 | XMS_ITS | Encounter Summary ---
Author Organization [facility] Address [facility] [place] [address] Care Team Providers Care Naval Aircrewman Operator Name Role Phone Julieth Lopez MD Primary Care Provider + Julieth Lopez MD Primary Care Provider + Encounter Details Date Type Department Care Team (Late Contact Info) Description 04/13/2019 Lottay Message [facility] [address] [place] [address] [facility] Provider Question Social History Tobacco Use Types Packs/Day Years Used Date Smoking Tobacco: Never Smokeless Tobacco: Never PHQ-2 Answer Date Recorded PHQ-2 Score 2 09/22/2018 Comments No Sex and Gender Information Value Date Recorded Sex Assigned at Not on file 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 PRODUCT INTRODUCTION MANAGER Gender Identity Not on file Sexual Orientation Not on file documented as of this encounter Plan of Treatment Upcoming Encounters Date Type Department Care Team ([facility] Contact Info) Description 07/11/2025 8:30 AM PRODUCT INTRODUCTION MANAGER Office Visit [facility] Family Medicine - [place] [address] [place] [phone] Julieth Lopez MD [address] [place] [phone] documented as of this encounter Visit Diagnoses Not on filedocumented in this encounter Additional Health Concerns Infection Onset Date Last Indicated Resolved Time COVID-19 Rule Out 03/20/2020 03/20/2020 03/22/2020 6:40 PM CDT COVID-19 Rule Out 06/07/2020 06/07/2020 06/10/2020 2:30 AM PRODUCT INTRODUCTION MANAGER COVID-19 Rule Out 07/04/2020 07/04/2020 07/05/2020 6:22 PM PRODUCT INTRODUCTION MANAGER documented as of this encounter Care Teams Naval Aircrewman Operator Relationship Specialty Start Date End Date Julieth Lopez MD [address] [place] [address] PCP - General FAMILY PRACTICE 07/29/24 Julieth Lopez MD [address] [place] [address] PCP - General FAMILY PRACTICE 07/07/24 07/28/24 documented as of this encounter
--- OUTSIDE RECORDS SUMMARY | 2025-01-05 22:03 | XMS_ITS | Encounter Summary ---
Author Organization [facility] Address [address] [place] [address] Care Team Providers Care Reservoir Caretaker Name Role Phone Julieth Lopez MD Primary Care Provider + Julieth Lopez MD Primary Care Provider + Encounter Details Date Type Department Care Team (Late st Contact Info) Description 05/16/2019 [email or web address] Message Enc [facility] Family Medicine [facility] [address] [facility], [address] [place] [phone] Elgin Lemos MD [address] [facility] [place] [address] Follow Up/Update Social History Tobacco Use Types Packs/Day Years Used Date Smoking Tobacco: Never Smokeless Tobacco: Never PHQ-2 Answer Date Recorded PHQ-2 Score 2 09/22/2018 Comments No Sex and Gender Information Value Date Recorded Sex Assigned at Not on file 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 TELEPHONE INSTRUMENT SUPERVISOR Gender Identity Not on file Sexual Orientation Not on file documented as of this encounter Plan of Treatment Upcoming Encounters Date Type Department Care Team (Late st Contact Info) Description 07/11/2025 8:30 AM TELEPHONE INSTRUMENT SUPERVISOR Office Visit [facility] Family Medicine - [place] [address] [place] [address] Julieth Lopez MD [address] [place] [address] documented as of this encounter Visit Diagnoses Not on filedocumented in this encounter Additional Health Concerns Infection Onset Date Last Indicated Resolved Time COVID-19 Rule Out 03/20/2020 03/20/2020 03/22/2020 6:40 PM CDT COVID-19 Rule Out 06/07/2020 06/07/2020 06/10/2020 2:30 AM TELEPHONE INSTRUMENT SUPERVISOR COVID-19 Rule Out 07/04/2020 07/04/2020 07/05/2020 6:22 PM TELEPHONE INSTRUMENT SUPERVISOR documented as of this encounter Care Teams Reservoir Caretaker Relationship Specialty Start Date End Date Julieth Lopez MD [address] [place] [address] PCP - General FAMILY PRACTICE 07/29/24 Julieth Lopez MD [address] [place] [address] PCP - General FAMILY PRACTICE 07/07/24 07/28/24 documented as of this encounter
--- OUTSIDE RECORDS SUMMARY | 2025-01-05 22:03 | XMS_ITS | Encounter Summary ---
Author Organization [facility] Address [address] [place] [address] Care Team Providers Care Electrician Substation Supervisor Name Role Phone Julieth Lopez MD Primary Care Provider + Julieth Lopez MD Primary Care Provider + Encounter Details Date Type Department Care Team (Late st Contact Info) Description 01/06/2020 [email or web address] Message Enc [facility] Medical [facility] Family Medicine - [place] [address] [facility], [address] [place] [phone] Elgin Lemos MD [address] [facility] [place] [address] [place] [address] [phone] RE: Other Social History Tobacco Use Types [...] on file 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 DATA SECURITY ANALYST Gender Identity Not on file Sexual [...] st Contact Info) Description 07/11/2025 8:30 AM DATA SECURITY ANALYST Office Visit [facility] Family Medicine - [place] [address] [place] [address] Julieth Lopez MD [address] [place] [address] documented as of this encounter Visit Diagnoses Not on filedocumented in this encounter Additional Health Concerns Infection Onset Date Last Indicated Resolved Time COVID-19 Rule Out 03/20/2020 03/20/2020 03/22/2020 6:40 PM CDT COVID-19 Rule Out 06/07/2020 06/07/2020 06/10/2020 2:30 AM DATA SECURITY ANALYST COVID-19 Rule Out 07/04/2020 07/04/2020 07/05/2020 6:22 PM DATA SECURITY ANALYST documented as of this encounter Care Teams Electrician Substation Supervisor Relationship Specialty Start Date End Date Julieth Lopez MD [address] [place] [address] PCP - General FAMILY PRACTICE 07/29/24 Julieth Lopez MD [address] [place] [address] PCP - General FAMILY PRACTICE 07/07/24 07/28/24 documented as of this encounter
--- OUTSIDE RECORDS SUMMARY | 2025-01-05 22:03 | XMS_ITS | Encounter Summary ---
Author Organization [facility] Address [address] [place] [address] Care Team Providers Care Program Aide Group Work Name Role Phone Julieth Lopez MD Primary Care Provider + Julieth Lopez MD Primary Care Provider + Encounter Details Date Type Department Care Team (Late Contact Info) Description 09/27/2020 TapResearcht Message Enc [facility] Family Medicine - [place] [address] [facility], [address] [place] [phone] Elgin Lemos MD [address] [facility] [place] [address] [place] [phone] RE: Question Social History Tobacco Use Types [...] on file 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 Gender Identity Not on file Sexual Orientation Not on file documented as of this encounter Plan of Treatment Upcoming Encounters Date Type Department Care Team (Late st Contact Info) Description 07/11/2025 8:[address] Office Visit [facility] Family Medicine - [place] [address] [place] [address] Julieth Lopez MD [address] [place] [address] documented as of this encounter Visit Diagnoses Not on filedocumented in this encounter Additional Health Concerns Assessment Noted Time PHQ-9 Depression Total Score: 13 020 11:01 AM CDT documented as of this encounter Care Teams Program Aide Group Work Relationship Specialty Start Date End Date Julieth Lopez MD [address] [place] [address] PCP - General FAMILY PRACTICE 07/29/24 Julieth Lopez MD [address] [place] [address] PCP - General FAMILY PRACTICE 07/07/24 07/28/24 documented as of this encounter
--- OUTSIDE RECORDS SUMMARY | 2025-01-05 22:03 | XMS_ITS | Encounter Summary ---
Author Organization [facility] Address [facility] [place] [address] Care Team Providers Care Manager Implementation Name Role Phone Julieth Lopez MD Primary Care Provider + Julieth Lopez MD Primary Care Provider + Encounter Details Date Type Department Care Team (Late st Contact Info) Description 08/23/2019 Interse Message Enc [facility] Medical [facility] Family Medicine - [place] [address] [facility], [address] [place] [phone] Elgin Lemos MD [address] [address] RE: Question Social History Tobacco [...] on file 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 LINING MAKER Gender Identity Not on file Sexual Orientation [...] st Contact Info) Description 07/11/2025 8:30 AM LINING MAKER Office Visit [facility] Medical [facility] Family Medicine - [place] [address] [place] [address] Julieth Lopez MD [address] [place] [address] documented as of this encounter Visit Diagnoses Not on filedocumented in this encounter Additional Health Concerns Infection Onset Date Last Indicated Resolved Time COVID-19 Rule Out 03/20/2020 03/20/2020 03/22/2020 6:40 PM CDT COVID-19 Rule Out 06/07/2020 06/07/2020 06/10/2020 2:30 AM LINING MAKER COVID-19 Rule Out 07/04/2020 07/04/2020 07/05/2020 6:22 PM LINING MAKER documented as of this encounter Care Teams Manager Implementation Relationship Specialty Start Date End Date Julieth Lopez MD [address] [place] [address] PCP - General FAMILY PRACTICE 07/29/24 Julieth Lopez MD [address] [place] [address] PCP - General FAMILY PRACTICE 07/07/24 07/28/24 documented as of this encounter
--- OUTSIDE RECORDS SUMMARY | 2025-01-05 22:03 | XMS_ITS | Encounter Summary ---
Author Organization [facility] Address [address] [place] [address] Care Team Providers Care Application Designer Name Role Phone Julieth Lopez MD Primary Care Provider + Julieth Lopez MD Primary Care Provider + Encounter Details Date Type Department Care Team (Late st Contact Info) Description 09/08/2020 [employer] Message Enc [facility] Family Medicine - [place] [address] [facility], [address] [place] [phone] Elgin Lemos MD [address] [facility] [place] [address] [place] [phone] RE: Question Social History Tobacco Use [...] on file 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 SUPERINTENDENT METER TESTS Gender Identity Not on file Sexual Orientation Not on file COVID-19 Exposure Response Date Recorded In the last month, have you been in contact with someone who was confirmed or suspected to have Coronavirus / COVID-19? No / Unsure 08/16/2020 1:55 PM SUPERINTENDENT METER TESTS documented as of this encounter Plan of Treatment Upcoming Encounters Date Type Department Care Team (Late st Contact Info) Description 07/11/2025 8:30 AM SUPERINTENDENT METER TESTS Office Visit [facility] Family Medicine - [place] [address] [place] [address] Julieth Lopez MD [address] [place] [address] documented as of this encounter Visit Diagnoses Not on filedocumented in this encounter Additional Health Concerns Assessment Noted Time PHQ-9 Depression Total Score: 13 020 11:01 AM CDT documented as of this encounter Care Teams Application Designer Relationship Specialty Start Date End Date Julieth Lopez MD [address] [place] [address] PCP - General FAMILY PRACTICE 07/29/24 Julieth Lopez MD [address] [place] [address] PCP - General FAMILY PRACTICE 07/07/24 07/28/24 documented as of this encounter
--- OUTSIDE RECORDS SUMMARY | 2025-01-05 22:03 | XMS_ITS | Encounter Summary ---
Author Organization [facility] Address [address] [place] [address] Care Team Providers Care Human Relations Manager Name Role Phone Julieth Lopez MD Primary Care Provider + Julieth Lopez MD Primary Care Provider + Encounter Details Date Type Department Care Team (Late Contact Info) Description 08/30/2019 Intuitive Web Solutionst Message Enc [facility] Family Medicine [facility] [address] [facility], [address] [place] [phone] Elgin Lemos MD [address] [phone] RE: Follow Up/Update Social History Tobacco Use [...] on file 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 ORTHODONTIC BAND MAKER Gender Identity Not on file Sexual Orientation Not on file documented as of this encounter Plan of Treatment Upcoming Encounters Date Type Department Care Team (Late Contact Info) Description 07/11/2025 8:30 AM ORTHODONTIC BAND MAKER Office Visit [facility] Family Medicine [facility] [address] [place] [address] Julieth Lopez MD [address] [place] [address] documented as of this encounter Visit Diagnoses Not on filedocumented in this encounter Additional Health Concerns Infection Onset Date Last Indicated Resolved Time COVID-19 Rule Out 03/20/2020 03/20/2020 03/22/2020 6:40 PM CDT COVID-19 Rule Out 06/07/2020 06/07/2020 06/10/2020 2:30 AM ORTHODONTIC BAND MAKER COVID-19 Rule Out 07/04/2020 07/04/2020 07/05/2020 6:22 PM ORTHODONTIC BAND MAKER documented as of this encounter Care Teams Human Relations Manager Relationship Specialty Start Date End Date Julieth Lopez MD [address] [place] [address] PCP - General FAMILY PRACTICE 07/29/24 Julieth Lopez MD [address] [place] [address] PCP - General FAMILY PRACTICE 07/07/24 07/28/24 documented as of this encounter
--- OUTSIDE RECORDS SUMMARY | 2025-01-05 22:03 | XMS_ITS | Encounter Summary ---
Author Organization [facility] Address [address] [place] [address] Care Team Providers Care Refund Specialist Name Role Phone Julieth Lopez MD Primary Care Provider + Julieth Lopez MD Primary Care Provider + Encounter Details Date Type Department Care Team (Late Contact Info) Description 03/05/2021 InStafft Message Enc [facility] Family Medicine - [place] [address] [facility], [address] [place] [phone] Elgin Lemos MD [address] [facility] [address] [place] [phone] RE: Referral Request Social History Tobacco Use [...] on file 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 YARN CLEANER Gender Identity Not on file Sexual Orientation Not on file documented as of this encounter Plan of Treatment Upcoming Encounters Date Type Department Care Team (Late Contact Info) Description 07/11/2025 8:30 AM YARN CLEANER Office Visit [facility] Family Medicine - [place] [address] [place] [address] Julieth Lopez MD [address] [place] [address] documented as of this encounter Visit Diagnoses Not on filedocumented in this encounter Additional Health Concerns Assessment Noted Time PHQ-9 Depression Total Score: 13 020 11:01 AM CDT documented as of this encounter Care Teams Refund Specialist Relationship Specialty Start Date End Date Julieth Lopez MD [address] [place] [address] PCP - General FAMILY PRACTICE 07/29/24 Julieth Lopez MD [address] [place] [address] PCP - General FAMILY PRACTICE 07/07/24 07/28/24 documented as of this encounter
--- OUTSIDE RECORDS SUMMARY | 2025-01-05 22:03 | XMS_ITS | Encounter Summary ---
Author Organization [facility] Address [address] [place] [address] Care Team Providers Care Robotic Welding Operator Name Role Phone Julieth Lopez MD Primary Care Provider + Julieth Lopez MD Primary Care Provider + Encounter Details Date Type Department Care Team (Late st Contact Info) Description 03/27/2019 Cara Therapeuticst Message Enc [facility] Family Medicine [facility] [address] [facility], [address] [place] [phone] Elgin Lemos MD [address] [facility] [address] [place], [place] [phone] RE: Follow Up/Update Social History Tobacco Use Types Packs/Day Years Used Date Smoking Tobacco: Never Smokeless Tobacco: Never PHQ-2 Answer Date Recorded PHQ-2 Score 2 09/22/2018 Comments No Sex and Gender Information Value Date Recorded Sex Assigned at Not on file 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 TESTING PROJECTS ADMINISTRATOR Gender Identity Not on file Sexual Orientation Not on file documented as of this encounter Plan of Treatment Upcoming Encounters Date Type Department Care Team (Late Contact Info) Description 07/11/2025 8:30 AM TESTING PROJECTS ADMINISTRATOR Office Visit [facility] Family Medicine - [place] [address] [place] [address] Julieth Lopez MD [address] [place] [address] documented as of this encounter Visit Diagnoses Not on filedocumented in this encounter Additional Health Concerns Infection Onset Date Last Indicated Resolved Time COVID-19 Rule Out 03/20/2020 03/20/2020 03/22/2020 6:40 PM CDT COVID-19 Rule Out 06/07/2020 06/07/2020 06/10/2020 2:30 AM TESTING PROJECTS ADMINISTRATOR COVID-19 Rule Out 07/04/2020 07/04/2020 07/05/2020 6:22 PM TESTING PROJECTS ADMINISTRATOR documented as of this encounter Care Teams Robotic Welding Operator Relationship Specialty Start Date End Date Julieth Lopez MD [address] [place] [address] PCP - General FAMILY PRACTICE 07/29/24 Julieth Lopez MD [address] [place] [address] PCP - General FAMILY PRACTICE 07/07/24 07/28/24 documented as of this encounter
--- OUTSIDE RECORDS SUMMARY | 2025-01-05 22:03 | XMS_ITS | Encounter Summary ---
Author Organization [facility] Address [address] [place] [address] Care Team Providers Care Airset Caster Name Role Phone Julieth Lopez MD Primary Care Provider + Julieth Lopez MD Primary Care Provider + Encounter Details Date Type Department Care Team (Late Contact Info) Description 01/29/2021 HopeLabt Message Enc [facility] Family Medicine - [place] [address] [facility], [address] [place] [phone] Elgin Lemos MD [address] [facility] [address] [place] [phone] RE: Medication Questions Social History Tobacco Use [...] on file 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 TRANSIT PLANNER Gender Identity Not on file Sexual Orientation Not on file documented as of this encounter Plan of Treatment Upcoming Encounters Date Type Department Care Team (Late Contact Info) Description 07/11/2025 8:30 AM TRANSIT PLANNER Office Visit [facility] Medical [facility] Family Medicine - [place] [address] [place] [address] Julieth Lopez MD [address] [place] [address] documented as of this encounter Visit Diagnoses Not on filedocumented in this encounter Additional Health Concerns Assessment Noted Time PHQ-9 Depression Total Score: 13 020 11:01 AM CDT documented as of this encounter Care Teams Airset Caster Relationship Specialty Start Date End Date Julieth Lopez MD [address] [place] [address] PCP - General FAMILY PRACTICE 07/29/24 Julieth Lopez MD [address] [place] [address] PCP - General FAMILY PRACTICE 07/07/24 07/28/24 documented as of this encounter
--- OUTSIDE RECORDS SUMMARY | 2025-01-05 22:03 | XMS_ITS | Clinical Summary ---
Author Organization [facility] Address [address] [facility] [place] [place] [address] Care Team Providers Care Transit Mixer Driver Name Role Phone Pcp, Carolyn Miller Im-Fm Primary Care Provider Un available Source Comments [facility],non-owned Affiliates and Associated Physician Practices is amultiple site organization consisting of ambulatory clinics and hospital sitesin [place], [place], [place] and [place]. This disclosure is being madepursuant to the Care Everywhere program and may not contain all information available regarding this patient. Last updated 18.[facility] Allergies Active Allergy Reactions Criticality Noted Date [...] (XULANE) 150-35 MCG/24HR patch every 7 days 10/15/201 8 Active Loratadine (CLARITIN) 10 MG Take [...] 10/20/2020, 09/29/2020 DEPRESSION SCREENING 06/16/2024 INFLUENZA VACCINE (#1) 2025 2, 03/09/2020, 03/05/2019, Additional history exists ZOSTER VACCINE [...] age to complete this topic Insurance MEDICAID - [place] [facility] Care Teams Transit Mixer Driver Relationship Specialty Start Date End Date Carolyn Bryant - PCP - General 01/10/23
--- OUTSIDE RECORDS SUMMARY | 2025-01-05 22:03 | XMS_ITS | Encounter Summary ---
Author Organization [facility] Address [facility] [place] [address] Care Team Providers Care Packing Machine Feeder Name Role Phone Julieth Lopez MD Primary Care Provider + Julieth Lopez MD Primary Care Provider + Encounter Details Date Type Department Care Team (Late st Contact Info) Description 05/11/2019 MyChart Message Enc [facility] Family Medicine [facility] [address] [facility], [address] [place] [phone] Elgin Lemos MD [address] [facility] [address] [place], [place] [phone] RE: Question Social History Tobacco Use Types Packs/Day Years Used Date Smoking Tobacco: Never Smokeless Tobacco: Never PHQ-2 Answer Date Recorded PHQ-2 Score 2 09/22/2018 Comments No Sex and Gender Information Value Date Recorded Sex Assigned at Not on file 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 LIFE CYCLE ASSESSMENT ANALYST Gender Identity Not on file Sexual Orientation Not on file documented as of this encounter Plan of Treatment Upcoming Encounters Date Type Department Care Team (Late st Contact Info) Description 07/11/2025 8:30 AM LIFE CYCLE ASSESSMENT ANALYST Office Visit [facility] Family Medicine - [place] [address] [place] [address] Julieth Lopez MD [address] [place] [address] documented as of this encounter Visit Diagnoses Not on filedocumented in this encounter Additional Health Concerns Infection Onset Date Last Indicated Resolved Time COVID-19 Rule Out 03/20/2020 03/20/2020 03/22/2020 6:40 PM CDT COVID-19 Rule Out 06/07/2020 06/07/2020 06/10/2020 2:30 AM LIFE CYCLE ASSESSMENT ANALYST COVID-19 Rule Out 07/04/2020 07/04/2020 07/05/2020 6:22 PM LIFE CYCLE ASSESSMENT ANALYST documented as of this encounter Care Teams Packing Machine Feeder Relationship Specialty Start Date End Date Julieth Lopez MD [address] [place] [address] PCP - General FAMILY PRACTICE 07/29/24 Julieth Lopez MD [address] [place] [address] PCP - General FAMILY PRACTICE 07/07/24 07/28/24 documented as of this encounter
--- OUTSIDE RECORDS SUMMARY | 2025-01-05 22:03 | XMS_ITS | Encounter Summary ---
Author Organization [facility] Address [address] [place] [address] Care Team Providers Care Boom Man Name Role Phone Julieth Lopez MD Primary Care Provider + Julieth Lopez MD Primary Care Provider + Encounter Details Date Type Department Care Team (Late st Contact Info) Description 01/13/2020 Downtown Message Enc [facility] Medical [facility] Family Medicine - [place] [address] [facility], [address] [place] [phone] Elgin Lemos MD [address] [address] RE: Question Social History Tobacco [...] on file 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 PHILOSOPHY LECTURER Gender Identity Not on file Sexual Orientation [...] 01/14/2020 9:12 AM CDT Requested results from [facility]. Placed on your desk for review. documented in this encounter Plan of Treatment Upcoming Encounters Date Type Department Care Team (Late st Contact Info) Description 07/11/2025 8:30 AM PHILOSOPHY LECTURER Office Visit [facility] Family Medicine [facility] [address] [place] [address] Julieth Lopez MD [address] [place] [address] documented as of this encounter Visit Diagnoses Not on filedocumented in this encounter Additional Health Concerns Infection Onset Date Last Indicated Resolved Time COVID-19 Rule Out 03/20/2020 03/20/2020 03/22/2020 6:40 PM CDT COVID-19 Rule Out 06/07/2020 06/07/2020 06/10/2020 2:30 AM PHILOSOPHY LECTURER COVID-19 Rule Out 07/04/2020 07/04/2020 07/05/2020 6:22 PM PHILOSOPHY LECTURER documented as of this encounter Care Teams Boom Man Relationship Specialty Start Date End Date Julieth Lopez MD [address] [place] [address] PCP - General FAMILY PRACTICE 07/29/24 Julieth Lopez MD [address] [place] [address] PCP - General FAMILY PRACTICE 07/07/24 07/28/24 documented as of this encounter
--- OUTSIDE RECORDS SUMMARY | 2025-01-05 22:03 | XMS_ITS | Encounter Summary ---
Author Organization [facility] Address [facility] [place] [address] Care Team Providers Care String Studies Director Name Role Phone Julieth Lopez MD Primary Care Provider + Julieth Lopez MD Primary Care Provider + Encounter Details Date Type Department Care Team (Late st Contact Info) Description 05/12/2019 MyChart Message Enc [facility] Family Medicine [facility] [address] [facility], [address] [place] [phone] Elgin Lemos MD [address] [facility] [address] [place], [place] [phone] RE: Test Results Social History Tobacco Use Types Packs/Day Years Used Date Smoking Tobacco: Never Smokeless Tobacco: Never PHQ-2 Answer Date Recorded PHQ-2 Score 2 09/22/2018 Comments No Sex and Gender Information Value Date Recorded Sex Assigned at Not on file 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 RIVET HEATER Gender Identity Not on file Sexual Orientation Not on file documented as of this encounter Plan of Treatment Upcoming Encounters Date Type Department Care Team (Late st Contact Info) Description 07/11/2025 8:30 AM RIVET HEATER Office Visit [facility] Family Medicine - [place] [address] [place] [address] Julieth Lopez MD [address] [place] [address] documented as of this encounter Visit Diagnoses Not on filedocumented in this encounter Additional Health Concerns Infection Onset Date Last Indicated Resolved Time COVID-19 Rule Out 03/20/2020 03/20/2020 03/22/2020 6:40 PM CDT COVID-19 Rule Out 06/07/2020 06/07/2020 06/10/2020 2:30 AM RIVET HEATER COVID-19 Rule Out 07/04/2020 07/04/2020 07/05/2020 6:22 PM RIVET HEATER documented as of this encounter Care Teams String Studies Director Relationship Specialty Start Date End Date Julieth Lopez MD [address] [place] [address] PCP - General FAMILY PRACTICE 07/29/24 Julieth Lopez MD [address] [place] [address] PCP - General FAMILY PRACTICE 07/07/24 07/28/24 documented as of this encounter
--- OUTSIDE RECORDS SUMMARY | 2025-01-05 22:04 | XMS_ITS | Encounter Summary ---
Author Organization [facility] Address [address] [place] [address] Care Team Providers Care Concreting Supervisor Name Role Phone Julieth Lopez MD Primary Care Provider + Julieth Lopez MD Primary Care Provider + Encounter Details Date Type Department Care Team (Late st Contact Info) Description 03/08/2020 Vestor Message Enc [facility] Medical Group Family Medicine - [place] [address] [facility], [address] [place] [phone] Elgin Lemos MD [address] [address] RE: Question Social History Tobacco [...] on file 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 CLINICAL RESEARCH NURSE COORDINATOR Gender Identity Not on file Sexual [...] st Contact Info) Description 07/11/2025 8:30 AM CLINICAL RESEARCH NURSE COORDINATOR Office Visit [facility] Family Medicine - [place] [address] [place] [address] Julieth Lopez MD [address] [place], [place] [address] documented as of this encounter Visit Diagnoses Not on filedocumented in this encounter Additional Health Concerns Infection Onset Date Last Indicated Resolved Time COVID-19 Rule Out 03/20/2020 03/20/2020 03/22/2020 6:40 PM CDT COVID-19 Rule Out 06/07/2020 06/07/2020 06/10/2020 2:30 AM CLINICAL RESEARCH NURSE COORDINATOR COVID-19 Rule Out 07/04/2020 07/04/2020 07/05/2020 6:22 PM CLINICAL RESEARCH NURSE COORDINATOR documented as of this encounter Care Teams Concreting Supervisor Relationship Specialty Start Date End Date Julieth Lopez MD [address] [place] [address] PCP - General FAMILY PRACTICE 07/29/24 Julieth Lopez MD [address] [place] [address] PCP - General FAMILY PRACTICE 07/07/24 07/28/24 documented as of this encounter
--- OUTSIDE RECORDS SUMMARY | 2025-01-05 22:04 | XMS_ITS | Encounter Summary ---
Author Organization [facility] Address [address] [place] [address] Care Team Providers Care Professor Of Mathematics Name Role Phone Julieth Lopez MD Primary Care Provider + Julieth Lopez MD Primary Care Provider + Encounter Details Date Type Department Care Team (Late Contact Info) Description 01/21/2023 Widbookt Message Enc [facility] Family Medicine [facility] [address] [facility], [address] [place] [phone] Elgin Lemos MD [address] [phone] update Social History Tobacco Use Types Packs/Day [...] on file 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 ORIGINATION SPECIALIST Gender Identity Not on file Sexual Orientation Not on file documented as of this encounter Plan of Treatment Upcoming Encounters Date Type Department Care Team (Late Contact Info) Description 07/11/2025 8:30 AM ORIGINATION SPECIALIST Office Visit [facility] Family [facility] [address] [place], [place] [address] Julieth Lopez MD [address] [place], [place] [address] documented as of this encounter Visit Diagnoses Not on filedocumented in this encounter Additional Health Concerns Assessment Noted Time PHQ-9 Depression Total Score: 13 020 11:01 AM CDT documented as of this encounter Care Teams Professor Of Mathematics Relationship Specialty Start Date End Date Julieth Lopez MD [address] [place], [place] [address] PCP - General FAMILY PRACTICE 07/29/24 Julieth Lopez MD [address] [place] [address] PCP - General FAMILY PRACTICE 07/07/24 07/28/24 documented as of this encounter
--- OUTSIDE RECORDS SUMMARY | 2025-01-05 22:04 | XMS_ITS | Encounter Summary ---
Author Organization [facility] Address [address] [place] [address] Care Team Providers Care Lead Sql Developer Name Role Phone Julieth Lopez MD Primary Care Provider + Julieth Lopez MD Primary Care Provider + Encounter Details Date Type Department Care Team (Late Contact Info) Description 01/19/2020 Unii Message Enc [facility] Medical [facility] Family Medicine [address], [address] [place] [phone] [facility] RE: Medications Social History Tobacco [...] on file 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 EVENTS SPECIALIST Gender Identity Not on file Sexual [...] (Late Contact Info) Description 07/11/2025 8:30 AM EVENTS SPECIALIST Office Visit [facility] Family Medicine - [place] [address] [place] [address] Julieth Lopez MD [address] [place] [address] documented as of this encounter Visit Diagnoses Not on filedocumented in this encounter Additional Health Concerns Infection Onset Date Last Indicated Resolved Time COVID-19 Rule Out 03/20/2020 03/20/2020 03/22/2020 6:40 PM CDT COVID-19 Rule Out 06/07/2020 06/07/2020 06/10/2020 2:30 AM EVENTS SPECIALIST COVID-19 Rule Out 07/04/2020 07/04/2020 07/05/2020 6:22 PM EVENTS SPECIALIST documented as of this encounter Care Teams Lead Sql Developer Relationship Specialty Start Date End Date Julieth Lopez MD [address] [facility] [place] [address] PCP - General FAMILY PRACTICE 07/29/24 Julieth Lopez MD [address] [facility] [place] [address] PCP - General FAMILY PRACTICE 07/07/24 07/28/24 documented as of this encounter
--- OUTSIDE RECORDS SUMMARY | 2025-01-05 22:04 | XMS_ITS | Encounter Summary ---
Author Organization [facility] Address [address] [place] [address] Care Team Providers Care Applied Psychology Professor Name Role Phone Julieth Lopez MD Primary Care Provider + Julieth Lopez MD Primary Care Provider + Encounter Details Date Type Department Care Team (Late st Contact Info) Description 10/13/2019 proteonomix Message Enc [facility] Medical Group Family Medicine - [place] [address] [facility], [address] [place] [phone] Elgin Lemos MD [address] [address] RE: Question Social History Tobacco [...] file 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 STORE FACILITY TECHNICIAN Gender Identity Not on file Sexual [...] Contact Info) Description 07/11/2025 8:30 AM STORE FACILITY TECHNICIAN Office Visit [facility] Medical Group Family Medicine - [place] [address] [place] [address] Julieth Lopez MD [address] [place] [address] documented as of this encounter Visit Diagnoses Not on filedocumented in this encounter Additional Health Concerns Infection Onset Date Last Indicated Resolved Time COVID-19 Rule Out 03/20/2020 03/20/2020 03/22/2020 6:40 PM CDT COVID-19 Rule Out 06/07/2020 06/07/2020 06/10/2020 2:30 AM STORE FACILITY TECHNICIAN COVID-19 Rule Out 07/04/2020 07/04/2020 07/05/2020 6:22 PM STORE FACILITY TECHNICIAN documented as of this encounter Care Teams Applied Psychology Professor Relationship Specialty Start Date End Date Julieth Lopez MD [address] [place] [address] PCP - General FAMILY PRACTICE 07/29/24 Julieth Lopez MD [address] [place] [address] PCP - General FAMILY PRACTICE 07/07/24 07/28/24 documented as of this encounter
--- OUTSIDE RECORDS SUMMARY | 2025-01-05 22:04 | XMS_ITS | Encounter Summary ---
Author Organization [facility] Address [address] [place] [address] Care Team Providers Care Orthotic Aide Name Role Phone Julieth Lopez MD Primary Care Provider + Julieth Lopez MD Primary Care Provider + Encounter Details Date Type Department Care Team (Late Contact Info) Description 12/11/2022 Radiojart Message Enc [facility] Medical Group [facility] [address] [place], [place] [address] [employer], [facility] Provider Air Quality Message Social History [...] on file 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 CREATIVE CONSULTANT Gender Identity Not on file Sexual Orientation Not on file documented as of this encounter Plan of Treatment Upcoming Encounters Date Type Department Care Team (Late Contact Info) Description 07/11/2025 8:30 AM CREATIVE CONSULTANT Office Visit [facility] Medical [facility] Family Medicine - [place] [address] [place] [address] Julieth Lopez MD [address] [place] [address] documented as of this encounter Visit Diagnoses Not on filedocumented in this encounter Additional Health Concerns Assessment Noted Time PHQ-9 Depression Total Score: 13 020 11:01 AM CDT documented as of this encounter Care Teams Orthotic Aide Relationship Specialty Start Date End Date Julieth Lopez MD [address] [place] [address] PCP - General FAMILY PRACTICE 07/29/24 Julieth Lopez MD [address] [place] [address] PCP - General FAMILY PRACTICE 07/07/24 07/28/24 documented as of this encounter
--- OUTSIDE RECORDS SUMMARY | 2025-01-05 22:04 | XMS_ITS | Encounter Summary ---
Author Organization [facility] Address [address] [place] [address] Care Team Providers Care Area Loss Prevention Manager Name Role Phone Julieth Lopez MD Primary Care Provider + Julieth Lopez MD Primary Care Provider + Encounter Details Date Type Department Care Team (Late st Contact Info) Description 01/29/2020 Simraceway Message Enc [facility] Medical Group Family Medicine - [place] [address] [facility], [address] [place] [phone] Elgin Lemos MD [address] [phone] RE: Follow Up/Update Social History Tobacco Use [...] on file 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 FUND DIRECTOR Gender Identity Not on file Sexual [...] st Contact Info) Description 07/11/2025 8:30 AM FUND DIRECTOR Office Visit [facility] Medical Group Family Medicine - [place] [address] [place] [address] Julieth Lopez MD [address] [place] [address] documented as of this encounter Visit Diagnoses Not on filedocumented in this encounter Additional Health Concerns Infection Onset Date Last Indicated Resolved Time COVID-19 Rule Out 03/20/2020 03/20/2020 03/22/2020 6:40 PM CDT COVID-19 Rule Out 06/07/2020 06/07/2020 06/10/2020 2:30 AM FUND DIRECTOR COVID-19 Rule Out 07/04/2020 07/04/2020 07/05/2020 6:22 PM FUND DIRECTOR documented as of this encounter Care Teams Area Loss Prevention Manager Relationship Specialty Start Date End Date Julieth Lopez MD [address] [place] [address] PCP - General FAMILY PRACTICE 07/29/24 Julieth Lopez MD [address] [place] [address] PCP - General FAMILY PRACTICE 07/07/24 07/28/24 documented as of this encounter
--- OUTSIDE RECORDS SUMMARY | 2025-01-05 22:05 | XMS_ITS | Encounter Summary ---
Author Organization [facility] Address [address] [place] [address] Care Team Providers Care Family Partner Name Role Phone Julieth Lopez MD Primary Care Provider + Julieth Lopez MD Primary Care Provider + Encounter Details Date Type Department Care Team (Late st Contact Info) Description 05/24/2020 Lenet Message Enc [facility] Medical [facility] Family Medicine - [place] [address] [facility], [address] [place] [phone] Elgin Lemos MD [address] [address] RE: Question Social History Tobacco [...] on file 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 REIMBURSEMENT AUDITOR Gender Identity Not on file Sexual Orientation Not on file COVID-19 Exposure Response Date Recorded In the last month, have you been in contact with someone who was confirmed or suspected to have Coronavirus / COVID-19? No / Unsure 05/25/2020 3:22 PM REIMBURSEMENT AUDITOR documented as of this encounter Progress Notes * Elgin Lemos MD - 05/25/2020 8:06 AM CST Need to take a look BURSEMENT AUDITOR documented in this encounter Plan of Treatment Upcoming Encounters Date Type Department Care Team (Late st Contact Info) Description 07/11/2025 8:30 AM REIMBURSEMENT AUDITOR Office Visit [facility] Medical [facility] Family Medicine - [place] [address] [place] [address] Julieth Lopez MD [address] [place] [address] documented as of this encounter Visit Diagnoses Not on filedocumented in this encounter Additional Health Concerns Infection Onset Date Last Indicated Resolved Time COVID-19 Rule Out 06/07/2020 06/07/2020 06/10/2020 2:30 AM REIMBURSEMENT AUDITOR COVID-19 Rule Out 07/04/2020 07/04/2020 07/05/2020 6:22 PM REIMBURSEMENT AUDITOR Assessment Noted Time PHQ-9 Depression Total Score: 13 020 11:01 AM CDT documented as of this encounter Care Teams Family Partner Relationship Specialty Start Date End Date Julieth Lopez MD [address] [place] [address] PCP - General FAMILY PRACTICE 07/29/24 Julieth Lopez MD [address] [place] [address] PCP - General FAMILY PRACTICE 07/07/24 07/28/24 documented as of this encounter
--- OUTSIDE RECORDS SUMMARY | 2025-01-05 22:05 | XMS_ITS | Encounter Summary ---
Author Organization [facility] Address [address] [place] [address] Care Team Providers Care Nurses Director Name Role Phone Julieth Lopez MD Primary Care Provider + Julieth Lopez MD Primary Care Provider + Encounter Details Date Type Department Care Team (Late st Contact Info) Description 04/25/2020 Debitos Message Enc [facility] Medical Group Family Medicine - [place] [address] [facility], [address] [place] [phone] Elgin Lemos MD [address] [address] RE: Question Social History Tobacco [...] on file 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 UM SPECIALIST Gender Identity Not on file Sexual Orientation Not on file COVID-19 Exposure Response Date Recorded In the last month, have you been in contact with someone who was confirmed or suspected to have Coronavirus / COVID-19? No / Unsure 04/26/2020 9:25 AM UM SPECIALIST documented as of this encounter Plan of Treatment Upcoming Encounters Date Type Department Care Team (Late st Contact Info) Description 07/11/2025 8:30 AM UM SPECIALIST Office Visit [facility] Medical [facility] Family Medicine - [place] [address] [place] [address] Julieth Lopez MD [address] [place] [address] documented as of this encounter Visit Diagnoses Not on filedocumented in this encounter Additional Health Concerns Infection Onset Date Last Indicated Resolved Time COVID-19 Rule Out 06/07/2020 06/07/2020 06/10/2020 2:30 AM UM SPECIALIST COVID-19 Rule Out 07/04/2020 07/04/2020 07/05/2020 6:22 PM UM SPECIALIST Assessment Noted Time PHQ-9 Depression Total Score: 13 020 11:01 AM CDT documented as of this encounter Care Teams Nurses Director Relationship Specialty Start Date End Date Julieth Lopez MD [address] [place] [address] PCP - General FAMILY PRACTICE 07/29/24 Julieth Lopez MD [address] [place] [address] PCP - General FAMILY PRACTICE 07/07/24 07/28/24 documented as of this encounter
--- OUTSIDE RECORDS SUMMARY | 2025-01-05 22:05 | XMS_ITS | Encounter Summary ---
Author Organization [facility] Address [address] [place] [address] Care Team Providers Care Screw Machine Operator Swiss Type Name Role Phone Julieth Lopez MD Primary Care Provider + Julieth Lopez MD Primary Care Provider + Encounter Details Date Type Department Care Team (Late Contact Info) Description 10/28/2022 Digitalsmithst Message Enc [facility] Family Medicine [facility] [address] [facility], [address] [place] [phone] Elgin Lemos MD [address] [facility] [address] [place] [phone] Hospital Social History Tobacco Use Types Packs/Day [...] on file 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 MIXER PIGMENT Gender Identity Not on file Sexual Orientation Not on file documented as of this encounter Plan of Treatment Upcoming Encounters Date Type Department Care Team (Late Contact Info) Description 07/11/2025 8:30 AM MIXER PIGMENT Office Visit [facility] Family Medicine [facility] [address] [place], [place] [address] Julieth Lopez MD [address] [place], [place] [address] documented as of this encounter Visit Diagnoses Not on filedocumented in this encounter Additional Health Concerns Assessment Noted Time PHQ-9 Depression Total Score: 13 020 11:01 AM CDT documented as of this encounter Care Teams Screw Machine Operator Swiss Type Relationship Specialty Start Date End Date Julieth Lopez MD [address] [place], [place] [address] PCP - General FAMILY PRACTICE 07/29/24 Julieth Lopez MD [address] [place] [address] PCP - General FAMILY PRACTICE 07/07/24 07/28/24 documented as of this encounter
--- OUTSIDE RECORDS SUMMARY | 2025-01-05 22:05 | XMS_ITS | Encounter Summary ---
Author Organization [facility] Address [address] [place] [address] Care Team Providers Care Medical Office Clerk Name Role Phone Julieth Lopez MD Primary Care Provider + Julieth Lopez MD Primary Care Provider + Encounter Details Date Type Department Care Team (Late st Contact Info) Description 03/18/2020 Fix8 Message Enc [facility] Medical Group Family Medicine - [place] [address] [facility], [address] [place] [phone] Elgin Lemos MD [address] [address] RE: Question Social History Tobacco [...] on file 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 BARKEEPER Gender Identity Not on file Sexual Orientation [...] st Contact Info) Description 07/11/2025 8:30 AM BARKEEPER Office Visit [facility] Medical Group Family Medicine - [place] [address] [place] [address] Julieth Lopez MD [address] [place] [address] documented as of this encounter Visit Diagnoses Not on filedocumented in this encounter Additional Health Concerns Infection Onset Date Last Indicated Resolved Time COVID-19 Rule Out 03/20/2020 03/20/2020 03/22/2020 6:40 PM CDT COVID-19 Rule Out 06/07/2020 06/07/2020 06/10/2020 2:30 AM BARKEEPER COVID-19 Rule Out 07/04/2020 07/04/2020 07/05/2020 6:22 PM BARKEEPER documented as of this encounter Care Teams Medical Office Clerk Relationship Specialty Start Date End Date Julieth Lopez MD [address] [place] [address] PCP - General FAMILY PRACTICE 07/29/24 Julieth Lopez MD [address] [place] [address] PCP - General FAMILY PRACTICE 07/07/24 07/28/24 documented as of this encounter
--- OUTSIDE RECORDS SUMMARY | 2025-01-05 22:06 | XMS_ITS | Clinical Summary ---
Author Organization [facility] Address [facility] [place] [address] Care Team Providers Care Blue Line Trimmer Name Role Phone Julieth Lopez MD Primary [...] TABLETS IN 24 HOURS 30 tablet 1 4 Active albuterol sulfate HFA 108 (90 Base) MCG/ACT inhalerIndications :Moderate persistent asthma without complication (HHS/HCC) Inhale 2 puffs into the lungs every 4 (four) hours as needed for Wheezing. 18 g 3 5 Active budesonide-formote rol (SYMBICORT) 160-4.5 MCG/ACT inhalerIndications :Moderate persistent asthma without complication (HHS/HCC) Inhale 2 puffs into the lungs 2 (two) times daily. 10.2 g 3 5 Active spironolactone (ALDACTONE) 25 MG tabletIndications: PCOS (polycystic ovarian syndrome) Take 1 tablet (25 mg total) by mouth daily. 90 tablet 3 5 026 Active rimegepant (NURTEC) 75 MG disintegrating tabletIndications: Chronic migraine without aura without status migrainosus, not intractable Take 1 tablet (75 mg total) by mouth every other day. Max of 1 tablet (75 mg) in 24 hours. 45 tablet 3 5 Active tirzepatide (ZEPBOUND) 2.5 MG/0.5ML injectionIndicatio ns:Prediabetes,Crow ght Loss Inject 2.5 mg into the skin once a week. Indications: Higher than Normal Blood Sugar not yet Considered Diabetes, Weight Loss 6 mL 5 Active EPINEPHrine 0.3 MG/0.3ML injectionIndicatio ns:Bee sting allergy Inject 0.3 mLs (0.3 mg total) into the muscle as needed for Anaphylaxis. Bee sting allergy 1 each 1 5 Active Active Problems Problem Noted Date Diagnosed [...] it. Assessment & Plan (07/07/2024 11:34 AM PERFORATOR OPERATOR OIL WELL): Not controlled. Frequent migraines. Sumatriptan does work but not adequately to help prevent migraines. Also failed nortriptyline and Aimovig. Ordered Nurte to trial and will use it prophylactically. PCOS (polycystic ovarian syndrome) 07/27/2020 Overview (07/07/2024): Presented with heavy menstrual cycles. Has an IUD. Sees gynecology, Dr. Shirley Brewer. In the past she took spironolactone and she is wondering if she can use this again due to male pattern hair growth Assessment & Plan (07/07/2024 11:34 AM PERFORATOR OPERATOR OIL WELL): Hirsutism persistent. Will check BMP 1 month after trial of spironolactone to ensure kidney function and electrolytes are normal. 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 Reports she has tried multiple medications in the past and has not tolerated them well due to side effects. She would prefer to avoid medication at this point. Assessment & Plan (07/07/2024 11:32 AM PERFORATOR OPERATOR OIL WELL): Not currently well-controlled but prefers to avoid medication. We will defer medication at this point. Encouraged some lifestyle changes. Class 3 severe obesity due t o excess calories without serious comorbidity with body mass index (BMI) of 45.0 to 49.9 in adult 03/26/2020 Overview (07/07/2024): Has been going to [employer]. Has 10 lb in 6 months. Assessment & Plan (07/07/2024 11:33 AM PERFORATOR OPERATOR OIL WELL): Discussed lifestyle changes which will help with weight loss. She will also look into insurance options for GLP-1 and update me with decision. Moderate persistent asthma without complication (HHS/HCC) 03/23/2020 Overview (07/07/2024): Takes symbicort and albuterol. Illness is main trigger. Assessment & Plan (07/07/2024 11:33 AM PERFORATOR OPERATOR OIL WELL): Chronic. Controlled. Continue Symbicort and albuterol. Prevnar [...] Encounters Date Type Department Care Team Description 12/03/2024 Scan [facility] Scanned, Doc Med Group Procedure (SCAN) 11/30/2024 Scan [facility] Scanned, Doc Med Group 11/16/2024 Scan [facility] Scanned, Doc Med Group from Last 3 Months Immunizations Immunization Administration [...] on file 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 PERFORATOR OPERATOR OIL WELL Gender Identity Not on file Sexual Orientation Not on file Last Filed Vital Signs Vital Sign Reading Time Taken Comments Blood Pressure 128/86 07/07/2024 10:26 AM PERFORATOR OPERATOR OIL WELL Pulse 91 07/07/2024 10:26 AM PERFORATOR OPERATOR OIL WELL Temperature 37.6 C (99.6 F) 07/07/2024 10:26 AM PERFORATOR OPERATOR OIL WELL Respiratory Rate 16 07/07/2024 10:26 AM PERFORATOR OPERATOR OIL WELL Oxygen Saturation 98% 07/07/2024 10:26 AM PERFORATOR OPERATOR OIL WELL Inhaled Oxygen Concentration - - Weight 138.3 kg (305 lb) 07/07/2024 10:26 AM PERFORATOR OPERATOR OIL WELL Height 170.2 cm (5' 7) 07/07/2024 10:26 AM PERFORATOR OPERATOR OIL WELL Body Mass Index 47.77 07/07/2024 10:26 AM PERFORATOR OPERATOR OIL WELL Plan of Treatment Upcoming Encounters Date Type Department Care Team (Late st Contact Info) Description 07/11/2025 8:30 AM PERFORATOR OPERATOR OIL WELL Office Visit [facility] Medical [facility] Family Medicine - [place] [address] [place] [phone] Julieth Lopez MD [address] [place] [address] Health Maintenance Due Date Last Done Comments [...] Completed 02/24/2017 , 02/24/2017, 02/13/2012 PHQ-2 (Physician [place]) Completed 07/07/2024 Pneumococcal Vaccine: Pediatrics (0 to 5 Years) and At-Risk Patients (6 to 49 Years) Completed 07/07/2024, 12/25/2000 Meningococcal B Vaccine Aged Out No l onger eligible based on patient's age to complete this topic RSV Immunizations Under 20 Months Aged Out No longer eligible based on patient's age to complete this topic Procedures Procedure Name Priority Date/Time Associated Diagnosis Comments PROCEDURE GENERIC (SCAN ORDER) 12/03/2024 OUTSIDE CYTOPATH CERV/VAG IN TERPRET (PAP) (SCAN ORDER) 07/22/2024 from Last 3 Months or Most Recently Relevant to Health Maintenance Results * PROCEDURE GENERIC (SCAN ORDER) (12/03/2024) 12/03/2024 us [employer] [facility] Scanned SCANNING Final Resu lt * PAP SMEAR (SCAN ORDER) (07/22/2024) 07/22/2024 us [employer] [facility] Scanned SCANNING Final Resu lt from Last 3 Months or Most Recently Relevant to Health Maintenance Insurance [facility] MEDICAID Care Teams Blue Line Trimmer Relationship Specialty Start Date End Date Julieth Lopez MD [address] [place] [phone] PCP - General FAMILY PRACTICE 07/29/24
--- OUTSIDE RECORDS SUMMARY | 2025-01-05 22:06 | XMS_ITS | Encounter Summary ---
Author Organization [facility] Address [address] [place] [address] Care Team Providers Care Night Coordinator Name Role Phone Julieth Lopez MD Primary Care Provider + Julieth Lopez MD Primary Care Provider + Encounter Details Date Type Department Care Team (Late st Contact Info) Description 03/11/2020 [employer] Message Enc [facility] Medical [facility] Family Medicine - [place] [address] [facility], [address] [place] [phone] Elgin Lemos MD [address] [phone] RE: Follow Up/Update Social History Tobacco Use [...] on file 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 MOTOR VEHICLE PARTS INTERPRETER Gender Identity Not on file Sexual Orientation [...] st Contact Info) Description 07/11/2025 8:30 AM MOTOR VEHICLE PARTS INTERPRETER Office Visit [facility] Medical [facility] Family Medicine - [place] [address] [place] [address] Julieth Lopez MD [address] [place] [address] documented as of this encounter Visit Diagnoses Not on filedocumented in this encounter Additional Health Concerns Infection Onset Date Last Indicated Resolved Time COVID-19 Rule Out 03/20/2020 03/20/2020 03/22/2020 6:40 PM CDT COVID-19 Rule Out 06/07/2020 06/07/2020 06/10/2020 2:30 AM MOTOR VEHICLE PARTS INTERPRETER COVID-19 Rule Out 07/04/2020 07/04/2020 07/05/2020 6:22 PM MOTOR VEHICLE PARTS INTERPRETER documented as of this encounter Care Teams Night Coordinator Relationship Specialty Start Date End Date Julieth Lopez MD [address] [place] [address] PCP - General FAMILY PRACTICE 07/29/24 Julieth Lopez MD [address] [place] [address] PCP - General FAMILY PRACTICE 07/07/24 07/28/24 documented as of this encounter
--- OUTSIDE RECORDS SUMMARY | 2025-01-05 22:06 | XMS_ITS | Encounter Summary ---
Author Organization [facility] Address [address] [place] [address] Care Team Providers Care Spiral Runner Name Role Phone Julieth Lopez MD Primary Care Provider + Julieth Lopez MD Primary Care Provider + Encounter Details Date Type Department Care Team (Late st Contact Info) Description 03/12/2020 Sqrrl Message Enc [facility] Medical Group Family Medicine - [place] [address] [facility], [address] [place] [phone] Elgin Lemos MD [address] [phone] RE: Follow Up/Update Social History Tobacco Use [...] on file 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 EMR ANALYST Gender Identity Not on file Sexual [...] st Contact Info) Description 07/11/2025 8:30 AM EMR ANALYST Office Visit [facility] Medical Group Family Medicine - [place] [address] [place] [address] Julieth Lopez MD [address] [place] [address] documented as of this encounter Visit Diagnoses Not on filedocumented in this encounter Additional Health Concerns Infection Onset Date Last Indicated Resolved Time COVID-19 Rule Out 03/20/2020 03/20/2020 03/22/2020 6:40 PM CDT COVID-19 Rule Out 06/07/2020 06/07/2020 06/10/2020 2:30 AM EMR ANALYST COVID-19 Rule Out 07/04/2020 07/04/2020 07/05/2020 6:22 PM EMR ANALYST documented as of this encounter Care Teams Spiral Runner Relationship Specialty Start Date End Date Julieth Lopez MD [address] [place] [address] PCP - General FAMILY PRACTICE 07/29/24 Julieth Lopez MD [address] [place] [address] PCP - General FAMILY PRACTICE 07/07/24 07/28/24 documented as of this encounter
--- OUTSIDE RECORDS SUMMARY | 2025-01-05 22:06 | XMS_ITS | Referral Summary ---
Author Organization [facility] Address [address] [place] [address] Care Team Providers Care Early Childhood Education Specialist Name Role Phone Angelica Maynard MD Primary Care Provider Encounters Date Type Department Care Team Description 12/30/2024 Results Follow-Up [address] [place] [phone] Dread Rosales MD Chest 12/23/2024 2:47 PM CDT - 12/23/2024 11:59 PM CDT Hospital Encounter [facility] [address] [place] [address] Mass of chest wall, right Discharge Disposition: Discharge to home or self care 11/25/2024 10:10 AM CDT Office Visit [address] [place] [phone] Dread Rosales MD Mass of chest wall, [...] INTO THE MUSCLE NEEDED FOR ANAPHYLAXIS Active medroxyPROGESTE Eleazar (PROVERA) 10 mg tablet 5 Active Active Problems Problem Noted Date [...] CDT Plan of Treatment Not on file Procedures Procedure Name Priority Date/Time Associated Diagnosis Comments US CHEST Schedule Routine, Read Routine (OP Routine) 12/23/2024 3:42 PM CDT Mass of chest wall, right from Last 3 Months Results * US Chest (12/23/2024 3:42 PM CDT) Anatomical Region Laterality Modality Chest N/A Ultrasound 12/30/2024 11:5 6 AM CDT Narrative 12/30/2024 11:56 AM CDT EXAM DESCRIPTION: US CHEST REASON FOR STUDY: chest wall pain at the site of surgical scar. TECHNIQUE: A Dynamic assessment was performed of the at the site of chest wall pain by the agriscience technology instructor, with selected grayscale and color Doppler images acquired and recorded in PACS. COMPARISON: None FINDINGS: SKIN AND SUBCUTANEOUS TISSUES: No masses. No fluid collections. No edema. No foreign bodies. DEEP SOFT TISSUES/MUSCLES: No masses. No fluid collections. No edema. OTHER: No other significant finding. IMPRESSION: No soft tissue mass, fluid collection, or foreign body. THIS IS AN ELECTRONICALLY VERIFIED FINAL REPORT 12/30/2024 11:56 AM - Electronically signed by Talha AGRAWAL KT Report ID: [id number] Reading Location: [id number] Procedure Note Talha Eugene MD - 12/30/2024 EXAM DESCRIPTION: US CHEST REASON FOR STUDY: chest wall pain at the site of surgical scar. TECHNIQUE: A Dynamic assessment was performed of the at the site of chest wall pain by the agriscience technology instructor, with selected grayscale and color Doppler images acquired and recorded in PACS. COMPARISON: None FINDINGS: SKIN AND SUBCUTANEOUS TISSUES: No masses. No fluid collections. Noedema. No foreign bodies. DEEP SOFT TISSUES/MUSCLES: No masses. No fluid collections. No edema. OTHER: No other significant finding. IMPRESSION: No soft tissue mass, fluid collection, or foreign body. THIS IS AN ELECTRONICALLY VERIFIED FINAL REPORT 12/30/2024 11:56 AM - Electronically signed by Talha Eugene M.D. KT: [id number] Report ID: [id number] Reading Location: [place] [address] Dread Rosales MD [facility] PROCEDURES F inal Result from Last 3 Months Insurance [employer] [facility] Care Teams Early Childhood Education Specialist Relationship Specialty Start Date End Date Angelica Maynard MD PCP - General Family Medicine 12/09/23
--- OUTSIDE RECORDS SUMMARY | 2025-01-05 22:06 | XMS_ITS | Encounter Summary ---
Author Organization [facility] Address [address] [place] [address] Care Team Providers Care Biometric Fingerprinting Technician Name Role Phone Julieth Lopez MD Primary Care Provider + Julieth Lopez MD Primary Care Provider + Encounter Details Date Type Department Care Team (Late st Contact Info) Description 03/19/2020 Oh My Green! Message Enc [facility] Medical Group Family Medicine - [place] [address] [facility], [address] [place] [phone] Elgin Lemos MD [address] [address] RE: Question Social History Tobacco [...] file 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 DIRECTOR INPATIENT HEADACHE PROGRAM Gender Identity Not on file Sexual Orientation [...] Contact Info) Description 07/11/2025 8:30 AM DIRECTOR INPATIENT HEADACHE PROGRAM Office Visit [facility] Family Medicine - [place] [address] [place] [address] Julieth Lopez MD [address] [place] [address] documented as of this encounter Visit Diagnoses Not on filedocumented in this encounter Additional Health Concerns Infection Onset Date Last Indicated Resolved Time COVID-19 Rule Out 03/20/2020 03/20/2020 03/22/2020 6:40 PM CDT COVID-19 Rule Out 06/07/2020 06/07/2020 06/10/2020 2:30 AM DIRECTOR INPATIENT HEADACHE PROGRAM COVID-19 Rule Out 07/04/2020 07/04/2020 07/05/2020 6:22 PM DIRECTOR INPATIENT HEADACHE PROGRAM documented as of this encounter Care Teams Biometric Fingerprinting Technician Relationship Specialty Start Date End Date Julieth Lopez MD [address] [place] [address] PCP - General FAMILY PRACTICE 07/29/24 Julieth Lopez MD [address] [place] [address] PCP - General FAMILY PRACTICE 07/07/24 07/28/24 documented as of this encounter
--- OUTSIDE RECORDS SUMMARY | 2025-01-05 22:06 | XMS_ITS | Encounter Summary ---
Author Organization [facility] Address [address] [place] [address] Care Team Providers Care Manager Support Name Role Phone Julieth Lopez MD Primary Care Provider + Julieth Lopez MD Primary Care Provider + Encounter Details Date Type Department Care Team (Late st Contact Info) Description 03/22/2020 [employer] Message Enc [facility] Medical [facility] Family Medicine - [place] [address] [facility], [address] [place] [phone] Elgin Lemos MD [address] [address] RE: Question Social History Tobacco [...] on file 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 SPOT WASHER Gender Identity Not on file Sexual Orientation [...] st Contact Info) Description 07/11/2025 8:30 AM SPOT WASHER Office Visit [facility] Medical [facility] Family Medicine - [place] [address] [place] [address] Julieth Lopez MD [address] [place] [address] documented as of this encounter Visit Diagnoses Not on filedocumented in this encounter Additional Health Concerns Infection Onset Date Last Indicated Resolved Time COVID-19 Rule Out 03/20/2020 03/20/2020 03/22/2020 6:40 PM CDT COVID-19 Rule Out 06/07/2020 06/07/2020 06/10/2020 2:30 AM SPOT WASHER COVID-19 Rule Out 07/04/2020 07/04/2020 07/05/2020 6:22 PM SPOT WASHER documented as of this encounter Care Teams Manager Support Relationship Specialty Start Date End Date Julieth Lopez MD [address] [place] [address] PCP - General FAMILY PRACTICE 07/29/24 Julieth Lopez MD [address] [place] [address] PCP - General FAMILY PRACTICE 07/07/24 07/28/24 documented as of this encounter
--- OUTSIDE RECORDS SUMMARY | 2025-01-05 22:06 | XMS_ITS | Clinical Summary ---
Author Organization [facility] Address [address] [place] [address] Care Team Providers Care Spiral Tube Winder Helper Name Role Phone Angelica Maynard MD Primary [...] Department Care Team Description 12/30/2024 Results Follow-Up [address] [place] [address] Dread Rosales MD US Chest 12/23/2024 2:47 PM CDT - 12/23/2024 11:59 PM CDT Hospital Encounter [facility] [address] [place] [address] Mass of chest wall, right Discharge Disposition: Discharge to home or self care 11/25/2024 10:10 AM CDT Office Visit [facility] [address] [facility] [address] [place] [address] Dread Rosales MD Mass of chest wall, [...] removed from Sternum. multiple prior proceedure at [facility] but recurred CYST REMOVAL 03/12/2024 Right Breast Medical History Medical History Date Comments Asthma Anemia Migraines Depression Polycystic disease, ovaries Anxiety Clotting disorder due to low iro n Menstrual problem Patellar tracking disorder of left knee 11/17/19 11 PONV (postoperative nausea and vomiting) Family History Medical History Relation Name Comments Alcohol abuse Father Rojas Aguilar Greg WEINER Allergy (severe) Father Rojas Garza JR Asthma Father Rojas Garza JR COPD Father Rojas Garza JR Hypertension Father Rojas Garza JR Lung disease Father Rojas Jeff Greg WEINER Alcohol abuse Maternal Grandmother Letty Jorje Anemia Maternal Grandmother Letty Jorje Arthritis Maternal Grandmother Letty Jorje Asthma Maternal Grandmother Letty Jorje Bleeding Disorder Maternal Grandmother Letty Jorje Depression Maternal Grandmother Letty Jorje Drug abuse Maternal Grandmother Letty Jorje Hearing loss Maternal Grandmother Letty Jorje Alcohol abuse Mother Imelda [place] Asthma Mother Imelda [place] Depression Mother Imelda Vonnie Heart disease Mother Imelda [place] Hypertension Mother Imelda Vonnie Miscarriages / Stillbirths Mother Imelda Graft on Alcohol abuse Other Arthritis Other Bleeding Disorder Other Cancer Other Deep vein thrombosis Other Diabetes Other Gout Other Kidney disease Other Mental illness Other Stroke Other Alcohol abuse Paternal Grandfather Rojas Vonnie sr Arthritis Paternal Grandfather Rojas [place] sr Asthma Paternal Grandfather Rojas [place] sr Diabetes Paternal Grandfather Rojas [place] sr Early Paternal Grandfather Rojas [place] sr Heart disease Paternal Grandfather Rojas [place] sr Hypertension Paternal Grandfather Rojas [place] sr Alzheimer's disease Paternal Grandmother Apurva stuart Arthritis Paternal Grandmother Apurva brown Asthma Paternal Grandmother Apurva garcía r Depression Paternal Grandmother Apurva brown Hearing loss Paternal Grandmother Apurva brown Memory loss Paternal Grandmother Apurva brown Mental illness Paternal Grandmother Apurva rizvi her Miscarriages / Stillbirths Paternal Grandmother Apurva gregory john stuart Vision loss Paternal Grandmother Apurva neil raquel r Depression Sister Rosanna Shankar Relation Name [...] series) 11/18/2019 08/26/19 20, 09/25/2018 Covid-19 Vaccine (2023-2 5 season) 2024 10/20/2020, 10/20/2020, 09/29/2020, Additional history exists Depression Screening 12/08/2024 12/09/2023, 12/09/19 Influenza Vaccine (#1) 2025 , 03/05/2019, 03/03/2012, Additional history exists DTaP/Tdap/Td Vaccine (10 - T d or Tdap) 03/16/2032 03/16/2022, 02/15/2022, 02/06/2011, Additional history exists Hepatitis B Screening Completed 08/28/2001 , 10/10/2000, 04/25/2000, Additional history exists Varicella Vaccines Completed 02/06/2011, 0 11/15/2004, 10/10/2000, Additional history exists Procedures Procedure Name Priority Date/Time Associated Diagnosis [...] site of chest wall pain by the computer operations supervisor, with selected grayscale and color Doppler images [...] Talha Eugene M.D. KT: ELVIRA Report ID: [id number] Reading Location: [id number] Procedure Note Talha Eugene MD - 12/30/2024 EXAM DESCRIPTION: US CHEST REASON FOR STUDY: chest wall pain at the site of surgical scar. TECHNIQUE: A Dynamic assessment was performed of the at the site of chest wall pain by the computer operations supervisor, with selected grayscale and color Doppler images [...] Talha Eugene M.D. KT: ELVIRA Report ID: [id number] Reading Location: [id number] Dread Rosales [place] [facility] [place] F inal Result from Last [address] [facility] Care Teams Spiral Tube Winder Helper Relationship Specialty Start Date End Date Angelica Maynard MD PCP - General Family Medicine 12/09/23
--- OUTSIDE RECORDS SUMMARY | 2025-01-05 22:06 | XMS_ITS | Encounter Summary ---
Author Organization [facility] Address [address] [place] [address] Care Team Providers Care Office Clinician Name Role Phone Julieth Lopez MD Primary Care Provider + Julieth Lopez MD Primary Care Provider + Encounter Details Date Type Department Care Team (Late Contact Info) Description 03/23/2020 [employer] Message Enc [facility] Medical Group Family Medicine [address], [address] [place] [phone] [employer], [facility] Provider Lab results Social History [...] on file 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 MORTGAGE COUNSELOR Gender Identity Not on file Sexual Orientation [...] (Late Contact Info) Description 07/11/2025 8:30 AM MORTGAGE COUNSELOR Office Visit [facility] Medical Group Family Medicine - [place] [address] [place] [address] Julieth Lopez MD [address] [place], [place] [address] documented as of this encounter Visit Diagnoses Not on filedocumented in this encounter Additional Health Concerns Infection Onset Date Last Indicated Resolved Time COVID-19 Rule Out 06/07/2020 06/07/2020 06/10/2020 2:30 AM MORTGAGE COUNSELOR COVID-19 Rule Out 07/04/2020 07/04/2020 07/05/2020 6:22 PM MORTGAGE COUNSELOR documented as of this encounter Care Teams Office Clinician Relationship Specialty Start Date End Date Julieth Lopez MD [address] [place] [address] PCP - General FAMILY PRACTICE 07/29/24 Julieth Lopez MD [address] [place] [address] PCP - General FAMILY PRACTICE 07/07/24 07/28/24 documented as of this encounter
--- OUTSIDE RECORDS SUMMARY | 2025-01-05 22:06 | XMS_ITS | Encounter Summary ---
Author Organization [facility] Address [address] [place] [address] Care Team Providers Care Play Reader Name Role Phone Julieth Lopez MD Primary Care Provider + Julieth Lopez MD Primary Care Provider + Encounter Details Date Type Department Care Team (Late st Contact Info) Description 03/09/2020 [employer] Message Enc [facility] Medical Group Family Medicine - [place] [address] [facility], [address] [place] [phone] Elgin Lemos MD [address] [phone] RE: Medication Questions Social History Tobacco Use [...] on file 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 SPOOL CLEANER HAND Gender Identity Not on file Sexual Orientation [...] st Contact Info) Description 07/11/2025 8:30 AM SPOOL CLEANER HAND Office Visit [facility] Medical Group Family Medicine - [place] [address] [place] [address] Julieth Lopez MD [address] [place] [address] documented as of this encounter Visit Diagnoses Not on filedocumented in this encounter Additional Health Concerns Infection Onset Date Last Indicated Resolved Time COVID-19 Rule Out 03/20/2020 03/20/2020 03/22/2020 6:40 PM CDT COVID-19 Rule Out 06/07/2020 06/07/2020 06/10/2020 2:30 AM SPOOL CLEANER HAND COVID-19 Rule Out 07/04/2020 07/04/2020 07/05/2020 6:22 PM SPOOL CLEANER HAND documented as of this encounter Care Teams Play Reader Relationship Specialty Start Date End Date Julieth Lopez MD [address] [place] [address] PCP - General FAMILY PRACTICE 07/29/24 Julieth Lopez MD [address] [place] [address] PCP - General FAMILY PRACTICE 07/07/24 07/28/24 documented as of this encounter
--- OUTSIDE RECORDS SUMMARY | 2025-01-05 22:07 | XMS_ITS | Encounter Summary ---
Author Organization [facility] Address [address] [place] [address] Care Team Providers Care Technical Sales Manager Name Role Phone Angelica Maynard MD Primary Care Provider Encounter Details Date Type Department Care Team (Late st Contact Info) Description 12/30/2024 Results Follow-Up [facility] [address] [facility] [address] [place] [phone] Dread Rosales MD [address] [place] [address] [address] [place] [address] US Chest Social History Tobacco Use Types Packs/Day Years Used Date Smoking Tobacco: Never Smokeless Tobacco: Never Alcohol Use Standard Drinks/Week Comments Not Currently [...] Orientation Straight 03/13/2024 11 :18 PM CDT documented as of this encounter Miscellaneous Notes * Result Encounter Note - Bobbi Jamison MA - 12/30/2024 4:21 PM CDT Patient notified of results and had no further questions documented in this encounter Plan of Treatment Not on file documented as of this encounter Visit Diagnoses Not on filedocumented in this encounter Care Teams Technical Sales Manager Relationship Specialty Start Date End Date Angelica Maynard MD PCP - General Family Medicine 12/09/23 documented as of this encounter
--- OUTSIDE RECORDS SUMMARY | 2025-01-05 22:07 | XMS_ITS | Encounter Summary ---
Author Organization [facility] Address [address] [place] [address] Care Team Providers Care Sociology Teacher Name Role Phone Julieth Lopez MD Primary Care Provider + Julieth Lopez MD Primary Care Provider + Encounter Details Date Type Department Care Team (Late st Contact Info) Description 09/18/2022 [email or web address] Message Enc [facility] Medical Group Family Medicine - [place] [address] [facility], [address] [place] [phone] Elgin Lemos MD [address] [facility] [address] [place] [phone] Forgot to give you this info Social [...] file 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 CLOTH INSPECTOR Gender Identity Not on file Sexual Orientation [...] st Contact Info) Description 07/11/2025 8:30 AM CLOTH INSPECTOR Office Visit [facility] Medical Group Family Medicine - [place] [address] [place] [address] Julieth Lopez MD [address] [place], [place] [phone] documented as of this encounter Visit Diagnoses Not on filedocumented in this encounter Additional Health Concerns Assessment Noted Time PHQ-9 Depression Total Score: 13 020 11:01 AM CDT documented as of this encounter Care Teams Sociology Teacher Relationship Specialty Start Date End Date Julieth Lopez MD [address] [place] [address] PCP - General FAMILY PRACTICE 07/29/24 Julieth Lopez MD [address] [place], [place] [address] PCP - General FAMILY PRACTICE 07/07/24 07/28/24 documented as of this encounter
--- OUTSIDE RECORDS SUMMARY | 2025-01-05 22:07 | XMS_ITS | Encounter Summary ---
Author Organization [facility] Address [address] [place] [address] Care Team Providers Care Supervising Airplane Pilot Name Role Phone Julieth Lopez MD Primary Care Provider + Julieth Lopez MD Primary Care Provider + Encounter Details Date Type Department Care Team (Late st Contact Info) Description 09/30/2022 [employer] Message Enc [facility] Medical Group Family Medicine - [place] [address] [facility], [address] [place] [phone] Elgin Lemos MD [address] [facility] [place] [address] [place] [phone] [employer] Social History Tobacco Use Types Packs/Day [...] on file 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 FOREX TRADER Gender Identity Not on file Sexual Orientation [...] st Contact Info) Description 07/11/2025 8:30 AM FOREX TRADER Office Visit [facility] Medical Group Family Medicine - [place] [address] [place] [address] Julieth Lopez MD [address] [place], [place] [address] documented as of this encounter Visit Diagnoses Not on filedocumented in this encounter Additional Health Concerns Assessment Noted Time PHQ-9 Depression Total Score: 13 020 11:01 AM CDT documented as of this encounter Care Teams Supervising Airplane Pilot Relationship Specialty Start Date End Date Julieth Lopez MD [address] [place], [place] [phone] PCP - General FAMILY PRACTICE 07/29/24 Julieth Lopez MD [address] [place], [place] [address] PCP - General FAMILY PRACTICE 07/07/24 07/28/24 documented as of this encounter
--- OUTSIDE RECORDS SUMMARY | 2025-01-06 00:52 | XMS_ITS | Encounter Summary ---
Author Organization [facility] Address [address] [place] [address] Care Team Providers Care Portainer Operator Name Role Phone Julieth Lopez MD Primary Care Provider + Julieth Lopez MD Primary Care Provider + Encounter Details Date Type Department Care Team (Late st Contact Info) Description 09/08/2020 [employer] Message Enc [facility] Medical Group Family Medicine - [place] [address] [facility], [address] [place] [phone] Elgin Lemos MD [address] [facility] [address] [place] [phone] RE: Question Social History Tobacco Use [...] on file 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 NAVIGATING OFFICER Gender Identity Not on file Sexual Orientation Not on file COVID-19 Exposure Response Date Recorded In the last month, have you been in contact with someone who was confirmed or suspected to have Coronavirus / COVID-19? No / Unsure 08/16/2020 1:55 PM NAVIGATING OFFICER documented as of this encounter Plan of Treatment Upcoming Encounters Date Type Department Care Team (Late st Contact Info) Description 07/11/2025 8:30 AM NAVIGATING OFFICER Office Visit [facility] Medical Group Family Medicine - [place] [address] [place] [address] Julieth Lopez MD [address] [place] [address] documented as of this encounter Visit Diagnoses Not on filedocumented in this encounter Additional Health Concerns Assessment Noted Time PHQ-9 Depression Total Score: 13 020 11:01 AM CDT documented as of this encounter Care Teams Portainer Operator Relationship Specialty Start Date End Date Julieth Lopez MD [address] [place] [address] PCP - General FAMILY PRACTICE 07/29/24 Julieth Lopez MD [address] [place] [address] PCP - General FAMILY PRACTICE 07/07/24 07/28/24 documented as of this encounter
--- OUTSIDE RECORDS SUMMARY | 2025-01-06 00:52 | XMS_ITS | Encounter Summary ---
Author Organization [facility] Address [address] [place] [address] Care Team Providers Care Granulator Tender Name Role Phone Julieth Lopez MD Primary Care Provider + Julieth Lopez MD Primary Care Provider + Encounter Details Date Type Department Care Team (Late Contact Info) Description 01/29/2021 [employer] Message Enc [facility] Medical [facility] Family Medicine - [place] [address] [facility], [address] [place] [phone] Elgin Lemos MD [address] [facility] [address] [place] [address] [phone] RE: Medication Questions Social History Tobacco Use [...] on file 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 Gender Identity Not on file Sexual Orientation Not on file documented as of this encounter Plan of Treatment Upcoming Encounters Date Type Department Care Team (Late Contact Info) Description 07/11/2025 8:30 AM ORTHOPEDIC MECHANIC Office Visit [facility] Medical Group Family Medicine - [place] [address] [place] [address] Julieth Lopez MD [address] [place] [address] documented as of this encounter Visit Diagnoses Not on filedocumented in this encounter Additional Health Concerns Assessment Noted Time PHQ-9 Depression Total Score: 13 020 11:01 AM CDT documented as of this encounter Care Teams Granulator Tender Relationship Specialty Start Date End Date Julieth Lopez MD [address] [place] [address] PCP - General FAMILY PRACTICE 07/29/24 Julieth Lopez MD [address] [place] [address] PCP - General FAMILY PRACTICE 07/07/24 07/28/24 documented as of this encounter
--- OUTSIDE RECORDS SUMMARY | 2025-01-06 00:52 | XMS_ITS | Encounter Summary ---
Author Organization [facility] Address [address] [place] [address] Care Team Providers Care X Ray Nurse Name Role Phone Julieth Lopez MD Primary Care Provider + Julieth Lopez MD Primary Care Provider + Encounter Details Date Type Department Care Team (Late st Contact Info) Description 03/08/2020 [employer] 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 ASSISTANT PROPERTY MANAGER Gender Identity Not on file Sexual [...] st Contact Info) Description 07/11/2025 8:30 AM ASSISTANT PROPERTY MANAGER Office Visit [facility] Medical Group Family Medicine - [place] [address] [place] [address] Julieth Lopez MD [address] [place], [place] [address] documented as of this encounter Visit Diagnoses Not on filedocumented in this encounter Additional Health Concerns Infection Onset Date Last Indicated Resolved Time COVID-19 Rule Out 03/20/2020 03/20/2020 03/22/2020 6:40 PM CDT COVID-19 Rule Out 06/07/2020 06/07/2020 06/10/2020 2:30 AM ASSISTANT PROPERTY MANAGER COVID-19 Rule Out 07/04/2020 07/04/2020 07/05/2020 6:22 PM ASSISTANT PROPERTY MANAGER documented as of this encounter Care Teams X Ray Nurse Relationship Specialty Start Date End Date Julieth Lopez MD [address] [place] [address] PCP - General FAMILY PRACTICE 07/29/24 Julieth Lopez MD [address] [place] [address] PCP - General FAMILY PRACTICE 07/07/24 07/28/24 documented as of this encounter
--- OUTSIDE RECORDS SUMMARY | 2025-01-06 00:52 | XMS_ITS | Encounter Summary ---
Author Organization [facility] Address [address] [place] [address] Care Team Providers Care Siebel Consultant Name Role Phone Julieth Lopez MD Primary Care Provider + Julieth Lopez MD Primary Care Provider + Encounter Details Date Type Department Care Team (Late st Contact Info) Description 01/29/2020 [employer] Message Enc [facility] Medical Group Family Medicine - [place] [address] [facility], [address] [place] [phone] Elgin Lemos MD [address] [phone] RE: Follow Up/Update Social History Tobacco Use [...] on file 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 SHIP/REC/DOC CONTROL Gender Identity Not on file Sexual Orientation [...] st Contact Info) Description 07/11/2025 8:30 AM SHIP/REC/DOC CONTROL Office Visit [facility] Medical Group Family Medicine - [place] [address] [place] [address] Julieth Lopez MD [address] [place] [address] documented as of this encounter Visit Diagnoses Not on filedocumented in this encounter Additional Health Concerns Infection Onset Date Last Indicated Resolved Time COVID-19 Rule Out 03/20/2020 03/20/2020 03/22/2020 6:40 PM CDT COVID-19 Rule Out 06/07/2020 06/07/2020 06/10/2020 2:30 AM SHIP/REC/DOC CONTROL COVID-19 Rule Out 07/04/2020 07/04/2020 07/05/2020 6:22 PM SHIP/REC/DOC CONTROL documented as of this encounter Care Teams Siebel Consultant Relationship Specialty Start Date End Date Julieth Lopez MD [address] [place] [address] PCP - General FAMILY PRACTICE 07/29/24 Julieth Lopez MD [address] [place] [address] PCP - General FAMILY PRACTICE 07/07/24 07/28/24 documented as of this encounter
--- OUTSIDE RECORDS SUMMARY | 2025-01-06 00:52 | XMS_ITS | Clinical Summary ---
Author Organization [facility] [employer] Address [address] [facility] [place] [address] Care Team Providers Care Agent Spa Desk Name Role Phone Pcp, Carolyn Depshantanu Im-Fm Primary Care Provider Un available Source Comments [facility] [employer],non-owned Affiliates and Associated Physician Practices is amultiple site organization consisting of ambulatory clinics and hospital sitesin [place] and [place]. This disclosure is being madepursuant to the Care Everywhere program and may not contain all information available regarding this patient. Last updated 18.[facility] [employer] Allergies Active Allergy Reactions Criticality Noted Date [...] complete this topic Insurance MEDICAID - [place] [facility] Care Teams Agent Spa Desk Relationship Specialty Start Date End Date Carolyn Bryant - PCP - General 01/10/23
--- OUTSIDE RECORDS SUMMARY | 2025-01-06 00:52 | XMS_ITS | Encounter Summary ---
Author Organization [facility] Address [address] [place] [address] Care Team Providers Care Card Grinder Helper Name Role Phone Julieth Lopez MD Primary Care Provider + Julieth Lopez MD Primary Care Provider + Encounter Details Date Type Department Care Team (Late Contact Info) Description 03/05/2021 Payfirmat Message Enc [facility] Medical Group Family Medicine - [place] [address] [facility], [address] [place] [address] [phone] Elgin Lemos MD [address] [facility] [place] [address] [place] [address] [phone] RE: Referral Request Social History Tobacco Use [...] on file 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 JET WIPER Gender Identity Not on file Sexual Orientation Not on file documented as of this encounter Plan of Treatment Upcoming Encounters Date Type Department Care Team (Late Contact Info) Description 07/11/2025 8:30 AM JET WIPER Office Visit [facility] Medical Group Family Medicine - [place] [address] [place] [address] Julieth Lopez MD [address] [place] [address] documented as of this encounter Visit Diagnoses Not on filedocumented in this encounter Additional Health Concerns Assessment Noted Time PHQ-9 Depression Total Score: 13 020 11:01 AM CDT documented as of this encounter Care Teams Card Grinder Helper Relationship Specialty Start Date End Date Julieth Lopez MD [address] [place] [address] PCP - General FAMILY PRACTICE 07/29/24 Julieth Lopez MD [address] [place] [address] PCP - General FAMILY PRACTICE 07/07/24 07/28/24 documented as of this encounter
--- OUTSIDE RECORDS SUMMARY | 2025-01-06 00:52 | XMS_ITS | Encounter Summary ---
Author Organization [facility] Address [address] [place] [address] Care Team Providers Care Security Systems Integrator Name Role Phone Julieth Lopez MD Primary Care Provider + Julieth Lopez MD Primary Care Provider + Encounter Details Date Type Department Care Team (Late st Contact Info) Description 01/06/2020 SkillSurvey Message Enc [facility] Medical Group Family Medicine - [place] [address] [facility], [address] [place] [address] [phone] Elgin Lemos MD [address] [facility] [place] [address] [place] [address] [phone] RE: Other Social History Tobacco Use Types [...] file 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 PLEATING Gender Identity Not on file Sexual Orientation [...] Contact Info) Description 07/11/2025 8:30 AM SUPERVISOR PLEATING Office Visit [facility] Medical Group Family Medicine - [place] [address] [place] [address] Julieth Lopez MD [address] [place] [address] documented as of this encounter Visit Diagnoses Not on filedocumented in this encounter Additional Health Concerns Infection Onset Date Last Indicated Resolved Time COVID-19 Rule Out 03/20/2020 03/20/2020 03/22/2020 6:40 PM CDT COVID-19 Rule Out 06/07/2020 06/07/2020 06/10/2020 2:30 AM SUPERVISOR PLEATING COVID-19 Rule Out 07/04/2020 07/04/2020 07/05/2020 6:22 PM SUPERVISOR PLEATING documented as of this encounter Care Teams Security Systems Integrator Relationship Specialty Start Date End Date Julieth Lopez MD [address] [place] [address] PCP - General FAMILY PRACTICE 07/29/24 Julieht Lopez MD [address] [place] [address] PCP - General FAMILY PRACTICE 07/07/24 07/28/24 documented as of this encounter
--- OUTSIDE RECORDS SUMMARY | 2025-01-06 00:52 | XMS_ITS | Encounter Summary ---
Author Organization [facility] Address [address] [place] [address] Care Team Providers Care Flare Stitcher Name Role Phone Julieth Lopez MD Primary Care Provider + Julieth Lopez MD Primary Care Provider + Encounter Details Date Type Department Care Team (Late Contact Info) Description 12/11/2022 [facility] Message Enc [facility] Medical [facility] [address] [place], [place] [phone] [place], [facility] Provider Air Quality Message Social History Tobacco [...] on file 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 ROOFER HELPER Gender Identity Not on file Sexual Orientation Not on file documented as of this encounter Plan of Treatment Upcoming Encounters Date Type Department Care Team (Late Contact Info) Description 07/11/2025 8:30 AM ROOFER HELPER Office Visit [facility] Medical [facility] Family Medicine - [place] [address] [place] [address] Julieth Lopez MD [address] [place] [address] documented as of this encounter Visit Diagnoses Not on filedocumented in this encounter Additional Health Concerns Assessment Noted Time PHQ-9 Depression Total Score: 13 020 11:01 AM CDT documented as of this encounter Care Teams Flare Stitcher Relationship Specialty Start Date End Date Julieth Lopez MD [address] [place] [address] PCP - General FAMILY PRACTICE 07/29/24 Julieth Lopez MD [address] [place] [address] PCP - General FAMILY PRACTICE 07/07/24 07/28/24 documented as of this encounter
--- OUTSIDE RECORDS SUMMARY | 2025-01-06 00:52 | XMS_ITS | Encounter Summary ---
Author Organization [facility] Address [address] [place] [address] Care Team Providers Care Rn Acute Name Role Phone Julieth Lopez MD Primary Care Provider + Julieth Lopez MD Primary Care Provider + Encounter Details Date Type Department Care Team (Late st Contact Info) Description 08/23/2019 Cliqset Message Enc [facility] Medical Group Family Medicine - [place] [address] [facility], [address] [place] [address] [phone] Elgin Lemos MD [address] [address] RE: Question Social History Tobacco [...] on file 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 MITIGATION SUPERVISOR Gender Identity Not on file Sexual [...] st Contact Info) Description 07/11/2025 8:30 AM MITIGATION SUPERVISOR Office Visit [facility] Medical Group Family Medicine - [place] [address] [place] [address] Julieth Lopez MD [address] [place] [address] documented as of this encounter Visit Diagnoses Not on filedocumented in this encounter Additional Health Concerns Infection Onset Date Last Indicated Resolved Time COVID-19 Rule Out 03/20/2020 03/20/2020 03/22/2020 6:40 PM CDT COVID-19 Rule Out 06/07/2020 06/07/2020 06/10/2020 2:30 AM MITIGATION SUPERVISOR COVID-19 Rule Out 07/04/2020 07/04/2020 07/05/2020 6:22 PM MITIGATION SUPERVISOR documented as of this encounter Care Teams Rn Acute Relationship Specialty Start Date End Date Julieth Lopez MD [address] [place] [address] PCP - General FAMILY PRACTICE 07/29/24 Julieth Lopez MD [address] [place] [address] PCP - General FAMILY PRACTICE 07/07/24 07/28/24 documented as of this encounter
--- OUTSIDE RECORDS SUMMARY | 2025-01-06 00:52 | XMS_ITS | Encounter Summary ---
Author Organization [facility] Address [address] [place] [address] Care Team Providers Care Rocket Test Fire Worker Name Role Phone Julieth Lopez MD Primary Care Provider + Julieth Lopez MD Primary Care Provider + Encounter Details Date Type Department Care Team (Late st Contact Info) Description 01/13/2020 [employer] [place] Message Enc [facility] Medical Group Family Medicine - [place] [address] [facility], [address] [place] [address] [phone] Elgin Lemos MD [address] [phone] RE: Question Social History Tobacco Use Types [...] on file 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 PATTERNMAKER PRESSURE CAST Gender Identity Not on file Sexual Orientation [...] 01/14/2020 9:12 AM CDT Requested results from [facility]. Placed on your desk for review. documented in this encounter Plan of Treatment Upcoming Encounters Date Type Department Care Team (Late st Contact Info) Description 07/11/2025 8:30 AM PATTERNMAKER PRESSURE CAST Office Visit [facility] Medical Group Family Medicine [facility] [address] [place] [address] Julieth Lopez MD [address] [place] [address] documented as of this encounter Visit Diagnoses Not on filedocumented in this encounter Additional Health Concerns Infection Onset Date Last Indicated Resolved Time COVID-19 Rule Out 03/20/2020 03/20/2020 03/22/2020 6:40 PM CDT COVID-19 Rule Out 06/07/2020 06/07/2020 06/10/2020 2:30 AM PATTERNMAKER PRESSURE CAST COVID-19 Rule Out 07/04/2020 07/04/2020 07/05/2020 6:22 PM PATTERNMAKER PRESSURE CAST documented as of this encounter Care Teams Rocket Test Fire Worker Relationship Specialty Start Date End Date Julieth Lopez MD [address] [place] [address] PCP - General FAMILY PRACTICE 07/29/24 Julieth Lopez MD [address] [place] [address] PCP - General FAMILY PRACTICE 07/07/24 07/28/24 documented as of this encounter
--- OUTSIDE RECORDS SUMMARY | 2025-01-06 00:52 | XMS_ITS | Encounter Summary ---
Author Organization [facility] Address [facility] [place] [address] Care Team Providers Care Patient Access Specialist Name Role Phone Julieth Lopez MD Primary Care Provider + Julieth Lopez MD Primary Care Provider + Encounter Details Date Type Department Care Team (Late Contact Info) Description 04/13/2019 ZeroCater Message Enc [facility] [address] [place] [address] [facility] Provider Question Social History Tobacco Use Types Packs/Day Years Used Date Smoking Tobacco: Never Smokeless Tobacco: Never PHQ-2 Answer Date Recorded PHQ-2 Score 2 09/22/2018 Comments No Sex and Gender Information Value Date Recorded Sex Assigned at Not on file 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 EVENT PLANNING MANAGER Gender Identity Not on file Sexual Orientation Not on file documented as of this encounter Plan of Treatment Upcoming Encounters Date Type Department Care Team ([facility] Contact Info) Description 07/11/2025 8:30 AM EVENT PLANNING MANAGER Office Visit [facility] Medical Group Family Medicine - [place] [address] [place] [address] [phone] Julieth Lopez MD [address] [place] [address] [phone] documented as of this encounter Visit Diagnoses Not on filedocumented in this encounter Additional Health Concerns Infection Onset Date Last Indicated Resolved Time COVID-19 Rule Out 03/20/2020 03/20/2020 03/22/2020 6:40 PM CDT COVID-19 Rule Out 06/07/2020 06/07/2020 06/10/2020 2:30 AM EVENT PLANNING MANAGER COVID-19 Rule Out 07/04/2020 07/04/2020 07/05/2020 6:22 PM EVENT PLANNING MANAGER documented as of this encounter Care Teams Patient Access Specialist Relationship Specialty Start Date End Date Julieth Lopez MD [address] [place] [address] PCP - General FAMILY PRACTICE 07/29/24 Julieth Lopez MD [address] [place] [address] PCP - General FAMILY PRACTICE 07/07/24 07/28/24 documented as of this encounter
--- OUTSIDE RECORDS SUMMARY | 2025-01-06 00:52 | XMS_ITS | Encounter Summary ---
Author Organization [facility] Address [address] [place] [address] Care Team Providers Care Straightener And Aligner Name Role Phone Julieth Lopez MD Primary Care Provider + Julieth Lopez MD Primary Care Provider + Encounter Details Date Type Department Care Team (Late st Contact Info) Description 03/18/2020 [employer] Message Enc [facility] Medical Group Family Medicine - [place] [address] [facility], [address] [place] [address] [phone] Elgin Lemos MD [address] [address] RE: Question Social History Tobacco [...] on file 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 MIXING HOUSE OPERATOR Gender Identity Not on file Sexual [...] st Contact Info) Description 07/11/2025 8:30 AM MIXING HOUSE OPERATOR Office Visit [facility] Medical Group Family Medicine - [place] [address] [place] [address] Julieth Lopez MD [address] [place] [address] documented as of this encounter Visit Diagnoses Not on filedocumented in this encounter Additional Health Concerns Infection Onset Date Last Indicated Resolved Time COVID-19 Rule Out 03/20/2020 03/20/2020 03/22/2020 6:40 PM CDT COVID-19 Rule Out 06/07/2020 06/07/2020 06/10/2020 2:30 AM MIXING HOUSE OPERATOR COVID-19 Rule Out 07/04/2020 07/04/2020 07/05/2020 6:22 PM MIXING HOUSE OPERATOR documented as of this encounter Care Teams Straightener And Aligner Relationship Specialty Start Date End Date Julieth Lopez MD [address] [place] [address] PCP - General FAMILY PRACTICE 07/29/24 Julieth Lopez MD [address] [place] [address] PCP - General FAMILY PRACTICE 07/07/24 07/28/24 documented as of this encounter
--- OUTSIDE RECORDS SUMMARY | 2025-01-06 00:52 | XMS_ITS | Encounter Summary ---
Author Organization [facility] Address [address] [place] [address] Care Team Providers Care Steel Construction Worker Name Role Phone Julieth Lopez MD Primary Care Provider + Julieth Lopez MD Primary Care Provider + Encounter Details Date Type Department Care Team (Late Contact Info) Description 08/30/2019 Oxyrane UKt Message Enc [facility] Family Medicine [facility] [address] [facility], [address] [place] [address] [phone] Elgin Lemos MD [address] [phone] RE: Follow Up/Update Social History Tobacco Use [...] on file 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 PROVIDER RELATIONS REPRESENTATIVE Gender Identity Not on file Sexual Orientation Not on file documented as of this encounter Plan of Treatment Upcoming Encounters Date Type Department Care Team (Late Contact Info) Description 07/11/2025 8:30 AM PROVIDER RELATIONS REPRESENTATIVE Office Visit [facility] Family Medicine [facility] [address] [place] [address] Julieth Lopez MD [address] [place] [address] documented as of this encounter Visit Diagnoses Not on filedocumented in this encounter Additional Health Concerns Infection Onset Date Last Indicated Resolved Time COVID-19 Rule Out 03/20/2020 03/20/2020 03/22/2020 6:40 PM CDT COVID-19 Rule Out 06/07/2020 06/07/2020 06/10/2020 2:30 AM PROVIDER RELATIONS REPRESENTATIVE COVID-19 Rule Out 07/04/2020 07/04/2020 07/05/2020 6:22 PM PROVIDER RELATIONS REPRESENTATIVE documented as of this encounter Care Teams Steel Construction Worker Relationship Specialty Start Date End Date Julieth Lopez MD [address] [place] [address] PCP - General FAMILY PRACTICE 07/29/24 Julieth Lopez MD [address] [place] [address] PCP - General FAMILY PRACTICE 07/07/24 07/28/24 documented as of this encounter
--- OUTSIDE RECORDS SUMMARY | 2025-01-06 00:52 | XMS_ITS | Encounter Summary ---
Author Organization [facility] Address [address] [place] [address] Care Team Providers Care Antique Jewelry Repairer Name Role Phone Julieth Lopez MD Primary Care Provider + Julieth Lopez MD Primary Care Provider + Encounter Details Date Type Department Care Team (Late st Contact Info) Description 08/16/2020 Shattered Reality Interactive Message Enc [facility] Medical Group Family Medicine - [place] [address] [facility], [address] [place] [address] [phone] Elgin Lemos MD [address] [facility] [place] [address] [place] [phone] RE: Question Social History Tobacco Use [...] on file 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 SHINGLER Gender Identity Not on file Sexual Orientation Not on file COVID-19 Exposure Response Date Recorded In the last month, have you been in contact with someone who was confirmed or suspected to have Coronavirus / COVID-19? No / Unsure 08/16/2020 1:55 PM SHINGLER documented as of this encounter Plan of Treatment Upcoming Encounters Date Type Department Care Team (Late st Contact Info) Description 07/11/2025 8:30 AM SHINGLER Office Visit [facility] Medical Group Family Medicine - [place] [address] [place] [address] Julieth Lopez MD [address] [place] [address] documented as of this encounter Visit Diagnoses Not on filedocumented in this encounter Additional Health Concerns Assessment Noted Time PHQ-9 Depression Total Score: 13 020 11:01 AM CDT documented as of this encounter Care Teams Antique Jewelry Repairer Relationship Specialty Start Date End Date Julieth Lopez MD [address] [place] [address] PCP - General FAMILY PRACTICE 07/29/24 Julieth Lopez MD [address] [place] [address] PCP - General FAMILY PRACTICE 07/07/24 07/28/24 documented as of this encounter
--- OUTSIDE RECORDS SUMMARY | 2025-01-06 00:52 | XMS_ITS | Encounter Summary ---
Author Organization [facility] Address [address] [place] [address] Care Team Providers Care Field Support Specialist Name Role Phone Julieth Lopez MD Primary Care Provider + Julieth Lopez MD Primary Care Provider + Encounter Details Date Type Department Care Team (Late st Contact Info) Description 04/25/2020 Intact Medical Message Enc [facility] Medical Group Family Medicine - [place] [address] [facility], [address] [place] [phone] Elgin Lemos MD [address] [address] RE: Question Social History Tobacco [...] on file 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 PRESS OPERATOR PRINTING Gender Identity Not on file Sexual Orientation Not on file COVID-19 Exposure Response Date Recorded In the last month, have you been in contact with someone who was confirmed or suspected to have Coronavirus / COVID-19? No / Unsure 04/26/2020 9:25 AM PRESS OPERATOR PRINTING documented as of this encounter Plan of Treatment Upcoming Encounters Date Type Department Care Team (Late st Contact Info) Description 07/11/2025 8:30 AM PRESS OPERATOR PRINTING Office Visit [facility] Medical Group Family Medicine - [place] [address] [place] [address] Julieth Lopez MD [address] [place] [address] documented as of this encounter Visit Diagnoses Not on filedocumented in this encounter Additional Health Concerns Infection Onset Date Last Indicated Resolved Time COVID-19 Rule Out 06/07/2020 06/07/2020 06/10/2020 2:30 AM PRESS OPERATOR PRINTING COVID-19 Rule Out 07/04/2020 07/04/2020 07/05/2020 6:22 PM PRESS OPERATOR PRINTING Assessment Noted Time PHQ-9 Depression Total Score: 13 020 11:01 AM CDT documented as of this encounter Care Teams Field Support Specialist Relationship Specialty Start Date End Date Julieth Lopez MD [address] [place] [address] PCP - General FAMILY PRACTICE 07/29/24 Julieth Lopez MD [address] [place] [address] PCP - General FAMILY PRACTICE 07/07/24 07/28/24 documented as of this encounter
--- OUTSIDE RECORDS SUMMARY | 2025-01-06 00:52 | XMS_ITS | Encounter Summary ---
Author Organization [facility] Address [address] [place] [address] Care Team Providers Care Craft Manager Name Role Phone Julieth Lopez MD Primary Care Provider + Julieth Lopez MD Primary Care Provider + Encounter Details Date Type Department Care Team (Late Contact Info) Description 10/28/[address] [facility] Family Medicine [facility] [address] [facility], [address] [place] [address] [phone] Elgin Lemos MD [address] [facility] [address] [place] [address] [phone] Hospital Social History Tobacco Use Types Packs/Day [...] on file 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 BIOPROCESS DEVELOPMENT ENGINEER Gender Identity Not on file Sexual Orientation Not on file documented as of this encounter Plan of Treatment Upcoming Encounters Date Type Department Care Team (Late Contact Info) Description 07/11/2025 8:30 AM BIOPROCESS DEVELOPMENT ENGINEER Office Visit [facility] Family Medicine [facility] [address] [place], [place] [phone] Julieth Lopez MD [address] [place], [place] [address] documented as of this encounter Visit Diagnoses Not on filedocumented in this encounter Additional Health Concerns Assessment Noted Time PHQ-9 Depression Total Score: 13 020 11:01 AM CDT documented as of this encounter Care Teams Craft Manager Relationship Specialty Start Date End Date Julieth Lopez MD [address] [place], [place] [address] PCP - General FAMILY PRACTICE 07/29/24 Julieth Lopez MD [address] [place] [address] PCP - General FAMILY PRACTICE 07/07/24 07/28/24 documented as of this encounter
--- OUTSIDE RECORDS SUMMARY | 2025-01-06 00:52 | XMS_ITS | Encounter Summary ---
Author Organization [facility] Address [address] [place] [address] Care Team Providers Care Glue Plant Operator Name Role Phone Julieth Lopez MD Primary Care Provider + Julieth Lopez MD Primary Care Provider + Encounter Details Date Type Department Care Team (Late st Contact Info) Description 05/16/2019 Studiot Message Enc [facility] Family Medicine [facility] [address] [facility], [address] [place] [phone] Elgin Lemos MD [address] [facility] [address] [place] [address] Follow Up/Update Social History Tobacco Use Types Packs/Day Years Used Date Smoking Tobacco: Never Smokeless Tobacco: Never PHQ-2 Answer Date Recorded PHQ-2 Score 2 09/22/2018 Comments No Sex and Gender Information Value Date Recorded Sex Assigned at Not on file 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 PREP PERSON Gender Identity Not on file Sexual Orientation Not on file documented as of this encounter Plan of Treatment Upcoming Encounters Date Type Department Care Team (Late st Contact Info) Description 07/11/2025 8:30 AM PREP PERSON Office Visit [facility] Family Medicine - [place] [address] [place] [address] Julieth Lopez MD [address] [place] [address] documented as of this encounter Visit Diagnoses Not on filedocumented in this encounter Additional Health Concerns Infection Onset Date Last Indicated Resolved Time COVID-19 Rule Out 03/20/2020 03/20/2020 03/22/2020 6:40 PM CDT COVID-19 Rule Out 06/07/2020 06/07/2020 06/10/2020 2:30 AM PREP PERSON COVID-19 Rule Out 07/04/2020 07/04/2020 07/05/2020 6:22 PM PREP PERSON documented as of this encounter Care Teams Glue Plant Operator Relationship Specialty Start Date End Date Julieth Lopez MD [address] [place] [address] PCP - General FAMILY PRACTICE 07/29/24 Julieth Lopez MD [address] [place] [address] PCP - General FAMILY PRACTICE 07/07/24 07/28/24 documented as of this encounter
--- OUTSIDE RECORDS SUMMARY | 2025-01-06 00:52 | XMS_ITS | Encounter Summary ---
Author Organization [facility] Address [address] [place] [address] Care Team Providers Care Balloon Artist Name Role Phone Julieth Lopez MD Primary Care Provider + Julieth Lopez MD Primary Care Provider + Encounter Details Date Type Department Care Team (Late st Contact Info) Description 05/24/2020 Swift Identity Message Enc [facility] Family Medicine - [place] [address] [facility], [address] [place] [phone] Elgin Lemos MD [address] [address] RE: Question Social History Tobacco [...] on file 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 PARTS CHASER Gender Identity Not on file Sexual Orientation Not on file COVID-19 Exposure Response Date Recorded In the last month, have you been in contact with someone who was confirmed or suspected to have Coronavirus / COVID-19? No / Unsure 05/25/2020 3:22 PM PARTS CHASER documented as of this encounter Progress Notes * Elgin Lemos MD - 05/25/2020 8:06 AM CST Need to take a look S CHASER documented in this encounter Plan of Treatment Upcoming Encounters Date Type Department Care Team (Late st Contact Info) Description 07/11/2025 8:30 AM PARTS CHASER Office Visit [facility] Family Medicine - [place] [address] [place] [address] Julieth Lopez MD [address] [place] [address] documented as of this encounter Visit Diagnoses Not on filedocumented in this encounter Additional Health Concerns Infection Onset Date Last Indicated Resolved Time COVID-19 Rule Out 06/07/2020 06/07/2020 06/10/2020 2:30 AM PARTS CHASER COVID-19 Rule Out 07/04/2020 07/04/2020 07/05/2020 6:22 PM PARTS CHASER Assessment Noted Time PHQ-9 Depression Total Score: 13 020 11:01 AM CDT documented as of this encounter Care Teams Balloon Artist Relationship Specialty Start Date End Date Julieth Lopez MD [address] [place] [address] PCP - General FAMILY PRACTICE 07/29/24 Julieth Lopez MD [address] [place] [address] PCP - General FAMILY PRACTICE 07/07/24 07/28/24 documented as of this encounter
--- OUTSIDE RECORDS SUMMARY | 2025-01-06 00:52 | XMS_ITS | Encounter Summary ---
Author Organization [facility] Address [address] [place] [address] Care Team Providers Care Channel Partners Name Role Phone Julieth Lopez MD Primary Care Provider + Julieth Lopez MD Primary Care Provider + Encounter Details Date Type Department Care Team (Late st Contact Info) Description 10/13/2019 SaaSAssurance Message Enc [facility] Family Medicine - [place] [address] [facility], [address] [place] [phone] Elgin Lemos MD [address] [address] RE: Question Social History Tobacco [...] on file 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 CERTIFIED MEDICAL ASSISTANT Gender Identity Not on file Sexual [...] st Contact Info) Description 07/11/2025 8:30 AM CERTIFIED MEDICAL ASSISTANT Office Visit [facility] Family Medicine - [place] [address] [place] [address] Julieth Lopez MD [address] [place] [address] documented as of this encounter Visit Diagnoses Not on filedocumented in this encounter Additional Health Concerns Infection Onset Date Last Indicated Resolved Time COVID-19 Rule Out 03/20/2020 03/20/2020 03/22/2020 6:40 PM CDT COVID-19 Rule Out 06/07/2020 06/07/2020 06/10/2020 2:30 AM CERTIFIED MEDICAL ASSISTANT COVID-19 Rule Out 07/04/2020 07/04/2020 07/05/2020 6:22 PM CERTIFIED MEDICAL ASSISTANT documented as of this encounter Care Teams Channel Partners Relationship Specialty Start Date End Date Julieth Lopez MD [address] [place] [address] PCP - General FAMILY PRACTICE 07/29/24 Julieth Lopez MD [address] [place] [address] PCP - General FAMILY PRACTICE 07/07/24 07/28/24 documented as of this encounter
--- OUTSIDE RECORDS SUMMARY | 2025-01-06 00:52 | XMS_ITS | Encounter Summary ---
Author Organization [facility] Address [address] [place] [address] Care Team Providers Care Software Security Architect Name Role Phone Julieth Lopez MD Primary Care Provider + Julieth Lopez MD Primary Care Provider + Encounter Details Date Type Department Care Team (Late Contact Info) Description 01/21/2023 FoKot Message Enc [facility] Family Medicine [facility] [address] [facility], [address] [place] [phone] Elgin Lemos MD [address] [phone] update Social History Tobacco Use Types Packs/Day [...] file 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 CLINICAL LABORATORY AIDES TEACHER Gender Identity Not on file Sexual Orientation Not on file documented as of this encounter Plan of Treatment Upcoming Encounters Date Type Department Care Team (Late Contact Info) Description 07/11/2025 8:30 AM CLINICAL LABORATORY AIDES TEACHER Office Visit [facility] Family Medicine [facility] [address] [place], [place] [address] Julieth Lopez MD [address] [place], [place] [address] documented as of this encounter Visit Diagnoses Not on filedocumented in this encounter Additional Health Concerns Assessment Noted Time PHQ-9 Depression Total Score: 13 020 11:01 AM CDT documented as of this encounter Care Teams Software Security Architect Relationship Specialty Start Date End Date Julieth Lopez MD [address] [place], [place] [address] PCP - General FAMILY PRACTICE 07/29/24 Julieth Lopez MD [address] [place] [address] PCP - General FAMILY PRACTICE 07/07/24 07/28/24 documented as of this encounter
--- OUTSIDE RECORDS SUMMARY | 2025-01-06 00:52 | XMS_ITS | Encounter Summary ---
Author Organization [facility] Address [facility] [place] [address] Care Team Providers Care Director Television News Name Role Phone Julieth Lopez MD Primary Care Provider + Julieth Lopez MD Primary Care Provider + Encounter Details Date Type Department Care Team (Late st Contact Info) Description 05/11/2019 MyChart Message Enc [facility] Family Medicine [facility] [address] [facility], [address] [place] [phone] Elgin Lemos MD [address] [facility] [address] [place], [place] [phone] RE: Question Social History Tobacco Use Types Packs/Day Years Used Date Smoking Tobacco: Never Smokeless Tobacco: Never PHQ-2 Answer Date Recorded PHQ-2 Score 2 09/22/2018 Comments No Sex and Gender Information Value Date Recorded Sex Assigned at Not on file 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 PEER SPECIALIST Gender Identity Not on file Sexual Orientation Not on file documented as of this encounter Plan of Treatment Upcoming Encounters Date Type Department Care Team (Late st Contact Info) Description 07/11/2025 8:30 AM PEER SPECIALIST Office Visit [facility] Family Medicine - [place] [address] [place] [address] Julieth Lopez MD [address] [place] [address] documented as of this encounter Visit Diagnoses Not on filedocumented in this encounter Additional Health Concerns Infection Onset Date Last Indicated Resolved Time COVID-19 Rule Out 03/20/2020 03/20/2020 03/22/2020 6:40 PM CDT COVID-19 Rule Out 06/07/2020 06/07/2020 06/10/2020 2:30 AM PEER SPECIALIST COVID-19 Rule Out 07/04/2020 07/04/2020 07/05/2020 6:22 PM PEER SPECIALIST documented as of this encounter Care Teams Director Television News Relationship Specialty Start Date End Date Julieth Lopez MD [address] [place] [address] PCP - General FAMILY PRACTICE 07/29/24 Julieth Lopez MD [address] [place] [address] PCP - General FAMILY PRACTICE 07/07/24 07/28/24 documented as of this encounter
--- OUTSIDE RECORDS SUMMARY | 2025-01-06 00:52 | XMS_ITS | Encounter Summary ---
Author Organization [facility] Address [address] [place] [address] Care Team Providers Care Web Applications Administrator Name Role Phone Julieth Lopez MD Primary Care Provider + Julieth Lopez MD Primary Care Provider + Encounter Details Date Type Department Care Team (Late Contact Info) Description 01/19/2020 Twyxt Message Enc [facility] Family Medicine [address], [address] [place] [phone] [facility] Provider RE: Medications Social History Tobacco [...] on file 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 LOCK SETTER Gender Identity Not on file Sexual Orientation Not on file COVID-19 Exposure Response Date Recorded In the last month, have you been in contact with someone who was confirmed or suspected to have Coronavirus / COVID-19? Yes 01/04/2020 2:06 PM CDT documented as of this encounter Plan of Treatment Upcoming Encounters Date Type Department Care Team (Late Contact Info) Description 07/11/2025 8:30 AM LOCK SETTER Office Visit [facility] Family Medicine - [place] [address] [place] [address] Julieth Lopez MD [address] [place] [address] documented as of this encounter Visit Diagnoses Not on filedocumented in this encounter Additional Health Concerns Infection Onset Date Last Indicated Resolved Time COVID-19 Rule Out 03/20/2020 03/20/2020 03/22/2020 6:40 PM CDT COVID-19 Rule Out 06/07/2020 06/07/2020 06/10/2020 2:30 AM LOCK SETTER COVID-19 Rule Out 07/04/2020 07/04/2020 07/05/2020 6:22 PM LOCK SETTER documented as of this encounter Care Teams Web Applications Administrator Relationship Specialty Start Date End Date Julieth Lopez MD [address] [facility] [place] [address] PCP - General FAMILY PRACTICE 07/29/24 Julieth Lopez MD [address] [facility] [place] [address] PCP - General FAMILY PRACTICE 07/07/24 07/28/24 documented as of this encounter
--- OUTSIDE RECORDS SUMMARY | 2025-01-06 00:52 | XMS_ITS | Encounter Summary ---
Author Organization [facility] Address [address] [place] [address] Care Team Providers Care Ict Sales Representative Name Role Phone Julieth Lopez MD Primary Care Provider + Julieth Lopez MD Primary Care Provider + Encounter Details Date Type Department Care Team (Late st Contact Info) Description 03/27/2019 NeedFeedt Message Enc [facility] Family Medicine [facility] [address] [facility], [address] [place] [phone] Elgin Lemos MD [address] [facility] [address] [place], [place] [phone] RE: Follow Up/Update Social History Tobacco Use Types Packs/Day Years Used Date Smoking Tobacco: Never Smokeless Tobacco: Never PHQ-2 Answer Date Recorded PHQ-2 Score 2 09/22/2018 Comments No Sex and Gender Information Value Date Recorded Sex Assigned at Not on file 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 TUBE AND MANIFOLD BUILDER Gender Identity Not on file Sexual Orientation Not on file documented as of this encounter Plan of Treatment Upcoming Encounters Date Type Department Care Team (Late Contact Info) Description 07/11/2025 8:30 AM TUBE AND MANIFOLD BUILDER Office Visit [facility] Family Medicine - [place] [address] [place] [address] Julieth Lopez MD [address] [place] [address] documented as of this encounter Visit Diagnoses Not on filedocumented in this encounter Additional Health Concerns Infection Onset Date Last Indicated Resolved Time COVID-19 Rule Out 03/20/2020 03/20/2020 03/22/2020 6:40 PM CDT COVID-19 Rule Out 06/07/2020 06/07/2020 06/10/2020 2:30 AM TUBE AND MANIFOLD BUILDER COVID-19 Rule Out 07/04/2020 07/04/2020 07/05/2020 6:22 PM TUBE AND MANIFOLD BUILDER documented as of this encounter Care Teams Ict Sales Representative Relationship Specialty Start Date End Date Julieth Lopez MD [address] [place] [address] PCP - General FAMILY PRACTICE 07/29/24 Julieth Lopez MD [address] [place] [address] PCP - General FAMILY PRACTICE 07/07/24 07/28/24 documented as of this encounter
--- OUTSIDE RECORDS SUMMARY | 2025-01-06 00:52 | XMS_ITS | Encounter Summary ---
Author Organization [facility] Address [address] [place] [address] Care Team Providers Care International Broadcast Music Librarian Name Role Phone Julieth Lopez MD Primary Care Provider + Julieth Lopez MD Primary Care Provider + Encounter Details Date Type Department Care Team (Late Contact Info) Description 09/27/2020 Nomacorct Message Enc [facility] Family Medicine - [place] [address] [facility], [address] [place] [phone] Elgin Lemos MD [address] [facility] [address] [place] [phone] RE: Question Social History Tobacco Use Types [...] on file 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 WIRE WEAVER CLOTH Gender Identity Not on file Sexual Orientation Not on file documented as of this encounter Plan of Treatment Upcoming Encounters Date Type Department Care Team (Late st Contact Info) Description 07/11/2025 8:30 AM WIRE WEAVER CLOTH Office Visit [facility] Family Medicine - [place] [address] [place] [address] Julieth Lopez MD [address] [place] [address] documented as of this encounter Visit Diagnoses Not on filedocumented in this encounter Additional Health Concerns Assessment Noted Time PHQ-9 Depression Total Score: 13 020 11:01 AM CDT documented as of this encounter Care Teams International Broadcast Music Librarian Relationship Specialty Start Date End Date Julieth Lopez MD [address] [place] [address] PCP - General FAMILY PRACTICE 07/29/24 Julieth Lopez MD [address] [place] [address] PCP - General FAMILY PRACTICE 07/07/24 07/28/24 documented as of this encounter
--- OUTSIDE RECORDS SUMMARY | 2025-01-06 00:52 | XMS_ITS | Encounter Summary ---
Author Organization [facility] Address [facility] [place] [address] Care Team Providers Care School Cleaner Name Role Phone Julieth Lopez MD Primary Care Provider + Julieth Lopez MD Primary Care Provider + Encounter Details Date Type Department Care Team (Late st Contact Info) Description 05/12/[address] [facility] Family Medicine [facility] [address] [facility], [address] [place] [phone] Elgin Lemos MD [address] [facility] [address] [place], [place] [phone] RE: Test Results Social History Tobacco Use Types Packs/Day Years Used Date Smoking Tobacco: Never Smokeless Tobacco: Never PHQ-2 Answer Date Recorded PHQ-2 Score 2 09/22/2018 Comments No Sex and Gender Information Value Date Recorded Sex Assigned at Not on file 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 BLANKET FOLDER Gender Identity Not on file Sexual Orientation Not on file documented as of this encounter Plan of Treatment Upcoming Encounters Date Type Department Care Team (Late st Contact Info) Description 07/11/2025 8:30 AM BLANKET FOLDER Office Visit [facility] Family Medicine - [place] [address] [address] Julieth Lopez MD [address] [place] [address] documented as of this encounter Visit Diagnoses Not on filedocumented in this encounter Additional Health Concerns Infection Onset Date Last Indicated Resolved Time COVID-19 Rule Out 03/20/2020 03/20/2020 03/22/2020 6:40 PM CDT COVID-19 Rule Out 06/07/2020 06/07/2020 06/10/2020 2:30 AM BLANKET FOLDER COVID-19 Rule Out 07/04/2020 07/04/2020 07/05/2020 6:22 PM BLANKET FOLDER documented as of this encounter Care Teams School Cleaner Relationship Specialty Start Date End Date Julieth Lopez MD [address] [place] [address] PCP - General FAMILY PRACTICE 07/29/24 Julieth Lopez MD [address] [place] [address] PCP - General FAMILY PRACTICE 07/07/24 07/28/24 documented as of this encounter
--- OUTSIDE RECORDS SUMMARY | 2025-01-06 00:53 | XMS_ITS | Clinical Summary ---
Author Organization [facility] Address [address] [place] [address] Care Team Providers Care Estimator And Drafter Name Role Phone Angelica Maynard MD Primary [...] Department Care Team Description 12/30/2024 Results Follow-Up [address] [place] [address] Dread Rosales MD US Chest 12/23/2024 2:47 PM CDT - 12/23/2024 11:59 PM CDT Hospital Encounter [facility] [address] [place] [address] Mass of chest wall, right Discharge Disposition: Discharge to home or self care 11/25/2024 10:10 AM CDT Office Visit [facility] [address] [facility] [address] [place] [address] Dread Rosales MD Mass of chest wall, [...] removed from Sternum. multiple prior proceedure at [place] but recurred CYST REMOVAL 03/12/2024 Right Breast [...] Grandmother Letty Jorje Alcohol abuse Mother Imelda Eckert Asthma Mother Imelda Eckert Depression Mother Imelda Vonnie Heart disease Mother Imelda Eckert Hypertension Mother Imelda Vonnie Miscarriages / Stillbirths Mother Imelda Graft on Alcohol abuse Other Arthritis Other Bleeding Disorder Other Cancer Other Deep vein thrombosis Other Diabetes Other Gout Other Kidney disease Other Mental illness Other Stroke Other Alcohol abuse Paternal Grandfather Rojas Vonnie sr Arthritis Paternal Grandfather Rojas Eckert sr Asthma Paternal Grandfather Rojas Eckert sr Diabetes Paternal Grandfather Rojas Eckert sr Early Paternal Grandfather Rojas Eckert sr Heart disease Paternal Grandfather Rojas Eckert sr Hypertension Paternal Grandfather Rojas Eckert sr Alzheimer's disease Paternal Grandmother Apurva stuart [...] site of chest wall pain by the sand cleaning machine operator, with selected grayscale and color Doppler images [...] Talha Eugene M.D. KT: ELVIRA Report ID: [id number] Reading Location: [id number] Procedure Note Talha Eugene MD - 12/30/2024 EXAM DESCRIPTION: US CHEST REASON FOR STUDY: chest wall pain at the site of surgical scar. TECHNIQUE: A Dynamic assessment was performed of the at the site of chest wall pain by the sand cleaning machine operator, with selected grayscale and color Doppler images [...] Talha Eugene M.D. KT: ELVIRA Report ID: [id number] Reading Location: [id number] Dread Rosales MD [facility] [place] PROCEDURES F inal Result from Last 3 Months Insurance AETNA [facility] Care Teams Estimator And Drafter Relationship Specialty Start Date End Date Angelica Maynard MD PCP - General Family Medicine 12/09/23
--- OUTSIDE RECORDS SUMMARY | 2025-01-06 00:53 | XMS_ITS | Encounter Summary ---
Author Organization [facility] Address [address] [place] [address] Care Team Providers Care Manager Generation Name Role Phone Julieth Lopez MD Primary Care Provider + Julieth Lopez MD Primary Care Provider + Encounter Details Date Type Department Care Team (Late st Contact Info) Description 03/09/2020 BURLESQUICEOUS Message Enc [facility] Family Medicine - [place] [address] [facility], [address] [place] [phone] Elgin Lemos MD [address] [phone] RE: Medication Questions Social History Tobacco Use [...] on file 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 Gender Identity Not on file Sexual Orientation [...] st Contact Info) Description 07/11/2025 8:30 AM SANFORIZER Office Visit [facility] Family Medicine - [place] [address] [place] [address] Julieth Lopez MD [address] [place] [address] documented as of this encounter Visit Diagnoses Not on filedocumented in this encounter Additional Health Concerns Infection Onset Date Last Indicated Resolved Time COVID-19 Rule Out 03/20/2020 03/20/2020 03/22/2020 6:40 PM CDT COVID-19 Rule Out 06/07/2020 06/07/2020 06/10/2020 2:30 AM SANFORIZER COVID-19 Rule Out 07/04/2020 07/04/2020 07/05/2020 6:22 PM SANFORIZER documented as of this encounter Care Teams Manager Generation Relationship Specialty Start Date End Date Julieth Lopez MD [address] [place] [address] PCP - General FAMILY PRACTICE 07/29/24 Julieth Lopez MD [address] [place] [address] PCP - General FAMILY PRACTICE 07/07/24 07/28/24 documented as of this encounter
--- OUTSIDE RECORDS SUMMARY | 2025-01-06 00:53 | XMS_ITS | Referral Summary ---
Author Organization [facility] Address [address] [place] [address] Care Team Providers Care Senior Information Security Analyst Name Role Phone Angelica Maynard MD Primary Care Provider Encounters Date Type Department Care Team Description 12/30/2024 Results Follow-Up [address] [place] [address] Dread Rosales MD Chest 12/23/2024 2:47 PM CDT - 12/23/2024 11:59 PM CDT Hospital Encounter [facility] [address] [place] [address] Mass of chest wall, right Discharge Disposition: Discharge to home or self care 11/25/2024 10:10 AM CDT Office Visit [address] [place] [phone] Dread Rosales MD Mass of chest wall, [...] site of chest wall pain by the temperature logging operator, with selected grayscale and color Doppler [...] signed by Talha AGRAWAL KT Report ID: [id number] Reading Location: [id number] Procedure Note Talha Eugene MD - 12/30/2024 EXAM DESCRIPTION: US CHEST REASON FOR STUDY: chest wall pain at the site of surgical scar. TECHNIQUE: A Dynamic assessment was performed of the at the site of chest wall pain by the temperature logging operator, with selected grayscale and color Doppler [...] Talha Eugene M.D. KT: ELVIRA Report ID: [id number] Reading Location: [place] [address] Dread Rosales MD [facility] PROCEDURES F inal Result from Last 3 Months Insurance AETNA [facility] HMO/PPO Address: [address] [address] [place] [address] [facility] IDPA [facility] HMO/PPO Address: [address] [address] [place] [address] Care Teams Senior Information Security Analyst Relationship Specialty Start Date End Date Angelica Maynard MD PCP - General Family Medicine 12/09/23
--- OUTSIDE RECORDS SUMMARY | 2025-01-06 00:53 | XMS_ITS | Encounter Summary ---
Author Organization [facility] Address [address] [place] [address] Care Team Providers Care Information Assoc Name Role Phone Julieth Lopez MD Primary Care Provider + Julieth Lopez MD Primary Care Provider + Encounter Details Date Type Department Care Team (Late st Contact Info) Description 09/30/2022 CeQur Message Enc [facility] Family Medicine - [place] [address] [facility], [address] [place] [phone] Elgin Lemos MD [address] [facility] [address] [place] [phone] [employer] Social History Tobacco Use Types Packs/Day [...] on file 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 Gender Identity Not on file Sexual Orientation [...] st Contact Info) Description 07/11/2025 8:30 AM CEO AND CO FOUNDER Office Visit [facility] Family Medicine - [place] [address] [place] [address] Julieth Lopez MD [address] [place], [place] [address] documented as of this encounter Visit Diagnoses Not on filedocumented in this encounter Additional Health Concerns Assessment Noted Time PHQ-9 Depression Total Score: 13 020 11:01 AM CDT documented as of this encounter Care Teams Information Assoc Relationship Specialty Start Date End Date Julieth Lopez MD [address] [place], [place] [address] PCP - General FAMILY PRACTICE 07/29/24 Julieth Lopez MD [address] [place], [place] [address] PCP - General FAMILY PRACTICE 07/07/24 07/28/24 documented as of this encounter
--- OUTSIDE RECORDS SUMMARY | 2025-01-06 00:53 | XMS_ITS | Encounter Summary ---
Author Organization [facility] Address [address] [place] [address] Care Team Providers Care Animal Control Supervisor Name Role Phone Julieth Lopez MD Primary Care Provider + Julieth Lopez MD Primary Care Provider + Encounter Details Date Type Department Care Team (Late st Contact Info) Description 09/18/2022 [employer] Message Enc [facility] Family Medicine - [place] [address] [facility], [address] [place] [phone] Elgin Lemos MD [address] [facility] [address] [place] [address] [phone] Forgot to give you this info Social [...] on file 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 Gender Identity Not on file Sexual [...] st Contact Info) Description 07/11/2025 8:30 AM COMMERCIAL LOAN ANALYST Office Visit [facility] Family Medicine - [place] [address] [place] [address] Julieth Lopez MD [address] [place], [place] [phone] documented as of this encounter Visit Diagnoses Not on filedocumented in this encounter Additional Health Concerns Assessment Noted Time PHQ-9 Depression Total Score: 13 020 11:01 AM CDT documented as of this encounter Care Teams Animal Control Supervisor Relationship Specialty Start Date End Date Julieth Lopez MD [address] [place] [address] PCP - General FAMILY PRACTICE 07/29/24 Julieth Lopez MD [address] [place], [place] [phone] PCP - General FAMILY PRACTICE 07/07/24 07/28/24 documented as of this encounter
--- OUTSIDE RECORDS SUMMARY | 2025-01-06 00:53 | XMS_ITS | Encounter Summary ---
Author Organization [facility] Address [address] [place] [address] Care Team Providers Care Rock Crusher Name Role Phone Julieth Lopez MD Primary Care Provider + Juliteh Lopez MD Primary Care Provider + Encounter Details Date Type Department Care Team (Late st Contact Info) Description 03/12/2020 [employer] Message Enc [facility] Family Medicine - [place] [address] [facility], [address] [place] [phone] Elgin Lemos MD [address] [phone] RE: Follow Up/Update Social History Tobacco Use [...] on file 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 NURSERY 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 Gender Identity Not on file Sexual [...] st Contact Info) Description 07/11/2025 8:30 AM NURSERY TEACHER Office Visit [facility] Family Medicine - [place] [address] [place] [address] Julieth Lopez MD [address] [place] [address] documented as of this encounter Visit Diagnoses Not on filedocumented in this encounter Additional Health Concerns Infection Onset Date Last Indicated Resolved Time COVID-19 Rule Out 03/20/2020 03/20/2020 03/22/2020 6:40 PM CDT COVID-19 Rule Out 06/07/2020 06/07/2020 06/10/2020 2:30 AM NURSERY TEACHER COVID-19 Rule Out 07/04/2020 07/04/2020 07/05/2020 6:22 PM NURSERY TEACHER documented as of this encounter Care Teams Rock Crusher Relationship Specialty Start Date End Date Julieth Lopez MD [address] [place] [address] PCP - General FAMILY PRACTICE 07/29/24 Julieth Lopez MD [address] [place] [address] PCP - General FAMILY PRACTICE 07/07/24 07/28/24 documented as of this encounter
--- OUTSIDE RECORDS SUMMARY | 2025-01-06 00:53 | XMS_ITS | Encounter Summary ---
Author Organization [facility] Address [address] [place] [address] Care Team Providers Care Unit Manager Rn Name Role Phone Julieth Lopez MD Primary Care Provider + Julieth Lopez MD Primary Care Provider + Encounter Details Date Type Department Care Team (Late st Contact Info) Description 03/19/2020 [employer] Message Enc [facility] Family Medicine - [place] [address] [facility], [address] [place] [phone] Elgin Lemos MD [address] [address] RE: Question Social History Tobacco [...] on file 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 RIB KNITTER Gender Identity Not on file Sexual Orientation [...] st Contact Info) Description 07/11/2025 8:30 AM RIB KNITTER Office Visit [facility] Family Medicine - [place] [address] [place] [address] Julieth Lopez MD [address] [place] [address] documented as of this encounter Visit Diagnoses Not on filedocumented in this encounter Additional Health Concerns Infection Onset Date Last Indicated Resolved Time COVID-19 Rule Out 03/20/2020 03/20/2020 03/22/2020 6:40 PM CDT COVID-19 Rule Out 06/07/2020 06/07/2020 06/10/2020 2:30 AM RIB KNITTER COVID-19 Rule Out 07/04/2020 07/04/2020 07/05/2020 6:22 PM RIB KNITTER documented as of this encounter Care Teams Unit Manager Rn Relationship Specialty Start Date End Date Julieth Lopez MD [address] [place] [address] PCP - General FAMILY PRACTICE 07/29/24 Julieth Lopez MD [address] [place] [address] PCP - General FAMILY PRACTICE 07/07/24 07/28/24 documented as of this encounter
--- OUTSIDE RECORDS SUMMARY | 2025-01-06 00:53 | XMS_ITS | Encounter Summary ---
Author Organization [facility] Address [address] [place] [address] Care Team Providers Care Business Development Coordinator Name Role Phone Julieth Lopez MD Primary Care Provider + Julieth Lopez MD Primary Care Provider + Encounter Details Date Type Department Care Team (Late st Contact Info) Description 03/22/2020 [employer] Message Enc [facility] Family Medicine - [place] [address] [facility], [address] [place] [phone] Elgin Lemos MD [address] [address] RE: Question Social History Tobacco [...] on file 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 MANAGER FURNITURE Gender Identity Not on file Sexual Orientation [...] st Contact Info) Description 07/11/2025 8:30 AM MANAGER FURNITURE Office Visit [facility] Family Medicine - [place] [address] [place] [address] Julieth Lopez MD [address] [place] [address] documented as of this encounter Visit Diagnoses Not on filedocumented in this encounter Additional Health Concerns Infection Onset Date Last Indicated Resolved Time COVID-19 Rule Out 03/20/2020 03/20/2020 03/22/2020 6:40 PM CDT COVID-19 Rule Out 06/07/2020 06/07/2020 06/10/2020 2:30 AM MANAGER FURNITURE COVID-19 Rule Out 07/04/2020 07/04/2020 07/05/2020 6:22 PM MANAGER FURNITURE documented as of this encounter Care Teams Business Development Coordinator Relationship Specialty Start Date End Date Julieth Lopez MD [address] [place] [address] PCP - General FAMILY PRACTICE 07/29/24 Julieth Lopez MD [address] [place] [address] PCP - General FAMILY PRACTICE 07/07/24 07/28/24 documented as of this encounter
--- OUTSIDE RECORDS SUMMARY | 2025-01-06 00:53 | XMS_ITS | Encounter Summary ---
Author Organization [facility] Address [address] [place] [address] Care Team Providers Care File Clerk Data Entry Name Role Phone Angelica Maynard MD Primary Care Provider Encounter Details Date Type Department Care Team (Late st Contact Info) Description 12/30/2024 Results Follow-Up [facility] [address] [facility] [address] [place] [phone] Dread Rosales MD [address] [place] [address] [address] [place] [address] US Chest Social History Tobacco Use Types [...] on filedocumented in this encounter Care Teams File Clerk Data Entry Relationship Specialty Start Date End Date Angelica Maynard MD PCP - General Family Medicine 12/09/23 documented as of this encounter
--- OUTSIDE RECORDS SUMMARY | 2025-01-06 00:53 | XMS_ITS | Encounter Summary ---
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 SUPPLY CHAIN PROCUREMENT MANAGER Gender Identity Not on file Sexual [...] (Late Contact Info) Description 07/11/2025 8:30 AM SUPPLY CHAIN PROCUREMENT MANAGER Office Visit [facility] Family Medicine - [place] [address] [place] [address] Julieth Lopez MD [address] [place], [place] [phone] documented as of this encounter Visit Diagnoses Not on filedocumented in this encounter Additional Health Concerns Infection Onset Date Last Indicated Resolved Time COVID-19 Rule Out 06/07/2020 06/07/2020 06/10/2020 2:30 AM SUPPLY CHAIN PROCUREMENT MANAGER COVID-19 Rule Out 07/04/2020 07/04/2020 07/05/2020 6:22 PM SUPPLY CHAIN PROCUREMENT MANAGER documented as of this encounter Care Teams Market Manager Relationship Specialty Start Date End Date Julieth Lopez MD [address] [place] [address] PCP - General FAMILY PRACTICE 07/29/24 Julieth Lopez MD [address] [place] [address] PCP - General FAMILY PRACTICE 07/07/24 07/28/24 documented as of this encounter
--- OUTSIDE RECORDS SUMMARY | 2025-01-06 00:53 | XMS_ITS | Clinical Summary ---
Author Organization [facility] Address [facility] [place] [address] Care Team Providers Care Foam Rubber Mixer Name Role Phone Julieth Lopez MD Primary [...] it. Assessment & Plan (07/07/2024 11:34 AM CUTTER GAS): Not controlled. Frequent migraines. Sumatriptan does work [...] growth Assessment & Plan (07/07/2024 11:34 AM CUTTER GAS): Hirsutism persistent. Will check BMP 1 month after trial of spironolactone to ensure kidney function and electrolytes are normal. Current moderate episode of major depressive disorder without prior episode 03/28/2020 Overview (07/07/2024): [employer] at [facility]. Reports she has tried multiple medications in the past and has not tolerated them well due to side effects. She would prefer to avoid medication at this point. Assessment & Plan (07/07/2024 11:32 AM CUTTER GAS): Not currently well-controlled but prefers to avoid medication. We will defer medication at this point. Encouraged some lifestyle changes. Class 3 severe obesity due t o excess calories without serious comorbidity with body mass index (BMI) of 45.0 to 49.9 in adult 03/26/2020 Overview (07/07/2024): Has been going to [place]. Has 10 lb in 6 months. Assessment & Plan (07/07/2024 11:33 AM CUTTER GAS): Discussed lifestyle changes which will help with weight loss. She will also look into insurance options for GLP-1 and update me with decision. Moderate persistent asthma without complication (HHS/HCC) 03/23/2020 Overview (07/07/2024): Takes symbicort and albuterol. Illness is main trigger. Assessment & Plan (07/07/2024 11:33 AM CUTTER GAS): Chronic. Controlled. Continue Symbicort and albuterol. Prevnar [...] on file 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 CUTTER GAS Gender Identity Not on file Sexual Orientation Not on file Last Filed Vital Signs Vital Sign Reading Time Taken Comments Blood Pressure 128/86 07/07/2024 10:26 AM CUTTER GAS Pulse 91 07/07/2024 10:26 AM CUTTER GAS Temperature 37.6 C (99.6 F) 07/07/2024 10:26 AM CUTTER GAS Respiratory Rate 16 07/07/2024 10:26 AM CUTTER GAS Oxygen Saturation 98% 07/07/2024 10:26 AM CUTTER GAS Inhaled Oxygen Concentration - - Weight 138.3 kg (305 lb) 07/07/2024 10:26 AM CUTTER GAS Height 170.2 cm (5' 7) 07/07/2024 10:26 AM CUTTER GAS Body Mass Index 47.77 07/07/2024 10:26 AM CUTTER GAS Plan of Treatment Upcoming Encounters Date Type Department Care Team (Late st Contact Info) Description 07/11/2025 8:30 AM CUTTER GAS Office Visit [facility] Family Medicine - [address] [place] [phone] Julieth Lopez MD [address] [place] [address] Health Maintenance Due Date Last Done Comments [...] Completed 02/24/2017 , 02/24/2017, 02/13/2012 PHQ-2 (Physician [place]) Completed 07/07/2024 Pneumococcal Vaccine: Pediatrics (0 to [...] PROCEDURE GENERIC (SCAN ORDER) (12/03/2024) 12/03/2024 [facility] [employer] [facility] Scanned SCANNING Final Resu lt * PAP SMEAR (SCAN ORDER) (07/22/2024) 07/22/2024 us [employer] [facility] Scanned SCANNING Final Resu lt from Last 3 Months or Most Recently Relevant to Health Maintenance Insurance [facility] [employer] Care Teams Foam Rubber Mixer Relationship Specialty Start Date End Date Julieth Lopez MD [address] [place] [phone] PCP - General FAMILY PRACTICE 07/29/24
--- OUTSIDE RECORDS SUMMARY | 2025-01-06 00:53 | XMS_ITS | Encounter Summary ---
Author Organization [facility] Address [address] [place] [address] Care Team Providers Care Sales Support Consultant Name Role Phone Julieth Lopez MD Primary Care Provider + Julieth Lopez MD Primary Care Provider + Encounter Details Date Type Department Care Team (Late st Contact Info) Description 03/11/2020 [employer] Message Enc [facility] Family Medicine - [place] [address] [facility], [address] [place] [phone] Elgin Lemos MD [address] [phone] RE: Follow Up/Update Social History Tobacco Use [...] on file 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 Gender Identity Not on file Sexual [...] st Contact Info) Description 07/11/2025 8:30 AM BOMBSIGHT SPECIALIST Office Visit [facility] Family Medicine - [place] [address] [place] [address] Julieth Lopez MD [address] [place] [address] documented as of this encounter Visit Diagnoses Not on filedocumented in this encounter Additional Health Concerns Infection Onset Date Last Indicated Resolved Time COVID-19 Rule Out 03/20/2020 03/20/2020 03/22/2020 6:40 PM CDT COVID-19 Rule Out 06/07/2020 06/07/2020 06/10/2020 2:30 AM BOMBSIGHT SPECIALIST COVID-19 Rule Out 07/04/2020 07/04/2020 07/05/2020 6:22 PM BOMBSIGHT SPECIALIST documented as of this encounter Care Teams Sales Support Consultant Relationship Specialty Start Date End Date Julieth Lopez MD [address] [place] [address] PCP - General FAMILY PRACTICE 07/29/24 Julieth Lopez MD [address] [place] [address] PCP - General FAMILY PRACTICE 07/07/24 07/28/24 documented as of this encounter
--- NOTE | 2025-01-06 01:23 | ED.FALL ---
HPI - Fall General Chief Complaint: Fall Stated Complaint: hand injury, fall Time Seen by Provider: 01/06/25 00:41 History of Present Illness HPI Narrative: 24-year-old female presents emergency department for left hand pain after an injury that occurred earlier today. Patient states she tripped and attempted to catch herself in the door way by out stretching her left hand and hyperextending her fingers. She is reporting pain to the 4th left metacarpal. She denies hitting her head or other injuries acquired. Denies possibility of . Related Data Home Medications ?Medication ?Instructions ?Recorded ?Confirmed ?Last Taken ?Type albuterol sulfate 90 mcg/actuation 1 inh inhalation PRN PRN Shortness 05/01/21 12/03/24 12/02/24 History aerosol inhaler Of Breath Or Wheezing budesonide-formoterol HFA 160 1 inh inhalation BID 05/01/21 12/03/24 12/02/24 History mcg-4.5 mcg/actuation aerosol inhaler (Symbicort) sumatriptan succinate 25 mg tablet 25 - 50 mg PO PRN PRN Migraine 10/26/22 12/01/24 Unknown History Headache rimegepant 75 mg disintegrating 75 mg PO Q48H 12/01/24 12/01/24 Unknown History tablet (Nurtec ODT) spironolactone 25 mg tablet 25 mg PO DAILY 12/01/24 12/03/24 12/02/24 History Allergies Allergy/AdvReac Type Severity Reaction Status Date / Time adhesive Allergy Unknown ITCHING Verified 12/01/24 09:33 latex Allergy Hives Verified 12/01/24 09:33 vancomycin AdvReac Mild Pruritis Verified 12/01/24 09:33 Review of Systems Review of Systems: All systems reviewed & are unremarkable except as noted in HPI and below PMFSH Past Medical History Medical History PCOS (polycystic ovarian syndrome) Morbid obesity Endometriosis Anemia Surgical History Surgical History Status post incision and drainage complex I&D of chest wall abscess 5x7 cm, right breast measuring 2x3 cm 07/15/22 Hx of tonsillectomy (2014) Due to recurrent tonsillitis Hx of excision of mass Family History Family History Father Liver failure Alcoholic cirrhosis, Onset Age: 49 Grandparent Heart disease Diabetes mellitus Lung cancer Grandparent Cervical cancer Breast cancer DVT (deep venous thrombosis) Other Cervical cancer Breast cancer Esophageal cancer Social History Social History Social History: She lives with her sister. She works at [employer]. Denies use of alcohol, tobacco or drugs. She does not have any children. Code status: Full code Surrogate decision maker: Marie Shafer (aunt) Smoking status: Never smoker Alcohol intake: never Substance use: never Do You Feel Safe in your Home?: Yes Lack of Transportation: No Lack of Food: Never True Current Housing: I Have Housing Concerned About Future Housing: No Difficulty Paying Gas/Electric Bills: No Difficulty Paying for Meds: YES Currently Unemployed: No Education: Associate Degree Difficulty w/ Childcare or Family Care: No Living arrangements: with family Spiritual care concerns: No Exam Narrative: GENERAL: Well-appearing, well-nourished, and in no acute distress. HEAD: Normocephalic, atraumatic. EYES: EOMI. ENT: Nares clear, no rhinorrhea or epistaxis. Mucous membranes moist. NECK: Supple. CHEST: Clear to auscultation. No respiratory distress. HEART: Regular rate and rhythm. No murmur heard. Normal peripheral pulses. EXTREMITIES: LUE: Tenderness along the left 4th metacarpal with no deformity, skin changes or edema. No tenderness remainder of hand, fingers or wrist. Full active and passive range of motion of all digits. Radial, median and ulnar nerves are intact. Sensation intact throughout. Radial pulses 2+. Cap refill less than 2. Compartments soft. SKIN: Warm, dry, no rash. NEURO: No focal deficits. Alert and oriented x3 Course Vital Signs Vital signs: Vital Signs Temperature 97.8 F 01/05/25 22:02 Pulse Rate 88 01/05/25 22:02 Respiratory Rate 16 01/05/25 22:02 Blood Pressure 167/101 H 01/05/25 22:02 Pulse Oximetry 99 01/05/25 22:02 Temperature 97.8 F 01/05/25 22:02 Pulse Rate 88 01/05/25 22:02 Respiratory Rate 16 01/05/25 22:02 Blood Pressure 167/101 H 01/05/25 22:02 Pulse Oximetry 99 01/05/25 22:02 MDM - Fall MDM Narrative Medical decision making narrative: 24-year-old female presents emergency department for left hand pain after mechanical injury that occurred earlier today. See HPI for further history. Triage vitals with elevated blood pressure, otherwise unremarkable. Exam is notable for tenderness over the left 4th metacarpal with no obvious skin changes or deformities. Patient is neurovascularly intact with soft compartments. X-ray showed no acute osseous abnormalities. Patient updated on results. Suspect hamstring. She was given ibuprofen and Jose wrap and encouraged RICE and close follow-up with her PCP. Discussed strict ED return precautions. She is agreeable with the plan verbalized understanding. Discharged in stable condition. Discharge Plan Discharge Clinical Impression: Hand sprain Qualifiers: Encounter type: initial encounter Laterality: left Qualified Code(s): S63.92XA - Sprain of unspecified part of left wrist and hand, initial encounter Patient Disposition: Home Condition: Stable Instructions: Antibiotic Form, Hand Sprain (ED) Additional Instructions: Please take Tylenol and ibuprofen as needed for pain. Rest, ice, elevate and keep her hand compressed. Follow-up closely with her primary care provider. Return to the emergency department if you develop significantly worsening pain, or other concerning symptoms. Patient Language: Stateless Prescriptions: New acetaminophen 500 mg capsule 500 mg PO Q6H PRN (Reason: pain) Qty: 14 0RF ibuprofen 800 mg tablet 800 mg PO TID PRN (Reason: pain) Qty: 20 0RF No Action albuterol sulfate 90 mcg/actuation HFA aerosol inhaler 1 inh INHALATION PRN PRN (Reason: Shortness Of Breath Or Wheezing) budesonide-formoterol [Symbicort] 160-4.5 mcg/actuation HFA aerosol inhaler 1 inh INHALATION BID Nurtec ODT 75 mg tablet,disintegrating 75 mg PO Q48H spironolactone 25 mg tablet 25 mg PO DAILY Patient Comments: For PCOS hydrocodone-acetaminophen 5-325 mg tablet 1 tablet PO Q4H PRN (Reason: pain) Qty: 20 0RF sumatriptan succinate 25 mg tablet 25 - 50 mg PO PRN PRN (Reason: Migraine Headache) Rx Instructions: TAKE 1 TO 2 TABLETS BY MOUTH 2 TIMES A DAY NEEDED FOR MIGRAINE. MAX OF 8 TABLETS IN 24 HOURS celecoxib [Celebrex] 200 mg capsule 200 mg PO DAILY Qty: 30 0RF Follow-up/Referrals: John,Julieth Moses MD [Primary Care Provider] -
[2025-01-06] MEDS: IBUPROFEN 400 MG TABLET 800 MG PO (01:35)
[2025-01-06 01:39] VITALS: BP 131/97; PULSE 68; RESP 18; O2SAT 99
--- NOTE | 2025-02-01 11:09 | PC.NURSE ---
LATE ENTRY This note is being entered to document information to the patient's record. The following information was omitted on [01/06/25], by [Tami Miles RN]. Corrected injury was to left hand not right as documented in triage.
== END 2025-01-06 01:39 | disposition home or self-care (01) ==
PROVIDERS: Emergency Provider Physician Assistant; PCP Student in an Organized Health Care Education/Training Program
DX: S63.92XA Sprain of unspecified part of left wrist and hand, initial encounter (principal); E28.2 Polycystic ovarian syndrome; E66.01 Morbid (severe) obesity due to excess calories; Z68.41 Body mass index [BMI] 40.0-44.9, adult; N80.9 Endometriosis, unspecified; Z86.2 Personal history of diseases of the blood and blood-forming organs and certain disorders involving the immune mechanism; W01.0XXA Fall on same level from slipping, tripping and stumbling without subsequent striking against object, initial encounter
CPT/HCPCS: 73130; 99283; A9270

== ENCOUNTER 2025-03-20 23:11 | Emergency (ER) | payer OTHER, SELFPAY ==
--- NOTE | ~2025-03-20 | CT_ITS ---
EXAMINATION: CT abdomen pelvis w con DATE: 03/21/2025 03:07 INDICATION: Low abdominal pain. TECHNIQUE: Computed tomography (CT) of the abdomen and pelvis was performed with 100 mL Omnipaque 350 intravenous contrast. Automated exposure control and iterative reconstruction technique were employed. The dose-length product was 1653.65 mGy-cm. COMPARISON: CT abdomen pelvis 06/17/2023 FINDINGS: The visualized portions of the lung bases demonstrate mild atelectasis. No pleural effusion. The heart size is normal. No pericardial effusion. There is diffuse hepatic steatosis. The gallbladder is contracted. The spleen, pancreas, adrenal glands, and kidneys are normal. There is fat stranding around an epiploic appendage of ascending colon, consistent with epiploic appendagitis. The appendix is normal. There are no pathologically enlarged lymph nodes. There is no free intraperitoneal fluid. There is mild lumbar spondylosis. IMPRESSION: 1. Epiploic appendagitis of ascending colon. 2. Diffuse hepatic steatosis. Reviewed, dictated and finalized at location E.
[2025-03-20 23:17] VITALS: BP 142/99; PULSE 102; RESP 20; TEMP 36.6; O2SAT 98
[2025-03-21 00:12] VITALS: BP 149/97; PULSE 102; RESP 20; TEMP 36.9; O2SAT 97
[2025-03-21 00:16] VITALS: BP 141/96; O2SAT 98
[2025-03-21 00:17] LABS: BEDSIDEPREGUCG Negative (Negative)
[2025-03-21 00:28] LABS: Hematocrit 41.9 % (37.0-47.0); Hemoglobin 13.5 g/dL (12.0-15.0); Immature Granulocyte Percent A 0.3 % (0-0.5); Lymphocytes Absolute Auto 3.56 K/mm3 (0.9-3.2); Mean Corpuscular HGB Conc 32.2 g/dl (32-36); Mean Corpuscular Hemoglobin 27.5 pg (26-34); Mean Corpuscular Volume 85.3 fl (80-100); Nucleated Red Blood Cells Absolute Auto 0.000 K/mm3 (0.0-0.012); Nucleated Red Blood Cells Perc 0.0 % (0.0-0.2); Platelet Count Result 299 k/mm3 (150-375); Red Blood Count 4.91 M/mm3 (4.2-5.4); White Blood Count 11.9 K/mm3 (4.5-10.0)
[2025-03-21 00:30] LABS: Add Urine Microscopic? YES; Appearance Urine Clear (Clear); Glucose Urine UA Negative (Negative); Leukocyte Esterase Ur Trace LEU/UL (Negative); Nitrate Urine Negative (Negative); Non Pathogenic Casts 0-2; Specific Grav Ur 1.018 (1.001-1.035)
[2025-03-21 00:31] VITALS: BP 122/97; O2SAT 95
[2025-03-21 00:36] LABS: Alanine Aminotransferase 38 U/L (6-35); Albumin Level 4.4 g/dL (3.5-5.1); Alkaline Phosphatase 74 U/L (38-126); Anion Gap 10 mmol/L (4-12); Aspartate Amino Transferase 30 U/L (14-36); Bilirubin,Total 0.7 mg/dL (0.2-1.3); Blood Urea Nitrogen 9 mg/dL (7-17); Calcium 9.0 mg/dL (8.4-10.2); Carbon Dioxide 27 mmol/L (22-30); Chloride 102 mmol/L (98-107); Estimated CRCL calculation 154 ml/min; Estimated Glomerular Filt Rate > 60; Glucose 134 mg/dL (65-110); Lipase 127 U/L (23-300); Potassium 3.8 mmol/L (3.4-5.0); Sodium 139 mmol/L (137-145); Total Protein 7.8 g/dL (6.3-8.2)
[2025-03-21 01:16] VITALS: BP 120/81; O2SAT 97
--- OUTSIDE RECORDS SUMMARY | 2025-03-21 01:58 | XMS_ITS | Encounter Summary ---
Author Organization [facility] Address [facility] [place] [address] Care Team Providers Care Stone Dresser Name Role Phone Julieth Lopez MD Primary Care Provider + Julieth Lopez MD Primary Care Provider + Encounter Details Date Type Department Care Team (Late st Contact Info) Description 08/23/2019 Zenprise Message Enc [facility] Family Medicine - [place] [address] [facility], [address] [place] [phone] Elgin Lemos MD [address] [address] RE: Question Social History Tobacco [...] on file 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 WAXED BAG MACHINE OPERATOR Gender Identity Not on file [...] st Contact Info) Description 07/11/2025 8:30 AM WAXED BAG MACHINE OPERATOR Office Visit [facility] Family Medicine - [place] [address] [place] [address] Julieth Lopez MD [address] [place] [address] documented as of this encounter Visit Diagnoses Not on filedocumented in this encounter Additional Health Concerns Infection Onset Date Last Indicated Resolved Time COVID-19 Rule Out 03/20/2020 03/20/2020 03/22/2020 6:40 PM CDT COVID-19 Rule Out 06/07/2020 06/07/2020 06/10/2020 2:30 AM WAXED BAG MACHINE OPERATOR COVID-19 Rule Out 07/04/2020 07/04/2020 07/05/2020 6:22 PM WAXED BAG MACHINE OPERATOR documented as of this encounter Care Teams Stone Dresser Relationship Specialty Start Date End Date Julieth Lopez MD [address] [place] [address] PCP - General FAMILY PRACTICE 07/29/24 Julieth Lopez MD [address] [place] [address] PCP - General FAMILY PRACTICE 07/07/24 07/28/24 documented as of this encounter
--- OUTSIDE RECORDS SUMMARY | 2025-03-21 01:58 | XMS_ITS | Encounter Summary ---
Author Organization [facility] Address [address] [place] [address] Care Team Providers Care Insurance Claim Approver Name Role Phone Julieth Lopez MD Primary Care Provider + Julieth Lopez MD Primary Care Provider + Encounter Details Date Type Department Care Team (Late st Contact Info) Description 10/13/2019 Integrated [employer] Message Enc [facility] Family Medicine - [place] [address] [facility], [address] [place] [phone] Elgin Lemos MD [address] [address] RE: Question Social History Tobacco [...] on file 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 NEGOTIATOR Gender Identity Not on file Sexual Orientation [...] st Contact Info) Description 07/11/2025 8:30 AM NEGOTIATOR Office Visit [facility] Family Medicine - [place] [address] [place] [address] Julieth Lopez MD [address] [place] [address] documented as of this encounter Visit Diagnoses Not on filedocumented in this encounter Additional Health Concerns Infection Onset Date Last Indicated Resolved Time COVID-19 Rule Out 03/20/2020 03/20/2020 03/22/2020 6:40 PM CDT COVID-19 Rule Out 06/07/2020 06/07/2020 06/10/2020 2:30 AM NEGOTIATOR COVID-19 Rule Out 07/04/2020 07/04/2020 07/05/2020 6:22 PM NEGOTIATOR documented as of this encounter Care Teams Insurance Claim Approver Relationship Specialty Start Date End Date Julieth Lopze MD [address] [place] [address] PCP - General FAMILY PRACTICE 07/29/24 Julieth Lopez MD [address] [place] [address] PCP - General FAMILY PRACTICE 07/07/24 07/28/24 documented as of this encounter
--- OUTSIDE RECORDS SUMMARY | 2025-03-21 01:58 | XMS_ITS | Encounter Summary ---
Author Organization [facility] Address [facility] [place] [address] Care Team Providers Care Three Dimensional Art Instructor Name Role Phone Julieth Lopez MD Primary Care Provider + Julieth Lopez MD Primary Care Provider + Encounter Details Date Type Department Care Team (Late st Contact Info) Description 05/11/2019 MyChart Message Enc [facility] Family Medicine [facility] [address] [facility], [address] [place] [phone] Elgin Lemos MD [address] [facility] [address] [place], [place] [phone] RE: Question Social History Tobacco Use Types Packs/Day Years Used Date Smoking Tobacco: Never Smokeless Tobacco: Never PHQ-2 Answer Date Recorded PHQ-2 Score 2 09/22/2018 Comments No Sex and Gender Information Value Date Recorded Sex Assigned at Not on file 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 ASSOCIATE MARKETING MANAGER Gender Identity Not on file Sexual Orientation Not on file documented as of this encounter Plan of Treatment Upcoming Encounters Date Type Department Care Team (Late st Contact Info) Description 07/11/2025 8:30 AM ASSOCIATE MARKETING MANAGER Office Visit [facility] Family Medicine - [place] [address] [place] [address] Julieth Lopez MD [address] [place] [address] documented as of this encounter Visit Diagnoses Not on filedocumented in this encounter Additional Health Concerns Infection Onset Date Last Indicated Resolved Time COVID-19 Rule Out 03/20/2020 03/20/2020 03/22/2020 6:40 PM CDT COVID-19 Rule Out 06/07/2020 06/07/2020 06/10/2020 2:30 AM ASSOCIATE MARKETING MANAGER COVID-19 Rule Out 07/04/2020 07/04/2020 07/05/2020 6:22 PM ASSOCIATE MARKETING MANAGER documented as of this encounter Care Teams Three Dimensional Art Instructor Relationship Specialty Start Date End Date Julieth Lopez MD [address] [place] [address] PCP - General FAMILY PRACTICE 07/29/24 Julieth Lopez MD [address] [place] [address] PCP - General FAMILY PRACTICE 07/07/24 07/28/24 documented as of this encounter
--- OUTSIDE RECORDS SUMMARY | 2025-03-21 01:58 | XMS_ITS | Encounter Summary ---
Author Organization [facility] Address [address] [place] [address] Care Team Providers Care Mule Developer Name Role Phone Julieth Lopez MD Primary Care Provider + Julieth Lopez MD Primary Care Provider + Encounter Details Date Type Department Care Team (Late st Contact Info) Description 01/06/2020 Bandtastic Message Enc [facility] Family Medicine - [place] [address] [facility], [address] [place] [phone] Elgin Lemos MD [address] [facility] [address] [place] [phone] RE: Other Social History Tobacco Use Types [...] on file 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 INFORMATION SYSTEMS SECURITY MANAGER Gender Identity Not on file Sexual [...] st Contact Info) Description 07/11/2025 8:30 AM INFORMATION SYSTEMS SECURITY MANAGER Office Visit [facility] Family Medicine - [place] [address] [place] [address] Julieth Lopez MD [address] [place] [address] documented as of this encounter Visit Diagnoses Not on filedocumented in this encounter Additional Health Concerns Infection Onset Date Last Indicated Resolved Time COVID-19 Rule Out 03/20/2020 03/20/2020 03/22/2020 6:40 PM CDT COVID-19 Rule Out 06/07/2020 06/07/2020 06/10/2020 2:30 AM INFORMATION SYSTEMS SECURITY MANAGER COVID-19 Rule Out 07/04/2020 07/04/2020 07/05/2020 6:22 PM INFORMATION SYSTEMS SECURITY MANAGER documented as of this encounter Care Teams Mule Developer Relationship Specialty Start Date End Date Julieth Lopez MD [address] [place] [address] PCP - General FAMILY PRACTICE 07/29/24 Julieth Lopez MD [address] [place] [address] PCP - General FAMILY PRACTICE 07/07/24 07/28/24 documented as of this encounter
--- OUTSIDE RECORDS SUMMARY | 2025-03-21 01:58 | XMS_ITS | Encounter Summary ---
Author Organization [facility] Address [address] [place] [address] Care Team Providers Care Network Announcer Name Role Phone Julieth Lopez MD Primary Care Provider + Julieth Lopez MD Primary Care Provider + Encounter Details Date Type Department Care Team (Late Contact Info) Description 09/27/2020 ITADSecurityt Message Enc [facility] Family Medicine - [place] [address] [facility], [address] [place] [phone] Elgin Lemos MD [address] [facility] [address] [place] [phone] RE: Question Social History Tobacco Use Types [...] on file 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 PRESSURE TESTER OPERATOR Gender Identity Not on file Sexual Orientation Not on file documented as of this encounter Plan of Treatment Upcoming Encounters Date Type Department Care Team (Late st Contact Info) Description 07/11/2025 8:30 AM PRESSURE TESTER OPERATOR Office Visit [facility] Family Medicine - [place] [address] [place] [address] Julieth Lopez MD [address] [place] [address] documented as of this encounter Visit Diagnoses Not on filedocumented in this encounter Additional Health Concerns Assessment Noted Time PHQ-9 Depression Total Score: 13 020 11:01 AM CDT documented as of this encounter Care Teams Network Announcer Relationship Specialty Start Date End Date Julieth Lopez MD [address] [place] [address] PCP - General FAMILY PRACTICE 07/29/24 Julieth Lopez MD [address] [place] [address] PCP - General FAMILY PRACTICE 07/07/24 07/28/24 documented as of this encounter
--- OUTSIDE RECORDS SUMMARY | 2025-03-21 01:58 | XMS_ITS | Encounter Summary ---
Author Organization [facility] Address [address] [place] [address] Care Team Providers Care Incident Response Engineer Name Role Phone Julieth Lopez MD Primary Care Provider + Julieth Lopez MD Primary Care Provider + Encounter Details Date Type Department Care Team (Late st Contact Info) Description 09/08/2020 BitCake Studio Message Enc [facility] Family Medicine - [place] [address] [facility], [address] [place] [phone] Elgin Lemos MD [address] [facility] [address] [place] [phone] RE: Question Social History Tobacco Use [...] file 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 DIRECTOR DIGITAL ADVERTISING Gender Identity Not on file Sexual Orientation Not on file COVID-19 Exposure Response Date Recorded In the last month, have you been in contact with someone who was confirmed or suspected to have Coronavirus / COVID-19? No / Unsure 08/16/2020 1:55 PM DIRECTOR DIGITAL ADVERTISING documented as of this encounter Plan of Treatment Upcoming Encounters Date Type Department Care Team (Late st Contact Info) Description 07/11/2025 8:30 AM DIRECTOR DIGITAL ADVERTISING Office Visit [facility] Family Medicine - [place] [address] [place] [address] Julieth Lopez MD [address] [place] [address] documented as of this encounter Visit Diagnoses Not on filedocumented in this encounter Additional Health Concerns Assessment Noted Time PHQ-9 Depression Total Score: 13 020 11:01 AM CDT documented as of this encounter Care Teams Incident Response Engineer Relationship Specialty Start Date End Date Julieth Lopez MD [address] [place] [address] PCP - General FAMILY PRACTICE 07/29/24 Julieth Lopez MD [address] [place] [address] PCP - General FAMILY PRACTICE 07/07/24 07/28/24 documented as of this encounter
--- OUTSIDE RECORDS SUMMARY | 2025-03-21 01:58 | XMS_ITS | Encounter Summary ---
Author Organization [facility] Address [address] [place] [address] Care Team Providers Care Radio Mechanic Helper Name Role Phone Julieth Lopez MD Primary Care Provider + Julieth Lopez MD Primary Care Provider + Encounter Details Date Type Department Care Team (Late Contact Info) Description 03/27/2019 Realeyes 3Dt Message Enc [facility] Family Medicine [facility] [address] [facility], [address] [place] [phone] Elgin Lemos MD [address] [facility] [address] [place], [place] [phone] RE: Follow Up/Update Social History Tobacco Use Types Packs/Day Years Used Date Smoking Tobacco: Never Smokeless Tobacco: Never PHQ-2 Answer Date Recorded PHQ-2 Score 2 09/22/2018 Comments No Sex and Gender Information Value Date Recorded Sex Assigned at Not on file 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 SCHOOL PRINCIPAL Gender Identity Not on file Sexual Orientation Not on file documented as of this encounter Plan of Treatment Upcoming Encounters Date Type Department Care Team (Late Contact Info) Description 07/11/2025 8:30 AM SCHOOL PRINCIPAL Office Visit [facility] Family Medicine - [place] [address] [place] [address] Julieth Lopez MD [address] [place] [address] documented as of this encounter Visit Diagnoses Not on filedocumented in this encounter Additional Health Concerns Infection Onset Date Last Indicated Resolved Time COVID-19 Rule Out 03/20/2020 03/20/2020 03/22/2020 6:40 PM CDT COVID-19 Rule Out 06/07/2020 06/07/2020 06/10/2020 2:30 AM SCHOOL PRINCIPAL COVID-19 Rule Out 07/04/2020 07/04/2020 07/05/2020 6:22 PM SCHOOL PRINCIPAL documented as of this encounter Care Teams Radio Mechanic Helper Relationship Specialty Start Date End Date Julieth oLpez MD [address] [place] [address] PCP - General FAMILY PRACTICE 07/29/24 Julieth Lopez MD [address] [place] [address] PCP - General FAMILY PRACTICE 07/07/24 07/28/24 documented as of this encounter
--- OUTSIDE RECORDS SUMMARY | 2025-03-21 01:58 | XMS_ITS | Encounter Summary ---
Author Organization [facility] Address [address] [place] [address] Care Team Providers Care Eye Technician Name Role Phone Julieth Lopez MD Primary Care Provider + Julieth Lopez MD Primary Care Provider + Encounter Details Date Type Department Care Team (Late st Contact Info) Description 01/29/2020 Certify Message Enc [facility] Family Medicine - [place] [address] [facility], [address] [place] [phone] Elgin Lemos MD [address] [phone] RE: Follow Up/Update Social History Tobacco Use [...] on file 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 REGULATORY SUBMISSIONS SPECIALIST Gender Identity Not on file Sexual [...] st Contact Info) Description 07/11/2025 8:30 AM REGULATORY SUBMISSIONS SPECIALIST Office Visit [facility] Family Medicine - [place] [address] [place] [address] Julieth Lopez MD [address] [place] [address] documented as of this encounter Visit Diagnoses Not on filedocumented in this encounter Additional Health Concerns Infection Onset Date Last Indicated Resolved Time COVID-19 Rule Out 03/20/2020 03/20/2020 03/22/2020 6:40 PM CDT COVID-19 Rule Out 06/07/2020 06/07/2020 06/10/2020 2:30 AM REGULATORY SUBMISSIONS SPECIALIST COVID-19 Rule Out 07/04/2020 07/04/2020 07/05/2020 6:22 PM REGULATORY SUBMISSIONS SPECIALIST documented as of this encounter Care Teams Eye Technician Relationship Specialty Start Date End Date Julieth Lopez MD [address] [place] [address] PCP - General FAMILY PRACTICE 07/29/24 Julieth Lopez MD [address] [place] [address] PCP - General FAMILY PRACTICE 07/07/24 07/28/24 documented as of this encounter
--- OUTSIDE RECORDS SUMMARY | 2025-03-21 01:58 | XMS_ITS | Encounter Summary ---
Author Organization [facility] Address [address] [place] [address] Care Team Providers Care Rubber Tubing Backer Name Role Phone Julieth Lopez MD Primary Care Provider + Julieth Lopez MD Primary Care Provider + Encounter Details Date Type Department Care Team (Late st Contact Info) Description 05/16/2019 WiChorust Message Enc [facility] Family Medicine [facility] [address] [facility], [address] [place] [phone] Elgin Lemos MD [address] [facility] [address] [place] [address] Follow Up/Update Social History Tobacco Use Types Packs/Day Years Used Date Smoking Tobacco: Never Smokeless Tobacco: Never PHQ-2 Answer Date Recorded PHQ-2 Score 2 09/22/2018 Comments No Sex and Gender Information Value Date Recorded Sex Assigned at Not on file 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 LARD MAKER Gender Identity Not on file Sexual Orientation Not on file documented as of this encounter Plan of Treatment Upcoming Encounters Date Type Department Care Team (Late st Contact Info) Description 07/11/2025 8:30 AM LARD MAKER Office Visit [facility] Family Medicine - [place] [address] [place] [address] Julieth Lopez MD [address] [place] [address] documented as of this encounter Visit Diagnoses Not on filedocumented in this encounter Additional Health Concerns Infection Onset Date Last Indicated Resolved Time COVID-19 Rule Out 03/20/2020 03/20/2020 03/22/2020 6:40 PM CDT COVID-19 Rule Out 06/07/2020 06/07/2020 06/10/2020 2:30 AM LARD MAKER COVID-19 Rule Out 07/04/2020 07/04/2020 07/05/2020 6:22 PM LARD MAKER documented as of this encounter Care Teams Rubber Tubing Backer Relationship Specialty Start Date End Date Julieth Lopez MD [address] [place] [address] PCP - General FAMILY PRACTICE 07/29/24 Julieth Lopez MD [address] [place] [address] PCP - General FAMILY PRACTICE 07/07/24 07/28/24 documented as of this encounter
--- OUTSIDE RECORDS SUMMARY | 2025-03-21 01:58 | XMS_ITS | Encounter Summary ---
Author Organization [facility] Address [address] [place] [address] Care Team Providers Care Stucco Applicator Name Role Phone Julieth Lopez MD Primary Care Provider + Julieth Lopez MD Primary Care Provider + Encounter Details Date Type Department Care Team (Late Contact Info) Description 01/29/2021 Lelongt Message Enc [facility] Family Medicine - [place] [address] [facility], [address] [place] [phone] Elgin Lemos MD [address] [facility] [address] [place] [phone] RE: Medication Questions Social History Tobacco Use [...] on file 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 VAULT MAKER Gender Identity Not on file Sexual Orientation Not on file documented as of this encounter Plan of Treatment Upcoming Encounters Date Type Department Care Team (Late Contact Info) Description 07/11/2025 8:30 AM VAULT MAKER Office Visit [facility] Family Medicine - [place] [address] [place] [address] Julieth Lopez MD [address] [place] [address] documented as of this encounter Visit Diagnoses Not on filedocumented in this encounter Additional Health Concerns Assessment Noted Time PHQ-9 Depression Total Score: 13 020 11:01 AM CDT documented as of this encounter Care Teams Stucco Applicator Relationship Specialty Start Date End Date Julieth Lopez MD [address] [place] [address] PCP - General FAMILY PRACTICE 07/29/24 Julieth Lopez MD [address] [place] [address] PCP - General FAMILY PRACTICE 07/07/24 07/28/24 documented as of this encounter
--- OUTSIDE RECORDS SUMMARY | 2025-03-21 01:58 | XMS_ITS | Encounter Summary ---
Author Organization [facility] Address [facility] [place] [address] Care Team Providers Care Ground Support Agent Name Role Phone Julieth Lopez MD Primary Care Provider + Julieth Lopez MD Primary Care Provider + Encounter Details Date Type Department Care Team (Late st Contact Info) Description 05/12/2019 MyChart Message Enc [facility] Family Medicine [facility] [address] [facility], [address] [place] [phone] Elgin Lemos MD [address] [facility] [address] [place], [place] [phone] RE: Test Results Social History Tobacco Use Types Packs/Day Years Used Date Smoking Tobacco: Never Smokeless Tobacco: Never PHQ-2 Answer Date Recorded PHQ-2 Score 2 09/22/2018 Comments No Sex and Gender Information Value Date Recorded Sex Assigned at Not on file 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 FOOD PRODUCTS SALES REPRESENTATIVE Gender Identity Not on file Sexual Orientation Not on file documented as of this encounter Plan of Treatment Upcoming Encounters Date Type Department Care Team (Late st Contact Info) Description 07/11/2025 8:30 AM FOOD PRODUCTS SALES REPRESENTATIVE Office Visit [facility] Family Medicine - [place] [address] [place] [address] Julieth Lopez MD [address] [place] [address] documented as of this encounter Visit Diagnoses Not on filedocumented in this encounter Additional Health Concerns Infection Onset Date Last Indicated Resolved Time COVID-19 Rule Out 03/20/2020 03/20/2020 03/22/2020 6:40 PM CDT COVID-19 Rule Out 06/07/2020 06/07/2020 06/10/2020 2:30 AM FOOD PRODUCTS SALES REPRESENTATIVE COVID-19 Rule Out 07/04/2020 07/04/2020 07/05/2020 6:22 PM FOOD PRODUCTS SALES REPRESENTATIVE documented as of this encounter Care Teams Ground Support Agent Relationship Specialty Start Date End Date Julieth Lopez MD [address] [place] [address] PCP - General FAMILY PRACTICE 07/29/24 Julieth Lopez MD [address] [place] [address] PCP - General FAMILY PRACTICE 07/07/24 07/28/24 documented as of this encounter
--- OUTSIDE RECORDS SUMMARY | 2025-03-21 01:58 | XMS_ITS | Encounter Summary ---
Author Organization [facility] Address [address] [place] [address] Care Team Providers Care Escalator Mechanic Name Role Phone Julieth Lopez MD Primary Care Provider + Julieth Lopez MD Primary Care Provider + Encounter Details Date Type Department Care Team (Late Contact Info) Description 03/05/2021 [employer] Message Enc [facility] Family Medicine - [place] [address] [facility], [address] [place] [phone] Elgin Lemos MD [address] [facility] [address] [place] [phone] RE: Referral Request Social History Tobacco Use [...] file 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 MANAGER SHIFT Gender Identity Not on file Sexual Orientation Not on file documented as of this encounter Plan of Treatment Upcoming Encounters Date Type Department Care Team (Late Contact Info) Description 07/11/2025 8:30 AM MANAGER SHIFT Office Visit [facility] Family Medicine - [place] [address] [place] [address] Julieth Lopez MD [address] [place] [address] documented as of this encounter Visit Diagnoses Not on filedocumented in this encounter Additional Health Concerns Assessment Noted Time PHQ-9 Depression Total Score: 13 020 11:01 AM CDT documented as of this encounter Care Teams Escalator Mechanic Relationship Specialty Start Date End Date Julieth Lopez MD [address] [place] [address] PCP - General FAMILY PRACTICE 07/29/24 Julieth Lopez MD [address] [place] [address] PCP - General FAMILY PRACTICE 07/07/24 07/28/24 documented as of this encounter
--- OUTSIDE RECORDS SUMMARY | 2025-03-21 01:58 | XMS_ITS | Encounter Summary ---
Author Organization [facility] Address [address] [place] [address] Care Team Providers Care Yarn Weigher Name Role Phone Julieth Lopez MD Primary Care Provider + Julieth Lopez MD Primary Care Provider + Encounter Details Date Type Department Care Team (Late st Contact Info) Description 05/24/2020 SAK Project Message Enc [facility] Family Medicine - [place] [address] [facility], [address] [place] [phone] Elgin Lemos MD [address] [address] RE: Question Social History Tobacco [...] file 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 DELI BAKERY CLERK Gender Identity Not on file Sexual Orientation Not on file COVID-19 Exposure Response Date Recorded In the last month, have you been in contact with someone who was confirmed or suspected to have Coronavirus / COVID-19? No / Unsure 05/25/2020 3:22 PM DELI BAKERY CLERK documented as of this encounter Progress Notes * Elgin Lmeos MD - 05/25/2020 8:06 AM CST Need to take a look BAKERY CLERK documented in this encounter Plan of Treatment Upcoming Encounters Date Type Department Care Team (Late st Contact Info) Description 07/11/2025 8:30 AM DELI BAKERY CLERK Office Visit [facility] Family Medicine - [place] [address] [place] [address] Julieth Lopez MD [address] [place] [address] documented as of this encounter Visit Diagnoses Not on filedocumented in this encounter Additional Health Concerns Infection Onset Date Last Indicated Resolved Time COVID-19 Rule Out 06/07/2020 06/07/2020 06/10/2020 2:30 AM DELI BAKERY CLERK COVID-19 Rule Out 07/04/2020 07/04/2020 07/05/2020 6:22 PM DELI BAKERY CLERK Assessment Noted Time PHQ-9 Depression Total Score: 13 020 11:01 AM CDT documented as of this encounter Care Teams Yarn Weigher Relationship Specialty Start Date End Date Julieth Lopez MD [address] [place] [address] PCP - General FAMILY PRACTICE 07/29/24 Julieth Lopez MD [address] [place] [address] PCP - General FAMILY PRACTICE 07/07/24 07/28/24 documented as of this encounter
--- OUTSIDE RECORDS SUMMARY | 2025-03-21 01:58 | XMS_ITS | Encounter Summary ---
Author Organization [facility] Address [address] [place] [address] Care Team Providers Care Infectious Waste Technician Name Role Phone Julieth Lopez MD Primary Care Provider + Julieth Lopez MD Primary Care Provider + Encounter Details Date Type Department Care Team (Late st Contact Info) Description 03/19/2020 Tradeshift Message Enc [facility] Family Medicine - [place] [address] [facility], [address] [place] [phone] Elgin Lemos MD [address] [address] RE: Question Social History Tobacco [...] on file 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 RN LIAISON Gender Identity Not on file Sexual Orientation [...] st Contact Info) Description 07/11/2025 8:30 AM RN LIAISON Office Visit [facility] Family Medicine - [place] [address] [place] [address] Julieth Lopez MD [address] [place] [address] documented as of this encounter Visit Diagnoses Not on filedocumented in this encounter Additional Health Concerns Infection Onset Date Last Indicated Resolved Time COVID-19 Rule Out 03/20/2020 03/20/2020 03/22/2020 6:40 PM CDT COVID-19 Rule Out 06/07/2020 06/07/2020 06/10/2020 2:30 AM RN LIAISON COVID-19 Rule Out 07/04/2020 07/04/2020 07/05/2020 6:22 PM RN LIAISON documented as of this encounter Care Teams Infectious Waste Technician Relationship Specialty Start Date End Date Julieth oLpez MD [address] [place] [address] PCP - General FAMILY PRACTICE 07/29/24 Julieth Lopez MD [address] [place] [address] PCP - General FAMILY PRACTICE 07/07/24 07/28/24 documented as of this encounter
--- OUTSIDE RECORDS SUMMARY | 2025-03-21 01:58 | XMS_ITS | Encounter Summary ---
Author Organization [facility] Address [address] [place] [address] Care Team Providers Care Seals Engraver Name Role Phone Julieth Lopez MD Primary Care Provider + Julieth Lopez MD Primary Care Provider + Encounter Details Date Type Department Care Team (Late Contact Info) Description 08/30/2019 Malauzai Softwaret Message Enc [facility] Family Medicine [facility] [address] [facility], [address] [place] [phone] Elgin Lemos MD [address] [phone] RE: Follow Up/Update Social History Tobacco Use [...] on file 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 EAR NOSE THROAT SURGEON Gender Identity Not on file Sexual Orientation Not on file documented as of this encounter Plan of Treatment Upcoming Encounters Date Type Department Care Team (Late Contact Info) Description 07/11/2025 8:30 AM EAR NOSE THROAT SURGEON Office Visit [facility] Family Medicine [facility] [address] [place] [address] Julieth Lopez MD [address] [place] [address] documented as of this encounter Visit Diagnoses Not on filedocumented in this encounter Additional Health Concerns Infection Onset Date Last Indicated Resolved Time COVID-19 Rule Out 03/20/2020 03/20/2020 03/22/2020 6:40 PM CDT COVID-19 Rule Out 06/07/2020 06/07/2020 06/10/2020 2:30 AM EAR NOSE THROAT SURGEON COVID-19 Rule Out 07/04/2020 07/04/2020 07/05/2020 6:22 PM EAR NOSE THROAT SURGEON documented as of this encounter Care Teams Seals Engraver Relationship Specialty Start Date End Date Julieth Lopez MD [address] [place] [address] PCP - General FAMILY PRACTICE 07/29/24 Julieth Lopez MD [address] [place] [address] PCP - General FAMILY PRACTICE 07/07/24 07/28/24 documented as of this encounter
--- OUTSIDE RECORDS SUMMARY | 2025-03-21 01:58 | XMS_ITS | Encounter Summary ---
Author Organization [facility] Address [address] [place] [address] Care Team Providers Care Mechanical Maintenance Name Role Phone Julieth Lopez MD Primary Care Provider + Julieth Lopez MD Primary Care Provider + Encounter Details Date Type Department Care Team (Late Contact Info) Description 03/23/2020 Ideagen Message Enc [facility] Family Medicine [address], [address] [place] [address] [employer], [facility] Provider Lab results Social History Tobacco Use [...] on file 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 SANITATION TECHNICIAN Gender Identity Not on file Sexual [...] (Late Contact Info) Description 07/11/2025 8:30 AM SANITATION TECHNICIAN Office Visit [facility] Family Medicine - [place] [address] [place] [address] Julieth Lopez MD [address] [place], [place] [address] documented as of this encounter Visit Diagnoses Not on filedocumented in this encounter Additional Health Concerns Infection Onset Date Last Indicated Resolved Time COVID-19 Rule Out 06/07/2020 06/07/2020 06/10/2020 2:30 AM SANITATION TECHNICIAN COVID-19 Rule Out 07/04/2020 07/04/2020 07/05/2020 6:22 PM SANITATION TECHNICIAN documented as of this encounter Care Teams Mechanical Maintenance Relationship Specialty Start Date End Date Julieth Lopez MD [address] [place] [address] PCP - General FAMILY PRACTICE 07/29/24 Julieth Lopez MD [address] [place] [address] PCP - General FAMILY PRACTICE 07/07/24 07/28/24 documented as of this encounter
--- OUTSIDE RECORDS SUMMARY | 2025-03-21 01:58 | XMS_ITS | Encounter Summary ---
Author Organization [facility] Address [address] [place] [address] Care Team Providers Care Independent Living Specialist Name Role Phone Julieth Lopez MD Primary Care Provider + Julieth Lopez MD Primary Care Provider + Encounter Details Date Type Department Care Team (Late Contact Info) Description 01/21/2023 Money Dashboardt Message Enc [facility] Family Medicine [facility] [address] [facility], [address] [place] [phone] Elgin Lemos MD [address] [phone] update Social History Tobacco Use Types Packs/Day [...] on file 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 LOCOMOTIVE SUPERVISOR Gender Identity Not on file Sexual Orientation Not on file documented as of this encounter Plan of Treatment Upcoming Encounters Date Type Department Care Team (Late Contact Info) Description 07/11/2025 8:30 AM LOCOMOTIVE SUPERVISOR Office Visit [facility] Family Medicine [facility] [address] [place], [place] [address] Julieth Lopez MD [address] [place], [place] [address] documented as of this encounter Visit Diagnoses Not on filedocumented in this encounter Additional Health Concerns Assessment Noted Time PHQ-9 Depression Total Score: 13 020 11:01 AM CDT documented as of this encounter Care Teams Independent Living Specialist Relationship Specialty Start Date End Date Julieth Lopez MD [address] [place], [place] [address] PCP - General FAMILY PRACTICE 07/29/24 Julieth Lopez MD [address] [place] [address] PCP - General FAMILY PRACTICE 07/07/24 07/28/24 documented as of this encounter
--- OUTSIDE RECORDS SUMMARY | 2025-03-21 01:58 | XMS_ITS | Encounter Summary ---
Author Organization [facility] Address [address] [place] [address] Care Team Providers Care Dictating Machine Transcriber Name Role Phone Julieth Lopez MD Primary Care Provider + Julieth Lopez MD Primary Care Provider + Encounter Details Date Type Department Care Team (Late Contact Info) Description 12/11/2022 BackupAgentt Message Enc [facility] Medical [facility] [address] [place], [place] [address] [employer], [facility] Provider Air Quality [...] file 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 JET BLADE POLISHER Gender Identity Not on file Sexual Orientation Not on file documented as of this encounter Plan of Treatment Upcoming Encounters Date Type Department Care Team (Late Contact Info) Description 07/11/2025 8:30 AM JET BLADE POLISHER Office Visit [facility] Medical [facility] Family Medicine - [place] [address] [place] [address] Julieth Lopez MD [address] [place] [address] documented as of this encounter Visit Diagnoses Not on filedocumented in this encounter Additional Health Concerns Assessment Noted Time PHQ-9 Depression Total Score: 13 020 11:01 AM CDT documented as of this encounter Care Teams Dictating Machine Transcriber Relationship Specialty Start Date End Date Julieth Lopez MD [address] [place] [address] PCP - General FAMILY PRACTICE 07/29/24 Julieth Lopez MD [address] [place] [address] PCP - General FAMILY PRACTICE 07/07/24 07/28/24 documented as of this encounter
--- OUTSIDE RECORDS SUMMARY | 2025-03-21 01:58 | XMS_ITS | Encounter Summary ---
Author Organization [facility] Address [address] [place] [address] Care Team Providers Care Butcher Head Name Role Phone Julieth Lopez MD Primary Care Provider + Julieth Lopez MD Primary Care Provider + Encounter Details Date Type Department Care Team (Late st Contact Info) Description 08/16/2020 Theralogix Message Enc [facility] Family Medicine - [place] [address] [facility], [address] [place] [phone] Elgin Lemos MD [address] [facility] [address] [place] [phone] RE: Question Social History Tobacco Use [...] on file 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 VISITOR INFORMATION ASSISTANT Gender Identity Not on file Sexual Orientation Not on file COVID-19 Exposure Response Date Recorded In the last month, have you been in contact with someone who was confirmed or suspected to have Coronavirus / COVID-19? No / Unsure 08/16/2020 1:55 PM VISITOR INFORMATION ASSISTANT documented as of this encounter Plan of Treatment Upcoming Encounters Date Type Department Care Team (Late st Contact Info) Description 07/11/2025 8:30 AM VISITOR INFORMATION ASSISTANT Office Visit [facility] Family Medicine - [place] [address] [place] [address] Julieth Lopez MD [address] [place] [address] documented as of this encounter Visit Diagnoses Not on filedocumented in this encounter Additional Health Concerns Assessment Noted Time PHQ-9 Depression Total Score: 13 020 11:01 AM CDT documented as of this encounter Care Teams Butcher Head Relationship Specialty Start Date End Date Julieth Lopez MD [address] [place] [address] PCP - General FAMILY PRACTICE 07/29/24 Julieth Lopez MD [address] [place] [address] PCP - General FAMILY PRACTICE 07/07/24 07/28/24 documented as of this encounter
--- OUTSIDE RECORDS SUMMARY | 2025-03-21 01:58 | XMS_ITS | Encounter Summary ---
Author Organization [facility] Address [address] [place] [address] Care Team Providers Care Sales Producer Name Role Phone Julieth Lopez MD Primary Care Provider + Julieth Lopez MD Primary Care Provider + Encounter Details Date Type Department Care Team (Late st Contact Info) Description 01/13/2020 TearScience Message Enc [facility] Family Medicine - [place] [address] [facility], [address] [place] [phone] Elgin Lemos MD [address] [address] RE: Question Social History [...] on file 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 VENEER SANDER Gender Identity Not on file Sexual Orientation [...] 01/14/2020 9:12 AM CDT Requested results from [facility]. Placed on your desk for review. documented in this encounter Plan of Treatment Upcoming Encounters Date Type Department Care Team (Late st Contact Info) Description 07/11/2025 8:30 AM VENEER SANDER Office Visit [facility] Family Medicine [facility] [address] [place] [address] Julieth Lopez MD [address] [place] [address] documented as of this encounter Visit Diagnoses Not on filedocumented in this encounter Additional Health Concerns Infection Onset Date Last Indicated Resolved Time COVID-19 Rule Out 03/20/2020 03/20/2020 03/22/2020 6:40 PM CDT COVID-19 Rule Out 06/07/2020 06/07/2020 06/10/2020 2:30 AM VENEER SANDER COVID-19 Rule Out 07/04/2020 07/04/2020 07/05/2020 6:22 PM VENEER SANDER documented as of this encounter Care Teams Sales Producer Relationship Specialty Start Date End Date Julieth Lopez MD [address] [place] [address] PCP - General FAMILY PRACTICE 07/29/24 Julieth Lopez MD [address] [place] [address] PCP - General FAMILY PRACTICE 07/07/24 07/28/24 documented as of this encounter
--- OUTSIDE RECORDS SUMMARY | 2025-03-21 01:58 | XMS_ITS | Encounter Summary ---
Author Organization [facility] Address [address] [place] [address] Care Team Providers Care Imaging Center Manager Name Role Phone Julieth Lopez MD Primary Care Provider + Julieth Lopez MD Primary Care Provider + Encounter Details Date Type Department Care Team (Late st Contact Info) Description 04/25/2020 Collusion Message Enc [facility] Family Medicine - [place] [address] [facility], [address] [place] [phone] Elgin Lemos MD [address] [address] RE: Question Social History Tobacco [...] on file 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 CONTAINER PACKER OPERATOR Gender Identity Not on file Sexual Orientation Not on file COVID-19 Exposure Response Date Recorded In the last month, have you been in contact with someone who was confirmed or suspected to have Coronavirus / COVID-19? No / Unsure 04/26/2020 9:25 AM CONTAINER PACKER OPERATOR documented as of this encounter Plan of Treatment Upcoming Encounters Date Type Department Care Team (Late st Contact Info) Description 07/11/2025 8:30 AM CONTAINER PACKER OPERATOR Office Visit [facility] Family Medicine - [place] [address] [place] [address] Julieth Lopez MD [address] [place] [address] documented as of this encounter Visit Diagnoses Not on filedocumented in this encounter Additional Health Concerns Infection Onset Date Last Indicated Resolved Time COVID-19 Rule Out 06/07/2020 06/07/2020 06/10/2020 2:30 AM CONTAINER PACKER OPERATOR COVID-19 Rule Out 07/04/2020 07/04/2020 07/05/2020 6:22 PM CONTAINER PACKER OPERATOR Assessment Noted Time PHQ-9 Depression Total Score: 13 020 11:01 AM CDT documented as of this encounter Care Teams Imaging Center Manager Relationship Specialty Start Date End Date Julieth Lopez MD [address] [place] [address] PCP - General FAMILY PRACTICE 07/29/24 Julieth Lopez MD [address] [place] [address] PCP - General FAMILY PRACTICE 07/07/24 07/28/24 documented as of this encounter
--- OUTSIDE RECORDS SUMMARY | 2025-03-21 01:58 | XMS_ITS | Encounter Summary ---
Author Organization [facility] Address [address] [place] [address] Care Team Providers Care Traffic Division Commanding Officer Name Role Phone Julieth Lopez MD Primary Care Provider + Julieth Lopez MD Primary Care Provider + Encounter Details Date Type Department Care Team (Late Contact Info) Description 01/19/2020 Encap Message Enc [facility] Family Medicine [address], [address] [place] [address] [facility] RE: Medications Social History Tobacco Use [...] on file 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 BOAT HOIST OPERATOR Gender Identity Not on file Sexual [...] (Late Contact Info) Description 07/11/2025 8:30 AM BOAT HOIST OPERATOR Office Visit [facility] Family Medicine - [place] [address] [place] [address] Julieth Lopez MD [address] [place] [address] documented as of this encounter Visit Diagnoses Not on filedocumented in this encounter Additional Health Concerns Infection Onset Date Last Indicated Resolved Time COVID-19 Rule Out 03/20/2020 03/20/2020 03/22/2020 6:40 PM CDT COVID-19 Rule Out 06/07/2020 06/07/2020 06/10/2020 2:30 AM BOAT HOIST OPERATOR COVID-19 Rule Out 07/04/2020 07/04/2020 07/05/2020 6:22 PM BOAT HOIST OPERATOR documented as of this encounter Care Teams Traffic Division Commanding Officer Relationship Specialty Start Date End Date Julieth Lopez MD [address] [facility] [place] [address] PCP - General FAMILY PRACTICE 07/29/24 Julieth Lopez MD [address] [facility] [place] [address] PCP - General FAMILY PRACTICE 07/07/24 07/28/24 documented as of this encounter
--- OUTSIDE RECORDS SUMMARY | 2025-03-21 01:58 | XMS_ITS | Encounter Summary ---
Author Organization [facility] Address [address] [place] [address] Care Team Providers Care Assembly Stock Supervisor Name Role Phone Julieth Lopez MD Primary Care Provider + Julieth Lopez MD Primary Care Provider + Encounter Details Date Type Department Care Team (Late st Contact Info) Description 03/18/2020 SeamBLiSS Message Enc [facility] Family Medicine - [place] [address] [facility], [address] [place] [phone] Elgin Lemos MD [address] [address] RE: Question Social History Tobacco [...] file 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 RN INTERN Gender Identity Not on file Sexual Orientation [...] Contact Info) Description 07/11/2025 8:30 AM RN INTERN Office Visit [facility] Family Medicine - [place] [address] [place] [address] Julieth Lopez MD [address] [place] [address] documented as of this encounter Visit Diagnoses Not on filedocumented in this encounter Additional Health Concerns Infection Onset Date Last Indicated Resolved Time COVID-19 Rule Out 03/20/2020 03/20/2020 03/22/2020 6:40 PM CDT COVID-19 Rule Out 06/07/2020 06/07/2020 06/10/2020 2:30 AM RN INTERN COVID-19 Rule Out 07/04/2020 07/04/2020 07/05/2020 6:22 PM RN INTERN documented as of this encounter Care Teams Assembly Stock Supervisor Relationship Specialty Start Date End Date Julieth Lopez MD [address] [place] [address] PCP - General FAMILY PRACTICE 07/29/24 Julieth Lopez MD [address] [place] [address] PCP - General FAMILY PRACTICE 07/07/24 07/28/24 documented as of this encounter
--- OUTSIDE RECORDS SUMMARY | 2025-03-21 01:58 | XMS_ITS | Encounter Summary ---
Author Organization [facility] Address [address] [place] [address] Care Team Providers Care Pony Worker Name Role Phone Julieth Lopez MD Primary Care Provider + Julieth Lopez MD Primary Care Provider + Encounter Details Date Type Department Care Team (Late Contact Info) Description 10/28/2022 [employer]celeron (Chapter [employer]t Message Enc [facility] Family Medicine [facility] [address] [facility], [address] [place] [phone] Elgin Lemos MD [address] [phone] Hospital Social History Tobacco Use Types Packs/Day [...] on file 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 CHAR BELT OPERATOR Gender Identity Not on file Sexual Orientation Not on file documented as of this encounter Plan of Treatment Upcoming Encounters Date Type Department Care Team (Late Contact Info) Description 07/11/2025 8:30 AM CHAR BELT OPERATOR Office Visit [facility] Family Medicine [facility] [address] [place], [place] [address] Julieth Lopez MD [address] [place], [place] [address] documented as of this encounter Visit Diagnoses Not on filedocumented in this encounter Additional Health Concerns Assessment Noted Time PHQ-9 Depression Total Score: 13 020 11:01 AM CDT documented as of this encounter Care Teams Pony Worker Relationship Specialty Start Date End Date Julieth Lopez MD [address] [place], [place] [address] PCP - General FAMILY PRACTICE 07/29/24 Julieth Lopez MD [address] [place] [address] PCP - General FAMILY PRACTICE 07/07/24 07/28/24 documented as of this encounter
--- OUTSIDE RECORDS SUMMARY | 2025-03-21 01:58 | XMS_ITS | Encounter Summary ---
Author Organization [facility] Address [facility] [place] [address] Care Team Providers Care Spinning Lathe Operator Automatic Name Role Phone Jluieth Lopez MD Primary Care Provider + Julieth Lopez MD Primary Care Provider + Encounter Details Date Type Department Care Team (Late Contact Info) Description 04/13/2019 Walldress Message Enc [facility] DEPARTMENT [address] [place] [address] [facility] Provider Question Social History Tobacco Use Types Packs/Day Years Used Date Smoking Tobacco: Never Smokeless Tobacco: Never PHQ-2 Answer Date Recorded PHQ-2 Score 2 09/22/2018 Comments No Sex and Gender Information Value Date Recorded Sex Assigned at Not on file 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 CARDIO CLINICIAN Gender Identity Not on file Sexual Orientation Not on file documented as of this encounter Plan of Treatment Upcoming Encounters Date Type Department Care Team ([facility] Contact Info) Description 07/11/2025 8:30 AM CARDIO CLINICIAN Office Visit [facility] Family Medicine - [place] [address] [place] [address] [phone] Julieth Lopez MD [address] [place] [address] [phone] documented as of this encounter Visit Diagnoses Not on filedocumented in this encounter Additional Health Concerns Infection Onset Date Last Indicated Resolved Time COVID-19 Rule Out 03/20/2020 03/20/2020 03/22/2020 6:40 PM CDT COVID-19 Rule Out 06/07/2020 06/07/2020 06/10/2020 2:30 AM CARDIO CLINICIAN COVID-19 Rule Out 07/04/2020 07/04/2020 07/05/2020 6:22 PM CARDIO CLINICIAN documented as of this encounter Care Teams Spinning Lathe Operator Automatic Relationship Specialty Start Date End Date Julieth Lopez MD [address] [place] [address] PCP - General FAMILY PRACTICE 07/29/24 Julieth Lopez MD [address] [place] [address] PCP - General FAMILY PRACTICE 07/07/24 07/28/24 documented as of this encounter
--- OUTSIDE RECORDS SUMMARY | 2025-03-21 01:58 | XMS_ITS | Encounter Summary ---
Author Organization [facility] Address [address] [place] [address] Care Team Providers Care Material Distributor Name Role Phone Julieth Lopez MD Primary Care Provider + Julieth Lopez MD Primary Care Provider + Encounter Details Date Type Department Care Team (Late st Contact Info) Description 03/08/2020 Fligoo Message Enc [facility] Family Medicine - [place] [address] [facility], [address] [place] [phone] Elgin Lemos MD [address] [address] RE: Question Social History Tobacco [...] on file 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 PHOTOENGRAVING PRINTER Gender Identity Not on file Sexual Orientation [...] st Contact Info) Description 07/11/2025 8:30 AM PHOTOENGRAVING PRINTER Office Visit [facility] Family Medicine - [place] [address] [place] [address] Julieth Lopez MD [address] [place], [place] 269304 documented as of this encounter Visit Diagnoses Not on filedocumented in this encounter Additional Health Concerns Infection Onset Date Last Indicated Resolved Time COVID-19 Rule Out 03/20/2020 03/20/2020 03/22/2020 6:40 PM CDT COVID-19 Rule Out 06/07/2020 06/07/2020 06/10/2020 2:30 AM PHOTOENGRAVING PRINTER COVID-19 Rule Out 07/04/2020 07/04/2020 07/05/2020 6:22 PM PHOTOENGRAVING PRINTER documented as of this encounter Care Teams Material Distributor Relationship Specialty Start Date End Date Julieth Lopez MD [address] [place] [address] PCP - General FAMILY PRACTICE 07/29/24 Julieth Lopez MD [address] [place] [address] PCP - General FAMILY PRACTICE 07/07/24 07/28/24 documented as of this encounter
--- OUTSIDE RECORDS SUMMARY | 2025-03-21 01:59 | XMS_ITS | Encounter Summary ---
Author Organization [facility] Address [address] [place] [address] Care Team Providers Care Sand Mill Operator Facing Sand Name Role Phone Julieth Lopez MD Primary Care Provider + Julieth Lopez MD Primary Care Provider + Encounter Details Date Type Department Care Team (Late st Contact Info) Description 03/22/2020 The 5th Base Message Enc [facility] Family Medicine - [place] [address] [facility], [address] [place] [phone] Elgin Lemos MD [address] [address] RE: Question Social History Tobacco [...] on file 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 CIVIL ENGINEERING DIRECTOR Gender Identity Not on file Sexual [...] st Contact Info) Description 07/11/2025 8:30 AM CIVIL ENGINEERING DIRECTOR Office Visit [facility] Family Medicine - [place] [address] [place] [address] Julieth Lopez MD [address] [place] [address] documented as of this encounter Visit Diagnoses Not on filedocumented in this encounter Additional Health Concerns Infection Onset Date Last Indicated Resolved Time COVID-19 Rule Out 03/20/2020 03/20/2020 03/22/2020 6:40 PM CDT COVID-19 Rule Out 06/07/2020 06/07/2020 06/10/2020 2:30 AM CIVIL ENGINEERING DIRECTOR COVID-19 Rule Out 07/04/2020 07/04/2020 07/05/2020 6:22 PM CIVIL ENGINEERING DIRECTOR documented as of this encounter Care Teams Sand Mill Operator Facing Sand Relationship Specialty Start Date End Date Julieth Lopez MD [address] [place] [address] PCP - General FAMILY PRACTICE 07/29/24 Julieth Lopez MD [address] [place] [address] PCP - General FAMILY PRACTICE 07/07/24 07/28/24 documented as of this encounter
--- OUTSIDE RECORDS SUMMARY | 2025-03-21 01:59 | XMS_ITS | Encounter Summary ---
Author Organization [facility] Address [address] [place] [address] Care Team Providers Care Customer Supply Coordinator Name Role Phone Julieth Lopez MD Primary Care Provider + Julieth Lopez MD Primary Care Provider + Encounter Details Date Type Department Care Team (Late st Contact Info) Description 09/18/2022 ftopiat Message Enc [facility] Medical Group Family Medicine - [place] [address] [facility], [address] [place] [phone] Elgin Lemos MD [address] [facility] [address] [place] [address] Forgot to give you this info [...] on file 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 SECURITY OPERATIONS MANAGER Gender Identity Not on file Sexual [...] st Contact Info) Description 07/11/2025 8:30 AM SECURITY OPERATIONS MANAGER Office Visit [facility] Family Medicine - [place] [address] [place] [address] Julieth Lopez MD [address] [place], [place] [phone] documented as of this encounter Visit Diagnoses Not on filedocumented in this encounter Additional Health Concerns Assessment Noted Time PHQ-9 Depression Total Score: 13 020 11:01 AM CDT documented as of this encounter Care Teams Customer Supply Coordinator Relationship Specialty Start Date End Date Julieth Lopez MD [address] [place] [address] PCP - General FAMILY PRACTICE 07/29/24 Julieth Lopez MD [address] [place], [place] [address] PCP - General FAMILY PRACTICE 07/07/24 07/28/24 documented as of this encounter
--- OUTSIDE RECORDS SUMMARY | 2025-03-21 01:59 | XMS_ITS | Clinical Summary ---
Author Organization [facility] Address [facility] [place] [address] Care Team Providers Care Machine Repairman Name Role Phone Julieth Lopez MD Primary Care Provider + Allergies Active Allergy Reactions Criticality Noted Date Comments Tape Rash Low 08/19/2019 Erenumab-Aooe Rash Medium 12/09/2023 Site reaction, believes due to latex ingredient overlap Insect Stings Anaphylaxis High 09/27/2024 Latex Hives,Rash Medium 03/26/2019 Nortriptyline Hcl Other (see comment) Low 5 nightmares Vancomycin Anaphylaxis High 07/07/2024 Wasp Venom Anaphylaxis High 09/27/2024 Medications SUMAtriptan (IMITREX) 25 MG tabletIndications: Chronic migraine without aura without status migrainosus, not intractable TAKE 1 TO 2 TABLETS BY MOUTH 2 TIMES A DAY NEEDED FOR MIGRAINE. MAX OF 8 TABLETS IN 24 HOURS 30 tablet 1 4 Active spironolactone (ALDACTONE) 25 MG tabletIndications: PCOS (polycystic ovarian syndrome) Take 1 tablet (25 mg total) by mouth daily. 90 tablet 3 5 026 Active tirzepatide (ZEPBOUND) 2.5 MG/0.5ML injectionIndicatio ns:Prediabetes,Crow ght Loss Inject 2.5 mg into the skin once a week. Indications: Higher than Normal Blood Sugar not yet Considered Diabetes, Weight Loss 6 mL 5 Active EPINEPHrine 0.3 MG/0.3ML injectionIndicatio ns:Bee sting allergy Inject 0.3 mLs (0.3 mg total) into the muscle as needed for Anaphylaxis. Bee sting allergy 1 each 1 5 Active albuterol sulfate HFA 108 (90 Base) MCG/ACT inhalerIndications :Moderate persistent asthma without complication (HHS/HCC) INHALE 2 PUFFS BY MOUTH EVERY 4 HOURS NEEDED FOR SHORTNESS OF BREATH 18 g 3 5 Active budesonide-formote rol (SYMBICORT) 160-4.5 MCG/ACT inhalerIndications :Moderate persistent asthma without complication (HHS/HCC) INHALE 2 PUFFS INTO THE LUNGS TWICE DAILY 10.2 g 3 5 Active rimegepant (NURTEC) 75 MG disintegrating tabletIndications: Chronic migraine without aura without status migrainosus, not intractable Take 1 tablet (75 mg total) by mouth every other day. Max of 1 tablet (75 mg) in 24 hours. 15 tablet 3 5 Active Active Problems Problem Noted Date [...] it. Assessment & Plan (07/07/2024 11:34 AM BOBBIN DOFFER): Not controlled. Frequent migraines. Sumatriptan does work [...] growth Assessment & Plan (07/07/2024 11:34 AM BOBBIN DOFFER): Hirsutism persistent. Will check BMP 1 month after trial of spironolactone to ensure kidney function and electrolytes are normal. 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 Reports she has tried multiple medications in the past and has not tolerated them well due to side effects. She would prefer to avoid medication at this point. Assessment & Plan (07/07/2024 11:32 AM BOBBIN DOFFER): Not currently well-controlled but prefers to avoid medication. We will defer medication at this point. Encouraged some lifestyle changes. Class 3 severe obesity due t o excess calories without serious comorbidity with body mass index (BMI) of 45.0 to 49.9 in adult 03/26/2020 Overview (07/07/2024): Has been going to [employer]. Has 10 lb in 6 months. Assessment & Plan (07/07/2024 11:33 AM BOBBIN DOFFER): Discussed lifestyle changes which will help with weight loss. She will also look into insurance options for GLP-1 and update me with decision. Moderate persistent asthma without complication (HHS/HCC) 03/23/2020 Overview (07/07/2024): Takes symbicort and albuterol. Illness is main trigger. Assessment & Plan (07/07/2024 11:33 AM BOBBIN DOFFER): Chronic. Controlled. Continue Symbicort and albuterol. Prevnar [...] Encounters Date Type Department Care Team Description 01/10/2025 Orders Only [facility] Family Medicine - [place] [address] [facility] [address] [place] [address] Anna Hill MA 01/05/2025 Scan HEALTH INFO SRVCS Scanned, Doc Med Group Image (SCAN) from Last 3 Months Immunizations Immunization Administration [...] file 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 BOBBIN DOFFER Gender Identity Not on file Sexual Orientation Not on file Last Filed Vital Signs Vital Sign Reading Time Taken Comments Blood Pressure 128/86 07/07/2024 10:26 AM BOBBIN DOFFER Pulse 91 07/07/2024 10:26 AM BOBBIN DOFFER Temperature 37.6 C (99.6 F) 07/07/2024 10:26 AM BOBBIN DOFFER Respiratory Rate 16 07/07/2024 10:26 AM BOBBIN DOFFER Oxygen Saturation 98% 07/07/2024 10:26 AM BOBBIN DOFFER Inhaled Oxygen Concentration - - Weight 138.3 kg (305 lb) 07/07/2024 10:26 AM BOBBIN DOFFER Height 170.2 cm (5' 7) 07/07/2024 10:26 AM BOBBIN DOFFER Body Mass Index 47.77 07/07/2024 10:26 AM BOBBIN DOFFER Plan of Treatment Upcoming Encounters Date Type Department Care Team (Late st Contact Info) Description 07/11/2025 8:30 AM BOBBIN DOFFER Office Visit [facility] Family Medicine - [place] [address] [facility] [address] [place] [address] [phone] Julieth Lopez MD [address] [place] [address] Health Maintenance Due Date Last Done Comments Hepatitis C 2017 HPV Vaccines (3 - 3-dose series) 11/18/2019 08/26/2019, 09/25/2018 COVID-19 Vaccine ( season) 2025 10/20/2020, 09/29/2020 Annual Physical 07/07/2025 07/07/2024, 09/16/2022 Cervical Cancer Screening Pap Smear (Age 21 to 29) Every 3 Years 07/22/2027 07/22/2024 Cervical Cancer Screening 07/22/2027 DTaP, Tdap and Td Vaccines (9 - Td or Tdap) 03/16/2032 03/16/2022, 02/15/2022, 02/06/2011, Additional history exists Hepatitis B Vaccines Completed 08/28/2001, 08/28/2001, 10/10/2000, Additional history exists Meningococcal Vaccine Completed 02/24/2017 , 02/24/2017, 02/13/2012 PHQ-2 (Physician [facility]) Completed 07/07/2024 Pneumococcal Vaccine: Pediatrics (0 to 5 Years) and At-Risk Patients (6 to 49 Years) Completed 07/07/2024, 12/25/2000 Meningococcal B Vaccine Aged Out No l onger eligible based on patient's age to complete this topic RSV Immunizations Under 20 Months Aged Out No longer eligible based on patient's age to complete this topic Procedures Procedure Name Priority Date/Time Associated Diagnosis Comments IMAGE GENERIC 01/05/2025 OUTSIDE CYTOPATH CERV/VAG IN TERPRET (PAP) (SCAN ORDER) 07/22/2024 from Last 3 Months or Most Recently Relevant to Health Maintenance Results * IMAGE GENERIC (01/05/2025) Anatomical Region Laterality Modality Other 01/05/2025 [facility] Scanned SCANNING Final Resu lt * PAP SMEAR (SCAN ORDER) (07/22/2024) 07/22/2024 [facility] Scanned SCANNING Final Resu lt from Last 3 Months or Most Recently Relevant to Health Maintenance Insurance [facility] MEDICAID Care Teams Machine Repairman Relationship Specialty Start Date End Date Julieth Lopez MD [address] [place] [address] [phone] PCP - General FAMILY PRACTICE 07/29/24
--- OUTSIDE RECORDS SUMMARY | 2025-03-21 01:59 | XMS_ITS | Encounter Summary ---
Author Organization [facility] Address [address] [place] [address] Care Team Providers Care Wood Form Builder Name Role Phone Julieth Lopez MD Primary Care Provider + Julieth Lopez MD Primary Care Provider + Encounter Details Date Type Department Care Team (Late st Contact Info) Description 03/12/2020 Klash Message Enc [facility] Family Medicine - [place] [address] [facility], [address] [place] [phone] Elgin Lemos MD [address] [phone] RE: Follow Up/Update Social History Tobacco Use [...] on file 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 ELECTRONICS DESIGN ENGINEER Gender Identity Not on file Sexual [...] st Contact Info) Description 07/11/2025 8:30 AM ELECTRONICS DESIGN ENGINEER Office Visit [facility] Family Medicine - [place] [address] [place] [address] Julieth Lopez MD [address] [place] [address] documented as of this encounter Visit Diagnoses Not on filedocumented in this encounter Additional Health Concerns Infection Onset Date Last Indicated Resolved Time COVID-19 Rule Out 03/20/2020 03/20/2020 03/22/2020 6:40 PM CDT COVID-19 Rule Out 06/07/2020 06/07/2020 06/10/2020 2:30 AM ELECTRONICS DESIGN ENGINEER COVID-19 Rule Out 07/04/2020 07/04/2020 07/05/2020 6:22 PM ELECTRONICS DESIGN ENGINEER documented as of this encounter Care Teams Wood Form Builder Relationship Specialty Start Date End Date Julieth Lopez MD [address] [place] [address] PCP - General FAMILY PRACTICE 07/29/24 Julieth Lopez MD [address] [place] [address] PCP - General FAMILY PRACTICE 07/07/24 07/28/24 documented as of this encounter
--- OUTSIDE RECORDS SUMMARY | 2025-03-21 01:59 | XMS_ITS | Clinical Summary ---
Author Organization [facility] Address [address] [place] [address] Care Team Providers Care Lanolin Plant Operator Name Role Phone Angelica Maynard MD [...] Department Care Team Description 12/30/2024 Results Follow-Up [facility] [address] [facility] [address] [place] [address] Dread Rosales MD US Chest 12/23/2024 2:47 PM CDT - 12/23/2024 11:59 PM CDT Hospital Encounter [facility] [address] [place] [address] Mass of chest wall, right Discharge Disposition: Discharge to home or self care from Last 3 Months Immunizations Immunization Administration [...] removed from Sternum. multiple prior proceedure at [facility] but recurred CYST REMOVAL 03/12/2024 Right Breast [...] Asthma Father Rojas Garza JR COPD Father oRjas Garza JR Hypertension Father Rojas Garza JR Lung disease Father Rojas Garza JR Alcohol abuse Maternal Grandmother Letty Jorje Anemia Maternal Grandmother Letty Jorje Arthritis Maternal Grandmother Letty Jorje Asthma Maternal Grandmother Letty Jorje Bleeding Disorder Maternal Grandmother Letty Jorje Depression Maternal Grandmother Letty Jorje Drug abuse Maternal Grandmother Letty Jorje Hearing loss Maternal Grandmother Letty Jorje Alcohol abuse Mother Imelda [place] Asthma Mother Imelda [place] Depression Mother Imelda Vonnie Heart disease Mother Imelda [place] Hypertension Mother Imelda [place] Miscarriages / Stillbirths Mother Imelda Graft on Alcohol abuse Other Arthritis Other Bleeding Disorder Other Cancer Other Deep vein thrombosis Other Diabetes Other Gout Other Kidney disease Other Mental illness Other Stroke Other Alcohol abuse Paternal Grandfather Rojas Vonnie sr Arthritis Paternal Grandfather Rojas Vonnie sr Asthma Paternal Grandfather Rojas [place] sr Diabetes Paternal Grandfather Rojas [place] sr Early Paternal Grandfather Rojas Vonnie sr Heart disease Paternal Grandfather Rojas Vonnie sr Hypertension Paternal Grandfather Rojas [place] sr Alzheimer's disease Paternal Grandmother Apurva stuart Arthritis Paternal Grandmother Apurva garcía r Asthma Paternal Grandmother Apurva garcía r Depression Paternal Grandmother Apurva egane r Hearing loss Paternal Grandmother Apurva garcía r Memory loss Paternal Grandmother Apurva garcía r Mental illness Paternal Grandmother Apurva rizvi her Miscarriages / Stillbirths Paternal Grandmother Apurva stuart Vision loss Paternal Grandmother Apurva garcía r Depression Sister Rosanna [place] Relation Name Status Comments Father Rojas Garza JR Alive Maternal Grandmother Letty Jorje Mother Imelda Vonnie Alive Other Paternal Grandfather Rojas Shankar sr Paternal Grandmother Apurva eganer Sister Rosanna Shankar Social History Tobacco Use [...] Pneumococcal vaccine <65 (1 of 1 - PPSV23, PCV20, or PCV21) 2005 12/25/2000 Regular Well Visit/Exam 18-64 2017 HPV Vaccines (3 - 3-dose series) 11/18/2019 08/26/19 20, 09/25/2018 Depression Screening 12/08/2024 12/09/2023, 12/09/19 24 Covid-19 Vaccine (5 - 2024-2 6 season) 2025 10/20/2020, 10/20/2020, 09/29/2020, Additional history exists Influenza Vaccine (#1) 2025 , 03/05/2019, 03/03/2012, [...] site of chest wall pain by the blow machine tender starch spraying, with selected grayscale and color Doppler images [...] Talha Eugene M.D. KT: ELVIRA Report ID: [id number] Reading Location: [id number] Procedure Note Talha Eugene MD - 12/30/2024 EXAM DESCRIPTION: US CHEST REASON FOR STUDY: chest wall pain at the site of surgical scar. TECHNIQUE: A Dynamic assessment was performed of the at the site of chest wall pain by the blow machine tender starch spraying, with selected grayscale and color Doppler images [...] Talha Eugene M.D. KT: ELVIRA Report ID: [id number] Reading Location: [id number] Dread Rosales MD [facility] PROCEDURES F inal Result from Last 3 Months Insurance [facility] H[facility]/PPO Address: [address] [address] [place] [address] [facility] Care Teams Lanolin Plant Operator Relationship Specialty Start Date End Date Angelica Maynard MD PCP - General Family Medicine 12/09/23
--- OUTSIDE RECORDS SUMMARY | 2025-03-21 01:59 | XMS_ITS | Encounter Summary ---
Author Organization [facility] Address [address] [place] [address] Care Team Providers Care First Front Ventilator Name Role Phone Julieth Lopez MD Primary Care Provider + Julieth Lopez MD Primary Care Provider + Encounter Details Date Type Department Care Team (Late st Contact Info) Description 09/30/2022 Wiki-PR Message Enc [facility] Medical Group Family Medicine - [place] [address] [facility], [address] [place] [phone] Elgin Lemos MD [address] [facility] [address] [place] [address] [phone] [employer] Social History Tobacco Use Types Packs/Day [...] on file 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 SPEEDER FRAME TENDER Gender Identity Not on file Sexual [...] st Contact Info) Description 07/11/2025 8:30 AM SPEEDER FRAME TENDER Office Visit [facility] Family Medicine - [place] [address] [place] [address] Julieth Lopez MD [address] [place], [place] [phone] documented as of this encounter Visit Diagnoses Not on filedocumented in this encounter Additional Health Concerns Assessment Noted Time PHQ-9 Depression Total Score: 13 020 11:01 AM CDT documented as of this encounter Care Teams First Front Ventilator Relationship Specialty Start Date End Date Julieth Lopez MD [address] [place], [place] [address] PCP - General FAMILY PRACTICE 07/29/24 Julieth Lopez MD [address] [place], [place] [address] PCP - General FAMILY PRACTICE 07/07/24 07/28/24 documented as of this encounter
--- OUTSIDE RECORDS SUMMARY | 2025-03-21 01:59 | XMS_ITS | Encounter Summary ---
Author Organization [facility] Address [address] [place] [address] Care Team Providers Care Dental Lab Technician Name Role Phone Julieth Lopez MD Primary Care Provider + Julieth Lopez MD Primary Care Provider + Encounter Details Date Type Department Care Team (Late st Contact Info) Description 03/09/2020 Ibelem Message Enc [facility] Medical [facility] Family Medicine - [place] [address] [facility], [address] [place] [phone] Elgin Lemos MD [address] [phone] RE: Medication Questions Social History Tobacco Use [...] on file 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 DOCUMENTATION LEAD Gender Identity Not on file Sexual Orientation [...] st Contact Info) Description 07/11/2025 8:30 AM DOCUMENTATION LEAD Office Visit [facility] Family Medicine - [place] [address] [place] [address] Julieth Lopez MD [address] [place] [address] documented as of this encounter Visit Diagnoses Not on filedocumented in this encounter Additional Health Concerns Infection Onset Date Last Indicated Resolved Time COVID-19 Rule Out 03/20/2020 03/20/2020 03/22/2020 6:40 PM CDT COVID-19 Rule Out 06/07/2020 06/07/2020 06/10/2020 2:30 AM DOCUMENTATION LEAD COVID-19 Rule Out 07/04/2020 07/04/2020 07/05/2020 6:22 PM DOCUMENTATION LEAD documented as of this encounter Care Teams Dental Lab Technician Relationship Specialty Start Date End Date Julieth Lopez MD [address] [place] [address] PCP - General FAMILY PRACTICE 07/29/24 Julieth Lopez MD [address] [place] [address] PCP - General FAMILY PRACTICE 07/07/24 07/28/24 documented as of this encounter
--- OUTSIDE RECORDS SUMMARY | 2025-03-21 01:59 | XMS_ITS | Encounter Summary ---
Author Organization [facility] Address [address] [place] [id number] Care Team Providers Care Millinery Blocker Name Role Phone Julieth Lopez MD Primary Care Provider + Julieth Lopez MD Primary Care Provider + Encounter Details Date Type Department Care Team (Late st Contact Info) Description 03/11/2020 Nintu Oy Message Enc [facility] Family Medicine - [place] [address] [facility], [address] [place] [phone] Elgin Lemos MD [address] [phone] RE: Follow Up/Update Social History Tobacco Use [...] on file 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 SSRS REPORT DEVELOPER Gender Identity Not on file Sexual Orientation [...] st Contact Info) Description 07/11/2025 8:30 AM SSRS REPORT DEVELOPER Office Visit [facility] Family Medicine - [place] [address] [place] [address] Julieth Lopez MD [address] [place] [address] documented as of this encounter Visit Diagnoses Not on filedocumented in this encounter Additional Health Concerns Infection Onset Date Last Indicated Resolved Time COVID-19 Rule Out 03/20/2020 03/20/2020 03/22/2020 6:40 PM CDT COVID-19 Rule Out 06/07/2020 06/07/2020 06/10/2020 2:30 AM SSRS REPORT DEVELOPER COVID-19 Rule Out 07/04/2020 07/04/2020 07/05/2020 6:22 PM SSRS REPORT DEVELOPER documented as of this encounter Care Teams Millinery Blocker Relationship Specialty Start Date End Date Julieth Lopez MD [address] [place] [address] PCP - General FAMILY PRACTICE 07/29/24 Julieth Lopez MD [address] [place] [address] PCP - General FAMILY PRACTICE 07/07/24 07/28/24 documented as of this encounter
--- NOTE | 2025-03-21 02:32 | ED.ABDPAIN ---
HPI - Abdominal Pain General Chief Complaint: Abdominal Pain Stated Complaint: Lower abd pain Time Seen by Provider: 03/21/25 01:50 Source: patient Mode of arrival: ambulatory Limitations: no limitations History of Present Illness HPI narrative: Patient presents with bilateral lower abdominal pain of 2 days duration. Described as a cramping. Associated with nausea, no vomiting. Diarrhea has been nonbloody. Deneis dysuria, hematuria, urgency or frequency. Underwent D&C in December but no other previous abdominal surgeries. History of kidney infections but nothing like thiis has happened before. Denies flank pain. Does not have chronic GI issues/follow with a second watch sergeant. No appetite. 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 No vaginal bleeding. LMP 03/07. Related Data Home Medications ?Medication ?Instructions ?Recorded ?Confirmed ?Last Taken ?Type albuterol sulfate 90 mcg/actuation 1 inh inhalation PRN PRN Shortness 05/01/21 12/03/24 12/02/24 History aerosol inhaler Of Breath Or Wheezing budesonide-formoterol HFA 160 1 inh inhalation BID 05/01/21 12/03/24 12/02/24 History mcg-4.5 mcg/actuation aerosol inhaler (Symbicort) sumatriptan succinate 25 mg tablet 25 - 50 mg PO PRN PRN Migraine 10/26/22 12/01/24 Unknown History Headache rimegepant 75 mg disintegrating 75 mg PO Q48H 12/01/24 12/01/24 Unknown History tablet (Nurtec ODT) spironolactone 25 mg tablet 25 mg PO DAILY 12/01/24 12/03/24 12/02/24 History Allergies Allergy/AdvReac Type Severity Reaction Status Date / Time adhesive Allergy Unknown ITCHING Verified 03/21/25 00:05 latex Allergy Hives Verified 03/21/25 00:05 vancomycin AdvReac Mild Pruritis Verified 03/21/25 00:05 [facility] Past Medical History Medical History History of kidney infection PCOS (polycystic ovarian syndrome) Morbid obesity Endometriosis Anemia Surgical History Surgical History History of D&C December 2024 Status post incision and drainage complex I&D of chest wall abscess 5x7 cm, right breast measuring 2x3 cm 07/15/22 Hx of tonsillectomy (2015) Due to recurrent tonsillitis Hx of excision of mass Family History Family History Father Liver failure Alcoholic cirrhosis, Onset Age: 49 Grandparent Heart disease Diabetes mellitus Lung cancer Grandparent Cervical cancer Breast cancer DVT (deep venous thrombosis) Other Cervical cancer Breast cancer Esophageal cancer Social History Social History Social History: She lives with her sister. Denies use of alcohol, tobacco or drugs. She does not have any children. 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 HEAD: Normocephalic, atraumatic. EYES: Non injected, non icteric ENT: Nares clear, no rhinorrhea or epistaxis. Gross auditory acuity intact. NECK: Supple. No meningismus. CHEST: Speaking in full sentences. No respiratory distress. HEART: Regular rate and rhythm. . ABDOMEN: Obese but Soft, nondistended. TTP in RUQ as well as in lower quadrants. No rigidity or guarding. Not peritoneal EXTREMITIES: Normal range of motion. No lower extremity edema. SKIN: Warm, dry, no rash. NEURO: No focal deficits. Alert and oriented. Answering questions. Following commands. Normal speech without aphasia or dysarthria. PSYCH: Normal mood and affect. Course Vital Signs Vital signs: Vital Signs Temperature 97.8 F 03/20/25 23:17 Pulse Rate 102 H 03/20/25 23:17 Respiratory Rate 20 03/20/25 23:17 Blood Pressure 142/99 H 03/20/25 23:17 Pulse Oximetry 98 03/20/25 23:17 Oxygen Delivery Room Air 03/20/25 23:17 Temperature 98.5 F 03/21/25 00:12 Pulse Rate 67 03/21/25 03:50 Respiratory Rate 15 03/21/25 03:50 Blood Pressure 130/85 03/21/25 03:50 Pulse Oximetry 97 03/21/25 03:50 Oxygen Delivery Room Air 03/20/25 23:17 MDM - Abdominal Pain MDM Narrative Medical decision making narrative: Patient presents with lower abdominal pain of 2 days duration associated with nausea and diarrhea. In the emergency department she is afebrile with vital signs that show mild tachycardia and hypertension although the hypertension resolved on repeat assessment. test negative. She has a mild leukocytosis otherwise not anemic. ALT only mildly elevated. Lipase normal. She is reassessed 3:35 a.m. and reports her pain and nausea improving. CT as below. Patient states she has been trialing ibuprofen, 200mg tablets x4 TID and this has not been helping. Will trial ketorolac. Patient is given the name of general surgeon on-call although she does state that she has previously had Dr Peres perform surgeries and more recently has been seen by a general surgeon through [facility]. Risks and benefits of opiate/narcotic medications for breakthrough pain were discussed with the patient she verifies understanding. We discussed alternatives, safe use, storage, and disposal. Per review of the prescription monitoring program database, she did feel some narcotic tablets in November of 2024 prescribed by new accounts banking representative; no interval fills. Prescribed Zofran as well. Stable for DC. Differential Diagnosis Differential diagnosis: Likely abdominal pain, acute appendicitis, calculus of kidney, constipation, diverticulitis, endometriosis, gastroenteritis, pancreatitis, small bowel obstruction and other (considered pyelonephritis; epiploaic appendigitis; considered ovarian pathology; enteritis/colitis; uti) Lab Data Attestation: I reviewed the patient's lab results. 03/21/25 00:17 03/21/25 00:17 Labs: Lab Results 03/21/25 03/21/25 Range/Units 00:12 00:17 WBC 11.9 H (4.5-10.0) K/mm3 RBC 4.91 (4.2-5.4) M/mm3 Hgb 13.5 (12.0-15.0) g/dL Hct 41.9 (37.0-47.0) % MCV 85.3 (80-100) fl MCH 27.5 (26-34) pg MCHC 32.2 (32-36) g/dl RDW 13.5 (11.5-14.5) % Plt Count 299 (150-375) k/mm3 MPV 10.3 (7.4-10.4) fl Immature Gran % (Auto) 0.3 (0-0.5) % Neut % (Auto) 61.4 (45.5-73.1) % Lymph % (Auto) 29.9 (18.3-44.2) % [place] % (Auto) 7.0 (2.6-8.5) % Eos % (Auto) 1.0 (0-4.4) % Baso % (Auto) 0.4 (0.2-1.2) % Lymph # (Auto) 3.56 H (0.9-3.2) K/mm3 [place] # (Auto) 0.8 H (0.1-0.6) K/mm3 Eos # (Auto) 0.1 (0-0.3) K/mm3 Baso # (Auto) 0.1 (0.0-0.1) K/mm3 Abs Immat Gran (auto) 0.04 H (0.00-0.031) K/mm3 Absolute Neuts (auto) 7.3 H (1.3-6.7) K/mm3 Absolute Nucleated RBC 0.000 (0.0-0.012) K/mm3 Nucleated RBC % 0.0 (0.0-0.2) % Sodium 139 (137-145) mmol/L Potassium 3.8 (3.4-5.0) mmol/L Chloride 102 (98-107) mmol/L Carbon Dioxide 27 (22-30) mmol/L Anion Gap 10 (4-12) mmol/L BUN 9 (7-17) mg/dL Creatinine 0.71 (0.7-1.0) mg/dL Estim Creat Clear Calc 154 ml/min Estimated GFR > 60 (59 - ) Glucose 134 H (65-110) mg/dL Calcium 9.0 (8.4-10.2) mg/dL Total Bilirubin 0.7 (0.2-1.3) mg/dL AST 30 (14-36) U/L ALT 38 H (6-35) U/L Alkaline Phosphatase 74 (38-126) U/L Total Protein 7.8 (6.3-8.2) g/dL Albumin 4.4 (3.5-5.1) g/dL Lipase 127 (23-300) U/L Urine Color Yellow (Yellow) Urine Appearance Clear (Clear) Urine pH 6.5 (5.0-9.0) Ur Specific [place] 1.018 (1.001-1.035) Urine Protein Negative (Negative) mg/dL Urine Glucose (UA) Negative (Negative) mg/dL Urine Ketones Negative (Negative) mg/dL Ur Blood (Man) Negative (Negative) Urine Nitrate Negative (Negative) Urine Bilirubin Negative (Negative) Urine Urobilinogen 1.0 (<2.0) mg/dL Leukocyte Esterase Rfl Trace H (Negative) JOSSELINE/UL Urine RBC 3-5 H (0-2) /hpf Urine WBC 0-5 (0-3) /hpf Ur Squamous Epith Cells Occasional (Few) /hpf Urine Bacteria Rare /hpf Urine Casts 0-2 POC Urine HCG, Qual Negative (Negative) Imaging Data Radiologist's impression: ITS Impressions Abdomen/Pelvis CT 03/21/25 07:23 IMPRESSION: 1. Epiploic appendagitis of ascending colon. 2. Diffuse hepatic steatosis. CT Abd & Pelvis with contrast: Prior 06/17/23 -epiploic appendagitis in the hepatic flexure. Otherwise no acute finding. Discharge Plan Discharge Clinical Impression: Epiploic appendagitis, Nausea Patient Disposition: Home Condition: Stable Instructions: Antibiotic Form, Narcotic Safety (ED), Acute Nausea and Vomiting (DC), Epiploic Appendagitis (ED) Additional Instructions: You can read about your diagnosis in the discharge instructions. This is typically a self-limiting and not life-threatening process that resolves over the course of 3-14 days though it may happen again in the future. The treatment is high-dose NSAIDs and narcotic/opiate medications for breakthrough pain. Follow-up with your primary care physician. Surgical intervention is not typically needed but the name of a surgeon is listed below for outpatient follow up if you have recurrent episodes. The oral disintegrating tablets of ondansetron/Zofran may help with nausea/vomiting. Patient Language: Malaysian Prescriptions: New ondansetron HCl 4 mg tablet 4 mg PO Q8H PRN (Reason: nausea and vomiting) Qty: 7 0RF Rx Instructions: patient prefers the tablets over the ODT ketorolac 10 mg tablet 10 mg PO Q8H PRN (Reason: pain) 5 Days Qty: 14 0RF Rx Instructions: maximum total duration of 5 days from all oral, intranasal, or parenteral formulations; received first dose in ED hydrocodone-acetaminophen 5-325 mg tablet 1 tablet PO Q8H PRN (Reason: pain) Qty: 10 0RF No Action albuterol sulfate 90 mcg/actuation HFA aerosol inhaler 1 inh INHALATION PRN PRN (Reason: Shortness Of Breath Or Wheezing) budesonide-formoterol [Symbicort] 160-4.5 mcg/actuation HFA aerosol inhaler 1 inh INHALATION BID Nurtec ODT 75 mg tablet,disintegrating 75 mg PO Q48H spironolactone 25 mg tablet 25 mg PO DAILY Patient Comments: For PCOS hydrocodone-acetaminophen 5-325 mg tablet 1 tablet PO Q4H PRN (Reason: pain) Qty: 20 0RF sumatriptan succinate 25 mg tablet 25 - 50 mg PO PRN PRN (Reason: Migraine Headache) Rx Instructions: TAKE 1 TO 2 TABLETS BY MOUTH 2 TIMES A DAY NEEDED FOR MIGRAINE. MAX OF 8 TABLETS IN 24 HOURS acetaminophen 500 mg capsule 500 mg PO Q6H PRN (Reason: pain) Qty: 14 0RF ibuprofen 800 mg tablet 800 mg PO TID PRN (Reason: pain) Qty: 20 0RF celecoxib [Celebrex] 200 mg capsule 200 mg PO DAILY Qty: 30 0RF Follow-up/Referrals: Aixa Peres MD [Physician, General Surgery] John,Julieth Moses MD [Primary Care Provider, Unknown] Nick Gambino MD [Physician, General Surgery] Stand Alone Forms: Work/School Release IP Time of Disposition: 04:12
[2025-03-21] MEDS: MORPHINE SULFATE (*CRX) 4 MG/ML INJ IV PUSH (03:06)
[2025-03-21] MEDS: ONDANSETRON INJ 4 MG/2 ML VIAL IV PUSH (03:06)
[2025-03-21] MEDS: KETOROLAC 30 MG/ML VIAL (*BKC) IV PUSH (03:48)
[2025-03-21 03:50] VITALS: BP 130/85; PULSE 67; RESP 15; O2SAT 97
[2025-03-21] MEDS: HYDROcodone/acetaminophen (*CRX) 5-325 MG TABLET 1 TAB PO (03:58)
== END 2025-03-21 04:27 | disposition home or self-care (01) ==
PROVIDERS: Emergency Provider Student in an Organized Health Care Education/Training Program; PCP Student in an Organized Health Care Education/Training Program
DX: K63.89 Other specified diseases of intestine (principal); R11.0 Nausea; E28.2 Polycystic ovarian syndrome; N80.9 Endometriosis, unspecified; E66.01 Morbid (severe) obesity due to excess calories; Z68.42 Body mass index [BMI] 45.0-49.9, adult; Z87.440 Personal history of urinary (tract) infections; Z86.2 Personal history of diseases of the blood and blood-forming organs and certain disorders involving the immune mechanism; K76.0 Fatty (change of) liver, not elsewhere classified; Z79.51 Long term (current) use of inhaled steroids; Z79.899 Other long term (current) drug therapy
CPT/HCPCS: 36415; 74177; 80053; 81001; 81025; 83690; 85025; 96374; 96375; 99284; A9270; J1885; J2270; J2405; Q9967

== ENCOUNTER 2025-06-06 13:24 | Emergency (ER) | payer OTHER, SELFPAY ==
[2025-06-06 13:35] VITALS: BP 131/95; PULSE 90; RESP 16; TEMP 36.5; O2SAT 100
--- NOTE | 2025-06-06 14:08 | ED.URI ---
HPI - URI/Sore Throat General Chief Complaint: Upper Respiratory Infection Stated Complaint: Sore Throat Time Seen by Provider: 06/06/25 14:08 Source: patient and RN notes reviewed Mode of arrival: ambulatory Limitations: no limitations History of Present Illness HPI Narrative: 24-year-old female presents with concern for sore throat, nasal congestion, cough and body aches. 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 She reports her symptoms have been present for 3 days she has been taking ibuprofen and DayQuil MD elicited complaint: cough and sore throat Related Data Home Medications ?Medication ?Instructions ?Recorded ?Confirmed ?Last Taken ?Type albuterol sulfate 90 mcg/actuation 1 inh inhalation PRN PRN Shortness 05/01/21 12/03/24 12/02/24 History aerosol inhaler Of Breath Or Wheezing budesonide-formoterol HFA 160 1 inh inhalation BID 05/01/21 12/03/24 12/02/24 History mcg-4.5 mcg/actuation aerosol inhaler (Symbicort) sumatriptan succinate 25 mg tablet 25 - 50 mg PO PRN PRN Migraine 10/26/22 12/01/24 Unknown History Headache rimegepant 75 mg disintegrating 75 mg PO Q48H 12/01/24 12/01/24 Unknown History tablet (Nurtec ODT) spironolactone 25 mg tablet 25 mg PO DAILY 12/01/24 12/03/24 12/02/24 History Allergies Allergy/AdvReac Type Severity Reaction Status Date / Time adhesive Allergy Unknown ITCHING Verified 06/06/25 13:41 latex Allergy Hives Verified 06/06/25 13:41 vancomycin AdvReac Mild Pruritis Verified 06/06/25 13:41 Review of Systems Review of Systems: CONSTITUTIONAL: Denies malaise, chills, sweats, or fever. EYES: Denies visual changes, redness, or discharge. ENT: Reports rhinorrhea, congestion, otalgia and sore throat. CARDIOVASCULAR: Denies chest pain, palpitations, or edema. RESPIRATORY: Reports cough. Denies dyspnea. GASTROINTESTINAL: Denies abdominal pain, nausea, vomiting, diarrhea SKIN: Denies rash or itching. MUSCULOSKELETAL: Denies myalgia. NEUROLOGIC: Reports headache. All systems reviewed & are unremarkable except as noted in HPI and below [facility] Past Medical History Medical History (Updated 06/06/25 @ 14:13 by Marie Quintana APRN) History of kidney infection PCOS (polycystic ovarian syndrome) Morbid obesity Endometriosis Anemia Surgical History Surgical History History of D&C December 2024 Status post incision and drainage complex I&D of chest wall abscess 5x7 cm, right breast measuring 2x3 cm 07/15/22 Hx of tonsillectomy (2014) Due to recurrent tonsillitis Hx of excision of mass Family History Family History Father Liver failure Alcoholic cirrhosis, Onset Age: 49 Grandparent Heart disease Diabetes mellitus Lung cancer Grandparent Cervical cancer Breast cancer DVT (deep venous thrombosis) Other Cervical cancer Breast cancer Esophageal cancer Social History Social History Social History: She lives with her sister. Denies use of alcohol, tobacco or drugs. She does not have any children. 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 There is no relevant family history pertinent to the presenting complaint Exam Narrative: GENERAL: Well-appearing, well-nourished, and in no acute distress. HEAD: Normocephalic EYES: PERRLA, conjunctivae clear ENT: Nares clear. Mucous membranes moist. TM pearly reveles with dull light reflex bilaterally; no tragal tenderness. Oropharynx not erythematous without lesions. Tonsils not enlarged and without exudate, no drooling, no hoarseness, no trismus, uvula midline. NECK: Supple. No lymphadenopathy CHEST: Clear to auscultation, breath sounds equal. No wheezing, rhonchi, rales, or stridor. No respiratory distress, speaks in full sentences. HEART: Regular rate and rhythm. No murmur heard. SKIN: Warm, dry, no rash. NEURO: Alert and oriented x3. PSYCH: Normal mood and affect Course Course Emergency Course: Patient is aware of diagnosis, understands and agrees to treatment plan. Anticipatory guidance given. Patient agrees to follow-up as directed and is aware of reasons to seek care at the emergency department. Portions of this record may have been created with voice recognition software Level of Care: [facility] Visit Vital Signs Vital signs: Vital Signs Temperature 97.7 F 06/06/25 13:35 Pulse Rate 90 06/06/25 13:35 Respiratory Rate 16 06/06/25 13:35 Blood Pressure 131/95 H 06/06/25 13:35 Pulse Oximetry 100 06/06/25 13:35 Temperature 97.7 F 06/06/25 13:35 Pulse Rate 90 06/06/25 13:35 Respiratory Rate 16 06/06/25 13:35 Blood Pressure 131/95 H 06/06/25 13:35 Pulse Oximetry 100 06/06/25 13:35 MDM Differential Diagnosis Differential Diagnosis: I evaluated this patient in the [facility]. History is obtained from patient who is an independent historian and physical exam was performed.? Available medical records were reviewed. ? Exam findings and relevant testing show no acute concerns or changes; patient is non-toxic appearing and is in no distress. ? Differential diagnosis considered: Bay virus, strep pharyngitis, allergic rhinitis, upper respiratory tract infection, sinusitis, rhinosinusitis, nasopharyngitis. viral pharyngitis, otitis media, otitis externa, pneumonia, bronchitis, viral cough syndrome, viral syndrome, and influenza. Differential diagnosis and treatment plan were discussed with the patient. Patient agrees with discussion and after shared medical decision making agrees with plan of care. All questions were answered to the patient's satisfaction. Patient is appropriate for outpatient treatment and follow-up. Discharge Plan Discharge Clinical Impression: Upper respiratory infection Patient Disposition: Home Condition: Stable Instructions: Upper Respiratory Infection (ED) Additional Instructions: Your rapid COVID and flu tests are negative Your rapid strep swab was negative today at [facility]. A throat culture will be sent to the laboratory for further testing. If the test is positive, you will receive a phone call within 48 hours and an appropriate antibiotic will be initiated at that time. Your symptoms are likely due to a viral illness, which is not treated with antibiotics. Viral symptoms can be present for up to a few weeks. -Alternate Tylenol and Motrin per package directions for fever or pain. -Antihistamine medication such as Benadryl at night and Zyrtec during the day can help improve symptoms. -Eat and drink things that are easy to swallow, like tea or soup, or popsicles to suck on. -Oral rinses such as: Salt water gargles and/or may use topical anesthetic (eg. Chloraseptic spray) or lozenges to relieve dryness or throat pain). -Frequent hand washing or hand psychiatric technician assistant is one of the best ways to prevent spread of infection. -Follow up with primary care provider in 2-3 days if condition is not improving; or seek ER visit if you have trouble breathing, cannot drink enough fluids, have muffled voice, difficulty opening your mouth, or severe swelling. Patient Language: Ivorian Prescriptions: New pseudoephedrine HCl [12 Hour Decongestant] 120 mg tablet extended release 120 mg PO Q12H PRN (Reason: nasal congestion) Qty: 12 0RF dextromethorphan-guaifenesin [Mucinex DM] 60-1,200 mg tablet extended release 12 hr 1 tablet PO Q12H Qty: 12 0RF No Action albuterol sulfate 90 mcg/actuation HFA aerosol inhaler 1 inh INHALATION PRN PRN (Reason: Shortness Of Breath Or Wheezing) budesonide-formoterol [Symbicort] 160-4.5 mcg/actuation HFA aerosol inhaler 1 inh INHALATION BID Nurtec ODT 75 mg tablet,disintegrating 75 mg PO Q48H spironolactone 25 mg tablet 25 mg PO DAILY Patient Comments: For PCOS hydrocodone-acetaminophen 5-325 mg tablet 1 tablet PO Q4H PRN (Reason: pain) Qty: 20 0RF hydrocodone-acetaminophen 5-325 mg tablet 1 tablet PO Q8H PRN (Reason: pain) Qty: 10 0RF sumatriptan succinate 25 mg tablet 25 - 50 mg PO PRN PRN (Reason: Migraine Headache) Rx Instructions: TAKE 1 TO 2 TABLETS BY MOUTH 2 TIMES A DAY NEEDED FOR MIGRAINE. MAX OF 8 TABLETS IN 24 HOURS acetaminophen 500 mg capsule 500 mg PO Q6H PRN (Reason: pain) Qty: 14 0RF celecoxib [Celebrex] 200 mg capsule 200 mg PO DAILY Qty: 30 0RF Follow-up/Referrals: PHYSICIAN,SEMICONDUCTOR PACKAGES TESTER [Primary Care Provider, Internal Medicine] Stand Alone Forms: Work/School Release IP Time of Disposition: 14:15
[2025-06-06 14:22] LABS: EDCOVIDSCREEN Negative (Negative); EDINFLUASCREEN Negative (Negative); EDINFLUBSCREEN Negative (Negative); EDSTREPNEGPOS1 Negative (Negative)
== END 2025-06-06 14:24 | disposition home or self-care (01) ==
PROVIDERS: Emergency Provider Nurse Practitioner
DX: J06.9 Acute upper respiratory infection, unspecified (principal); Z20.822 Contact with and (suspected) exposure to COVID-19; E28.2 Polycystic ovarian syndrome; E66.01 Morbid (severe) obesity due to excess calories; Z68.42 Body mass index [BMI] 45.0-49.9, adult; N80.9 Endometriosis, unspecified
CPT/HCPCS: 87081; 87426; 87804; 87880; 99213; G0463